=== PATIENT | male | born 1950 | race Caucasian/White ===

== ENCOUNTER → 2019-12-07 13:15 | Outpatient (BNVA) | payer OTHER, SELFPAY | PROVIDERS: PCP Internal Medicine; Referring Provider Internal Medicine; Visit Provider Internal Medicine | DX: Z76.89 Persons encountering health services in other specified circumstances (principal) ==

== ENCOUNTER 2019-12-09 09:07 | Outpatient (REF) | payer OTHER, SELFPAY ==
[2019-12-09 11:35] LABS: Estimated Average Glucose 157 mg/dL; Hemoglobin A1c % 7.1 %
[2019-12-09 11:58] LABS: Alanine Aminotransferase 38 U/L (0-40); Anion Gap 15 (12-20); Aspartate Amino Transferase 34 U/L (5-37); Blood Urea Nitrogen 20 mg/dL (9-16); Calcium 9.8 mg/dL (8.4-10.2); Carbon Dioxide 25 mmol/L (22-29); Chloride 108 mmol/L (96-108); Cholesterol 137 mg/dL; Estimated Glomerular Filt Rate > 60; Glucose Fasting 120 mg/dL (60-99); HDL Cholesterol 32 mg/dL; LDL Cholesterol Calculated 66 mg/dl; Potassium 4.5 mmol/l (3.3-5.1); Sodium 143 mmol/L (135-145); Triglycerides 195 mg/dL
[2019-12-10 12:17] LABS: Calcium, Ionized 5.2 mg/dL (4.8-5.6)
[2019-12-11 20:11] LABS: Calcium (PTHI) 9.9 mg/dL (8.6-10.3); PTHI 19 pg/mL (14-64)
== END 2019-12-09 09:08 | disposition home or self-care (01) ==
LOC: HO.HMGCLDS 09:07
PROVIDERS: PCP Internal Medicine; Visit Provider Internal Medicine
DX: E11.9 Type 2 diabetes mellitus without complications (principal); I10 Essential (primary) hypertension; E78.1 Pure hyperglyceridemia; E83.52 Hypercalcemia
CPT/HCPCS: 80048; 80061; 82330; 83036; 83970; 84450; 84460

== ENCOUNTER → 2020-01-04 14:09 | Outpatient (BNVA) | payer OTHER, SELFPAY | PROVIDERS: PCP Internal Medicine; Referring Provider Internal Medicine; Visit Provider Internal Medicine | DX: Z76.89 Persons encountering health services in other specified circumstances (principal) ==

== ENCOUNTER → 2020-02-05 14:21 | Outpatient (BNVA) | payer OTHER, SELFPAY | PROVIDERS: PCP Internal Medicine; Visit Provider Urology | DX: N40.1 Benign prostatic hyperplasia with lower urinary tract symptoms (principal); R39.15 Urgency of urination; R35.1 Nocturia; N13.8 Other obstructive and reflux uropathy | CPT/HCPCS: 51798 ==

== ENCOUNTER → 2020-03-14 08:18 | Outpatient (BNVA) | payer OTHER, SELFPAY | PROVIDERS: PCP Internal Medicine; Visit Provider Internal Medicine Endocrinology, Diabetes & Metabolism | DX: Z76.89 Persons encountering health services in other specified circumstances (principal) ==

== ENCOUNTER 2020-03-28 09:04 | Outpatient (REF) | payer MEDICARE, SELFPAY ==
--- NOTE | 2020-03-28 09:11 | US_ITS ---
EXAMINATION: US RETROPERITONEAL LIMITED (RENAL ONLY) CLINICAL INFORMATION: Calculus of kidney. COMPARISON: None TECHNIQUE: Routine grayscale imaging of both kidneys was performed FINDINGS: RIGHT KIDNEY: 13.5 x 6.7 x 5.8 cm (SAG x AP x TRV). The kidney is normal in size, contour, and echogenicity. Renal cortical thickness is normal. No calculi or focal parenchymal lesions. No hydronephrosis. LEFT KIDNEY: 14.4 x 7.1 x 5.5 cm (SAG x AP x TRV). The kidney is normal in size, contour, and echogenicity. Renal cortical thickness is normal. No renal calculi or hydronephrosis. There is anechoic cyst in the upper pole measuring 3.8 x 3.9 x 3.7 cm US/US renal BI IMPRESSION: Simple cyst upper pole left kidney. No echogenic stones or hydronephrosis seen.
== END 2020-03-28 09:05 | disposition home or self-care (01) ==
LOC: HO.HMGCX 09:04
PROVIDERS: Visit Provider Urology
DX: N20.0 Calculus of kidney (principal); R35.1 Nocturia
CPT/HCPCS: 76775

== ENCOUNTER 2020-03-31 09:25 | Outpatient (REF) | payer MEDICARE, SELFPAY ==
[2020-03-31 11:29] LABS: Estimated Average Glucose 157 mg/dL; Hemoglobin A1c % 7.1 %
[2020-03-31 11:57] LABS: Alanine Aminotransferase 26 U/L (0-40); Albumin Level 4.7 g/dL (3.5-5.0); Alkaline Phosphatase 43 U/L (39-117); Anion Gap 15 (12-20); Aspartate Amino Transferase 30 U/L (5-37); Bilirubin Total 0.8 mg/dL (0.0-1.0); Blood Urea Nitrogen 24 mg/dL (9-16); Calcium 9.4 mg/dL (8.4-10.2); Carbon Dioxide 24 mmol/L (22-29); Chloride 108 mmol/L (96-108); Estimated Glomerular Filt Rate 57; Glucose Fasting 114 mg/dL (60-99); Potassium 4.2 mmol/l (3.3-5.1); Sodium 143 mmol/L (135-145); Total Protein 7.3 g/dL (6.5-8.0)
== END 2020-03-31 09:26 | disposition home or self-care (01) ==
LOC: HO.HMGCLDS 09:25
PROVIDERS: PCP Internal Medicine; Visit Provider Internal Medicine Endocrinology, Diabetes & Metabolism
DX: E11.65 Type 2 diabetes mellitus with hyperglycemia (principal)
CPT/HCPCS: 36415; 80053; 83036

== ENCOUNTER → 2020-04-06 14:37 | Outpatient (BNVA) | payer MEDICARE, SELFPAY | PROVIDERS: PCP Internal Medicine; Visit Provider Urology | CPT/HCPCS: Q3014 ==

== ENCOUNTER 2020-04-08 10:03 | Outpatient (REF) | payer MEDICARE, SELFPAY ==
--- NOTE | 2020-04-08 13:40 | MHC.AU.P13 ---
Adult Audiological Evaluation Date of Visit: 04/08/20 Reason for Appointment: Audiological evaluation due to concern for change in hearing. Mr. Rivas has a known bilateral sensorineural hearing loss and feels that his left ear is getting worse. He notes that the left ear feels more blocked, both with and without the hearing aid. He denies any changes to his medical history since his last visit. Previous Hearing Test Results: [facility] [place], 01/12/2019- Normal low-frequency hearing sloping to a mild to severe/profound sensorineural hearing loss bilaterally. 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: [employer] Model: Platogo [id number]-M13 Serial Number: [id number] Battery Size: 13 Warranty: 05/08/2017 Loss and Damage Warranty: 05/13/2014 Dispensed By: [facility] Date of Fittin03/21/2012 Otoscopy: Right Ear: Unremarkable Left Ear: Unremarkable Tympanometry: Tympanometry performed due to: History of allergies/congestion Right Ear: Normal Middle Ear System (Type A) Left Ear: Normal Middle Ear System (Type A) Hearing Evaluation: Transducer(s) Used: Insert Earphones, Bone Conduction Method: Conventional Audiometry Stimuli Used: Pure Tones Right Ear: Description of Hearing: Normal hearing from 250-500 Hz, sloping to a mild to severe sensorineural hearing loss from 7244-6600 Hz. Left Ear: Description of Hearing: Normal hearing from 250-1000 Hz, sloping to a mild to profound sensorineural hearing loss from 1597-5738 Hz. Speech Recognition Threshold (SRT): Method Used: Monitored Live Voice Stimuli Used: Spondee Words Right Ear: 30 dBHL Left Ear: 30 dBHL Word Discrimination: Method: Recorded Lists Word Lists Used: NU-6 Right Ear: 100% at 70 dBHL Left Ear: 100% at 70 dBHL Comparison: Compared to the most recent evaluation: Hearing is stable. Recommendations: Audiological re-evaluation in one year. Hearing aid maintenance performed today. Recommend hearing aid maintenance in six months. Diagnosis: Primary Diagnosis: H90.3 Bilateral Sensorineural Hearing Loss Secondary Diagnosis: H93.13 Tinnitus, Bilateral Services Performed: Comprehensive Audiological Evaluation (CPT 77475) Tympanometry (CPT 22023) Signature: Provider: Bisi Mosqueda, CCC-A
== END 2020-04-08 10:04 | disposition home or self-care (01) ==
LOC: HO.SH 10:03
PROVIDERS: Visit Provider Internal Medicine
DX: H90.3 Sensorineural hearing loss, bilateral (principal); H93.13 Tinnitus, bilateral
CPT/HCPCS: 92557; 92567

== ENCOUNTER → 2020-05-03 14:53 | Outpatient (BNVA) | payer MEDICARE, SELFPAY | PROVIDERS: PCP Internal Medicine; Visit Provider Internal Medicine | DX: J30.9 Allergic rhinitis, unspecified (principal); E66.9 Obesity, unspecified; G47.33 Obstructive sleep apnea (adult) (pediatric); Z99.89 Dependence on other enabling machines and devices | CPT/HCPCS: 99212 ==

== ENCOUNTER 2020-07-15 10:53 | Outpatient (REF) | payer MEDICARE, SELFPAY ==
[2020-07-15 14:32] LABS: Alanine Aminotransferase 29 U/L (0-40); Albumin Level 4.8 g/dL (3.5-5.0); Alkaline Phosphatase 34 U/L (39-117); Anion Gap 15 (12-20); Aspartate Amino Transferase 29 U/L (5-37); Bilirubin Total 0.7 mg/dL (0.0-1.0); Blood Urea Nitrogen 25 mg/dL (9-16); Calcium 9.9 mg/dL (8.4-10.2); Carbon Dioxide 25 mmol/L (22-29); Chloride 105 mmol/L (96-108); Cholesterol 149 mg/dL; Estimated Glomerular Filt Rate 52; Glucose Fasting 117 mg/dL (60-99); HDL Cholesterol 30 mg/dL; LDL Cholesterol Calculated 77 mg/dl; Potassium 4.3 mmol/L (3.3-5.1); Sodium 141 mmol/L (135-145); Total Protein 7.4 g/dL (6.5-8.0); Triglycerides 213 mg/dL
[2020-07-15 15:35] LABS: PSA,Total (Free>4and<10) 4.25 ng/mL (0.00-4.00)
[2020-07-15 17:19] LABS: Microalbum/Creatinine Ratio Ur 9.3 ug/mg cr
[2020-07-16 12:57] LABS: LDL Cholesterol Direct 85 mg/dL (<100)
[2020-07-18 11:56] LABS: Free Prostate Spec Ag 1.3 ng/mL; Percent Free Prostate Spec Ag 35 % (calc) (>25); Prostate Specific Ag Total 3.7 ng/mL (< OR = 4.0)
== END 2020-07-15 10:54 | disposition home or self-care (01) ==
LOC: HO.HMGCLDS 10:53
PROVIDERS: Urology; PCP Internal Medicine; Visit Provider Internal Medicine Endocrinology, Diabetes & Metabolism
DX: E11.65 Type 2 diabetes mellitus with hyperglycemia (principal); N40.1 Benign prostatic hyperplasia with lower urinary tract symptoms; N13.8 Other obstructive and reflux uropathy; Z12.5 Encounter for screening for malignant neoplasm of prostate
CPT/HCPCS: 36415; 80053; 80061; 82043; 83721; 84153; 84154

== ENCOUNTER → 2020-07-18 07:57 | Outpatient (BNVA) | payer MEDICARE, SELFPAY | PROVIDERS: PCP Internal Medicine; Visit Provider Internal Medicine Endocrinology, Diabetes & Metabolism | DX: E11.65 Type 2 diabetes mellitus with hyperglycemia (principal); E11.40 Type 2 diabetes mellitus with diabetic neuropathy, unspecified; E04.2 Nontoxic multinodular goiter; E78.5 Hyperlipidemia, unspecified; E55.9 Vitamin D deficiency, unspecified; E66.9 Obesity, unspecified; I10 Essential (primary) hypertension | CPT/HCPCS: 82947; 99212 ==

== ENCOUNTER → 2020-08-23 08:53 | Outpatient (BNVA) | payer MEDICARE, SELFPAY | PROVIDERS: PCP Internal Medicine; Referring Provider Internal Medicine; Visit Provider Internal Medicine Cardiovascular Disease | DX: I25.10 Atherosclerotic heart disease of native coronary artery without angina pectoris (principal); I10 Essential (primary) hypertension; I49.1 Atrial premature depolarization | CPT/HCPCS: 93005; 99212 ==

== ENCOUNTER → 2020-08-29 11:02 | Outpatient (REF) | payer MEDICARE, SELFPAY ==
--- NOTE | 2020-08-29 11:04 | HM_ITS ---
TEST PERFORMED: Cardiac event monitoring. ENROLLMENT PERIOD: 08/29/2020-09/28/2020-30 days. REASON FOR TESTING: Atrial premature depolarization. FINDINGS: In the above monitoring period, the underlying rhythm was sinus. Average rate 86/min. There is nonspecific QRS widening noted in the strips. No symptoms noted during the monitoring period. No supraventricular ventricular arrhythmias noted. CONCLUSION: Study shows underlying sinus rhythm without any noted symptoms or arrhythmias. MD SUMMER Cameron/SOPHIA / [phone]
== END ==
LOC: HO.CARD 11:02
PROVIDERS: Visit Provider Internal Medicine Cardiovascular Disease
DX: I49.1 Atrial premature depolarization (principal)
CPT/HCPCS: 93270

== ENCOUNTER → 2020-09-26 09:28 | Outpatient (REF) | payer MEDICARE, SELFPAY ==
--- NOTE | 2020-09-26 09:31 | CA_ITS ---
Transthoracic Echocardiogram Patient (Last, First, Middle): Eldon Rivas G Gender: Male Date of : 1950 Age: 70 Procedure Date: 09/26/2020 Procedure Type: Transthoracic Echocardiogram Location: OP Height: 190.5 cm Weight: 124.74 kg BSA: 2.51 m2 Heart Rate: bpm BP: 120 / 70 mmHg Gerentological Physiotherapist: Referring MD: Davonte Rodríguez MD Symptoms: I49.1 - Atrial premature depolarization Study Quality: Fair ECG Rhythm: Sinus Conclusions: - The left ventricular systolic function is mildly decreased. The visually estimated ejection fraction is between 45-50%. - No obvious valvular pathology seen on this study. Findings Procedure Information Contrast agent, definity, is being given per protocol without apparent complications. Left Ventricle Normal left ventricular cavity size. There is mildly increased left ventricular wall thickness. The left ventricular systolic function is mildly decreased. The visually estimated ejection fraction is between 45-50%. There is mild global hypokinesis. Diastolic function is normal for age. Right Ventricle Normal right ventricular cavity size and systolic function. Atria Both atria are normal in size. Aortic Valve There is a normal trileaflet aortic valve. There is no aortic valve stenosis. There is no aortic valve regurgitation. Mitral Valve The mitral valve appears normal. There is trace mitral valve regurgitation. There is no mitral valve stenosis. Pulmonic Valve The pulmonic valve was not well visualized. Tricuspid Valve Normal tricuspid valve structure. There is trace tricuspid valve regurgitation. The pulmonary artery systolic pressure is normal. Great Vessels The aortic annulus, sinuses of valsalva, and asc aorta are normal in size. Venous The inferior vena cava is normal in size and collapses greater than 50% with inspiration. Pericardium/Pleural There is no evidence of pericardial effusion. Prior Study Comparison No significant change compared to prior study dated: 03/09/2014. Recommendations, Care & Conclusions No obvious valvular pathology seen on this study. Measurements 2D Linear Measurements RVIDd: 3.39 RVIDd Index: 1.35 IVSd: 1.02 0.6-0.9/0.6-1.0 cm LVIDd: 5.30 3.9-5.3/4.2-5.9 cm LVIDd Index: 2.11 2.4-3.2/2.2-3.1 cm/m2 LVIDs: 3.54 2.0-3.6 cm LVPWd: 1.15 0.7-1.1 cm Ao Root: 3.10 2.1-3.5 cm LA Diam: 4.50 2.7-3.8/3.0-4.0 cm LAIDs Index: 1.79 1.5-2.3 cm/m2 LV Mass: 278.67 67-162/88-224 g LV Mass Index: 111.03 43-95/49-115 g/m2 LVOT Diam: 2.40 3.0+(-)1.3 cm 2D Systolic Function EF 4C: 41.00 >55% EF 2C: 49.60 >55% EF BiP: 44.90 >55% Mitral Valve MV Pk E: 0.44 MV PK A: 0.57 MV Decel Time: 290.00 E/A: 0.80 E'Lateral: 6.74 E'Medial: 7.62 E/E' Med: 5.80 E/E' Lat: 6.50 Aortic Valve AoV Pk Ronan: 1.15 AoV Mn Ronan: 0.79 AoV VTI: 0.21 AoV Pk Grad: 5.00 Aov Mn Grad: 3.00 SHASTA Cont.VTI: 3.44 LVOT LVOT Pk Ronan: 0.88 LVOT Mn Ronan: 0.64 LVOT VTI: 0.16 LVOT Pk Grad: 3.00 LVOT Mn Grad: 2.00 LVOT Diam: 2.40 LVOT Area: 4.52 Diastolic Function MV Pk E: 0.44 MV Pk A: 0.57 E/A: 0.80 E'Medial: 7.62 E/E' Med: 5.80 E' Laterial: 6.74 E/E' Lat: 6.50 Right Ventricle TAPSE (mm): 2.99 Tricuspid Valve TR Pk Ronan: 1.63 TR Pk Grad: 11.00 RA Press: 3.00 RVSP: 14.00 Great Vessels Aorta Ao Root-2D: 3.10 2.0-3.7 cm Ao Asc: 3.20 2.1-3.4 cm Ao Arch: 3.00 Updated in Other Vendor System with Status of Final Finesse Ku MD electronically signed on 09/26/2020 12:12:45 PM with status of Final
== END ==
LOC: HO.CARD 09:28
PROVIDERS: Visit Provider Internal Medicine Cardiovascular Disease
DX: I49.1 Atrial premature depolarization (principal)
CPT/HCPCS: 93306; Q9957

== ENCOUNTER → 2020-09-28 08:56 | Outpatient (BNVA) | payer MEDICARE, SELFPAY | PROVIDERS: PCP Internal Medicine; Visit Provider Internal Medicine Cardiovascular Disease | DX: Z13.89 Encounter for screening for other disorder (principal) | CPT/HCPCS: Q3014 ==

== ENCOUNTER 2020-10-04 10:15 | Outpatient (REF) | payer MEDICARE, SELFPAY ==
[2020-10-04 12:10] LABS: Cholesterol 137 mg/dL; HDL Cholesterol 31 mg/dL; LDL Cholesterol Calculated 78 mg/dl; Triglycerides 144 mg/dL
== END 2020-10-04 10:16 | disposition home or self-care (01) ==
LOC: HO.HMGCLDS 10:15
PROVIDERS: PCP Internal Medicine; Visit Provider Internal Medicine Cardiovascular Disease
DX: I25.10 Atherosclerotic heart disease of native coronary artery without angina pectoris (principal)
CPT/HCPCS: 36415; 80061

== ENCOUNTER → 2020-10-05 13:43 | Outpatient (BNVA) | payer MEDICARE, SELFPAY | PROVIDERS: PCP Internal Medicine; Visit Provider Urology | DX: N40.1 Benign prostatic hyperplasia with lower urinary tract symptoms (principal); R35.1 Nocturia; N13.8 Other obstructive and reflux uropathy | CPT/HCPCS: 99212 ==

== ENCOUNTER 2020-10-28 16:16 | Outpatient (REF) | payer MEDICARE, SELFPAY | END 2020-10-28 16:17 | disposition home or self-care (01) | LOC: HO.LNP 16:16 | PROVIDERS: Visit Provider Hospitalist | DX: R30.0 Dysuria (principal); Z20.822 Contact with and (suspected) exposure to COVID-19 | CPT/HCPCS: 87086; U0003; U0005 ==

== ENCOUNTER → 2020-11-15 09:59 | Outpatient (BNVA) | payer MEDICARE, SELFPAY | PROVIDERS: PCP Internal Medicine; Visit Provider Internal Medicine | DX: J30.9 Allergic rhinitis, unspecified (principal); G47.33 Obstructive sleep apnea (adult) (pediatric); Z99.89 Dependence on other enabling machines and devices; E66.9 Obesity, unspecified | CPT/HCPCS: 99212 ==

== ENCOUNTER 2021-02-02 10:41 | Outpatient (REF) | payer MEDICARE, SELFPAY ==
[2021-02-02 14:14] LABS: Cholesterol 94 mg/dL; HDL Cholesterol 27 mg/dL; LDL Cholesterol Calculated 41 mg/dl; Triglycerides 133 mg/dL
== END 2021-02-02 10:42 | disposition home or self-care (01) ==
LOC: HO.HMGCLDS 10:41
PROVIDERS: Absent Provider Internal Medicine Cardiovascular Disease; Visit Provider Nurse Practitioner Family
DX: E11.65 Type 2 diabetes mellitus with hyperglycemia (principal); E78.5 Hyperlipidemia, unspecified; I25.10 Atherosclerotic heart disease of native coronary artery without angina pectoris
CPT/HCPCS: 36415; 80061

== ENCOUNTER 2021-03-13 11:10 | Outpatient (REF) | payer MEDICARE, SELFPAY ==
[2021-03-13 12:10] LABS: Estimated Average Glucose 128 mg/dL; Hemoglobin A1c % 6.1 %
[2021-03-13 12:15] LABS: Anion Gap 11 (12-20); Blood Urea Nitrogen 20 mg/dL (9-16); Calcium 9.9 mg/dL (8.4-10.2); Carbon Dioxide 26 mmol/L (22-29); Chloride 108 mmol/L (96-108); Estimated Glomerular Filt Rate 56; Glucose Fasting 115 mg/dL (60-99); Potassium 4.3 mmol/L (3.3-5.1); Sodium 141 mmol/L (135-145)
[2021-03-13 12:42] LABS: Free T4 (Free Thyroxine) 0.99 ng/dL (0.71-1.85); Thyroid Stimulating Hormone 1.11 uIU/mL (0.32-4.0)
== END 2021-03-13 11:11 | disposition home or self-care (01) ==
LOC: HO.HMGCLDS 11:10
PROVIDERS: PCP Internal Medicine; Visit Provider Internal Medicine
DX: E11.40 Type 2 diabetes mellitus with diabetic neuropathy, unspecified (principal); E55.9 Vitamin D deficiency, unspecified; I10 Essential (primary) hypertension; I25.10 Atherosclerotic heart disease of native coronary artery without angina pectoris; E03.9 Hypothyroidism, unspecified
CPT/HCPCS: 36415; 80048; 82306; 83036; 84439; 84443

== ENCOUNTER 2021-03-29 13:15 | Outpatient (REF) | payer MEDICARE, SELFPAY ==
[2021-03-29 17:17] LABS: PSA,Total (Free>4and<10) 1.29 ng/mL (0.00-4.00)
== END 2021-03-29 13:16 | disposition home or self-care (01) ==
LOC: HO.HMGCLDS 13:15
PROVIDERS: PCP Internal Medicine; Visit Provider Urology
DX: N40.1 Benign prostatic hyperplasia with lower urinary tract symptoms (principal); N13.8 Other obstructive and reflux uropathy; Z12.5 Encounter for screening for malignant neoplasm of prostate
CPT/HCPCS: 36415; 84153

== ENCOUNTER → 2021-04-07 11:28 | Outpatient (BNVA) | payer MEDICARE, SELFPAY | PROVIDERS: PCP Internal Medicine; Visit Provider Urology | DX: N40.1 Benign prostatic hyperplasia with lower urinary tract symptoms (principal); N13.8 Other obstructive and reflux uropathy | CPT/HCPCS: Q3014 ==

== ENCOUNTER → 2021-05-16 10:04 | Outpatient (BNVA) | payer MEDICARE, SELFPAY | PROVIDERS: PCP Internal Medicine; Visit Provider Internal Medicine | DX: J30.9 Allergic rhinitis, unspecified (principal); G47.33 Obstructive sleep apnea (adult) (pediatric); E66.9 Obesity, unspecified; Z68.34 Body mass index [BMI] 34.0-34.9, adult | CPT/HCPCS: 99212 ==

== ENCOUNTER 2021-07-03 10:02 | Outpatient (REF) | payer MEDICARE, SELFPAY ==
--- NOTE | ~2021-07-03 | XR_ITS ---
EXAMINATION: XR FOOT, RIGHT CLINICAL INFORMATION: Contusion of the foot. COMPARISON: None TECHNIQUE: AP, lateral, and oblique views of the right foot. FINDINGS: The bones and soft tissues are normal. No fracture. Alignment is anatomic. Joint spaces are maintained. XR/XR foot RT 2V IMPRESSION: Unremarkable right foot exam.
[2021-07-03 11:46] LABS: Alanine Aminotransferase 22 U/L (0-40); Anion Gap 14 (12-20); Aspartate Amino Transferase 28 U/L (5-37); Blood Urea Nitrogen 25 mg/dL (9-16); Calcium 10.2 mg/dL (8.4-10.2); Carbon Dioxide 24 mmol/L (22-29); Chloride 106 mmol/L (96-108); Cholesterol 112 mg/dL; Estimated Glomerular Filt Rate 51; Glucose Fasting 115 mg/dL (60-99); HDL Cholesterol 33 mg/dL; LDL Cholesterol Calculated 52 mg/dl; Potassium 4.8 mmol/L (3.3-5.1); Sodium 139 mmol/L (135-145); Triglycerides 138 mg/dL
[2021-07-03 12:04] LABS: Creatinine Urine 79.49 mg/dL; Microalbum/Creatinine Ratio Ur 6.2 ug/mg cr
[2021-07-03 12:07] LABS: TSH reflex Free T4 1.38 uIU/mL (0.32-4.0); Vitamin D 25-OH Total 30.3 ng/mL (>30)
[2021-07-03 12:09] LABS: Estimated Average Glucose 126 mg/dL
== END 2021-07-03 10:03 | disposition home or self-care (01) ==
LOC: HO.HMGCX 10:02
PROVIDERS: Absent Provider Internal Medicine; PCP Internal Medicine; Visit Provider Internal Medicine
DX: S90.31XD Contusion of right foot, subsequent encounter (principal); E04.2 Nontoxic multinodular goiter; E55.9 Vitamin D deficiency, unspecified; E78.5 Hyperlipidemia, unspecified; I10 Essential (primary) hypertension; I25.10 Atherosclerotic heart disease of native coronary artery without angina pectoris; E11.40 Type 2 diabetes mellitus with diabetic neuropathy, unspecified
CPT/HCPCS: 36415; 73620; 80048; 80061; 82043; 82306; 83036; 84443; 84450; 84460

== ENCOUNTER 2021-07-28 13:24 | Outpatient (REF) | payer MEDICARE, SELFPAY ==
[2021-07-28 16:29] LABS: Appearance Urine CLEAR; Color Urine YELLOW; Glucose Urine UA >=1000 MG/DL (NEG); Leukocyte Esterase Urine NEG (NEG); Nitrite Urine NEG (NEG); PH 5.5 (5.0-8.0); Urine Blood 1+ (NEG); Urine Ketones 5 MG/DL (NEG); Urine Protein TRACE MG/DL (NEG-TRACE)
[2021-07-28 16:37] LABS: Squamous Epithelial Cell Urine 1+ /LPF
== END 2021-07-28 13:25 | disposition home or self-care (01) ==
LOC: HO.HMGCLDS 13:24
PROVIDERS: Visit Provider Urology
DX: N13.8 Other obstructive and reflux uropathy (principal); N40.1 Benign prostatic hyperplasia with lower urinary tract symptoms
CPT/HCPCS: 81001; 87086; 87088; 87186

== ENCOUNTER 2021-08-09 09:49 | Emergency (ER) | payer MEDICARE, SELFPAY ==
--- NOTE | ~2021-08-09 | CT_ITS ---
EXAMINATION: CT ABDOMEN AND PELVIS WITHOUT CONTRAST CLINICAL INFORMATION: Right lower quadrant abdominal pain COMPARISON: Renal ultrasound 03/28/2020 TECHNIQUE: Multidetector volumetric imaging was performed from the superior aspect of the liver through the pubic symphysis. Sagittal and coronal reformatted images were obtained on the technologist's workstation. This CT examination was performed using dose optimization techniques as appropriate, variously including the following: *Automated exposure control *Adjustment of mA and/or kV according to patient size (this includes techniques or standardized protocols for targeted exams where dose is matched to indication/reason for exam; i.e. extremities or head) *Use of iterative reconstruction technique DLP: 1003 mGy-cm FINDINGS: Visualized lung bases demonstrate mild dependent atelectasis. The liver is normal in size but demonstrates diffusely decreased attenuation. The gallbladder is normal in appearance. The pancreas, spleen and adrenal glands are unremarkable. Small medial splenule noted. Symmetrically sized kidneys. There is mild right-sided hydronephrosis secondary to a 2 mm calculus within the distal right ureter. There are two 1 to 2 mm nonobstructing calculi the left kidney. No left-sided hydronephrosis. There is a partially exophytic approximately 4 cm cyst off the upper pole of the left kidney. Normal caliber loops of small and large bowel. Moderate colonic diverticulosis without CT evidence to suggest active diverticulitis. Normal appendix. Normal caliber abdominal aorta. Mild atherosclerotic disease of the abdominal aorta. No retroperitoneal lymphadenopathy. The bladder is normal in appearance. The prostate gland is mildly enlarged. No gross free pelvic fluid. No inguinal lymphadenopathy. Mild to moderate degenerative changes of the spine. CT/CT abdomen pelvis wo con IMPRESSION: -There is mild right-sided hydronephrosis secondary to a 2 mm calculus within the distal right ureter. -Colonic diverticulosis. -Diffusely decreased liver attenuation suggesting hepatic steatosis. Fleischner guidelines were followed.
[2021-08-09 10:04] VITALS: BP 140/83; PULSE 87; RESP 18; TEMP 36.9; O2SAT 98; BMI 33.3
--- NOTE | 2021-08-09 10:42 | ED_ITS ---
HPI - Abdominal Pain General Chief Complaint: Abdominal Pain Stated Complaint: Vomiting/Lower R Abd pain Time Seen by Provider: 08/09/21 10:33 Source: patient and family History of Present Illness HPI narrative: Patient with right lower quadrant abdominal pain that started fairly suddenly this morning. He states he had a couple of bowel movements and then nausea and vomiting and sudden-onset right lower quadrant abdominal pain. No radiation of flank. No fevers or chills. He had a recent urinary tract infection treated with Levaquin and finished that on Saturday, 4 days ago. He states the symptoms with UTI were urinary frequency and those symptoms have resolved. He denies hematuria His only other recent medical history is a cellulitis of his right foot also treated with antibiotics approximately 1 month ago. He is not currently on antibiotics however. No surgical history. His appendix is in. No history of pain like this. No recent diarrhea Related Data Home Medications Medication Instructions Recorded Confirmed aspirin 81 mg tablet,delayed 81 mg PO DAILY 11/28/19 07/13/21 release blood sugar diagnostic #10 ea 11/28/19 07/13/21 flu vacc (65yr ml IM 11/28/19 07/13/21 up)-MF59C(PF) 60 mcg(15 mcgx4)/0.5 mL IM syringe lancets 33 gauge #100 ea 11/28/19 07/13/21 alpha lipoic acid 600 mg capsule 600 mg PO BID 12/07/19 07/13/21 cinnamon bark 500 mg capsule 1,000 mg PO DAILY 12/07/19 07/13/21 (Cinnamon) coenzyme Q10 30 mg capsule (Co 30 mg PO DAILY 12/07/19 07/13/21 Q-10) multivitamin (Multiple Vitamins) 1 tab PO DAILY 12/07/19 07/13/21 metformin 500 mg tablet,extended 1,000 mg PO BID 10/05/20 07/13/21 release 24 hr fluticasone propionate 50 2 spray intranasal DAILY PRN 05/16/21 07/13/21 mcg/actuation nasal spray,suspension (Flonase Allergy Relief) cholecalciferol (vitamin D3) 50 50 mcg PO DAILY 07/13/21 07/13/21 mcg (2,000 unit) capsule Previous Rx's Medication Instructions Recorded rosuvastatin 40 mg tablet 40 mg PO DAILY 90 days #90 tabs 10/14/20 canagliflozin 300 mg tablet 300 mg PO DAILY #90 tabs 10/26/20 (Invokana) ezetimibe 10 mg tablet (Zetia) 10 mg PO DAILY #30 tabs 01/05/21 dulaglutide 1.5 mg/0.5 mL 1.5 mg (0.5 mL) subcut QWEEK 90 02/23/21 subcutaneous pen injector days #6.5 mL (Trulicity) fenofibrate nanocrystallized 145 145 mg PO DAILY 90 days #90 tabs 02/23/21 mg tablet finasteride 5 mg tablet 5 mg PO DAILY 90 days #90 tabs 03/15/21 metoprolol succinate 50 mg 50 mg PO DAILY 90 days #90 tabs 03/16/21 tablet,extended release 24 hr omega-3 acid ethyl esters 1 gram 2 cap PO BID #360 caps 03/16/21 capsule terazosin 10 mg capsule 10 mg PO BEDTIME 90 days #90 caps 04/07/21 lisinopril 40 mg tablet 40 mg PO DAILY #90 tabs 05/31/21 pioglitazone 30 mg tablet 30 mg PO DAILY #90 tabs 06/05/21 cephalexin 500 mg capsule 500 mg PO TID #30 caps 07/03/21 levofloxacin 500 mg tablet 500 mg PO DAILY 5 days #5 tabs 08/01/21 oxycodone-acetaminophen 5 mg-325 1 tab PO TID PRN pain #10 tabs 08/09/21 mg tablet (Percocet) Allergies Allergy/AdvReac Type Severity Reaction Status Date / Time bacitracin [BACITRACIN] Allergy Mild DERMATITIS, Verified 07/13/21 10:05 rash, rash Review of Systems Comments: no fevers or chills Comments: no chest pain Comments: no cough or dyspnea Gastrointestinal: Reports as per HPI Comments: no current symptoms Comments: no current musculoskeletal some Comments: no rash PMFSH Past Medical History Medical History (Updated 08/09/21 @ 14:05 by Renan Perez MD) Allergic rhinitis Allergic rhinitis CAD (coronary artery disease) Diabetes type 2, uncontrolled Diabetic neuropathy associated with type 2 diabetes mellitus Dyslipidemia Hearing loss Hypertension Non-toxic multinodular goiter Obesity Obstructive sleep apnea MICHAEL on CPAP Vitamin D deficiency Surgical History Stented coronary artery Family History Family History Father Diabetes Substance use disorder Mother Hypertension Mental health disorder Social History Social History Housing: House Alcohol intake: never Patient Tobacco Use Status: Former Tobacco user e-Cigarette/Vaping Use: Never Used Use of substances other than those prescribed or required for medical reasons: No Advance Directives: Yes Advance Directives Information Provided: No Advance Directives on File: No Current occupational status: retired Cognitive needs: No Hearing needs: Yes Vision needs: Yes Physical Exam ED Vital Signs: Vital Signs - 24 hr 08/09/21 10:04 08/09/21 12:00 Temperature 98.4 F Pulse Rate 87 81 Respiratory Rate 18 16 Blood Pressure 140/83 H 121/70 Pulse Oximetry 98 98 Oxygen Delivery Method Room Air Room Air BMI result Body Mass Index 33.3 Const Other: awake and alert no acute distress Resp Other: clear and equal bilaterally Cardio Other: regular rate and rhythm without murmurs rubs or gallops GI Other: soft. Mild tenderness right lower abdomen without guarding or rebound. No flank tenderness to percussion Skin Other: warm pink and dry without rash Course Course Course Narrative: sudden-onset right lower abdominal pain. Appendicitis is possible but this is not a typical presentation. Given recent symptoms with UTI and antibiotics, urinary tract infection or pyelonephritis or kidney stone are also possibilities. IV normal saline IV Toradol IV Zofran CT scan ordered Await labs 14:02. Patient is more comfortable after treatment. Lab work shows mildly elevated white count. Mildly elevated creatinine. Red cells in his urine without evidence of infection CT scan shows 2 mm kidney stone with [id number] hydronephrosis. Kidney stone is in the right distal ureter. Will discharge patient home to continue his current medications including terazosin. Follow-up with his urologist for which he already has an appointment for his prostate. MDM - Abdominal Pain Lab Data Result diagrams: 08/09/21 10:43 08/09/21 10:43 Labs: Lab Results 08/09/21 08/09/21 08/09/21 Range/Units 10:43 10:43 10:43 WBC 13.4 H (4.8-10.8) X10*3/uL RBC 4.62 (4.60-5.80) X10*6/uL Hgb 13.6 L (14.0-18.0) g/dl Hct 41.3 L (42.0-52.0) % MCV 89.4 (80.0-98.0) fL MCH 29.4 (27.0-33.0) pg MCHC 32.9 (31.0-36.0) g/dl RDW 13.9 (11.0-16.0) % Plt Count 251 (160-400) X10*3/uL MPV 10.2 (9.4-12.4) fL Immature Gran % (Auto) 0.6 H (0.0-0.4) % Neut % (Auto) 78.2 H (45-73) % Lymph % (Auto) 15.1 L (20-40) % [place] % (Auto) 4.6 (2-11) % Eos % (Auto) 1.0 (0-4) % Baso % (Auto) 0.5 (0-2) % Lymph # (Auto) 2.0 (1.2-4.9) X10*3/uL [place] # (Auto) 0.6 (0.1-1.2) X10*3/uL Eos # (Auto) 0.1 (0.0-0.4) X10*3/uL Baso # (Auto) 0.1 (0.0-0.2) X10*3/uL Abs Immat Gran (auto) 0.08 H (0.00-0.03) X10*3/uL Absolute Neuts (auto) 10.4 H (2.0-8.3) x10*3/uL Absolute Nucleated RBC 0.000 (0.0-0.012) X10*3/uL Nucleated RBC % (auto) 0.0 (0.0-0.2) /100WBC Sodium 139 (135-145) mmol/L Potassium 4.6 (3.3-5.1) mmol/L Chloride 106 (96-108) mmol/L Carbon Dioxide 22 (22-29) mmol/L Anion Gap 16 (12-20) BUN 23 H (9-16) mg/dL Creatinine 1.42 H (0.5-1.4) mg/dL Estim Creat Clear Calc 66.0 Estimated GFR 49 Random Glucose 154 H (60-115) mg/dL Calcium 10.2 (8.4-10.2) mg/dL Total Bilirubin 0.7 (0.0-1.0) mg/dL AST 26 (5-37) U/L ALT 22 (0-40) U/L Alkaline Phosphatase 36 L (39-117) U/L Total Protein 7.0 (6.5-8.0) g/dL Albumin 4.3 (3.5-5.0) g/dL Lipase 47 (8-78) U/L Urine Color Urine Appearance Urine pH (5.0-8.0) Ur Specific [place] (1.005-1.025) Urine Protein (NEG-TRACE) MG/DL Urine Glucose (UA) (NEG) MG/DL Urine Ketones (NEG) MG/DL Urine Blood (NEG) Urine Nitrite (NEG) Ur Leukocyte Esterase (NEG) Urine RBC (0) /HPF Urine WBC (0-4) /HPF Ur Squamous Epith Cells /LPF Urine Bacteria /LPF COVID-19 (SAMIA) Negative (Negative) COVID-19 Clin Com See Note 08/09/21 Range/Units 12:34 WBC (4.8-10.8) X10*3/uL RBC (4.60-5.80) X10*6/uL Hgb (14.0-18.0) g/dl Hct (42.0-52.0) % MCV (80.0-98.0) fL MCH (27.0-33.0) pg MCHC (31.0-36.0) g/dl RDW (11.0-16.0) % Plt Count (160-400) X10*3/uL MPV (9.4-12.4) fL Immature Gran % (Auto) (0.0-0.4) % Neut % (Auto) (45-73) % Lymph % (Auto) (20-40) % [place] % (Auto) (2-11) % Eos % (Auto) (0-4) % Baso % (Auto) (0-2) % Lymph # (Auto) (1.2-4.9) X10*3/uL [place] # (Auto) (0.1-1.2) X10*3/uL Eos # (Auto) (0.0-0.4) X10*3/uL Baso # (Auto) (0.0-0.2) X10*3/uL Abs Immat Gran (auto) (0.00-0.03) X10*3/uL Absolute Neuts (auto) (2.0-8.3) x10*3/uL Absolute Nucleated RBC (0.0-0.012) X10*3/uL Nucleated RBC % (auto) (0.0-0.2) /100WBC Sodium (135-145) mmol/L Potassium (3.3-5.1) mmol/L Chloride (96-108) mmol/L Carbon Dioxide (22-29) mmol/L Anion Gap (12-20) BUN (9-16) mg/dL Creatinine (0.5-1.4) mg/dL Estim Creat Clear Calc Estimated GFR Random Glucose (60-115) mg/dL Calcium (8.4-10.2) mg/dL Total Bilirubin (0.0-1.0) mg/dL AST (5-37) U/L ALT (0-40) U/L Alkaline Phosphatase (39-117) U/L Total Protein (6.5-8.0) g/dL Albumin (3.5-5.0) g/dL Lipase (8-78) U/L Urine Color YELLOW Urine Appearance CLEAR Urine pH 6.5 (5.0-8.0) Ur Specific [place] 1.015 (1.005-1.025) Urine Protein NEG (NEG-TRACE) MG/DL Urine Glucose (UA) >=1000 H (NEG) MG/DL Urine Ketones NEG (NEG) MG/DL Urine Blood 3+ H (NEG) Urine Nitrite NEG (NEG) Ur Leukocyte Esterase NEG (NEG) Urine RBC 50-75 H (0) /HPF Urine WBC 1-4 (0-4) /HPF Ur Squamous Epith Cells 1+ /LPF Urine Bacteria NONE /LPF COVID-19 ([facility]IA) (Negative) COVID-19 Clin Com Discharge Plan Discharge Clinical Impression: Calculus of kidney Patient Disposition: Home, Self-Care Instructions: Kidney Stones (ED) Prescriptions: New oxycodone-acetaminophen [Percocet] 5-325 mg tablet 1 tab PO TID PRN (Reason: pain) Qty: 10 0RF Rx Instructions: Partial Fill upon patient request. No Action rosuvastatin 40 mg tablet 40 mg PO DAILY 90 Days Qty: 90 2RF Invokana 300 mg tablet 300 mg PO DAILY Qty: 90 6RF ezetimibe [Zetia] 10 mg tablet 10 mg PO DAILY Qty: 30 5RF Trulicity 1.5 mg/0.5 mL pen injector 1.5 mg subcut QWEEK 90 Days Qty: 6.5 2RF fenofibrate nanocrystallized 145 mg tablet 145 mg PO DAILY 90 Days Qty: 90 2RF finasteride 5 mg tablet 5 mg PO DAILY 90 Days Qty: 90 3RF metoprolol succinate 50 mg tablet extended release 24 hr 50 mg PO DAILY 90 Days Qty: 90 3RF omega-3 acid ethyl esters 1 gram capsule 2 cap PO BID Qty: 360 1RF lisinopril 40 mg tablet 40 mg PO DAILY Qty: 90 1RF pioglitazone 30 mg tablet 30 mg PO DAILY Qty: 90 0RF levofloxacin 500 mg tablet 500 mg PO DAILY 5 Days Qty: 5 0RF cholecalciferol (vitamin D3) 50 mcg (2,000 unit) capsule 50 mcg PO DAILY cephalexin 500 mg capsule 500 mg PO TID Qty: 30 0RF terazosin 10 mg capsule 10 mg PO BEDTIME 90 Days Qty: 90 1RF alpha lipoic acid 600 mg capsule 600 mg PO BID multivitamin [Multiple Vitamins] Tablet 1 tab PO DAILY coenzyme Q10 [Co Q-10] 30 mg capsule 30 mg PO DAILY cinnamon bark [Cinnamon] 500 mg capsule 1,000 mg PO DAILY (DME) lancets 33 gauge misc See Rx Instructions .ROUTE .MEDSUPPLY Qty: 100 Rx Instructions: As directed Fluad Quad 2020-21(65y up)(PF) 60 mcg (15 mcg x 4)/0.5 mL syringe IM (DME) OneTouch Verio test strips Strip See Rx Instructions Not Applicable QID Qty: 10 Rx Instructions: As directed aspirin 81 mg tablet,delayed release (DR/EC) 81 mg PO DAILY metformin 500 mg tablet extended release 24 hr 1,000 mg PO BID fluticasone propionate [Flonase Allergy Relief] 50 mcg/actuation spray,suspen maria elena 2 spray intranasal DAILY PRN Rx Instructions: administer into each nostril
[2021-08-09] MEDS: 0.9 % Sodium Chloride 1,000 ML 999 ML IV (10:44)
[2021-08-09 10:48] LABS: MANUAL DIFF FLAG NO
[2021-08-09 10:51] LABS: Basophils Absolute Auto 0.1 X10*3/uL (0.0-0.2); Basophils Percent Auto 0.5 % (0-2); Eosinophils Absolute Auto 0.1 X10*3/uL (0.0-0.4); Hematocrit 41.3 % (42.0-52.0); Hemoglobin 13.6 g/dl (14.0-18.0); Imm Gran Abs Auto 0.08 X10*3/uL (0.00-0.03); Imm Gran Pct Auto 0.6 % (0.0-0.4); Lymphocytes Percent Auto 15.1 % (20-40); Mean Corpuscular HGB Conc 32.9 g/dl (31.0-36.0); Mean Corpuscular Hemoglobin 29.4 pg (27.0-33.0); Mean Corpuscular Volume 89.4 fL (80.0-98.0); Mean Platelet Volume 10.2 fL (9.4-12.4); Monocytes Absolute Auto 0.6 X10*3/uL (0.1-1.2); Monocytes Percent Auto 4.6 % (2-11); Neutrophils Absolute Auto 10.4 x10*3/uL (2.0-8.3); Neutrophils Percent Auto 78.2 % (45-73); Platelet Count 251 X10*3/uL (160-400); Red Blood Count 4.62 X10*6/uL (4.60-5.80); Red Cell Distribution Width 13.9 % (11.0-16.0); White Blood Count 13.4 X10*3/uL (4.8-10.8)
[2021-08-09] MEDS: Ketorolac Tromethamine 15 MG/ML VIAL 30 MG IVPUSH (11:02)
[2021-08-09 11:03] LABS: COVID-19 Test Negative (Negative); IDNOW Serial# 16C4AD1C
[2021-08-09] MEDS: ondansetron HCL 4 MG/2 ML VIAL IVPUSH (11:03)
[2021-08-09 11:18] LABS: Alanine Aminotransferase 22 U/L (0-40); Albumin Level 4.3 g/dL (3.5-5.0); Alkaline Phosphatase 36 U/L (39-117); Anion Gap 16 (12-20); Aspartate Amino Transferase 26 U/L (5-37); Bilirubin Total 0.7 mg/dL (0.0-1.0); Blood Urea Nitrogen 23 mg/dL (9-16); Calcium 10.2 mg/dL (8.4-10.2); Carbon Dioxide 22 mmol/L (22-29); Chloride 106 mmol/L (96-108); Estimated Glomerular Filt Rate 49; Glucose Random 154 mg/dL (60-115); Lipase 47 U/L (8-78); Potassium 4.6 mmol/L (3.3-5.1); Sodium 139 mmol/L (135-145)
[2021-08-09 12:00] VITALS: BP 121/70; PULSE 81; RESP 16; O2SAT 98
--- NOTE | 2021-08-09 12:21 | PC.NURSE ---
Patient reports Toradol relieved his pain completely. Appears more comfortable and fell asleep for some time. Remains A+O. Respirations regular and even. Skin pwd. Awaiting CT results.
[2021-08-09 12:44] LABS: Appearance Urine CLEAR; Color Urine YELLOW; Glucose Urine UA >=1000 MG/DL (NEG); Leukocyte Esterase Urine NEG (NEG); Nitrite Urine NEG (NEG); PH 6.5 (5.0-8.0); Specific Gravity - Urine 1.015 (1.005-1.025); UACC Culture Trigger NO; Urine Blood 3+ (NEG); Urine Ketones NEG (NEG); Urine Protein NEG (NEG-TRACE)
[2021-08-09 12:54] LABS: RBC Urine 50-75 /HPF (0); Squamous Epithelial Cell Urine 1+ /LPF
[2021-08-09 14:00] VITALS: BP 143/74; PULSE 77; RESP 16; O2SAT 97
== END 2021-08-09 14:12 | disposition home or self-care (01) ==
PROVIDERS: Emergency Provider Emergency Medicine; PCP Internal Medicine
DX: N13.2 Hydronephrosis with renal and ureteral calculous obstruction (principal); Z20.822 Contact with and (suspected) exposure to COVID-19; R10.31 Right lower quadrant pain; E11.9 Type 2 diabetes mellitus without complications; E78.5 Hyperlipidemia, unspecified; Z79.02 Long term (current) use of antithrombotics/antiplatelets; Z79.82 Long term (current) use of aspirin
CPT/HCPCS: 36415; 74176; 80053; 81001; 83690; 85025; 87635; 96361; 96374; 96375; 99284; J1885; J2405

== ENCOUNTER 2021-08-15 10:27 | Outpatient (REF) | payer MEDICARE, SELFPAY ==
--- NOTE | 2021-08-15 18:34 | MHC.AU.AHA ---
Adult Audiological Evaluation Date of Visit: 08/15/21 Reason for Appointment: Audiological re-evaluation due to concern for decreased hearing. Mr. Rivas has a known bilateral, sensorineural hearing loss and uses hearing aids binaurally. He feels that his hearing has been gradually decreased. He notes some health concerns over the past two months, with an infection on his foot treated with antibiotics, a UTI treated with antibiotics, and last week it was found that he has kidney stones. [place] [facility] [place] Mild to severe/profound high-frequency sensorineural hearing loss bilaterally. Ear History: Bothersome Tinnitus/Ringing/Noises in Ears: Both Ears Medical History: Medical History: Diabetes, Heart Problems, High Blood Pressure Medical History: Stented coronary artery, High cholesterol, allergies, over the past two months treated with antibiotics for a foot infection and a UTI, kidney stones found last week after complaints of right side pain Allergies: bacitracin Medication List: alpha lipoic acid, aspirin, canagliflozin (Invokana), cephalexin, cholecalciferol (vitamin D3), cinnamon bark (Cinnamon), coenzyme Q10 (Co Q-10), dulaglutide (Trulicity), ezetimibe (Zetia), fenofibrate nanocrystallized, finasteride, fluticasone propionate, lisinopril, metformin, metoprolol succinate, multivitamin, omega-3 acid ethyl esters, pioglitazone, rosuvastatin, terazosin Hearing Instrument History- Right Ear: Deck Specialist: [email or web address] Model: [employer]day.[employer] Q90-M13 Serial Number: [id number] Battery Size: 13 Repair Warranty: 05/08/2017 Loss and Damage Warranty: 05/13/2014 Dispensed By: [facility] Date of Fittin03/21/2012 Hearing Instrument History- Left Ear: Deck Specialist: [email or web address] Model: [employer] Q90-M13 Serial Number: [id number] Battery Size: 13 Warranty: 05/08/2017 Loss and Damage Warranty: 05/13/2014 Dispensed By: [facility] Date of Fittin03/21/2012 Otoscopy: Right Ear: Unremarkable Left Ear: Unremarkable Tympanometry: Tympanometry performed due to: To assess integrity of the middle ear system Right Ear: Normal Middle Ear System (Type A) Left Ear: Normal Middle Ear System (Type A) Hearing Evaluation: Transducer(s) Used: Insert Earphones, Bone Conduction Method: Conventional Audiometry Stimuli Used: Pure Tones Right Ear: Description of Hearing: Normal hearing from 250-1000 Hz, sloping to a mild to severe sensorineural hearing loss from 3657-1682 Hz. Left Ear: Description of Hearing: Normal hearing from 250-1000 Hz, sloping to a mild to profound sensorineural hearing loss from 0168-1830 Hz. Speech Recognition Threshold (SRT): Method Used: Monitored Live Voice Stimuli Used: Spondee Words Right Ear: 30 dBHL Left Ear: 30 dBHL Word Discrimination: Method: Recorded Lists Word Lists Used: NU-6 Right Ear: 96% at 70 dBHL Left Ear: 92% at 70 dBHL Comparison: Compared to the most recent evaluation: Hearing is stable. Recommendations: Audiological re-evaluation in one year. Hearing protection should be used when around loud noise. Hearing aid maintenance performed today. Continue consistent use of amplification. Diagnosis: Primary Diagnosis: H90.3 Bilateral Sensorineural Hearing Loss Secondary Diagnosis: H93.13 Tinnitus, Bilateral Services Performed: Comprehensive Audiological Evaluation (CPT 67417) Tympanometry (CPT 72835) Signature: Provider: Bisi Mosqueda, [facility]
--- NOTE | 2021-08-15 18:35 | MHC.AU.AHA ---
Adult Audiological Evaluation Date of Visit: 08/15/21 Reason for Appointment: Audiological re-evaluation due to concern for decreased hearing. Mr. Rivas has a known bilateral, sensorineural hearing loss and uses hearing aids binaurally. He feels that his hearing has been gradually decreased. He notes some health concerns over the past two months, with an infection on his foot treated with antibiotics, a UTI treated with antibiotics, and last week it was found that he has kidney stones. Previous Hearing Test Results: [facility] [place]- Mild to severe/profound high-frequency sensorineural hearing loss bilaterally. Ear History: Bothersome Tinnitus/Ringing/Noises in Ears: Both Ears Medical History: Medical History: Diabetes, Heart Problems, High Blood Pressure, Stented coronary artery, High cholesterol, allergies, over the past two months treated with antibiotics for a foot infection and a UTI, kidney stones found last week after complaints of right side pain Allergies: bacitracin Medication List: alpha lipoic acid, aspirin, canagliflozin (Invokana), cephalexin, cholecalciferol (vitamin D3), cinnamon bark (Cinnamon), coenzyme Q10 (Co Q-10), dulaglutide (Trulicity), ezetimibe (Zetia), fenofibrate nanocrystallized, finasteride, fluticasone propionate, lisinopril, metformin, metoprolol succinate, multivitamin, omega-3 acid ethyl esters, pioglitazone, rosuvastatin, terazosin Hearing Instrument History- Right Ear: Chief Mechanical Officer: Pound Rockout Workout Model: [employer] Q90-M13 Serial Number: [id number] Battery Size: 13 Repair Warranty: 05/08/2017 Loss and Damage Warranty: 05/13/2014 Dispensed By: [facility] Date of Fittin03/21/2012 Hearing Instrument History- Left Ear: Chief Mechanical Officer: [employer] Workout Model: [employer] Q90-M13 Serial Number: [id number] Battery Size: 13 Warranty: 05/08/2017 Loss and Damage Warranty: 05/13/2014 Dispensed By: [facility] Date of Fittin03/21/2012 Otoscopy: Right Ear: Unremarkable Left Ear: Unremarkable Tympanometry: Tympanometry performed due to: To assess integrity of the middle ear system Right Ear: Normal Middle Ear System (Type A) Left Ear: Normal Middle Ear System (Type A) Hearing Evaluation: Transducer(s) Used: Insert Earphones, Bone Conduction Method: Conventional Audiometry Stimuli Used: Pure Tones Right Ear: Description of Hearing: Normal hearing from 250-1000 Hz, sloping to a mild to severe sensorineural hearing loss from 2165-5481 Hz. Left Ear: Description of Hearing: Normal hearing from 250-1000 Hz, sloping to a mild to profound sensorineural hearing loss from 3560-2185 Hz. Speech Recognition Threshold (SRT): Method Used: Monitored Live Voice Stimuli Used: Spondee Words Right Ear: 30 dBHL Left Ear: 30 dBHL Word Discrimination: Method: Recorded Lists Word Lists Used: NU-6 Right Ear: 96% at 70 dBHL Left Ear: 92% at 70 dBHL Comparison: Compared to the most recent evaluation: Hearing is stable. Recommendations: Audiological re-evaluation in one year. Hearing protection should be used when around loud noise. Hearing aid maintenance performed today. Continue consistent use of amplification. Diagnosis: Primary Diagnosis: H90.3 Bilateral Sensorineural Hearing Loss, Secondary Diagnosis: H93.13 Tinnitus, Bilateral Services Performed: Comprehensive Audiological Evaluation (CPT 76396), Tympanometry (CPT 38992) Signature: Provider: Bisi Mosqueda, [facility]
== END 2021-08-15 10:28 | disposition home or self-care (01) ==
LOC: HO.SH 10:27
PROVIDERS: Visit Provider Internal Medicine
DX: Z01.118 Encounter for examination of ears and hearing with other abnormal findings (principal); H90.3 Sensorineural hearing loss, bilateral; H93.13 Tinnitus, bilateral
CPT/HCPCS: 92557; 92567

== ENCOUNTER → 2021-09-05 10:06 | Outpatient (BNVA) | payer MEDICARE, SELFPAY | PROVIDERS: PCP Internal Medicine; Referring Provider Internal Medicine; Visit Provider Internal Medicine Cardiovascular Disease | DX: I51.9 Heart disease, unspecified (principal); I25.10 Atherosclerotic heart disease of native coronary artery without angina pectoris; Z79.82 Long term (current) use of aspirin; Z79.899 Other long term (current) drug therapy | CPT/HCPCS: 93005; 99212 ==

== ENCOUNTER 2021-09-16 10:49 | Outpatient (REF) | payer MEDICARE, SELFPAY ==
[2021-09-16 11:48] LABS: Prostate Specific Antigen 1.86 ng/mL (<0.05-4.0)
== END 2021-09-16 10:50 | disposition home or self-care (01) ==
LOC: HO.LAB 10:49
PROVIDERS: PCP Internal Medicine; Visit Provider Urology
DX: Z12.5 Encounter for screening for malignant neoplasm of prostate (principal); N40.1 Benign prostatic hyperplasia with lower urinary tract symptoms; N13.8 Other obstructive and reflux uropathy
CPT/HCPCS: 36415; 84153

== ENCOUNTER → 2021-10-03 08:16 | Outpatient (BNVA) | payer MEDICARE, SELFPAY | PROVIDERS: PCP Internal Medicine; Visit Provider Urology | DX: N40.1 Benign prostatic hyperplasia with lower urinary tract symptoms (principal); N13.8 Other obstructive and reflux uropathy; N28.1 Cyst of kidney, acquired | CPT/HCPCS: Q3014 ==

== ENCOUNTER → 2022-01-05 10:46 | Outpatient (BNVA) | payer MEDICARE, SELFPAY | PROVIDERS: PCP Internal Medicine; Visit Provider Surgery | DX: L72.3 Sebaceous cyst (principal); E11.65 Type 2 diabetes mellitus with hyperglycemia; E11.40 Type 2 diabetes mellitus with diabetic neuropathy, unspecified; I10 Essential (primary) hypertension; E66.9 Obesity, unspecified; G47.33 Obstructive sleep apnea (adult) (pediatric); Z68.29 Body mass index [BMI] 29.0-29.9, adult; Z99.89 Dependence on other enabling machines and devices | CPT/HCPCS: 99202 ==

== ENCOUNTER → 2022-01-09 08:36 | Outpatient (BNVA) | payer MEDICARE, SELFPAY | PROVIDERS: PCP Internal Medicine; Visit Provider Surgery | DX: L72.3 Sebaceous cyst (principal); L30.9 Dermatitis, unspecified; E11.40 Type 2 diabetes mellitus with diabetic neuropathy, unspecified; E66.9 Obesity, unspecified; I25.10 Atherosclerotic heart disease of native coronary artery without angina pectoris; G47.33 Obstructive sleep apnea (adult) (pediatric); Z99.89 Dependence on other enabling machines and devices; Z68.35 Body mass index [BMI] 35.0-35.9, adult | CPT/HCPCS: 11402; 11403; 12031; 99212 ==

== ENCOUNTER 2022-03-09 09:27 | Outpatient (REF) | payer MEDICARE, SELFPAY ==
[2022-03-09 12:03] LABS: Estimated Average Glucose 123 mg/dL; Hemoglobin A1C 150.5753 umol/L; Hemoglobin A1c % 5.9 %
[2022-03-09 12:06] LABS: Alanine Aminotransferase 22 U/L (0-40); Anion Gap 13 (12-20); Aspartate Amino Transferase 29 U/L (5-37); Blood Urea Nitrogen 23 mg/dL (9-16); Calcium 9.8 mg/dL (8.4-10.2); Carbon Dioxide 26 mmol/L (22-29); Chloride 109 mmol/L (96-108); Cholesterol 94 mg/dL; Estimated Glomerular Filt Rate 59; Glucose Fasting 125 mg/dL (60-99); HDL Cholesterol 33 mg/dL; LDL Cholesterol Calculated 40 mg/dl; Potassium 4.4 mmol/L (3.3-5.1); Sodium 144 mmol/L (135-145); Triglycerides 106 mg/dL
[2022-03-09 12:12] LABS: Vitamin D 25-OH Total 19.9 ng/mL (>30)
[2022-03-09 12:17] LABS: Creatinine Urine 75.22 mg/dL; Microalbum/Creatinine Ratio Ur 11.9 ug/mg cr
== END 2022-03-09 09:28 | disposition home or self-care (01) ==
LOC: HO.HMGCLDS 09:27
PROVIDERS: PCP Internal Medicine; Visit Provider Internal Medicine
DX: E55.9 Vitamin D deficiency, unspecified (principal); E66.9 Obesity, unspecified; E78.5 Hyperlipidemia, unspecified; I10 Essential (primary) hypertension; I25.10 Atherosclerotic heart disease of native coronary artery without angina pectoris; E11.40 Type 2 diabetes mellitus with diabetic neuropathy, unspecified
CPT/HCPCS: 36415; 80048; 80061; 82043; 82306; 83036; 84450; 84460

== ENCOUNTER → 2022-05-02 08:56 | Outpatient (BNVA) | payer MEDICARE, SELFPAY | PROVIDERS: PCP Internal Medicine; Visit Provider Physician Assistant | DX: R19.5 Other fecal abnormalities (principal); I25.10 Atherosclerotic heart disease of native coronary artery without angina pectoris; G47.33 Obstructive sleep apnea (adult) (pediatric) | CPT/HCPCS: 99202 ==

== ENCOUNTER 2022-06-18 10:53 | Outpatient (REF) | payer MEDICARE, SELFPAY ==
[2022-06-18 14:36] LABS: Estimated Average Glucose 131 mg/dL; Hemoglobin A1c % 6.2 %
[2022-06-18 14:40] LABS: Alanine Aminotransferase 22 U/L (0-40); Anion Gap 12 (12-20); Aspartate Amino Transferase 27 U/L (5-37); Blood Urea Nitrogen 20 mg/dL (9-16); Calcium 9.5 mg/dL (8.4-10.2); Carbon Dioxide 26 mmol/L (22-29); Chloride 107 mmol/L (96-108); Cholesterol 102 mg/dL; Estimated Glomerular Filt Rate 52; Glucose Fasting 113 mg/dL (60-99); HDL Cholesterol 32 mg/dL; LDL Cholesterol Calculated 49 mg/dl; Potassium 4.4 mmol/L (3.3-5.1); Sodium 141 mmol/L (135-145); Triglycerides 109 mg/dL
[2022-06-18 15:00] LABS: Vitamin D 25-OH Total 34.2 ng/mL (>30)
== END 2022-06-18 10:54 | disposition home or self-care (01) ==
LOC: HO.HMGCLDS 10:53
PROVIDERS: PCP Internal Medicine; Visit Provider Internal Medicine
DX: E55.9 Vitamin D deficiency, unspecified (principal); E11.40 Type 2 diabetes mellitus with diabetic neuropathy, unspecified; E66.9 Obesity, unspecified; I10 Essential (primary) hypertension; E78.5 Hyperlipidemia, unspecified
CPT/HCPCS: 36415; 80048; 80061; 82306; 83036; 84450; 84460

== ENCOUNTER → 2022-07-16 09:54 | Outpatient (REF) | payer MEDICARE, SELFPAY ==
--- NOTE | 2022-07-16 09:57 | CA_ITS ---
Transthoracic Echocardiogram Patient (Last, First, Middle): Eldon Rivas G Gender: Male Date of : 1950 Age: 72 Procedure Date: 07/16/2022 Procedure Type: Transthoracic Echocardiogram Location: OP Height: 190.5 cm Weight: 124.74 kg BSA: 2.51 m2 Heart Rate: bpm BP: 118 / 65 mmHg Jacquard Twine Polisher Operator: TIKA Referring MD: Davonte Rodríguez MD Symptoms: I51.9 - Heart disease, unspecified Study Quality: Adequate with contrast Conclusions: - The left ventricular systolic function is mildly decreased. The calculated ejection fraction is 51% by biplane method. - No obvious valvular pathology seen on this study. Findings Procedure Information Contrast agent, definity, is being given per protocol without apparent complications. Left Ventricle Normal left ventricular cavity size. There is mildly increased left ventricular wall thickness. The left ventricular systolic function is mildly decreased. The calculated ejection fraction is 51% by biplane method. There is no evidence of regional wall motion abnormalities. Diastolic function is normal for age. Right Ventricle Normal right ventricular cavity size and systolic function. Atria Both atria are normal in size. Aortic Valve There is a normal trileaflet aortic valve. There is no aortic valve stenosis. There is no aortic valve regurgitation. Mitral Valve The mitral valve appears normal. There is trace mitral valve regurgitation. There is no mitral valve stenosis. Pulmonic Valve The pulmonic valve is likely normal. Tricuspid Valve There is trace tricuspid valve regurgitation. There is no evidence of pulmonary hypertension. Great Vessels The asc aorta is normal in size. Venous The inferior vena cava is mildly dilated and collapses greater than 50% with inspiration. Pericardium/Pleural There is no evidence of pericardial effusion. Prior Study Comparison No significant change compared to prior study dated: 09/26/2020. Recommendations, Care & Conclusions No obvious valvular pathology seen on this study. Measurements 2D Linear Measurements IVSd: 1.27 0.6-0.9/0.6-1.0 cm LVIDd: 5.00 3.9-5.3/4.2-5.9 cm LVIDd Index: 1.99 2.4-3.2/2.2-3.1 cm/m2 LVIDs: 3.50 2.0-3.6 cm LVPWd: 1.15 0.7-1.1 cm LA Diam: 4.20 2.7-3.8/3.0-4.0 cm LAIDs Index: 1.67 1.5-2.3 cm/m2 LV Mass: 294.86 67-162/88-224 g LV Mass Index: 117.47 43-95/49-115 g/m2 LVOT Diam: 2.40 3.0+(-)1.3 cm 2D Systolic Function EF 4C: 53.60 >55% EF 2C: 49.00 >55% EF BiP: 51.40 >55% Mitral Valve MV Pk E: 0.69 MV PK A: 0.75 MV Decel Time: 305.00 E/A: 0.90 E'Lateral: 7.72 E'Medial: 6.42 E/E' Med: 10.70 E/E' Lat: 8.90 PHT: 89.00 MVA PHT: 2.47 Decel Kimball: 2.26 Aortic Valve AoV Pk Ronan: 1.28 AoV Mn Ronan: 0.90 AoV VTI: 0.31 AoV Pk Grad: 7.00 Aov Mn Grad: 4.00 SHASTA Cont.VTI: 3.35 LVOT LVOT Pk Ronan: 0.97 LVOT Mn Ronan: 0.61 LVOT VTI: 0.23 LVOT Pk Grad: 4.00 LVOT Mn Grad: 2.00 LVOT Diam: 2.40 LVOT Area: 4.52 Diastolic Function MV Pk E: 0.69 MV Pk A: 0.75 E/A: 0.90 E'Medial: 6.42 E/E' Med: 10.70 E' Laterial: 7.72 E/E' Lat: 8.90 Right Ventricle TAPSE (mm): 27.70 TVS' Ronan: 12.50 Tricuspid Valve TR Pk Ronan: 2.09 TR Pk Grad: 17.00 RA Press: 8.00 RVSP: 25.00 Great Vessels Aorta Sinus of Valsalva: 3.70 2.0-3.[address] Ridge: 2.75 1.7-3.4 cm Ao Asc: 3.30 2.1-3.4 cm Updated in Other Vendor System with Status of Final Finesse Ku MD electronically signed on 07/17/2022 2:29:41 PM with status of Final
== END ==
LOC: HO.CARD 09:54
PROVIDERS: PCP Internal Medicine; Visit Provider Internal Medicine Cardiovascular Disease
DX: I51.9 Heart disease, unspecified (principal)
CPT/HCPCS: 93306; Q9957

== ENCOUNTER 2022-09-13 10:21 | Outpatient (REF) | payer MEDICARE, SELFPAY ==
[2022-09-13 14:08] LABS: Prostate Specific Antigen 0.95 ng/mL (<0.05-4.0)
== END 2022-09-13 10:22 | disposition home or self-care (01) ==
LOC: HO.HMGCLDS 10:21
PROVIDERS: PCP Internal Medicine; Visit Provider Urology
DX: N40.1 Benign prostatic hyperplasia with lower urinary tract symptoms (principal); N13.8 Other obstructive and reflux uropathy; Z12.5 Encounter for screening for malignant neoplasm of prostate
CPT/HCPCS: 36415; 84153

== ENCOUNTER 2022-09-20 14:41 | Outpatient (AMB) | payer OTHER, SELFPAY ==
[2022-09-20 14:52] VITALS: BP 110/70; PULSE 92; BMI 35.5
--- NOTE | 2022-09-20 14:52 | A.OFFVIS_ITS ---
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 Required: No Allergies bacitracin [BACITRACIN] Allergy (Mild, Verified 09/20/22 15:02) DERMATITIS, rash, rash Medication List - Last Reconciled 09/20/22 by Davonte Rodríguez MD alpha lipoic acid 600 mg PO BID aspirin 81 mg PO DAILY blood sugar diagnostic (FreeStyle Lite Strips) Check Fasting blood sugar once a day as directed blood sugar diagnostic As directed blood-glucose meter (FreeStyle Lite Meter kit) check fasting glucoe once a day As directed cinnamon bark (Cinnamon) 1,000 mg PO DAILY coenzyme Q10 (Co Q-10) 200 mg PO DAILY ezetimibe (Zetia) 10 mg PO DAILY fenofibrate nanocrystallized 145 mg PO DAILY 90 days finasteride 5 mg PO DAILY 90 days fluticasone propionate 50 mcg/actuation (Flonase Allergy Relief) 2 sprays intranasal DAILY PRN lancets As directed lisinopril 40 mg PO DAILY metformin 1,000 mg PO BID 90 days metoprolol succinate ER 50 mg PO DAILY 90 days multivitamin (Multiple Vitamins tablet) 1 tab PO DAILY omega-3 acid ethyl esters 2 caps PO BID pioglitazone 30 mg PO DAILY rosuvastatin 40 mg PO DAILY 90 days terazosin 10 mg PO BEDTIME 90 days HPI HPI Comments History of Present Illness Details Eldon comes for follow-up. He complains of increasing fatigue and shortness of breath. One day he had significant leg swelling although leg swelling is not been persistent. Denies any clear orthopnea PND. Uses a CPAP regularly. He has not noticed any chest discomfort. He had a recent echocardiogram shows LVEF of 51% with no major valvular abnormality and no significant pulmonary hypertension. He said his Trulicity was stopped because of insurance issues. Since then he has gained 15 lb and feels worse for it. He said he is trying to abide by dietary restriction but has not been successful in losing weight. [facility] Medical History Allergic rhinitis CAD (coronary artery disease) Diabetic neuropathy associated with type 2 diabetes mellitus Dyslipidemia Hearing loss Hypertension Non-toxic multinodular goiter Obesity Obstructive sleep apnea MICHAEL on CPAP Positive colorectal cancer screening using Cologuard test Vitamin D deficiency Surgical History Stented coronary artery Family History Father Diabetes Substance use disorder Mother Hypertension Mental health disorder Social History Housing: House Alcohol intake: never Patient Tobacco Use Status: Former Tobacco user e-Cigarette/Vaping Use: Never Used Current occupational status: retired Cognitive needs: No Hearing needs: Yes Vision needs: Yes Review of Systems Const Denies weakness ENT Denies dizziness Card Denies chest pain, Denies chest pain with activity, Denies syncope, Denies rapid heart rate, Denies pedal edema, Denies edema, Denies leg edema, Denies lightheadedness, Denies palpitations, Denies dyspnea, Denies dyspnea on exertion and Denies orthopnea Resp Denies cough, Denies dyspnea and Denies dyspnea on exertion GI Denies hematochezia and Denies change in stool character Musc Denies abnormal gait, Denies muscle weakness, Denies numbness, Denies radiating pain into limb and Denies tingling Neuro Denies abnormal gait, Denies dizziness, Denies syncope, Denies numbness, Denies tingling and Denies weakness Endo Denies palpitations Physical Exam Vital Signs: Last Vital Signs Pulse 92 09/20/22 14:52 BP 110/70 09/20/22 14:52 BMI result Body Mass Index 35.5 Const Other: This is a telephone visit General: cooperative, comfortable, no acute distress, alert and awake Nutritional Appearance: obese Orientation/consciousness: patient oriented x3 Limitations: no limitations Neck Neck: Yes trachea midline, Yes supple and Yes no JVD Resp Effort & Inspection: normal respiratory effort Auscultation: clear to auscultation bilaterally Cardio Jugular venous distension: no JVD Palpation: normal PMI Rate: regular rate Rhythm: abnormal rhythm with ectopic beats Heart sounds: S1 normal heart sound present and S2 normal heart sound present GI Inspection: Yes obesity Auscultation: normal bowel sounds Skin General skin exam: no rashes or lesions noted Neuro General: patient oriented x3 and no focal motor deficits Extrem General: Yes no clubbing, cyanosis or edema Psych Appearance: grossly normal Office Procedures EKG Details: EKG shows normal sinus rhythm with right bundle-branch block with left axis deviation with PACs, unchanged from before [id number], Complete Assessment & Plan Assessment & Plan (1) CAD (coronary artery disease): Code(s): I25.10 - Atherosclerotic heart disease of [place] coronary artery without angina pectoris Plan: Patient prior CAD with prior stenting with no recurrent symptoms suggestive angina. Continue aggressive risk factor modification. He says hemoglobin A1c is well control at 5.9%. Continue the aggressive management of diabetes. Blood pressure is currently well optimized. Continue high-intensity statin therapy. Target goal LDL closer to 60 mg/dL. Advised to participate in regular physical activity and weight loss program. (2) Asymptomatic LV dysfunction: Code(s): I51.9 - Heart disease, unspecified Plan: Prior history of asymptomatic LV systolic dysfunction with last echocardiogram showing LVEF in the range of 51% which is low normal. Continue neurohormonal modulation with metoprolol and lisinopril. He is currently having increasing symptoms of fatigue and shortness of breath and had leg edema. Clinically today does not have any signs of heart failure. Question in 3. Heart failure. Will check BNP. Currently no indication for diuretic therapy unless he has significant elevated BNP. Continue to use CPAP therapy. Most likely shortness of breath fatigue related to weight gain. Have taken the liberty to represcribed Trulicity for him for a month and he will pursue further prescr iption through your office. Will follow up in the clinic in 1 year's time, sooner p.r.n.. Thank you for allowing me to partake in his care Orders: Orders B Type Natriuretic Peptide Today R06.02 - Shortness of breath Medications: New dulaglutide (Trulicity) 1.5 mg (0.5 mL) subcut QWEEK 2 mL 0RF Coding Level of Care Code Est Pt Level 4 (94247) Diagnoses CAD (coronary artery disease) I25.10 Asymptomatic LV dysfunction I51.9 CPT Codes EKG - CPT: 94305-[id number], Complete ([id number])
== END 2022-09-20 15:19 | disposition home or self-care (01) ==
PROVIDERS: PCP Internal Medicine; Visit Provider Internal Medicine Cardiovascular Disease
DX: I25.10 Atherosclerotic heart disease of native coronary artery without angina pectoris (principal); I51.9 Heart disease, unspecified
CPT/HCPCS: 93010; 99214

== ENCOUNTER 2022-09-20 14:41 | Outpatient (REF) | payer MEDICARE, SELFPAY ==
[2022-09-20 16:42] LABS: B Type Natriuretic Peptide 78 pg/mL (<100)
== END 2022-09-20 14:42 | disposition home or self-care (01) ==
LOC: HO.LAB 14:41
PROVIDERS: PCP Internal Medicine; Visit Provider Internal Medicine Cardiovascular Disease
DX: R06.02 Shortness of breath (principal); R53.83 Other fatigue; I25.10 Atherosclerotic heart disease of native coronary artery without angina pectoris; I51.9 Heart disease, unspecified; Z79.899 Other long term (current) drug therapy
CPT/HCPCS: 36415; 83880; 93005

== ENCOUNTER 2022-10-04 08:36 | Outpatient (AMB) | payer MEDICARE, SELFPAY ==
--- NOTE | 2022-10-04 08:39 | A.OFFVIS_ITS ---
Intake Intake Visit Reasons: 1Y PSA/PVR(set) Intake Note: Patient is present for Follow Up PSA/PVR Urology Med: Terazosin, Finasteride Antibiotic Allergy: Bacitracin Blood Thinner: Aspirin Pharmacy: [facility] Patient states that he has 2 days worth of Finasteride left. States that his prescription was cancelled and will like to discuss so he can remain on Finasteride. PVR: 30ML Allergies bacitracin [BACITRACIN] Allergy (Mild, Verified 10/04/22 08:40) DERMATITIS, rash, rash HPI HPI Comments History of Present Illness Details Eldon is a pleasant male. He is a patient of Dr. Ramirez. He is seen for the following urologic conditions - lower urinary tract symptoms On combination terazosin and finasteride PSA continues to fall Improved symptoms with decreased nocturia and mild bother Switch to finasteride every other day 12 month follow-up Lower urinary tract symptoms PSA 07/22 4.25, 03/25 1.3, 09/22 1.8, 09/23 1.0 Current visit is for - further symptom evaluation of obstructive symptoms Current treatment includes - finasteride with 10 mg terazosin Prior treatments include -tamsulosin 0.4 mg not sufficient Prostate Symptom Score - 02/20 moderate,Bother 4 - 04/24 mild, bother 2, nocturia x1 and improving Symptoms include - initial - weak stream, incomplete emptying, nocturia Results from testing include - ultrasound pending Prior Prostate Score unknown Prostate volume 50 g Associated conditions CAD No CVA No Diabetes yes - with urgency Elevated PSA No Erectile Dysfunction yes Testing at next visit will include - pvr, with psa Renal cyst - 03/24 Renal US 4 cm left upper pole renal cyst - 08/23 Ct with stable cyst - small kidney stones [facility] Medical History Allergic rhinitis CAD (coronary artery disease) Diabetic neuropathy associated with type 2 diabetes mellitus Dyslipidemia Hearing loss Hypertension Non-toxic multinodular goiter Obesity Obstructive sleep apnea MICHAEL on CPAP Positive colorectal cancer screening using Cologuard test Vitamin D deficiency Surgical History Stented coronary artery Family History Father Diabetes Substance use disorder Mother Hypertension Mental health disorder Social History Housing: House Alcohol intake: never Patient Tobacco Use Status: Former Tobacco user e-Cigarette/Vaping Use: Never Used Current occupational status: retired Cognitive needs: No Hearing needs: Yes Vision needs: Yes Review of Systems Const Denies chills and Denies fever(s) Card Reports no additional complaints and Denies syncope Resp Denies cough GI Denies abdominal pain and Denies heartburn Reports as per HPI and Denies change in libido Neuro Denies syncope Psych Denies change in libido Endo Denies change in libido Physical Exam Const General: cooperative, healthy appearing, comfortable and no acute distress Orientation/consciousness: patient oriented x3 HEENT Face and sinus: Yes normal facial exam Mouth: moist mucous membranes Neck Neck: Yes normal visual inspection, Yes full ROM and Yes trachea midline Chest Chest palpation & inspection: normal inspection of the chest Resp Effort & Inspection: normal respiratory effort, able to speak in complete sentences and no respiratory distress GI Inspection: Yes normal to inspection Back/Spine/Pelvis Cervical Spine: normal cervical lordosis Thoracic/Lumbar Spine: thoracic and lumbar spine normal to inspection Skin General skin exam: no rashes or lesions noted Neuro General: patient oriented x3, gait normal, tone normal and moves all extremities Extrem General: Yes normal to inspection and Yes capillary refill normal Office Procedures Post Void Residual Post Residual Void Post Void Residual (PVR): 30 [id number] Void Residual by ultrasound Assessment & Plan Assessment & Plan (1) Diabetic neuropathy associated with type 2 diabetes mellitus: Code(s): E11.40 - Type 2 diabetes mellitus with diabetic neuropathy, unspecified (2) BPH w urinary obs/LUTS: Code(s): N40.1 - Benign prostatic hyperplasia with lower urinary tract symptoms; N13.8 - Other obstructive and reflux uropathy Plan Twelve month follow-up Orders: Orders AMB Urinalysis Automated Today Z13.9 - Encounter for screening, unspecified AMB Post Void Residual by ultrasound Today N13.8 - Other obstructive and reflux uropathy, N40.1 - Benign prostatic hyperplasia with lower urinary tract symptoms Patient Instructions: Imaging studies, laboratory and physical exam results were discussed and reviewed in detail. No major barriers to patient understanding were identified. An opportunity to ask questions regarding the treatment plan was provided. All questions were answered. The patient expressed understanding and agreement with the above treatment plan. The patient is aware they should contact our office by phone for worsening of their current condition or the appearance of new urologic symptoms. Compliance is encouraged with any medications and followup testing that is ordered. It is a privilege to participate in the urologic care of your patient. If you have any questions or concerns regarding treatment for the above conditions, or other urologic issues, please do not hesitate to contact me. The office telephone contact is [phone]. This note is constructed using voice recognition software. While every effort has been made to ensure accuracy powerhouse mechanic supervisor errors may have been included. Yours sincerely, Dr Wes Stephens MD, [facility] - Urology Providers of Expert, Compassionate Care for the Genitourinary System Coding Level of Care Code Est Pt Level 4 (79996) Diagnoses Diabetic neuropathy associated with type 2 diabetes mellitus E11.40 BPH w urinary obs/LUTS N40.1; N13.8 CPT Codes Post Residual Void - PVR CPT Code: 01880-Anus Void Residual by ultrasound ([id number])
== END 2022-10-04 09:40 | disposition home or self-care (01) ==
PROVIDERS: Visit Provider Urology
DX: E11.40 Type 2 diabetes mellitus with diabetic neuropathy, unspecified (principal); N40.1 Benign prostatic hyperplasia with lower urinary tract symptoms; N13.8 Other obstructive and reflux uropathy
CPT/HCPCS: 99213

== ENCOUNTER → 2022-10-04 08:36 | Outpatient (BNVA) | payer MEDICARE, SELFPAY | PROVIDERS: Visit Provider Urology | DX: N40.1 Benign prostatic hyperplasia with lower urinary tract symptoms (principal); N13.8 Other obstructive and reflux uropathy; E11.40 Type 2 diabetes mellitus with diabetic neuropathy, unspecified | CPT/HCPCS: 51798; 99212 ==

== ENCOUNTER 2022-10-22 09:45 | Outpatient (REF) | payer MEDICARE, SELFPAY ==
[2022-10-22 12:10] LABS: Alanine Aminotransferase 23 U/L (0-40); Anion Gap 13 (12-20); Aspartate Amino Transferase 27 U/L (5-37); Blood Urea Nitrogen 34 mg/dL (9-16); Calcium 9.8 mg/dL (8.4-10.2); Carbon Dioxide 23 mmol/L (22-29); Chloride 108 mmol/L (96-108); Cholesterol 99 mg/dL (<200); Estimated Glomerular Filt Rate 54; Glucose Fasting 151 mg/dL (60-99); HDL Cholesterol 33 mg/dL (>40); LDL Cholesterol Calculated 47 mg/dL (<100); Potassium 4.5 mmol/L (3.3-5.1); Sodium 139 mmol/L (135-145); Triglycerides 97 mg/dL (<150)
[2022-10-22 12:11] LABS: Estimated Average Glucose 146 mg/dL; Hemoglobin A1c % 6.7 % (<6.0)
[2022-10-22 14:45] LABS: Creatinine Urine 122.48 mg/dL; Microalbum/Creatinine Ratio Ur 8.1 ug/mg cr (<30)
== END 2022-10-22 09:46 | disposition home or self-care (01) ==
LOC: HO.HMGCLDS 09:45
PROVIDERS: PCP Internal Medicine; Visit Provider Internal Medicine
DX: E11.40 Type 2 diabetes mellitus with diabetic neuropathy, unspecified (principal); E66.9 Obesity, unspecified; I10 Essential (primary) hypertension; I25.10 Atherosclerotic heart disease of native coronary artery without angina pectoris; E78.5 Hyperlipidemia, unspecified
CPT/HCPCS: 36415; 80048; 80061; 82043; 83036; 84450; 84460

== ENCOUNTER 2022-10-26 12:16 | Outpatient (AMB) | payer MEDICARE, SELFPAY ==
[2022-10-26 12:28] VITALS: BP 120/60; PULSE 80; O2SAT 95; BMI 35.0
--- NOTE | 2022-10-26 12:28 | MHC.PC.OV ---
Vital Signs 10/26/22 12:28 Height 6 ft 3 in Weight 280 lb BMI 35.0 BP 120/60 Blood Pressure Location Rt brachial Position Sitting Pulse 80 Pulse Source Pulse Oximeter Pulse Oximetry (%) 95 Intake Visit Reasons: Followup meds, labs Intake Note: pt is here for f/u on labs Allergies bacitracin [BACITRACIN] Allergy (Mild, Verified 10/27/22 02:45) DERMATITIS, rash, rash Medication List - Last Reconciled 10/26/22 by Anne Ramirez MD alpha lipoic acid 600 mg PO BID aspirin 81 mg PO DAILY blood sugar diagnostic (FreeStyle Lite Strips) Check Fasting blood sugar once a day as directed blood sugar diagnostic As directed blood-glucose meter (FreeStyle Lite Meter kit) check fasting glucoe once a day As directed cinnamon bark (Cinnamon) 1,000 mg PO DAILY coenzyme Q10 (Co Q-10) 200 mg PO DAILY ezetimibe (Zetia) 10 mg PO DAILY fenofibrate nanocrystallized 145 mg PO DAILY 90 days finasteride 5 mg PO DAILY 90 days fluticasone propionate 50 mcg/actuation (Flonase Allergy Relief) 2 sprays intranasal DAILY PRN lancets As directed lisinopril 40 mg PO DAILY metformin 1,000 mg PO BID 90 days metoprolol succinate ER 50 mg PO DAILY 90 days multivitamin (Multiple Vitamins tablet) 1 tab PO DAILY omega-3 acid ethyl esters 2 caps PO BID pioglitazone 30 mg PO DAILY rosuvastatin 40 mg PO DAILY 90 days terazosin 10 mg PO BEDTIME 90 days Tobacco use date assessed: 03/19/22 Fall risk assessment: No Falls in past year Last assessed Fall Risk: 10/26/22 Dental Screening Dental Screen Date: 10/26/22 Did you have a dental visit in the last 12 months?: Yes Did you have a dental problem in the last 6 months where you did not have access to dental care?: No Was dental information given to patient?: Patient has dentist HPI Followup meds, labs HPI Details 72-year-old male here today for follow-up on his diabetes mellitus, cholesterol and hypertension. Has been compliant with taking his medications and following his diet, admits to not getting much regular exercise. Recent fasting labs showed hemoglobin A1c at 6.7%, but is starting to creep up as compared to last check. Fasting lipids are within normal limits. Blood pressure remains stable and controlled on present treatment. He has been feeling well with no complaints at present time, except for the high cost of his medication, been out of his Trulicity and Jardiance for almost 2 months now, unable to afford he however is trying to see if he can get Ozempic through the patient's distance program. [facility] Medical History Allergic rhinitis CAD (coronary artery disease) Diabetic neuropathy associated with type 2 diabetes mellitus Dyslipidemia Hearing loss Hypertension Non-toxic multinodular goiter Obesity Obstructive sleep apnea MICHAEL on CPAP Positive colorectal cancer screening using Cologuard test Vitamin D deficiency Surgical History Stented coronary artery Family History Father Diabetes Substance use disorder Mother Hypertension Mental health disorder Social History Housing: House Alcohol intake: never Patient Tobacco Use Status: Former Tobacco user e-Cigarette/Vaping Use: Never Used Current occupational status: retired Cognitive needs: No Hearing needs: Yes Vision needs: Yes Questionnaire PHQ-9 Over the last 2 weeks, how often have you been bothered by any of the following problems? Depression Screening Interpretation: Negative Source: Developed by Drs. Kem Archer, Petra Breaux, Jaxon Burroughs and colleagues, with an educational alecia from [employer]. Thrive Questionnaire Date Thrive assessed: 10/26/22 I am a: Patient What is your living situation today?: I have a steady place to live Within the past 12 months, did the food you bought not last and you didn't have the money to get more?: Never true Within the past 12 months, did you worry whether your food would run out before you got money to buy more?: Never true Do you have trouble paying for medicines?: No Do you have trouble getting transportation to medical appointments?: No Do you have trouble paying your heating and electricity bill?: No Do you have trouble taking care of your child, family member or friend?: No Do you have trouble with day-to-day activities such as bathing, preparing meals, shopping, managing finances, etc.?: No Are you currently unemployed and looking for a job?: No Are you interested in more education?: No Please select the resources that you would like help with: None Currently or been in a relationship where the following occur: no concerns reported SIMON-7 AMB Questionnaire SIMON-7 Date SIMON - 7 assessed: 03/19/22 Source: Developed by Drs. Kem Archer, Petra Breaux, Jaxon Burroughs and colleagues, with an educational alecia from [employer]. Review of Systems Const Denies body aches, Denies chills, Denies fatigue, Denies fever(s) and Reports weight loss Eyes Reports no additional complaints ENT Reports Normal hearing present Card Reports no additional complaints and Denies syncope Resp Denies cough GI Denies abdominal pain and Denies heartburn Reports as per HPI and Denies change in libido Musc Reports no additional complaints Neuro Reports Normal hearing present, Denies syncope and Denies Sensory deficit (Neuro) Psych Denies change in libido Endo Denies change in libido, Denies fatigue, Denies polyphagia, Denies polydipsia and Denies polyuria Mark/Lymph Denies easy bleeding and Denies easy bruising Physical exam (Primary Care) Vital Signs: Last Vital Signs Pulse 80 10/26/22 12:28 BP 120/60 10/26/22 12:28 Pulse Ox 95 10/26/22 12:28 BMI result Body Mass Index 35.0 BMI Assessment/Plan discussion: High BMI High, discussed plan: lifestyle, weight reduction, dietary and physical activity Tobacco/Smoking Status: Tobacco use Status Tobacco use date assessed 03/19/22 10/26/22 12:29 Patient Tobacco Use Status Former Tobacco user 10/26/22 12:29 e-Cigarette/Vaping Use Never Used 10/26/22 12:29 Depression Screening Interpretation: Negative Thrive Assessment: Date of Thrive Assessment Date Thrive assessed 10/26/22 10/26/22 12:30 Currently or been in a relationship where the following occur: no concerns reported Const General: no acute distress and alert Orientation/consciousness: patient oriented x3 HENMT Head: Yes normocephalic Ears: external ears normal General nose exam: Normal external nose present and No nasal discharge present Face and sinus: Yes face symmetric Mouth: Normal oral and palatal mucosa present, oropharynx normal and moist mucous membranes Eyes Conjunctivae: conjunctivae normal Sclerae: sclerae normal Pupils: Equal, round and reactive pupils present EOM: EOMs intact bilaterally Neck Neck: Yes full ROM and Yes no lymphadenopathy Thyroid: Thyroid normal Resp Effort & Inspection: normal respiratory effort and able to speak in complete sentences Auscultation: clear to auscultation bilaterally Cardio Jugular venous distension: no JVD Rate: regular rate Rhythm: regular rhythm Heart sounds: S1 normal heart sound present and S2 normal heart sound present GI Inspection: Yes normal to inspection Palpation (GI): Soft to palpation Auscultation: normal bowel sounds Skin General skin exam: no rashes or lesions noted Nails: yellow and thickened (toenails bilateral) Neuro General: patient oriented x3, gait normal, moves all extremities, Normal light touch and pain sensation, no focal motor deficits, CN's II-XI intact bilaterally and normal sensation to monofilament Cranial nerves: Yes Equal, round and reactive pupils present and Yes Normal hearing present Cognition (Neuro): normal cognition Gait exam (Neuro): Normal gait present Motor exam (neuro): 5/5 motor strength present throughout Sensory Exam: No Sensory deficit (Neuro) Extrem Other: + hammertoes on 2nd and 3rd toes bilateral, dry skin , plantar callus present bilaterally General: Yes full ROM, Yes no joint enlargement, Yes no clubbing, cyanosis or edema, Yes no pedal edema, Yes no calf tenderness and Yes normal gait Results Reviewed Results Reviewed: ENTERED: 10/22/22-[address]: ORDERED: Met Prof Fast, AST, ALT, Lipid Panel Test Result Flag Reference Site Sodium 139 135-145 mmol/L Potassium 4.5 3.3-5.1 mmol/L CL 108 96-108 mmol/L CO2 23 22-29 mmol/L Gap 13 12-20 BUN 34 H 9-16 mg/dL Creat 1.30 0.5-1.4 mg/dL EGFR 54 NOTE: For -[place] individuals, multiply the result by 1.210. Chronic Kidney Disease: Estimated GFR < 60 mL/min/1.73m2 Severe Kidney Disease: Estimated GFR < 15 mL/min/1.73m2 FBS 151 H 60-99 mg/dL A fasting glucose of 126 mg/dl or greater on more than one occasion is considered diagnostic of diabetes. CA 9.8 8.4-10.2 mg/dL AST (GOT) 27 5-37 U/L ALT (GPT) 23 0-40 U/L Triglyceride 97 <150 mg/dL Desirable Triglyceride: less than 150 mg/dL Borderline High Triglyceride 150-199 mg/dL High Triglyceride: 200-499 mg/dL Very High Triglyceride: greater than or equal to 5OO mg/dL Cholesterol 99 <200 mg/dL Desirable Cholesterol: less than 200 mg/dL Borderline High Cholesterol: 200-239 mg/dL High Cholesterol: greater than 239 mg/dL LDL Calculated 47 <100 mg/dL Desirable LDL: less than 100 mg/dL Near Optimal/Above Optimal LDL: 110-129 mg/dL Borderline High LDL: 130-159 mg/dL High LDL: 160-189 mg/dL Very High LDL: greater than or equal to 190 mg/dL HDL 33 L >40 mg/dL Desirable HDL: greater than 40 mg/dL Note: This HDL assay may give artificially low results in patients with liver disease. Laboratory Tests 10/22/22 09:54 Estimat Average Glucose 146 Hemoglobin A1c % 6.7 H Assessment and Plan Assessment & Plan (1) Diabetic neuropathy associated with type 2 diabetes mellitus: Code(s): E11.40 - Type 2 diabetes mellitus with diabetic neuropathy, unspecified Plan: Hemoglobin A1c within normal limits, but higher than last check. Continue on metformin and pioglitazone , and completed patient's assistance form for him to be able to get Ozempic , will start at 0.25 mg injected subcutaneously once a week as directed, continue with adherence to healthy diet and getting regular exercise. Counseled regarding importance of yearly diabetes retinopathy screening. Patient advised to inspect feet daily, for any signs of injury, callus or infection. Compliance with diet and regular exercise again stressed. Blood pressure goal is less than 130/80, goal LDL is less than 100 and goal hemoglobin A1c is less than 7% follow-up appointment made in--3-months, after fasting labs done. (2) Hypertension: Code(s): I10 - Essential (primary) hypertension Plan: Blood pressure at goal of less than 130/80. Continue with metoprolol succinate 50 mg daily. Reinforced importance of following a low sodium diet, getting regular exercise, and lowering stress levels. (3) Dyslipidemia: Code(s): E78.5 - Hyperlipidemia, unspecified Plan: Reviewed recent fasting lipid profile with patient with levels within normal limits . Continue with rosuvastatin 40 mg daily , in addition to adherence to low-cholesterol diet and regular exercise, at least 30 minutes 3 to 4 times a week. Advised patient to make healthy food choices, eat more fruits, vegetables, whole grains, wild caught fish and low-fat dairy. Limit amount of meat and fried or fatty food products, as well as processed foods and fast foods. Follow-up scheduled with repeat fasting lipid panel in 3 months. Orders: Orders Alanine Aminotransferase 02/01/23 E11.40 - Type 2 diabetes mellitus with diabetic neuropathy, unspecified, E78.5 - Hyperlipidemia, unspecified, I10 - Essential (primary) hypertension Aspartate Amino Transferase 02/01/23 E11.40 - Type 2 diabetes mellitus with diabetic neuropathy, unspecified, E78.5 - Hyperlipidemia, unspecified, I10 - Essential (primary) hypertension Basic Metabolic Panel Fasting 02/01/23 E11.40 - Type 2 diabetes mellitus with diabetic neuropathy, unspecified, E78.5 - Hyperlipidemia, unspecified, I10 - Essential (primary) hypertension Hemoglobin A1c 02/01/23 E11.40 - Type 2 diabetes mellitus with diabetic neuropathy, unspecified, E78.5 - Hyperlipidemia, unspecified, I10 - Essential (primary) hypertension Lipid Panel 02/01/23 E11.40 - Type 2 diabetes mellitus with diabetic neuropathy, unspecified, E78.5 - Hyperlipidemia, unspecified, I10 - Essential (primary) hypertension Microalbumin, Random (w Creat) 02/01/23 E11.40 - Type 2 diabetes mellitus with diabetic neuropathy, unspecified, E78.5 - Hyperlipidemia, unspecified, I10 - Essential (primary) hypertension Coding Level of Care Code Est Pt Level 4 (69526) Diagnoses Diabetic neuropathy associated with type 2 diabetes mellitus E11.40 Hypertension I10 Dyslipidemia E78.5
== END 2022-10-26 13:58 | disposition home or self-care (01) ==
PROVIDERS: PCP Internal Medicine; Visit Provider Internal Medicine
DX: E11.40 Type 2 diabetes mellitus with diabetic neuropathy, unspecified (principal); I10 Essential (primary) hypertension; E78.5 Hyperlipidemia, unspecified
CPT/HCPCS: 99214

== ENCOUNTER 2023-02-11 12:22 | Outpatient (REF) | payer MEDICARE, SELFPAY ==
[2023-02-11 13:57] LABS: Estimated Average Glucose 143 mg/dL; Hemoglobin A1c % 6.6 % (<6.0)
[2023-02-11 14:19] LABS: Alanine Aminotransferase 24 U/L (0-40); Anion Gap 14 (12-20); Aspartate Amino Transferase 28 U/L (5-37); Blood Urea Nitrogen 24 mg/dL (9-16); Calcium 10.1 mg/dL (8.4-10.2); Carbon Dioxide 25 mmol/L (22-29); Chloride 105 mmol/L (96-108); Cholesterol 100 mg/dL (<200); Estimated Glomerular Filt Rate 49; Glucose Fasting 139 mg/dL (60-99); HDL Cholesterol 30 mg/dL (>40); LDL Cholesterol Calculated 42 mg/dL (<100); Potassium 4.4 mmol/L (3.3-5.1); Sodium 140 mmol/L (135-145); Triglycerides 144 mg/dL (<150)
== END 2023-02-11 12:23 | disposition home or self-care (01) ==
LOC: HO.HMGCLDS 12:22
PROVIDERS: PCP Internal Medicine; Visit Provider Internal Medicine
DX: I10 Essential (primary) hypertension (principal); E78.5 Hyperlipidemia, unspecified; E11.40 Type 2 diabetes mellitus with diabetic neuropathy, unspecified
CPT/HCPCS: 36415; 80048; 80061; 83036; 84450; 84460

== ENCOUNTER 2023-02-15 09:46 | Outpatient (AMB) | payer MEDICARE, SELFPAY ==
--- NOTE | 2023-02-15 10:12 | MHC.PC.OV ---
Vital Signs 02/15/23 10:13 Height 6 ft 3 in Weight 287 lb 2 oz BMI 35.9 BP 110/68 Blood Pressure Location Lt brachial Position Sitting Pulse 78 Pulse Source Pulse Oximeter Pulse Oximetry (%) 96 Oxygen Delivery Method Room Air Intake Visit Reasons: 3 month f/u Intake Note: Pt is here to follow up for his lab results Allergies bacitracin [BACITRACIN] Allergy (Mild, Verified 02/15/23 10:48) DERMATITIS, rash, rash Medication List - Last Reconciled 02/15/23 by Anne Ramirez MD alpha lipoic acid 600 mg PO BID aspirin 81 mg PO DAILY blood sugar diagnostic (FreeStyle Lite Strips) Check Fasting blood sugar once a day as directed blood sugar diagnostic As directed blood-glucose meter (FreeStyle Lite Meter kit) check fasting glucoe once a day As directed cinnamon bark (Cinnamon) 1,000 mg PO DAILY coenzyme Q10 (Co Q-10) 200 mg PO DAILY ezetimibe (Zetia) 10 mg PO DAILY fenofibrate nanocrystallized 145 mg PO DAILY 90 days finasteride 5 mg PO DAILY 90 days fluticasone propionate 50 mcg/actuation (Flonase Allergy Relief) 2 sprays intranasal DAILY PRN lancets As directed lisinopril 40 mg PO DAILY metformin 1,000 mg PO BID 90 days metoprolol succinate ER 50 mg PO DAILY 90 days multivitamin (Multiple Vitamins tablet) 1 tab PO DAILY omega-3 acid ethyl esters 2 caps PO BID 90 days pioglitazone 30 mg PO DAILY rosuvastatin 40 mg PO DAILY 90 days terazosin 10 mg PO BEDTIME 90 days Trulicity (dulaglutide) 1.5 mg (0.5 mL) subcut QWEEK 90 days NS Tobacco use date assessed: 02/15/23 Fall risk assessment: No Falls in past year Last assessed Fall Risk: 02/15/23 Dental Screening Dental Screen Date: 02/15/23 Did you have a dental visit in the last 12 months?: Yes Did you have a dental problem in the last 6 months where you did not have access to dental care?: No Was dental information given to patient?: Patient has dentist HPI 3 month f/u HPI Details 73-year-old male with diabetes mellitus, hyperlipidemia, and hypertension, here today for follow-up. He is only taking pioglitazone and metformin for his diabetes mellitus, no longer taking Ozempic as he developed a rash in his groin after taking. He previously was on Trulicity, which was helping control his blood sugar, but was discontinued due to insurance not covering it, would like to try going back on it. His current A1c is at 6.6%. He has been feeling well however, compliant with his diet and tries to walk for exercise regularly. Up-to-date with all his vaccinations but does not want to get a COVID booster [facility] Medical History Positive colorectal cancer screening using Cologuard test Vitamin D deficiency Hearing loss Hypertension Dyslipidemia Non-toxic multinodular goiter Diabetic neuropathy associated with type 2 diabetes mellitus Allergic rhinitis MICHAEL on CPAP Obesity CAD (coronary artery disease) Obstructive sleep apnea Surgical History Stented coronary artery Family History Father Diabetes Substance use disorder Mother Hypertension Mental health disorder Social History Housing: House Alcohol intake: never Patient Tobacco Use Status: Former Tobacco user e-Cigarette/Vaping Use: Never Used Current occupational status: retired Cognitive needs: No Hearing needs: Yes Vision needs: Yes Questionnaire PHQ-9 Over the last 2 weeks, how often have you been bothered by any of the following problems? Depression Screening Interpretation: Negative Depression Screening Done: Yes Source: Developed by Drs. Kem Archer, Jaxon Sánchez and colleagues, with an educational alecia from [employer]. Thrive Questionnaire Date Thrive assessed: 10/26/22 Currently or been in a relationship where the following occur: no concerns reported SIMON-7 AMB Questionnaire SIMON-7 Date SIMON - 7 assessed: 03/19/22 Source: Developed by Drs. Kem Archer, Jaxon Sánchez and colleagues, with an educational alecia from [employer]. Review of Systems Const Denies body aches, Denies chills, Denies fatigue, Denies fever(s) and Reports weight loss Eyes Reports no additional complaints ENT Reports Normal hearing present Card Reports no additional complaints and Denies syncope Resp Denies cough GI Denies abdominal pain and Denies heartburn Reports as per HPI and Denies change in libido Musc Reports no additional complaints Neuro Reports Normal hearing present, Denies syncope and Denies Sensory deficit (Neuro) Psych Denies change in libido Endo Denies change in libido, Denies fatigue, Denies polyphagia, Denies polydipsia and Denies polyuria Mark/Lymph Denies easy bleeding and Denies easy bruising Physical exam (Primary Care) Vital Signs: Last Vital Signs Pulse 78 02/15/23 10:13 BP 110/68 02/15/23 10:13 Pulse Ox 96 02/15/23 10:13 Oxygen Delivery Method Room Air 02/15/23 10:13 BMI result Body Mass Index 35.9 BMI Assessment/Plan discussion: High BMI High, discussed plan: lifestyle, weight reduction, dietary and physical activity Tobacco/Smoking Status: Tobacco use Status Tobacco use date assessed 02/15/23 02/15/23 10:19 Patient Tobacco Use Status Former Tobacco user 02/15/23 10:12 e-Cigarette/Vaping Use Never Used 02/15/23 10:12 Depression Screening Interpretation: Negative Thrive Assessment: Date of Thrive Assessment Date Thrive assessed 10/26/22 02/15/23 10:12 Currently or been in a relationship where the following occur: no concerns reported Const General: no acute distress and alert Orientation/consciousness: patient oriented x3 HENMT Head: Yes normocephalic Ears: external ears normal General nose exam: Normal external nose present and No nasal discharge present Face and sinus: Yes face symmetric Mouth: Normal oral and palatal mucosa present, oropharynx normal and moist mucous membranes Eyes Conjunctivae: conjunctivae normal Sclerae: sclerae normal Pupils: Equal, round and reactive pupils present EOM: EOMs intact bilaterally Neck Neck: Yes full ROM and Yes no lymphadenopathy Thyroid: Thyroid normal Resp Effort & Inspection: normal respiratory effort and able to speak in complete sentences Auscultation: clear to auscultation bilaterally Cardio Jugular venous distension: no JVD Rate: regular rate Rhythm: regular rhythm Heart sounds: S1 normal heart sound present and S2 normal heart sound present GI Inspection: Yes normal to inspection Palpation (GI): Soft to palpation Auscultation: normal bowel sounds Skin General skin exam: no rashes or lesions noted Nails: yellow and thickened (toenails bilateral) Neuro General: patient oriented x3, gait normal, moves all extremities, Normal light touch and pain sensation, no focal motor deficits, CN's II-XI intact bilaterally and normal sensation to monofilament Cranial nerves: Yes Equal, round and reactive pupils present and Yes Normal hearing present Cognition (Neuro): normal cognition Gait exam (Neuro): Normal gait present Motor exam (neuro): 5/5 motor strength present throughout Sensory Exam: No Sensory deficit (Neuro) Extrem Other: + hammertoes on 2nd and 3rd toes bilateral, dry skin , plantar callus present bilaterally General: Yes full ROM, Yes no joint enlargement, Yes no clubbing, cyanosis or edema, Yes no pedal edema, Yes no calf tenderness and Yes normal gait Results Reviewed Results Reviewed: Name: Eldon Rivas Age/Sex: 73/M : 1950 Unit#: [id number] Attend Dr: Anne Ramirez MD Re02/11/23 Status: DEP REF Location: [facility] Disch: SPEC : [id number] LANA: 02/11/23 STATUS: COMP REQ : [id number] RECD: 02/11/[address]: Anne Ramirez MD COMP: 02/11/23 ENTERED: 02/11/23-1224 [facility] DR: ORDERED: Met Prof Fast, AST, ALT, Lipid Panel Test Result Flag Reference Site Sodium 140 135-145 mmol/L Potassium 4.4 3.3-5.1 mmol/L CL 105 96-108 mmol/L CO2 25 22-29 mmol/L Gap 14 12-20 BUN 24 H 9-16 mg/dL Creat 1.43 H 0.5-1.4 mg/dL EGFR 49 NOTE: For -[place] individuals, multiply the result by 1.210. Chronic Kidney Disease: Estimated GFR < 60 mL/min/1.73m2 Severe Kidney Disease: Estimated GFR < 15 mL/min/1.73m2 FBS 139 H 60-99 mg/dL A fasting glucose of 126 mg/dl or greater on more than one occasion is considered diagnostic of diabetes. CA 10.1 8.4-10.2 mg/dL AST (GOT) 28 5-37 U/L ALT (GPT) 24 0-40 U/L Triglyceride 144 <150 mg/dL Desirable Triglyceride: less than 150 mg/dL Borderline High Triglyceride 150-199 mg/dL High Triglyceride: 200-499 mg/dL Very High Triglyceride: greater than or equal to 5OO mg/dL Cholesterol 100 <200 mg/dL Desirable Cholesterol: less than 200 mg/dL Borderline High Cholesterol: 200-239 mg/dL High Cholesterol: greater than 239 mg/dL LDL Calculated 42 <100 mg/dL Desirable LDL: less than 100 mg/dL Near Optimal/Above Optimal LDL: 110-129 mg/dL Borderline High LDL: 130-159 mg/dL High LDL: 160-189 mg/dL Very High LDL: greater than or equal to 190 mg/dL HDL 30 L >40 mg/dL Desirable HDL: greater than 40 mg/dL Note: This HDL assay may give artificially low results in patients with liver disease. Laboratory Tests 02/11/23 12:25 Estimat Average Glucose 143 Hemoglobin A1c % 6.6 H Assessment and Plan Assessment & Plan (1) Hypertension: Code(s): I10 - Essential (primary) hypertension Qualifiers: Hypertension type: primary hypertension Qualified Code(s): I10 - Essential (primary) hypertension Plan: Blood pressure at goal of less than 130/80. Continue with current medication. Reinforced importance of following a low sodium diet, getting regular exercise, and lowering stress levels. (2) Dyslipidemia: Code(s): E78.5 - Hyperlipidemia, unspecified Plan: Reviewed recent fasting lipid profile with patient with levels at goal . Continue with fenofibrate, [place] 3 fatty acid supplements, rosuvastatin , in addition to adherence to low-cholesterol diet and regular exercise, at least 30 minutes 3 to 4 times a week. Advised patient to make healthy food choices, eat more fruits, vegetables, whole grains, wild caught fish and low-fat dairy. Limit amount of meat and fried or fatty food products, as well as processed foods and fast foods. Follow-up scheduled with repeat fasting lipid panel in 3 months. (3) Diabetic neuropathy associated with type 2 diabetes mellitus: Code(s): E11.40 - Type 2 diabetes mellitus with diabetic neuropathy, unspecified Plan: Continue with metformin and pioglitazone, whilst try putting back on Trulicity 1.5 mg to be injected once a week. Will recheck another hemoglobin A1c, urine for microalbumin screening in 3 months. Continue with recommended diet and getting regular exercise. Orders: Orders Lipid Panel 05/03/23 E11.40 - Type 2 diabetes mellitus with diabetic neuropathy, unspecified, E78.5 - Hyperlipidemia, unspecified, I10 - Essential (primary) hypertension Alanine Aminotransferase 05/03/23 E11.40 - Type 2 diabetes mellitus with diabetic neuropathy, unspecified, E78.5 - Hyperlipidemia, unspecified, I10 - Essential (primary) hypertension Aspartate Amino Transferase 05/03/23 E11.40 - Type 2 diabetes mellitus with diabetic neuropathy, unspecified, E78.5 - Hyperlipidemia, unspecified, I10 - Essential (primary) hypertension Basic Metabolic Panel Fasting 05/03/23 E11.40 - Type 2 diabetes mellitus with diabetic neuropathy, unspecified, E78.5 - Hyperlipidemia, unspecified, I10 - Essential (primary) hypertension Hemoglobin A1c 05/03/23 E11.40 - Type 2 diabetes mellitus with diabetic neuropathy, unspecified, E78.5 - Hyperlipidemia, unspecified, I10 - Essential (primary) hypertension Microalbumin, Random (w Creat) 05/03/23 E11.40 - Type 2 diabetes mellitus with diabetic neuropathy, unspecified, E78.5 - Hyperlipidemia, unspecified, I10 - Essential (primary) hypertension Medications: Changed From dulaglutide (Trulicity) 1.5 mg (0.5 mL) subcut QWEEK 6.5 mL 2RF 90 days E11.65 - Type 2 diabetes mellitus with hyperglycemia To Trulicity (dulaglutide) 1.5 mg (0.5 mL) subcut QWEEK 90 days 6 mL 3RF NS E11.65 - Type 2 diabetes mellitus with hyperglycemia Coding Level of Care Code Est Pt Level 4 (43902) Diagnoses Primary hypertension I10 Hypertension type: primary hypertension Dyslipidemia E78.5 Diabetic neuropathy associated with type 2 diabetes mellitus E11.40
[2023-02-15 10:13] VITALS: BP 110/68; PULSE 78; O2SAT 96; BMI 35.9
== END 2023-02-15 10:50 | disposition home or self-care (01) ==
PROVIDERS: PCP Internal Medicine; Visit Provider Internal Medicine
DX: I10 Essential (primary) hypertension (principal); E78.5 Hyperlipidemia, unspecified; E11.40 Type 2 diabetes mellitus with diabetic neuropathy, unspecified
CPT/HCPCS: 99214

== ENCOUNTER 2023-04-08 08:55 | Day surgery (SDC) | payer MEDICARE, SELFPAY ==
[2023-04-04 14:12] VITALS: BMI 35.9
--- NOTE | 2023-04-05 10:31 | HO.ANESPROP2 ---
HPI - Anesthesia Eval Consult details Narrative: 73yo M for Colonoscopy CAD with stent 2017. Follows [facility] cardiology yearly. Last office visit 09/2022 Anesthesia Pre-Procedure Meds Is the patient on any of the following meds?: Dulaglutide (Trulicity) If Yes to any meds - educate patient: Pt education - increased risk of aspiration and Pt education - possibility of cancelled proc at provider's discretion PMFSH Active Problems Active Problems: All Active Problems (Updated 04/04/23 @ 13:44 by Danni Little RN) Hearing loss (Acute) Asymptomatic LV dysfunction (Acute) Premature atrial complexes (Acute) Tinea capitis (Acute) BPH w urinary obs/LUTS (Acute) Allergic rhinitis (Acute) Obstructive sleep apnea (Acute) Positive colorectal cancer screening using Cologuard test (Acute) Vitamin D deficiency (Acute) Hearing loss (Acute) Hypertension (Acute) Dyslipidemia (Acute) Non-toxic multinodular goiter (Acute) Diabetic neuropathy associated with type 2 diabetes mellitus (Acute) Allergic rhinitis (Acute) Obesity (Acute) CAD (coronary artery disease) (Acute) Past Medical History Medical History (Updated 04/23/23 @ 10:45 by Azul Carrizales PA-C) Positive colorectal cancer screening using Cologuard test Vitamin D deficiency Hearing loss Hypertension Dyslipidemia Non-toxic multinodular goiter Diabetic neuropathy associated with type 2 diabetes mellitus Allergic rhinitis MICHAEL on CPAP Obesity CAD (coronary artery disease) Family History Family History Father Diabetes Substance use disorder Mother Hypertension Mental health disorder Surgical History Surgical History H/O colonoscopy Stented coronary artery Social History Social History Housing: House Alcohol intake: never Patient Tobacco Use Status: Former Tobacco user e-Cigarette/Vaping Use: Never Used Current occupational status: retired Cognitive needs: No Hearing needs: Yes Vision needs: Yes Meds Allergies Allergy/AdvReac Type Severity Reaction Status Date / Time bacitracin [BACITRACIN] Allergy Mild DERMATITIS, Verified 04/23/23 10:04 rash, rash Home Medications Medication Instructions Recorded Confirmed Last Taken Type aspirin 81 mg tablet,delayed 81 mg PO DAILY 11/28/19 04/23/23 04/06/23 History release blood sugar diagnostic #10 ea 11/28/19 04/23/23 Unknown History lancets 33 gauge #100 ea 11/28/19 04/23/23 Unknown History alpha lipoic acid 600 mg capsule 600 mg PO BID 12/07/19 04/23/23 Unknown History cinnamon bark 500 mg capsule 1,000 mg PO DAILY 12/07/19 04/23/23 Unknown History (Cinnamon) multivitamin (Multiple Vitamins 1 tab PO DAILY 12/07/19 04/23/23 Unknown History tablet) fluticasone propionate 50 2 spray intranasal DAILY PRN Nasal 05/16/21 04/23/23 Unknown History mcg/actuation nasal Congestion spray,suspension (Flonase Allergy Relief) coenzyme Q10 30 mg capsule (Co 200 mg PO DAILY 09/05/21 04/23/23 Unknown History Q-10) Exam Height,Weight and Vital Signs: Height 6 ft 3 in Weight 130.181 kg Pertinent Lab Results Pertinent Lab Results: Laboratory Tests 08/09/21 02/11/23 10:43 12:25 Sodium 140 Potassium 4.4 Chloride 105 Carbon Dioxide 25 BUN 24 H Creatinine 1.43 H Narrative Narrative: EKG 09/2022 normal sinus rhythm with right bundle-branch block with left axis deviation with PACs, unchanged from before ECHO 2022 Conclusions: - The left ventricular systolic function is mildly decreased. The calculated ejection fraction is 51% by biplane method. - No obvious valvular pathology seen on this study. Assessment and Plan Assessment Anesthesia Assessment: Chart Reviewed
[2023-04-08 09:07] VITALS: BMI 35.5
--- NOTE | 2023-04-08 09:09 | MHC.SHP ---
Pre-Procedural Eval Section A - 24 Hr Update-Section A only Date of Service: 04/08/23 The patient is an INPATIENT: No The patient has been examined within 24 hours of the surgical procedure. The History & Physical has been completed within 30 days and I have reviewed it.: No Section B - Complete if H&P > 30 days Chief Complaint: Surveillance of colon polyps, positive Cologuard Relevant Family History (Specify if Yes): No Relevant Social History: Tobacco Use (Former smoker) Present Medications: see Short Stay Collaborative assessment Medical History: Significant History (Allergic rhinitis CAD (coronary artery disease) Diabetic neuropathy associated with type 2 diabetes mellitus Dyslipidemia Hearing loss Hypertension Non-toxic multinodular goiter Obesity Obstructive sleep apnea MICHAEL on CPAP Positive colorectal cancer screening using Cologuard test Vitamin D deficiency) History of Previous Operations: Relevant previous surgery/procedure and date(s) (Stented coronary artery) Allergies: Allergies Allergy/AdvReac Type Severity Reaction Status Date / Time bacitracin [BACITRACIN] Allergy Mild DERMATITIS, Verified 02/15/23 10:48 rash, rash Review of Systems Sugical H&P ROS: Negative: Constitution, Cardiovascular, Respiratory and Gastrointestinal Exam Surgical H&P Exam: Normal: Heart, Normal: Lungs, Normal: Extremities and Normal: Abdomen Plan Diagnosis/Plan: Unchanged I have reviewed the history and physical and performed a pertinent physical examination on my patient. No changes have occurred unless specified. Time Spent With Patient Time: Total time managing care of this patient today ____ minutes.
[2023-04-08 09:32] VITALS: BP 149/88; PULSE 80; RESP 16; TEMP 36.1; O2SAT 97
[2023-04-08] MEDS: Lactated Ringers 1,000 ML 100 ML IVCONT (09:33)
[2023-04-08 09:39] LABS: Glucose, Whole Blood 99 mg/dL (60-115)
--- NOTE | 2023-04-08 09:53 | P.OP_ITS ---
Operative Note Operative Note Date of Service: 04/08/23 Narrative: COLONOSCOPY TILL CECUM WITH BIOPSIES, SNARE POLYPECTOMY SUBMUCOSAL INJECTION AND HEMOCLIP PLACEMENT Pre-op diagnosis: Surveillance for colon polyps, positive Cologuard test Post-op diagnosis:? Colon polyps, diverticulosis, hemorrhoids Endoscopist:? Geno Davila MD Anesthesia:?MAC Consent: Indications for the procedure and potential complications of bleeding, perforation, reaction to medications and missed diagnosis were discussed with the patient and informed consent was obtained. Instrument: Olympus CF H 190 L variable stiffness adult colonoscope Monitoring: Vital signs and clinical assessment, intermittent blood pressure monitoring, continuous EKG monitoring, Pulse oximetry and Carbon Dioxide monitoring were done throughout the procedure. Please see anesthesia flowsheet. Colon withdrawl time was 29 minutes. Procedure: The patient was placed in the left lateral decubitis position and pre-procedure medications were administered. After a digital rectal examination of the ano-rectum, the video colonoscope was inserted into the rectum and advanced through the colon to the cecum. The colonoscope was slowly withdrawn in a retrograde panoramic fashion and the colon mucosa was carefully examined including a retroflexed view of the rectum. Findings and interventions are described below. Procedure Difficulty: Without difficulty Findings: Terminal Ileum: Not evaluated Cecum: Normal Ascending Colon: A 12 - 15 mm flat polyp in the distal AC - raised with 5 cc of [place] and removed with a hot snare. Polypectomy site was closed with 1 hemoclip. A 4-5 mm sessile polyp - removed with a cold snare. Transverse Colon: Two 8-9 mm sessile polyps - removed with a cold snare. A 4-5 mm sessile polyp - be removed with a cold biopsy. A 10 mm diminutive appearing polyp in the distal TC at 100 cms - removed with a hot snare. Polypectomy site was closed with 1 hemoclip Descending Colon: Moderate diverticulosis Sigmoid Colon: Two 10 - 15 mm sessile polyps - removed with a hot snare. Severe diverticulosis Rectum: Normal Ano-rectum: Moderate internal hemorrhoids Colon preparation: Good after copious irrigation and Fair in the cecum and rectum [place] Bowel Preparation Scale Right colon; 2 Transverse colon: 2 Left colon; 2 (0 = Unprepared colon segment with mucosa not seen due to solid stool that cannot be cleared. 1 = Portion of mucosa of the colon segment seen, but other areas of the colon segment not well seen due to staining, residual stool and/or opaque liquid. 2 = Minor amount of residual staining, small fragments of stool and/or opaque liquid, but mucosa of colon segment seen well. 3 = Entire mucosa of colon segment seen well with no residual staining, small fragments of stool or opaque liquid) Impression and Post Procedure Diagnosis: Colonoscopy Findings: Eight small to medium sized polyps removed Moderate to severe diverticulosis seen in the entire colon Moderate hemorrhoids on retroflexed exam. Plan: Await pathology results Patient has an appointment on 04/23/23 in the GI Clinic with SONY Chen . Repeat Colonoscopy interval based on path results - in 2 years if polyps are adenomatous and due to fair prep in some areas of the colon. Above findings were reviewed with the patient and colon polyps and diverticulosis handouts were given in the discharge area
[2023-04-08 10:43] VITALS: BP 124/76; PULSE 81; RESP 16; TEMP 36.6; O2SAT 95
[2023-04-08 10:58] VITALS: BP 145/86; PULSE 73; RESP 16; TEMP 36.6; O2SAT 97
== END 2023-04-08 11:24 | disposition home or self-care (01) ==
PROVIDERS: PCP Internal Medicine; Visit Provider Internal Medicine Gastroenterology
PROC: 0DJD8ZZ Inspection of Lower Intestinal Tract, Via Natural or Artificial Opening Endoscopic (ICD-10-PCS; CPT 45378; principal; 2023-04-08 10:10)
DX: R19.5 Other fecal abnormalities (principal); Z86.010 Personal history of colon polyps; D12.2 Benign neoplasm of ascending colon; D12.5 Benign neoplasm of sigmoid colon; K63.5 Polyp of colon; K57.30 Diverticulosis of large intestine without perforation or abscess without bleeding; K64.8 Other hemorrhoids; E11.40 Type 2 diabetes mellitus with diabetic neuropathy, unspecified; I25.10 Atherosclerotic heart disease of native coronary artery without angina pectoris; Z95.5 Presence of coronary angioplasty implant and graft; G47.33 Obstructive sleep apnea (adult) (pediatric); E78.5 Hyperlipidemia, unspecified; E55.9 Vitamin D deficiency, unspecified; I10 Essential (primary) hypertension; J30.9 Allergic rhinitis, unspecified; Z79.51 Long term (current) use of inhaled steroids; Z79.82 Long term (current) use of aspirin; Z79.84 Long term (current) use of oral hypoglycemic drugs; Z79.85 Long-term (current) use of injectable non-insulin antidiabetic drugs; Z88.1 Allergy status to other antibiotic agents; Z87.891 Personal history of nicotine dependence
CPT/HCPCS: 45385; 45380; 45381; 82947; 88305; J2704

== ENCOUNTER → 2023-04-08 08:55 | Outpatient (BNV) | payer MEDICARE, SELFPAY | PROVIDERS: PCP Internal Medicine; Visit Provider Internal Medicine Gastroenterology | DX: Z12.11 Encounter for screening for malignant neoplasm of colon (principal); Z86.010 Personal history of colon polyps; D12.5 Benign neoplasm of sigmoid colon; D12.2 Benign neoplasm of ascending colon; K57.90 Diverticulosis of intestine, part unspecified, without perforation or abscess without bleeding; K64.8 Other hemorrhoids | CPT/HCPCS: 45380; 45381; 45385 ==

== ENCOUNTER 2023-04-23 09:57 | Outpatient (AMB) | payer MEDICARE, SELFPAY ==
--- NOTE | 2023-04-23 10:05 | MHC.OFFVIS ---
Intake Vital Signs 04/23/23 10:06 Height 6 ft 3 in Weight 280 lb BMI 35.0 BP 112/56 L Blood Pressure Location Lt brachial Position Sitting Pulse 84 Intake Visit Reasons: s/p colon Intake Note: Patient follow Colonoscopy results. Patient cc: between diarrhea and constipation and acid reflex. Rn Chemical Dependency Required: No Accompanied by: Self / Same As Patient Allergies bacitracin [BACITRACIN] Allergy (Mild, Verified 04/23/23 10:04) DERMATITIS, rash, rash Medication List - Last Reconciled 04/23/23 by Azul Carrizales PA-C alpha lipoic acid 600 mg PO BID aspirin 81 mg PO DAILY blood sugar diagnostic (FreeStyle Lite Strips) Check Fasting blood sugar once a day as directed blood sugar diagnostic As directed blood-glucose meter (FreeStyle Lite Meter kit) check fasting glucoe once a day As directed cinnamon bark (Cinnamon) 1,000 mg PO DAILY coenzyme Q10 (Co Q-10) 200 mg PO DAILY ezetimibe 10 mg PO DAILY fenofibrate nanocrystallized 145 mg PO DAILY 90 days finasteride 5 mg PO DAILY 90 days fluticasone propionate 50 mcg/actuation (Flonase Allergy Relief) 2 sprays intranasal DAILY PRN lancets As directed lisinopril 40 mg PO DAILY metformin 1,000 mg PO BID 90 days metoprolol succinate ER 50 mg PO DAILY multivitamin (Multiple Vitamins tablet) 1 tab PO DAILY omega-3 acid ethyl esters 2 caps PO BID 90 days pioglitazone 30 mg PO DAILY rosuvastatin 40 mg PO DAILY terazosin 10 mg PO BEDTIME 90 days Trulicity (dulaglutide) 1.5 mg (0.5 mL) subcut QWEEK 90 days NS HPI HPI Comments History of Present Illness Details A 73 y/o male personal history colon polyps f/u after colonoscopy polyectomy-he tolerated procedure well. Reviewed report, path, recommendations- Complains of acid reflux, however admits that he eats dinner at 19:00 or 22:00- He does drink alcohol infrequently he does not Bowels alternate, no abdominal pain rectal bleeding fever or chills PFSH Medical History (Updated 04/23/23 @ 10:45 by Azul Carrizales PA-C) Positive colorectal cancer screening using Cologuard test Vitamin D deficiency Hearing loss Hypertension Dyslipidemia Non-toxic multinodular goiter Diabetic neuropathy associated with type 2 diabetes mellitus Allergic rhinitis MICHAEL on CPAP Obesity CAD (coronary artery disease) Surgical History H/O colonoscopy Stented coronary artery Family History Father Diabetes Substance use disorder Mother Hypertension Mental health disorder Social History Housing: House Alcohol intake: never Patient Tobacco Use Status: Former Tobacco user e-Cigarette/Vaping Use: Never Used Current occupational status: retired Cognitive needs: No Hearing needs: Yes Vision needs: Yes Review of Systems Const All systems reviewed & are unremarkable except as noted in HPI and below Card Denies chest pain and Denies dyspnea Resp Denies dyspnea GI Denies abdominal pain, Denies hematochezia, Reports heartburn, Denies nausea and Denies vomiting Physical Exam Vital Signs: Last Vital Signs Pulse 84 04/23/23 10:06 BP 112/56 L 04/23/23 10:06 BMI result Body Mass Index 35.0 Const General: cooperative, healthy appearing, comfortable and no acute distress Orientation/consciousness: patient oriented x3 Limitations: no limitations Resp Effort & Inspection: normal respiratory effort and able to speak in complete sentences Neuro General: patient oriented x3 Extrem General: Yes full ROM Psych Appearance: grossly normal and well kempt Mental Status: mental status grossly normal Speech and movement: Normal speech and movement present Affect: normal affect Attitude: cooperative Thought process: Normal thought process present Thought content: Normal thought content present Insight: Good insight present (Psych) Results Reviewed Results Reviewed: pression and Post Procedure Diagnosis: Colonoscopy Findings: Eight small to medium sized polyps removed Moderate to severe diverticulosis seen in the entire colon Moderate hemorrhoids on retroflexed exam. Plan: Await pathology results Patient has an appointment on 04/23/23 in the [facility] with SONY Chen . Repeat Colonoscopy interval based on path results - in 2 years if polyps are adenomatous and due to fair prep in some areas of the colon. Above findings were reviewed with the patient and colon polyps and diverticulosis handouts were given in the discharge area Name: RobEldon Lizzeth Age/Sex: 73/M Attending: Geno Davila MD : 1950 Submitted by: Geno Davila MD Copies to: Anne Ramirez MD MR #: [id number] Status: [facility] Collected: 04/08/23 Location: [facility] Received: 04/08/23 Diagnosis A. Colon, ascending, 2 polyps: Tubular adenomas, two; negative for high-grade dysplasia and carcinoma. B. Colon, transverse, 3 polyps: Polypoid colonic mucosa with mild hyperplastic changes; no adenomatous dysplasia seen. C. Colon, distal transverse, polyp: Colonic mucosa with thermal artifact; no adenomatous dysplasia seen. D. Colon, sigmoid, 2 polyps: Tubular adenomas, two; negative for high-grade dysplasia and carcinoma. Clinical Histo Assessment & Plan Assessment & Plan (1) Colon adenomas: Comment: 8-polyps, of which 4 were adenomas Code(s): D12.6 - Benign neoplasm of colon, unspecified Plan: Repeat asymptomatic colonoscopy 2 years will see back in 18 months for appropriate scheduled (2) Diverticulosis of colon: Code(s): K57.30 - Diverticulosis of large intestine without perforation or abscess without bleeding Plan: Maintain high-fiber diet ER protocol (3) Internal hemorrhoids: Code(s): K64.8 - Other hemorrhoids Plan: High-fiber diet avoid straining Plan Asymptomatic colonoscopy 2 years Medications: New omeprazole 20 mg PO DAILY 30 caps 5RF calcium polycarbophil (FiberCon) 1,250 mg (2 x 625 mg) PO DAILY 30 days 60 tabs 3RF Patient Instructions: Asymptomatic colonoscopy 2 years, will schedule 18 months for appropriate time Maintain high-fiber diet, fiber supple Avoid straining with hemorrhoids Diverticulosis/diverticulitis ER protocol-foods to avoid Reflux precautions reviewed Omeprazole 20 mg Coding Level of Care Code Est Pt Level 3 (82611) Diagnoses Colon adenomas D12.6 Diverticulosis of colon K57.30 Internal hemorrhoids K64.8 Time Spent (min) 25
[2023-04-23 10:06] VITALS: BP 112/56; PULSE 84; BMI 35.0
== END 2023-04-23 10:52 | disposition home or self-care (01) ==
PROVIDERS: PCP Internal Medicine; Visit Provider Physician Assistant
DX: D12.6 Benign neoplasm of colon, unspecified (principal); K57.30 Diverticulosis of large intestine without perforation or abscess without bleeding; K64.8 Other hemorrhoids
CPT/HCPCS: 99213

== ENCOUNTER → 2023-04-23 09:57 | Outpatient (BNVA) | payer MEDICARE, SELFPAY | PROVIDERS: PCP Internal Medicine; Visit Provider Physician Assistant | DX: D12.6 Benign neoplasm of colon, unspecified (principal); K57.30 Diverticulosis of large intestine without perforation or abscess without bleeding; K64.8 Other hemorrhoids | CPT/HCPCS: 99212 ==

== ENCOUNTER 2023-05-14 11:39 | Outpatient (REF) | payer MEDICARE, SELFPAY ==
[2023-05-14 13:54] LABS: Alanine Aminotransferase 22 U/L (0-40); Anion Gap 10 (12-20); Aspartate Amino Transferase 28 U/L (5-37); Blood Urea Nitrogen 17 mg/dL (9-16); Calcium 9.6 mg/dL (8.4-10.2); Carbon Dioxide 27 mmol/L (22-29); Chloride 109 mmol/L (96-108); Cholesterol 96 mg/dL (<200); Estimated Glomerular Filt Rate > 60; Glucose Fasting 119 mg/dL (60-99); HDL Cholesterol 30 mg/dL (>40); LDL Cholesterol Calculated 43 mg/dL (<100); Potassium 4.1 mmol/L (3.3-5.1); Sodium 142 mmol/L (135-145); Triglycerides 115 mg/dL (<150)
[2023-05-14 14:02] LABS: Estimated Average Glucose 114 mg/dL; Hemoglobin A1c % 5.6 % (<6.0)
== END 2023-05-14 11:40 | disposition home or self-care (01) ==
LOC: HO.HMGCLDS 11:39
PROVIDERS: PCP Internal Medicine; Visit Provider Internal Medicine
DX: I10 Essential (primary) hypertension (principal); E78.5 Hyperlipidemia, unspecified; E11.40 Type 2 diabetes mellitus with diabetic neuropathy, unspecified
CPT/HCPCS: 36415; 80048; 80061; 83036; 84450; 84460

== ENCOUNTER 2023-05-15 09:30 | Outpatient (REF) | payer MEDICARE, SELFPAY ==
[2023-05-15 14:03] LABS: Creatinine Urine 114.03 mg/dL; Microalbum/Creatinine Ratio Ur 11.4 ug/mg cr (<30)
== END 2023-05-15 09:31 | disposition home or self-care (01) ==
LOC: HO.HMGCLNP 09:30
PROVIDERS: PCP Internal Medicine; Visit Provider Internal Medicine
DX: I10 Essential (primary) hypertension (principal); E78.5 Hyperlipidemia, unspecified; E11.40 Type 2 diabetes mellitus with diabetic neuropathy, unspecified
CPT/HCPCS: 82043; 82570

== ENCOUNTER 2023-05-17 11:30 | Outpatient (AMB) | payer MEDICARE, SELFPAY ==
[2023-05-17 12:11] VITALS: BP 110/60; PULSE 84; O2SAT 96; BMI 36.0
--- NOTE | 2023-05-17 12:11 | A.OFFPC_ITS ---
Vital Signs 05/17/23 12:11 Height 6 ft 3 in Weight 288 lb BMI 36.0 BP 110/60 Blood Pressure Location Lt brachial Position Sitting Pulse 84 Pulse Source Pulse Oximeter Pulse Oximetry (%) 96 Oxygen Delivery Method Room Air Intake Visit Reasons: 3 month f/u Intake Note: Pt is here today for hi 3 mo. f/u DM Allergies bacitracin [BACITRACIN] Allergy (Mild, Verified 08/20/23 12:14) DERMATITIS, rash, rash Medication List - Last Reconciled 05/17/23 by Anne Ramirez MD alpha lipoic acid 600 mg PO BID aspirin 81 mg PO DAILY blood sugar diagnostic (FreeStyle Lite Strips) Check Fasting blood sugar once a day as directed blood sugar diagnostic As directed blood-glucose meter (FreeStyle Lite Meter kit) check fasting glucoe once a day As directed calcium polycarbophil (FiberCon) 1,250 mg (2 x 625 mg) PO DAILY 30 days cinnamon bark (Cinnamon) 1,000 mg PO DAILY coenzyme Q10 (Co Q-10) 200 mg PO DAILY ezetimibe 10 mg PO DAILY fenofibrate nanocrystallized 145 mg PO DAILY 90 days finasteride 5 mg PO DAILY 90 days fluticasone propionate 50 mcg/actuation (Flonase Allergy Relief) 2 sprays intranasal DAILY PRN lancets As directed lisinopril 40 mg PO DAILY metformin 1,000 mg PO BID 90 days metoprolol succinate ER 50 mg PO DAILY multivitamin (Multiple Vitamins tablet) 1 tab PO DAILY omega-3 acid ethyl esters 2 caps PO BID 90 days omeprazole 20 mg PO DAILY pioglitazone 30 mg PO DAILY rosuvastatin 40 mg PO DAILY terazosin 10 mg PO BEDTIME 90 days Trulicity (dulaglutide) 1.5 mg (0.5 mL) subcut QWEEK 90 days NS Tobacco use date assessed: 05/17/23 Last assessed Fall Risk: 05/17/23 Dental Screening Dental Screen Date: 05/17/23 Did you have a dental visit in the last 12 months?: Yes Did you have a dental problem in the last 6 months where you did not have access to dental care?: No Was dental information given to patient?: Patient has dentist HPI 3 month f/u HPI Details 73-year-old male with diabetes mellitus, hyperlipidemia and hypertension, here today for follow-up. He has been compliant with taking his medications, currently on metformin 1000 mg 1 tablet taken twice a day and Trulicity 1.5 mg taken once a week as well as pioglitazone 30 mg daily for control of his diabetes. Patient however states that his Trulicity dose is out of stock in all pharmacies He takes rosuvastatin, fenofibrate, ezetimibe and [place] 3 fatty acid supplements for control of his lipids. Blood pressure controlled on lisinopril 40 mg daily and metoprolol succinate ER 50 mg once a day He is up-to-date with his diabetes retinopathy screening, sees Dr. Dominguez yearly He goes to [facility] and sees Dr. Garcia for his diabetes foot exam, has bilateral hammertoe deformity, and plantar callus. Takes an occasional furosemide as needed for occasion swelling in both lower extremities. [facility] Medical History (Updated 08/20/23 @ 15:19 by Anne Ramirez MD) Hammertoes of both feet Positive colorectal cancer screening using Cologuard test Vitamin D deficiency Hearing loss Hypertension Dyslipidemia Non-toxic multinodular goiter Diabetic neuropathy associated with type 2 diabetes mellitus Allergic rhinitis MICHAEL on CPAP Obesity CAD (coronary artery disease) Surgical History H/O colonoscopy Stented coronary artery Family History Father Diabetes Substance use disorder Mother Hypertension Mental health disorder Social History Housing: House Alcohol intake: never Patient Tobacco Use Status: Former Tobacco user e-Cigarette/Vaping Use: Never Used Current occupational status: retired Cognitive needs: No Hearing needs: Yes Vision needs: Yes Questionnaire PHQ-9 Over the last 2 weeks, how often have you been bothered by any of the following problems? 1. Little interest or pleasure in doing things: not at all 2. Feeling down, depressed, or hopeless: not at all 3. Trouble falling or staying asleep, or sleeping too much: not at all 4. Feeling tired or having little energy: several days 5. Poor appetite or overeating: not at all 6. Feeling bad about yourself - or that you are a failure or have let yourself or your family down: not at all 7. Trouble concentrating on things, such as reading the newspaper or watching television: not at all 8. Moving or speaking so slowly that other people could have noticed. Or the opp osite - being so fidgety or restless that you have been moving around a lot more than usual: not at all 9. Thoughts that you would be better off or of hurting yourself in some way: not at all Total score: 1 Depression Screening Interpretation: Negative Depression Screening Done: Yes 12266 - PHQ-9 Billing: Yes Source: Developed by Drs. Kem Archer, Petra Breaux, Jaxon Burroughs and colleagues, with an educational alecia from [employer]. Thrive Questionnaire Date Thrive assessed: 05/17/23 I am a: Patient What is your living situation today?: I have a steady place to live Within the past 12 months, did the food you bought not last and you didn't have the money to get more?: Never true Within the past 12 months, did you worry whether your food would run out before you got money to buy more?: Never true Do you have trouble paying for medicines?: No Do you have trouble getting transportation to medical appointments?: No Do you have trouble paying your heating and electricity bill?: No Do you have trouble taking care of your child, family member or friend?: No Do you have trouble with day-to-day activities such as bathing, preparing meals, shopping, managing finances, etc.?: No Are you currently unemployed and looking for a job?: No Are you interested in more education?: No Currently or been in a relationship where the following occur: no concerns reported THRIVE Score: 0 AUDIT C Alcohol Use Questionnaire (AUDIT-C) 1. How often do you have a drink containing alcohol?: Monthly or less 2. How many drinks containing alcohol do you have on a typical day when you are drinking?: 1 or 2 Total Score: 1 SIMON-7 AMB Questionnaire SIMON-7 Date SIMON - 7 assessed: 05/17/23 Feeling nervous, anxious, or on edge: 0 = Not at all Not being able to stop or control worryin = Not at all Worrying too much about different things: 0 = Not at all Trouble relaxin = Not at all Being so restless that it is hard to sit still: 0 = Not at all Becoming easily annoyed or irritable: 0 = Not at all Feeling afraid as if something awful might happen: 0 = Not at all Total SIMON-7 score (0-4 normal; 5-9 mild; 10-14 moderate; 15-21 severe): 0 Source: Developed by Drs. Kem Archer, Petra Breaux, Jaxon Burroughs and colleagues, with an educational alecia from [employer]. SIMON-7 Assessment Billing SIMON-7 Assessment Tool: SIMON-7 Assessment 18009 Review of Systems Const Denies body aches, Denies chills, Denies fatigue and Denies fever(s) Eyes Reports no additional complaints ENT Reports Normal hearing present Card Reports no additional complaints and Denies syncope Resp Denies cough GI Denies abdominal pain and Denies heartburn Reports no additional complaints Musc Reports no additional complaints Skin/Breast Reports as per HPI Neuro Reports Normal hearing present, Denies syncope and Denies Sensory deficit (Neuro) Psych Reports no additional complaints Endo Denies fatigue, Denies polyphagia, Denies polydipsia and Denies polyuria Mark/Lymph Denies easy bleeding and Denies easy bruising Aller/Immun Reports no additional complaints Physical exam (Primary Care) Vital Signs: Last Vital Signs Pulse 84 05/17/23 12:11 BP 110/60 05/17/23 12:11 Pulse Ox 96 05/17/23 12:11 Oxygen Delivery Method Room Air 05/17/23 12:11 BMI result Body Mass Index 36.0 BMI Assessment/Plan discussion: High BMI High, discussed plan: lifestyle, weight reduction, dietary and physical activity Tobacco/Smoking Status: Tobacco use Status Tobacco use date assessed 05/17/23 05/17/23 12:19 Patient Tobacco Use Status Former Tobacco user 05/17/23 12:12 e-Cigarette/Vaping Use Never Used 05/17/23 12:12 PHQ-9: PHQ-9 Score PHQ-9: Total score 1 05/17/23 12:35 Depression Screening Interpretation: Negative Thrive Assessment: Date of Thrive Assessment Date Thrive assessed 05/17/23 05/17/23 12:20 Currently or been in a relationship where the following occur: no concerns reported Const General: no acute distress and alert Orientation/consciousness: patient oriented x3 HENMT Head: Yes normocephalic Ears: external ears normal General nose exam: Normal external nose present Face and sinus: Yes face symmetric Mouth: Normal oral and palatal mucosa present and moist mucous membranes Eyes Conjunctivae: conjunctivae normal Sclerae: sclerae normal Pupils: Equal, round and reactive pupils present EOM: EOMs intact bilaterally Neck Neck: Yes full ROM and Yes no lymphadenopathy Thyroid: Thyroid normal Resp Effort & Inspection: normal respiratory effort and able to speak in complete sentences Auscultation: clear to auscultation bilaterally Cardio Jugular venous distension: no JVD Rate: regular rate Rhythm: regular rhythm Heart sounds: S1 normal heart sound present and S2 normal heart sound present GI Inspection: Yes normal to inspection Palpation (GI): Soft to palpation Auscultation: normal bowel sounds Skin General skin exam: no rashes or lesions noted Lesions: other (Plantar callus noted bilaterally) Nails: yellow and thickened (toenails bilateral) Neuro General: patient oriented x3, gait normal, moves all extremities, Normal light touch and pain sensation and no focal motor deficits Cranial nerves: Yes Equal, round and reactive pupils present and Yes Normal hearing present Gait exam (Neuro): Normal gait present Motor exam (neuro): 5/5 motor strength present throughout Sensory Exam: No Sensory deficit (Neuro) Extrem Other: Hammertoes on both feet General: Yes full ROM, Yes no joint enlargement, Yes no calf tenderness, Yes normal gait and Yes pedal edema Results Reviewed Results Reviewed: Name: Eldon Rivas Age/Sex: 73/M : 1950 Unit#: [id number] Attend Dr: Anne Ramirez MD Re05/14/23 Status: DEP REF Location: [facility] Disch: SPEC : [id number] LANA: 05/14/23 STATUS: COMP REQ : [id number] RECD: 05/14/23-[address]: Anne Ramirez MD COMP: 05/14/23 ENTERED: 05/14/23-[address]: ORDERED: Met Prof Fast, AST, ALT, Lipid Panel Test Result Flag Reference Sodium 142 135-145 mmol/L Potassium 4.1 3.3-5.1 mmol/L CL 109 H 96-108 mmol/L CO2 27 22-29 mmol/L Gap 10 L 12-20 BUN 17 H 9-16 mg/dL Creat 1.13 0.5-1.4 mg/dL EGFR > 60 NOTE: For -[place]aced[place] individuals, multiply the result by 1.210. Chronic Kidney Disease: Estimated GFR < 60 mL/min/1.73m2 Severe Kidney Disease: Estimated GFR < 15 mL/min/1.73m2 FBS 119 H 60-99 mg/dL A fasting glucose from 100-125 mg/dl is considered impaired (pre-diabetes). CA 9.6 8.4-10.2 mg/dL AST (GOT) 28 5-37 U/L ALT (GPT) 22 0-40 U/L Triglyceride 115 <150 mg/dL Desirable Triglyceride: less than 150 mg/dL Borderline High Triglyceride 150-199 mg/dL High Triglyceride: 200-499 mg/dL Very High Triglyceride: greater than or equal to 5OO mg/dL Cholesterol 96 <200 mg/dL Desirable Cholesterol: less than 200 mg/dL Borderline High Cholesterol: 200-239 mg/dL High Cholesterol: greater than 239 mg/dL LDL Calculated 43 <100 mg/dL Desirable LDL: less than 100 mg/dL Near Optimal/Above Optimal LDL: 110-129 mg/dL Borderline High LDL: 130-159 mg/dL High LDL: 160-189 mg/dL Very High LDL: greater than or equal to 190 mg/dL HDL 30 L >40 mg/dL Desirable HDL: greater than 40 mg/dL Note: This HDL assay may give artificially low results in patients with liver disease. Laboratory Tests 05/14/23 05/15/23 11:45 09:30 Estimat Average Glucose 114 Hemoglobin A1c % 5.6 Urine Creatinine 114.03 Urine Microalbumin 13.0 Microalb/Creat Ratio 11.4 Assessment and Plan Assessment & Plan (1) Dyslipidemia: Code(s): E78.5 - Hyperlipidemia, unspecified Plan: Reviewed recent fasting lipid profile with patient with levels within normal limits . Continue with rosuvastatin 40 mg daily, ezetimibe, [place] 3 fatty acid supplements and fenofibrate , in addition to adherence to low-cholesterol diet and regular exercise, at least 30 minutes 3 to 4 times a week. Advised patient to make healthy food choices, eat more fruits, vegetables, whole grains, wild caught fish and low-fat dairy. Limit amount of meat and fried or fatty food products, as well as processed foods and fast foods. Follow-up scheduled with repeat fasting lipid panel in 3 months. (2) Hypertension: Code(s): I10 - Essential (primary) hypertension Qualifiers: Hypertension type: primary hypertension Qualified Code(s): I10 - Essential (primary) hypertension Plan: Blood pressure at goal of less than 130/80. Continue with current medication. Reinforced importance of following a low sodium diet, getting regular exercise, and lowering stress levels. (3) Diabetic neuropathy associated with type 2 diabetes mellitus: Code(s): E11.40 - Type 2 diabetes mellitus with diabetic neuropathy, unspecified Plan: Continue with metformin, Trulicity discontinued as it is currently out of stock, prescription sent for Jardiance 10 mg per tablet to take once a day in a.m. an hour before breakfast only with glass of water. Continue with pioglitazone 30 mg daily . Date with his diabetes retinopathy screening and diabetes foot exam. Repeat another hemoglobin A1c in 3 months Medications: New Jardiance (empagliflozin) 10 mg PO QAM 90 tabs 1RF NS E11.40 - Type 2 diabetes mellitus with diabetic neuropathy, unspecified Discontinued Trulicity Discontinued Reason: Insurance Denied 1.5 mg (0.5 mL) subcut QWEEK 90 days 6 mL 3RF NS E11.65 - Type 2 diabetes mellitus with hyperglycemia Coding Level of Care Code Est Pt Level 4 (79250) Complex EM visit Add On G2211 Diagnoses Dyslipidemia E78.5 Primary hypertension I10 Hypertension type: primary hypertension Diabetic neuropathy associated with type 2 diabetes mellitus E11.40 Additional Codes SIMON-7 Assessment Billing - SIMON-7 Assessment Tool: SIMON-7 Assessment 97909 ([id number])
== END 2023-05-17 16:04 | disposition home or self-care (01) ==
PROVIDERS: PCP Internal Medicine; Visit Provider Internal Medicine
DX: E78.5 Hyperlipidemia, unspecified (principal); I10 Essential (primary) hypertension; E11.40 Type 2 diabetes mellitus with diabetic neuropathy, unspecified
CPT/HCPCS: 99214; G2211

== ENCOUNTER 2023-07-03 10:18 | Outpatient (REF) | payer MEDICARE, SELFPAY ==
[2023-07-03 13:20] LABS: Anion Gap 13 (12-20); Blood Urea Nitrogen 16 mg/dL (9-16); Calcium 9.7 mg/dL (8.4-10.2); Carbon Dioxide 25 mmol/L (22-29); Chloride 107 mmol/L (96-108); Estimated Glomerular Filt Rate > 60; Glucose Random 111 mg/dL (60-115); Potassium 4.1 mmol/L (3.3-5.1); Sodium 141 mmol/L (135-145)
[2023-07-03 13:53] LABS: B Type Natriuretic Peptide 93 pg/mL (<100)
== END 2023-07-03 10:19 | disposition home or self-care (01) ==
LOC: HO.HMGCLDS 10:18
PROVIDERS: PCP Internal Medicine; Visit Provider Internal Medicine Cardiovascular Disease
DX: M79.89 Other specified soft tissue disorders (principal); I25.10 Atherosclerotic heart disease of native coronary artery without angina pectoris
CPT/HCPCS: 36415; 80048; 83880

== ENCOUNTER 2023-07-06 13:19 | Outpatient (AMB) | payer MEDICARE, SELFPAY ==
--- NOTE | 2023-07-06 13:20 | MHC.OFFWIV ---
Intake Vital Signs 07/06/23 13:21 Height 6 ft 3 in BP 120/70 Blood Pressure Location Rt brachial Position Sitting Pulse 78 Pulse Source Pulse Oximeter Temp 97.9 F Temp Source Temporal Artery Scan Pulse Oximetry (%) 97 Intake Visit Reasons: EP ankles swollen Intake Note: pt is here for swollen ankles and also has left nipple concern Patient Tobacco Use Status: Former Tobacco user Allergies bacitracin [BACITRACIN] Allergy (Mild, Verified 07/06/23 13:24) DERMATITIS, rash, rash Do you need a note to return to daycare/school/sports/work: No HPI HPI Comments History of Present Illness Details This is a 73-year-old male with past medical history of coronary artery disease, [id number] diabetes, hypertension and obstructive sleep apnea presenting for evaluation of swollen ankles that he has had for the past 2 weeks. Patient has been wearing compression stockings which have improved the swelling and states that the swelling also improves after having his feet up at night. Patient saw his semiconductor development technician last week who had no additional concerns or recommendations. Patient denies having any recent change in medications, weight gain, shortness of breath, cough or chest pain. Additionally, the patient states 3 weeks ago he noted soreness surrounding his left nipple. Patient denies any injury or trauma to his anterior chest wall, bruising, nipple discharge or redness adjacent to his left nipple. Patient has used a pain relieving gel which he states was helpful. [facility] Medical History Hammertoes of both feet Positive colorectal cancer screening using Cologuard test Vitamin D deficiency Hearing loss Hypertension Dyslipidemia Non-toxic multinodular goiter Diabetic neuropathy associated with type 2 diabetes mellitus Allergic rhinitis MICHAEL on CPAP Obesity CAD (coronary artery disease) Surgical History H/O colonoscopy Stented coronary artery Family History Father Diabetes Substance use disorder Mother Hypertension Mental health disorder Social History Housing: House Alcohol intake: never Patient Tobacco Use Status: Former Tobacco user e-Cigarette/Vaping Use: Never Used Current occupational status: retired Cognitive needs: No Hearing needs: Yes Vision needs: Yes Review of Systems Const All systems reviewed & are unremarkable except as noted in HPI and below Denies chills, Denies fever(s), Denies increased appetite and Denies weight gain Card Denies chest pain, Denies rapid heart rate, Denies leg edema, Denies dyspnea, Denies dyspnea on exertion and Denies orthopnea Resp Reports no additional complaints, Denies dyspnea and Denies dyspnea on exertion Skin/Breast Denies lesions, Denies erythema and Denies wounds Mark/Lymph Reports no additional complaints Physical Exam Vital Signs: Last Vital Signs Temp 97.9 F 07/06/23 13:21 Pulse 78 07/06/23 13:21 BP 120/70 07/06/23 13:21 Pulse Ox 97 07/06/23 13:21 Const General: cooperative, healthy appearing, comfortable, no acute distress, alert and awake Nutritional Appearance: overweight Orientation/consciousness: patient oriented x3 Limitations: no limitations Chest Other: Left nipple tenderness, no erythema, induration, fluctuance or lesions noted on palpation. Chest palpation & inspection: normal inspection of the chest Breast/axilla inspection: normal inspection of the axillae and abnormal inspection of the breast (normal in appearance, tenderness L. nipple at 11o'clock) Resp Effort & Inspection: normal respiratory effort, able to speak in complete sentences, abnormal respiratory pattern, no audible wheezes and no respiratory distress Auscultation: clear to auscultation bilaterally Cardio Rate: regular rate Rhythm: regular rhythm Neuro General: patient oriented x3 Extrem Other: Trace pitting edema lateral ankles bilaterally, no calf tenderness, no erythema or other skin changes, no pedal edema. Psych Appearance: grossly normal Mental Status: mental status grossly normal Insight: Good insight present (Psych) Judgement: Good judgement present (Psych) Assessment & Plan Assessment & Plan (1) Nipple tenderness: Comment: There is no evidence of a cellulitis or abscess formation. Given this has been present for the past 3 weeks and there is mild tenderness, will defer to primary care physician to decide about further imaging. Patient has a follow up appointment with primary care in 3 weeks' time. Code(s): N64.4 - Mastodynia Plan: Follow up with primary care physician in 3 weeks for re-evaluation of left nipple tenderness. No antibiotic therapy is warranted at this time. (2) Edema of both ankles: Comment: Trace edema is present bilaterally, patient will be instructed to wear compression stockings that extend to his knees bilaterally every day and remove at night. Code(s): M25.471 - Effusion, right ankle; M25.472 - Effusion, left ankle Plan: Compression stockings bilaterally, follow up with primary care in 3 weeks' time. There is no evidence of CHF, cellulitis or worsening edema. Coding Level of Care Code Est Pt Level 4 (43116) Diagnoses Nipple tenderness N64.4 Edema of both ankles M25.471; M25.472 Time Spent (min) 25
[2023-07-06 13:21] VITALS: BP 120/70; PULSE 78; TEMP 36.6; O2SAT 97
== END 2023-07-06 13:55 | disposition home or self-care (01) ==
LOC: HO.HMGWI 13:19
PROVIDERS: PCP Internal Medicine
DX: N64.4 Mastodynia (principal); M25.471 Effusion, right ankle; M25.472 Effusion, left ankle
CPT/HCPCS: 99051; 99214

== ENCOUNTER 2023-08-20 11:40 | Outpatient (AMB) | payer MEDICARE, SELFPAY ==
[2023-08-20 11:46] VITALS: BP 96/60; PULSE 86; O2SAT 94; BMI 36.1
--- NOTE | 2023-08-20 11:46 | A.OFFPC_ITS ---
Vital Signs 08/20/23 11:46 Height 6 ft 3 in Weight 289 lb BMI 36.1 BP 96/60 Blood Pressure Location Lt brachial Position Sitting Pulse 86 Pulse Source Pulse Oximeter Pulse Oximetry (%) 94 Oxygen Delivery Method Room Air Intake Visit Reasons: 3 month f/u lipids Intake Note: Pt is here today for his 3 mo. f/u Allergies bacitracin [BACITRACIN] Allergy (Mild, Verified 08/20/23 12:14) DERMATITIS, rash, rash Medication List - Last Reconciled 08/20/23 by Anne Ramirez MD alpha lipoic acid 600 mg PO BID aspirin 81 mg PO DAILY blood sugar diagnostic (FreeStyle Lite Strips) Check Fasting blood sugar once a day as directed blood sugar diagnostic As directed blood-glucose meter (FreeStyle Lite Meter kit) check fasting glucoe once a day As directed cinnamon bark (Cinnamon) 1,000 mg PO DAILY coenzyme Q10 (Co Q-10) 200 mg PO DAILY ezetimibe 10 mg PO DAILY fenofibrate nanocrystallized 145 mg PO DAILY 90 days finasteride 5 mg PO DAILY 90 days fluticasone propionate 50 mcg/actuation (Flonase Allergy Relief) 2 sprays intranasal DAILY PRN furosemide (Lasix) 20 mg PO QAM lancets As directed lisinopril 40 mg PO DAILY metformin 1,000 mg PO BID 90 days metoprolol succinate ER 50 mg PO DAILY multivitamin (Multiple Vitamins tablet) 1 tab PO DAILY omega-3 acid ethyl esters 2 caps PO BID 90 days omeprazole 20 mg PO DAILY pioglitazone 30 mg PO DAILY rosuvastatin 40 mg PO DAILY terazosin 10 mg PO BEDTIME 90 days Trulicity (dulaglutide) 0.75 mg (0.5 mL) subcut QWEEK 3 months NS Tobacco use date assessed: 08/20/23 Fall risk assessment: No Falls in past year Last assessed Fall Risk: 08/20/23 Dental Screening Dental Screen Date: 05/17/23 Did you have a dental visit in the last 12 months?: Yes Did you have a dental problem in the last 6 months where you did not have access to dental care?: No Was dental information given to patient?: Patient has dentist HPI 3 month f/u lipids HPI Details 73-year-old male here today for follow-u p on his lipids and diabetes mellitus. He has been compliant with taking his medication but has only been able to go back to taking Trulicity at a lower dose of 7.5 mg once a week instead of the 1.5, as it is still out of stock. Unable to tolerate Jardiance. Latest fasting labs showed hemoglobin A1c up from 5.6% to 6.4%. Has an appointment to see Dr. Dominguez later this year for his diabetes retinopathy screening, and has already been seen for his diabetes foot exam by Dr. Garcia earlier this year,has hammertoes in both feet, plantar calluses and gets occasional swelling in ankles for which he takes furosemide as needed. He also has a recurrent sore on medial aspect of left lower extremity which comes and goes. Requests a referral to see Dr. Ortiz back again for for screening for skin cancer. Complains of pain over left nipple area present now for the last 6 weeks. No discharge or mass felt. [facility] Medical History (Updated 08/20/23 @ 15:19 by Anne Ramirez MD) Hammertoes of both feet Positive colorectal cancer screening using Cologuard test Vitamin D deficiency Hearing loss Hypertension Dyslipidemia Non-toxic multinodular goiter Diabetic neuropathy associated with type 2 diabetes mellitus Allergic rhinitis MICHAEL on CPAP Obesity CAD (coronary artery disease) Surgical History H/O colonoscopy Stented coronary artery Family History Father Diabetes Substance use disorder Mother Hypertension Mental health disorder Social History Housing: House Alcohol intake: never Patient Tobacco Use Status: Former Tobacco user e-Cigarette/Vaping Use: Never Used Current occupational status: retired Cognitive needs: No Hearing needs: Yes Vision needs: Yes Questionnaire PHQ-9 Over the last 2 weeks, how often have you been bothered by any of the following problems? Depression Screening Interpretation: Negative Depression Screening Done: Yes Source: Developed by Drs. Kem Archer, Petra Breaux, Jaxon Burroughs and colleagues, with an educational alecia from [employer]. Thrive Questionnaire Date Thrive assessed: 05/17/23 Currently or been in a relationship where the following occur: no concerns reported THRIVE Score: 0 SIMON-7 AMB Questionnaire SIMON-7 Date SIMON - 7 assessed: 05/17/23 Source: Developed by Drs. Kem Archer, Petra Breaux, Jaxon Burroughs and colleagues, with an educational alecia from [employer]. Review of Systems Const All systems reviewed & are unremarkable except as noted in HPI and below Denies chills, Denies fever(s), Denies increased appetite and Denies weight gain Eyes Details: Sees Dr. Dominguez yearly for his diabetes retinopathy screening and routine eye exam ENT Reports no additional complaints and Reports Normal hearing present Card Denies chest pain, Denies rapid heart rate, Denies leg edema, Denies dyspnea, Denies dyspnea on exertion and Denies orthopnea Resp Reports no additional complaints, Denies dyspnea and Denies dyspnea on exertion GI Reports no additional complaints Reports no additional complaints Musc Reports no additional complaints Skin/Breast Reports as per HPI, Denies breast swelling, Denies breast skin changes, Denies breast mass, Denies change in breast shape and Denies nipple discharge Neuro Reports no additional complaints, Reports Normal hearing present and Denies Sensory deficit (Neuro) Psych Reports no additional complaints Endo Reports no additional complaints Mark/Lymph Reports no additional complaints Aller/Immun Reports no additional complaints Physical exam (Primary Care) Vital Signs: Last Vital Signs Pulse 86 08/20/23 11:46 BP 96/60 08/20/23 11:46 Pulse Ox 94 08/20/23 11:46 Oxygen Delivery Method Room Air 08/20/23 11:46 BMI result Body Mass Index 36.1 BMI Assessment/Plan discussion: High BMI High, discussed plan: lifestyle, weight reduction, dietary and physical activity Tobacco/Smoking Status: Tobacco use Status Tobacco use date assessed 08/20/23 08/20/23 11:49 Patient Tobacco Use Status Former Tobacco user 08/20/23 11:46 e-Cigarette/Vaping Use Never Used 08/20/23 11:46 Depression Screening Interpretation: Negative Thrive Assessment: Date of Thrive Assessment Date Thrive assessed 05/17/23 08/20/23 11:46 Currently or been in a relationship where the following occur: no concerns reported Const General: no acute distress and alert Orientation/consciousness: patient oriented x3 HENMT Head: Yes normocephalic Ears: external ears normal General nose exam: Normal external nose present Face and sinus: Yes face symmetric Mouth: Normal oral and palatal mucosa present and moist mucous membranes Eyes Conjunctivae: conjunctivae normal Sclerae: sclerae normal Pupils: Equal, round and reactive pupils present EOM: EOMs intact bilaterally Neck Neck: Yes full ROM and Yes no lymphadenopathy Thyroid: Thyroid normal Chest Other: Tenderness on palpation over left areola, with no definite mass palpated, no nipple discharge Chest palpation & inspection: normal inspection of the chest Breast/axilla inspection: normal inspection of the breasts Breast/axilla palpation: normal palpation of the breasts Resp Effort & Inspection: normal respiratory effort and able to speak in complete sentences Auscultation: clear to auscultation bilaterally Cardio Jugular venous distension: no JVD Rate: regular rate Rhythm: regular rhythm Heart sounds: S1 normal heart sound present and S2 normal heart sound present GI Inspection: Yes normal to inspection Palpation (GI): Soft to palpation Auscultation: normal bowel sounds Skin Other: Dry crusted lesion with erythematous base on medial aspect of left lower extremity, nontender to palpation Lesions: other (Plantar callus noted bilaterally) Nails: yellow and thickened (toenails bilateral) Neuro General: patient oriented x3, gait normal, moves all extremities, Normal light touch and pain sensation and no focal motor deficits Cranial nerves: Yes Equal, round and reactive pupils present and Yes Normal hearing present Gait exam (Neuro): Normal gait present Motor exam (neuro): 5/5 motor strength present throughout Sensory Exam: No Sensory deficit (Neuro) Extrem Other: Hammertoes on both feet General: Yes full ROM, Yes no joint enlargement, Yes no calf tenderness, Yes normal gait and Yes pedal edema Results AMB Hemoglobin A1c AMB Hemoglobin A1c 6.4 % Last Edit by Dora Hannah CMA on 08/20/23 12:11 Results Reviewed Results Reviewed: Laboratory Last Values Hgb A1c (Clinic) 6.4 % (4.0-6.0) H 08/20/23 12:01 Assessment and Plan Assessment & Plan (1) Diabetic neuropathy associated with type 2 diabetes mellitus: Code(s): E11.40 - Type 2 diabetes mellitus with diabetic neuropathy, unspecified Plan: Hemoglobin A1c at 6.4%, higher than last check, continue with metformin, p ioglitazone, Trulicity 0.75 mg weekly. Up-to-date with his diabetes retinopathy screening and diabetes foot exam. Requesting prescription for diabetic shoes with inserts, as recommended by his inspector fabric he recently saw. (2) Skin lesion of left lower extremity: Code(s): L98.9 - Disorder of the skin and subcutaneous tissue, unspecified Plan: Ordered dermatology consult with Dr. Ortiz (3) Screening for Malignant Neoplasm of Skin: Code(s): Z12.83 - Encounter for screening for malignant neoplasm of skin Plan: Ordered dermatology consult with Dr. Ortiz (4) Nipple pain: Code(s): N64.4 - Mastodynia Plan: Ultrasound of left breast ordered (5) Dyslipidemia: Code(s): E78.5 - Hyperlipidemia, unspecified Plan: Fasting lipid panel ordered, continue on ezetimibe, fenofibrate and [place] 3 fatty acids as well as rosuvastatin 40 mg daily. (6) Hypertension: Code(s): I10 - Essential (primary) hypertension Qualifiers: Hypertension type: primary hypertension Qualified Code(s): I10 - Essential (primary) hypertension Plan: Hypertension stable controlled, continued on metoprolol succinate ER 50 mg daily and lisinopril 40 mg daily Orders: Orders US breast LT complete 08/20/23 N64.4 - Mastodynia Lipid Panel 11/03/23 E11.40 - Type 2 diabetes mellitus with diabetic neuropathy, unspecified, E78.5 - Hyperlipidemia, unspecified, I10 - Essential (primary) hypertension, I25.10 - Atherosclerotic heart disease of [place] coronary artery without angina pectoris Alanine Aminotransferase 11/03/23 E11.40 - Type 2 diabetes mellitus with diabetic neuropathy, unspecified, E78.5 - Hyperlipidemia, unspecified, I10 - Essential (primary) hypertension, I25.10 - Atherosclerotic heart disease of [place] coronary artery without angina pectoris Basic Metabolic Panel Fasting 11/03/23 E11.40 - Type 2 diabetes mellitus with diabetic neuropathy, unspecified, E78.5 - Hyperlipidemia, unspecified, I10 - Essential (primary) hypertension, I25.10 - Atherosclerotic heart disease of [place] coronary artery without angina pectoris AMB Hemoglobin A1c 08/20/23 E11.40 - Type 2 diabetes mellitus with diabetic neuropathy, unspecified Aspartate Amino Transferase 11/03/23 E11.40 - Type 2 diabetes mellitus with diabetic neuropathy, unspecified, E78.5 - Hyperlipidemia, unspecified, I10 - Essential (primary) hypertension, I25.10 - Atherosclerotic heart disease of [place] coronary artery without angina pectoris Hemoglobin A1c 11/03/23 E11.40 - Type 2 diabetes mellitus with diabetic neuropathy, unspecified, E78.5 - Hyperlipidemia, unspecified, I10 - Essential (primary) hypertension, I25.10 - Atherosclerotic heart disease of [place] coronary artery without angina pectoris Referrals Dermatology Referral E11.40 - Type 2 diabetes mellitus with diabetic neuropathy, unspecified, L98.9 - Disorder of the skin and subcutaneous tissue, unspecified, Z12.83 - Encounter for screening for malignant neoplasm of skin Coding Level of Care Code Est Pt Level 4 (18192) Complex EM visit Add On G2211 Diagnoses Diabetic neuropathy associated with type 2 diabetes mellitus E11.40 Skin lesion of left lower extremity L98.9 Screening for Malignant Neoplasm of Skin Z12.83 Nipple pain N64.4 Dyslipidemia E78.5 Primary hypertension I10 Hypertension type: primary hypertension
== END 2023-08-20 12:39 | disposition home or self-care (01) ==
PROVIDERS: PCP Internal Medicine; Visit Provider Internal Medicine
DX: E11.40 Type 2 diabetes mellitus with diabetic neuropathy, unspecified (principal)
CPT/HCPCS: 83036; 99214; G2211

== ENCOUNTER 2023-08-23 08:27 | Outpatient (REF) | payer MEDICARE, SELFPAY ==
--- NOTE | ~2023-08-23 | MM_ITS ---
EXAMINATION: MM DIAGNOSTIC DIGITAL BREAST TOMOSYNTHESIS, BILATERAL US BREAST LIMITED, LEFT MAMMOGRAPHY: CLINICAL INFORMATION: Left breast pain constantly x8 weeks, 73-year-old male. COMPARISON: Mammography: No prior. TECHNIQUE: Digital breast tomosynthesis is performed in both the craniocaudal and mediolateral oblique views along with computer-aided detection (CAD). Synthesized 2D images are generated from the tomosynthesis. In addition, a full-field 3-D left mediolateral view was obtained. FINDINGS: The breasts are almost entirely fatty (ACR BI-RADS breast composition Category a). There is mild to moderate left retroareolar breast tissue development consistent with gynecomastia. Otherwise, no masses, suspicious calcifications, or areas of architectural distortion are identified in either breast. No skin or axillary abnormalities. Results are provided to the patient at time of visit by the technologist. ULTRASOUND: CLINICAL INFORMATION: As above. COMPARISON: None TECHNIQUE: Targeted sonographic evaluation left breast was performed using a high frequency linear transducer. Attention was given to the painful focus in the retroareolar and periareolar lateral left breast. Selected archived documentation. FINDINGS: LEFT BREAST: There is predominantly fatty tissue present. There is retroareolar breast tissue development, consistent with benign male gynecomastia. There is mild to moderate in severity. Otherwise, no suspicious masses, areas of architectural distortion, cystic abnormalities, or abnormal shadowing in the left breast. MM/MM tomosynthesis diagnostic BI IMPRESSION: No evidence of malignancy in either breast. Benign left male gynecomastia, mild to moderate in severity. Recommend clinical management. OVERALL ASSESSMENT: Mammography: BI-RADS 2 - Benign Findings Ultrasound: BI-RADS 2 - Benign Findings RECOMMENDATION: 1. Patient should be managed based on the clinical impression.
== END 2023-08-23 08:28 | disposition home or self-care (01) ==
LOC: HO.MAMMO 08:27
PROVIDERS: PCP Internal Medicine; Visit Provider Internal Medicine
DX: N64.4 Mastodynia (principal)
CPT/HCPCS: 76642; 77062; 77066

== ENCOUNTER → 2023-08-23 08:30 | Outpatient (BNV) | payer MEDICARE, SELFPAY | PROVIDERS: PCP Internal Medicine; Visit Provider Radiology Diagnostic Radiology | DX: N62 Hypertrophy of breast (principal); R92.312 Mammographic fatty tissue density, left breast | CPT/HCPCS: 76642; 77066; G0279 ==

== ENCOUNTER 2023-09-24 14:31 | Outpatient (AMB) | payer OTHER, SELFPAY ==
--- NOTE | 2023-09-24 14:42 | A.OFFVIS_ITS ---
Vital Signs 09/24/23 14:43 Height 6 ft 3 in Weight 282 lb 3.067 oz BMI 35.3 BP 114/70 Blood Pressure Location Lt brachial Position Sitting Pulse 94 Intake Visit Reasons: 1 year follow up Intake Note: 1 year follow-up with ekg feeling good Allergies bacitracin [BACITRACIN] Allergy (Mild, Verified 08/20/23 12:14) DERMATITIS, rash, rash Medication List - Last Reconciled 09/24/23 by Davonte Rodríguez MD alpha lipoic acid 600 mg PO BID aspirin 81 mg PO DAILY blood sugar diagnostic (FreeStyle Lite Strips) Check Fasting blood sugar once a day as directed blood sugar diagnostic As directed blood-glucose meter (FreeStyle Lite Meter kit) check fasting glucoe once a day As directed cinnamon bark (Cinnamon) 1,000 mg PO DAILY coenzyme Q10 (Co Q-10) 200 mg PO DAILY [Customized heat molded multi- density inner soles( 3 pairs) As directed NS] [Extra depth diabetic orthopedic shoes Extra depth diabetic orthopedic shoes 1 pair NS] ezetimibe 10 mg PO DAILY fenofibrate nanocrystallized 145 mg PO DAILY 90 days finasteride 5 mg PO DAILY 90 days fluticasone propionate 50 mcg/actuation (Flonase Allergy Relief) 2 sprays intranasal DAILY PRN furosemide (Lasix) 20 mg PO QAM lancets As directed lisinopril 40 mg PO DAILY metformin 1,000 mg PO BID 90 days metoprolol succinate ER 50 mg PO DAILY multivitamin (Multiple Vitamins tablet) 1 tab PO DAILY omega-3 acid ethyl esters 2 caps PO BID 90 days omeprazole 20 mg PO DAILY pioglitazone 30 mg PO DAILY rosuvastatin 40 mg PO DAILY terazosin 10 mg PO BEDTIME 90 days HPI Comments Details: Eldon comes for follow-up. Complains of fatigue throughout the day and daytime somnolence. Has not been using his CPAP at nighttime for the last 2 months. Otherwise she has been doing well. He has not been going out for walks due to the weather and being to heart. Denies any exertional chest pain or shortness of breath. Denies any orthopnea, PND, leg edema. Takes all his medications. No significant heart failure symptoms. No prolonged palpitations irregular heartbeat [facility] Medical History (Updated 08/20/23 @ 15:19 by Anne Ramirez MD) Hammertoes of both feet Positive colorectal cancer screening using Cologuard test Vitamin D deficiency Hearing loss Hypertension Dyslipidemia Non-toxic multinodular goiter Diabetic neuropathy associated with type 2 diabetes mellitus Allergic rhinitis MICHAEL on CPAP Obesity CAD (coronary artery disease) Surgical History H/O colonoscopy Stented coronary artery Family History Father Diabetes Substance use disorder Mother Hypertension Mental health disorder Social History Housing: House Alcohol intake: never Patient Tobacco Use Status: Former Tobacco user e-Cigarette/Vaping Use: Never Used Current occupational status: retired Cognitive needs: No Hearing needs: Yes Vision needs: Yes Review of Systems Const Denies chills, Denies fatigue, Denies fever(s), Denies frequent falls, Denies weakness, Denies weight gain and Denies weight loss ENT Denies dizziness Card Denies chest pain, Denies leg edema, Denies lightheadedness, Denies palpitations, Denies dyspnea, Denies dyspnea on exertion, Denies orthopnea and Denies other (loss of consciousness) Resp Denies cough, Denies dyspnea and Denies dyspnea on exertion GI Denies hematochezia and Denies change in stool character Musc Denies abnormal gait, Denies muscle weakness, Denies numbness, Denies radiating pain into limb and Denies tingling Neuro Denies abnormal gait, Denies dizziness, Denies frequent falls, Denies numbness, Denies tingling and Denies weakness Endo Denies fatigue and Denies palpitations Physical Exam Vital Signs: Last Vital Signs Pulse 94 09/24/23 14:43 BP 114/70 09/24/23 14:43 BMI result Body Mass Index 35.3 Const Other: This is a telephone visit General: cooperative, comfortable, no acute distress, alert and awake Nutritional Appearance: obese Orientation/consciousness: patient oriented x3 Limitations: no limitations Neck Neck: Yes trachea midline, Yes supple and Yes no JVD Resp Effort & Inspection: normal respiratory effort Auscultation: clear to auscultation bilaterally Cardio Jugular venous distension: no JVD Palpation: normal PMI Rate: regular rate Rhythm: abnormal rhythm with ectopic beats Heart sounds: S1 normal heart sound present and S2 normal heart sound present GI Inspection: Yes obesity Auscultation: normal bowel sounds Skin General skin exam: no rashes or lesions noted Neuro General: patient oriented x3 and no focal motor deficits Extrem General: Yes no clubbing, cyanosis or edema Psych Appearance: grossly normal Office Procedures EKG Details: EKG shows normal sinus rhythm with right bundle-branch block with left axis deviation with inferior Q-waves [id number], Complete Assessment & Plan Assessment & Plan (1) Asymptomatic LV dysfunction: Code(s): I51.9 - Heart disease, unspecified Category: Medical Plan: Cardiomyopathy with asymptomatic LV systolic dysfunction with last echocardiogram showed LVEF of 51%. Follow-up echocardiogram in 1 year's time. No signs or symptoms of heart failure. They were discussed. Continue current neurohormonal modulation with lisinopril as well as metoprolol therapy. Advised to resume CPAP therapy. Should help with his symptoms. Continue participate in regular physical activity and weight loss program. (2) CAD (coronary artery disease): Code(s): I25.10 - Atherosclerotic heart disease of [place] coronary artery without angina pectoris Category: Medical Plan: CAD with stenting in 2018 to OM 1 branch without any clear symptoms at this point time. Continue current aggressive medical therapy. Continue low-dose aspirin therapy for life. Continue aggressive lipid modification, LDL well optimized on high-intensity statin therapy as well as ezetimibe therapy. Continue aggressive diabetes management goal hemoglobin A1c less than 7%. Continue aggressive blood pressure management. Follow up in the clinic in 1 year's time, sooner p.r.n.. Thank you for allowing me to partake in his care Orders: Orders CA echo transthoracic complete 1 Year I51.9 - Heart disease, unspecified Medications: Changed From Trulicity (dulaglutide) 0.75 mg (0.5 mL) subcut QWEEK 3 months 6 mL 3RF NS E11.40 - Type 2 diabetes mellitus with diabetic neuropathy, unspecified To Trulicity (dulaglutide) 1.5 mg subcut QWEEK 3 months 13 mL 3RF NS E11.40 - Type 2 diabetes mellitus with diabetic neuropathy, unspecified Coding Level of Care Code Est Pt Level 4 (58882) Diagnoses Asymptomatic LV dysfunction I51.9 CAD (coronary artery disease) I25.10 CPT Codes EKG - CPT: 41929-[id number], Complete ([id number])
[2023-09-24 14:43] VITALS: BP 114/70; PULSE 94; BMI 35.3
== END 2023-09-24 15:10 | disposition home or self-care (01) ==
PROVIDERS: PCP Internal Medicine; Visit Provider Internal Medicine Cardiovascular Disease
DX: I51.9 Heart disease, unspecified (principal); I25.10 Atherosclerotic heart disease of native coronary artery without angina pectoris
CPT/HCPCS: 93010; 99214

== ENCOUNTER → 2023-09-24 14:31 | Outpatient (BNVA) | payer OTHER, SELFPAY | PROVIDERS: PCP Internal Medicine; Visit Provider Internal Medicine Cardiovascular Disease | DX: I51.9 Heart disease, unspecified (principal); I25.10 Atherosclerotic heart disease of native coronary artery without angina pectoris; E11.40 Type 2 diabetes mellitus with diabetic neuropathy, unspecified; Z79.82 Long term (current) use of aspirin; Z79.899 Other long term (current) drug therapy | CPT/HCPCS: 93005 ==

== ENCOUNTER 2023-10-04 10:37 | Outpatient (AMB) | payer MEDICARE, SELFPAY ==
--- NOTE | 2023-10-04 10:38 | A.OFFVIS_ITS ---
Intake Visit Reasons: 1Y Follow Up-PVR Intake Note: Patient is Present for PVR/ Urology Med: Terazosin, Finasteride Antibiotic Allergy:Bacitracin Blood Thinner:Aspirin Patient is on Trulicty Last PVR: 30 Todays PVR: 26 Patient states that both medications are working well Patient wanted to report that he does take now Furesomide in the AM for swelling and he does take the Terazosin at Night would like to discuss any effects it can do Supervising Bailiff Required: No Accompanied by: Self / Same As Patient Allergies bacitracin [BACITRACIN] Allergy (Mild, Verified 10/04/23 10:43) DERMATITIS, rash, rash HPI Comments Details: Eldon is a pleasant male. He is a patient of Dr. Ramirez. He is seen for the following urologic conditions - lower urinary tract symptoms Yearly follow-up On combination terazosin and finasteride Urgency and frequency has changed after signing Lasix recently PVR low under 50 cc Twelve month follow-up Continue finasteride 3 times a week Lower urinary tract symptoms PSA 07/22 4.25, 03/25 1.3, 09/22 1.8, 09/23 1.0 Current visit is for - further symptom evaluation of obstructive symptoms Current treatment includes - finasteride with 10 mg terazosin Prior treatments include -tamsulosin 0.4 mg not sufficient Prostate Symptom Score - 02/20 moderate,Bother 4 - 04/24 mild, bother 2, nocturia x1 and improving Symptoms include - initial - weak stream, incomplete emptying, nocturia Results from testing include - ultrasound pending Prior Prostate Score unknown Prostate volume 50 g Associated conditions CAD No CVA No Diabetes yes - with urgency Elevated PSA No Erectile Dysfunction yes Testing at next visit will include - pvr, with psa Renal cyst - 03/24 Renal US 4 cm left upper pole renal cyst - 08/23 Ct with stable cyst - small kidney stones PFSH Medical History Diabetes mellitus, without long-term current use of insulin Hammertoes of both feet Positive colorectal cancer screening using Cologuard test Vitamin D deficiency Hearing loss Hypertension Dyslipidemia Non-toxic multinodular goiter Diabetic neuropathy associated with type 2 diabetes mellitus Allergic rhinitis MICHAEL on CPAP Obesity CAD (coronary artery disease) Surgical History H/O colonoscopy Stented coronary artery Family History Father Diabetes Substance use disorder Mother Hypertension Mental health disorder Social History Housing: House Alcohol intake: never Patient Tobacco Use Status: Former Tobacco user e-Cigarette/Vaping Use: Never Used Current occupational status: retired Cognitive needs: No Hearing needs: Yes Vision needs: Yes Review of Systems Const Denies chills and Denies fever(s) Card Reports no additional complaints and Denies syncope Resp Denies cough GI Denies abdominal pain and Denies heartburn Reports as per HPI and Denies change in libido Neuro Denies syncope Psych Denies change in libido Endo Denies change in libido Physical Exam Const General: cooperative, healthy appearing, comfortable and no acute distress Orientation/consciousness: patient oriented x3 HEENT Face and sinus: Yes normal facial exam Mouth: moist mucous membranes Neck Neck: Yes normal visual inspection, Yes full ROM and Yes trachea midline Chest Chest palpation & inspection: normal inspection of the chest Resp Effort & Inspection: normal respiratory effort, able to speak in complete sentences and no respiratory distress GI Inspection: Yes normal to inspection Back/Spine/Pelvis Cervical Spine: normal cervical lordosis Thoracic/Lumbar Spine: thoracic and lumbar spine normal to inspection Skin General skin exam: no rashes or lesions noted Neuro General: patient oriented x3, gait normal, tone normal and moves all extremities Extrem General: Yes normal to inspection and Yes capillary refill normal Office Procedures Post Void Residual Post Residual Void Post Void Residual (PVR): 26 [id number] Void Residual by ultrasound Assessment & Plan Assessment & Plan (1) BPH w urinary obs/LUTS: Code(s): N40.1 - Benign prostatic hyperplasia with lower urinary tract symptoms; N13.8 - Other obstructive and reflux uropathy Category: Medical Plan Twelve month follow-up PVR UA Orders: Orders AMB Post Void Residual by ultrasound Today N13.8 - Other obstructive and reflux uropathy, N40.1 - Benign prostatic hyperplasia with lower urinary tract symptom s Prostate Specific Antigen 364 Days N13.8 - Other obstructive and reflux uropathy, N40.1 - Benign prostatic hyperplasia with lower urinary tract symptoms Patient Instructions: Imaging studies, laboratory and physical exam results were discussed and reviewed in detail. No major barriers to patient understanding were identified. An opportunity to ask questions regarding the treatment plan was provided. All questions were answered. The patient expressed understanding and agreement with the above treatment plan. The patient is aware they should contact our office by phone for worsening of their current condition or the appearance of new urologic symptoms. Compliance is encouraged with any medications and followup testing that is ordered. It is a privilege to participate in the urologic care of your patient. If you have any questions or concerns regarding treatment for the above conditions, or other urologic issues, please do not hesitate to contact me. The office telephone contact is [phone]. This note is constructed using voice recognition software. While every effort has been made to ensure accuracy assembly leader errors may have been included. Yours sincerely, Dr Wes Stephens MD, [facility] - Urology Providers of Expert, Compassionate Care for the Genitourinary System Coding Level of Care Code Est Pt Level 4 (87235) Diagnoses BPH w urinary obs/LUTS N40.1; N13.8 CPT Codes Post Residual Void - PVR CPT Code: 34369-Tdst Void Residual by ultrasound ([id number])
== END 2023-10-04 11:04 | disposition home or self-care (01) ==
PROVIDERS: PCP Internal Medicine; Visit Provider Urology
DX: N40.1 Benign prostatic hyperplasia with lower urinary tract symptoms (principal); N13.8 Other obstructive and reflux uropathy
CPT/HCPCS: 99214

== ENCOUNTER → 2023-10-04 10:37 | Outpatient (BNVA) | payer MEDICARE, SELFPAY | PROVIDERS: PCP Internal Medicine; Visit Provider Urology | DX: N40.1 Benign prostatic hyperplasia with lower urinary tract symptoms (principal); N13.8 Other obstructive and reflux uropathy; N52.9 Male erectile dysfunction, unspecified; E11.9 Type 2 diabetes mellitus without complications; Z79.899 Other long term (current) drug therapy | CPT/HCPCS: 51798; 99212 ==

== ENCOUNTER 2023-10-10 08:52 | Outpatient (AMB) | payer OTHER, SELFPAY ==
--- NOTE | 2023-10-10 08:55 | A.OFFVIS_ITS ---
Vital Signs 10/10/23 09:00 Height 6 ft 3 in Weight 291 lb 0.163 oz BMI 36.4 BP 120/78 Blood Pressure Location Rt brachial Position Sitting Pulse 78 Pulse Source Pulse Oximeter Intake Visit Reasons: T2DM w/o complications/CONFIRMED Intake Note: Patient presents today to re-establish treatment for Type 2 Diabetes Mellitus: Last Diabetic eye exam was on: [facility], 11/01/2022 Last Podiatry exam was on: [facility], 08/21/2023 Most recent HbA1c: 6.4%, 08/20/2023 Random Glucose- 130mg/dL, Today Data Processing Equipment Repairer Required: No Accompanied by: Self / Same As Patient Allergies bacitracin [BACITRACIN] Allergy (Mild, Verified 10/10/23 08:57) DERMATITIS, rash, rash HPI Comments Details: This is a 73-year-old male with diabetes mellitus, thyroid nodules presenting for diabetic follow-up Medical history: CAD status post CT, CHF, peripheral vascular disease, hypertension, hyperlipidemia, BPH Last A1c 6.4% 08/2023. Checks with classic glucometer 1x/week. Current medications: Metformin 1 g b.i.d., Actos 30 mg daily and Trulicity 3 mg weekly. Previously intolerant to Ozempic. Previously on Invokana, never started Jardiance Microvascular/macrovascular: CAD, peripheral vascular disease, nonproliferative diabetic retinopathy. On statin & CARMEN-I Last ophthalmology evaluation: 10/2022 Sees Podiatry every 3 months-Dr Garcia: utd 10/14/2019 Right Thyroid Lobe: 3.9 x 1.6 x 1.8 cm, volume 5.9 mL. Previously 4.6 x 2.2 x 1.7 cm, volume 8.8 mL. Parenchyma: The gland echotexture is homogeneous. Thyroid vascularity is normal. Left Thyroid Lobe: 3.6 x 1.8 x 1.7 cm, volume 5.8 mL. Previously 4.2 x 2.1 x 2.0 cm, volume 9.1 mL. Parenchyma: The gland echotexture is homogeneous. Thyroid vascularity is normal. Isthmus: 0.5 cm in maximum AP dimension. Previously 0.4 cm. RIGHT THYROID LOBE: No nodules. ISTHMUS: No nodules. LEFT THYROID LOBE: There are 2 nodules seen. 1. Location: Lower. Size: 0.5 x 0.3 x 0.4 cm. Previous: 0.7 x 0.4 x 0.5 cm. Nodule characteristics: Hypoechoic and smooth without flow. 2. Location: Lower. Size: 0.7 x 0.6 x 0.6 cm. Previous: 0.8 x 0.6 x 0.6 cm. Nodule characteristics: Heterogeneous and smooth without flow. NODES: A 9 mm lymph node is noted in the right neck. ROS CONSTITUTIONAL: Denies weight loss, fever and chills. HEENT: Denies changes in vision and hearing. RESPIRATORY: Denies SOB and cough. CV: Denies palpitations and CP GI: Denies abdominal pain, nausea, vomiting and diarrhea. : Denies dysuria and urinary frequency. MSK: Denies new myalgia and joint pain. SKIN: Denies rash and pruritus. NEUROLOGICAL: Denies headache PSYCHIATRIC: Denies recent changes in mood. PHYSICAL EXAM: GENERAL: Alert and oriented x 3. NAD EYES: EOMI. Anicteric. HENT: Moist mucous membranes. No scleral icterus. No cervical lymphadenopathy. LUNGS: Clear to auscultation bilaterally. CARDIOVASCULAR: Regular rate and rhythm. No murmur. No JVD. ABDOMEN: Soft, non-tender +bs EXTREMITIES: No edema. Non-tender. SKIN: No rashes or lesions. Warm. NEUROLOGIC: No focal neurological deficits. CN II-XII grossly intact PSYCHIATRIC: Cooperative. Appropriate mood and affect [facility] Medical History Diabetes mellitus, without long-term current use of insulin Hammertoes of both feet Positive colorectal cancer screening using Cologuard test Vitamin D deficiency Hearing loss Hypertension Dyslipidemia Non-toxic multinodular goiter Diabetic neuropathy associated with type 2 diabetes mellitus Allergic rhinitis MICHAEL on CPAP Obesity CAD (coronary artery disease) Surgical History H/O colonoscopy Stented coronary artery Family History Father Diabetes Substance use disorder Mother Hypertension Mental health disorder Social History Housing: House Alcohol intake: never Patient Tobacco Use Status: Former Tobacco user e-Cigarette/Vaping Use: Never Used Current occupational status: retired Cognitive needs: No Hearing needs: Yes Vision needs: Yes Physical Exam Vital Signs: Last Vital Signs Pulse 78 10/10/23 09:00 BP 120/78 10/10/23 09:00 BMI result Body Mass Index 36.4 Results Reviewed Results Reviewed: Laboratory Last Values Glucose (Clinic) 130 mg/dL (60-115) H 10/10/23 09:06 Assessment & Plan Assessment & Plan (1) Diabetes mellitus, without long-term current use of insulin: Code(s): E11.9 - Type 2 diabetes mellitus without complications Category: Medical Qualifiers: Diabetes mellitus complication detail: with other circulatory complications Diabetes mellitus complication status: with circulatory complication Diabetes mellitus type: type 2 Qualified Code(s): E11.59 - Type 2 diabetes mellitus with other circulatory complications Plan: Well controlled type 2 diabetes. Continue current medications. If unable to obtain trulicity could add glipizide for short term Continue lipid, blood pressure management Continue close follow up with ophtho and podiatry Return in 3 months (2) CAD (coronary artery disease): Code(s): I25.10 - Atherosclerotic heart disease of [place] coronary artery without angina pectoris Category: Medical Plan: continue cardiology follow up (3) Peripheral vascular disease: Code(s): I73.9 - Peripheral vascular disease, unspecified Category: Medical Plan: strict glucose control Orders: Orders Complete Blood Count Auto Diff Today E11.9 - Type 2 diabetes mellitus without complications, Z13.0 - Encounter for screening for diseases of the blood and blood-forming organs and certain disorders involving the immune mechanism Coding Level of Care Code Est Pt Level 4 (91579) Diagnoses Type 2 diabetes mellitus with other circulatory complication, without long-term current use of insulin E11.59 Diabetes mellitus complication detail: with other circulatory complications Diabetes mellitus complication status: with circulatory complication Diabetes mellitus type: type 2 CAD (coronary artery disease) I25.10 Peripheral vascular disease I73.9
[2023-10-10 09:00] VITALS: BP 120/78; PULSE 78; BMI 36.4
[2023-10-10 09:10] LABS: Glucose, Whole Blood 130 mg/dL (60-115)
== END 2023-10-10 09:35 | disposition home or self-care (01) ==
PROVIDERS: PCP Internal Medicine; Visit Provider Internal Medicine
DX: E11.59 Type 2 diabetes mellitus with other circulatory complications (principal); I25.10 Atherosclerotic heart disease of native coronary artery without angina pectoris; I73.9 Peripheral vascular disease, unspecified
CPT/HCPCS: 99214

== ENCOUNTER → 2023-10-10 08:52 | Outpatient (BNVA) | payer OTHER, SELFPAY | PROVIDERS: PCP Internal Medicine; Visit Provider Internal Medicine | DX: E11.59 Type 2 diabetes mellitus with other circulatory complications (principal); I25.10 Atherosclerotic heart disease of native coronary artery without angina pectoris; I73.9 Peripheral vascular disease, unspecified | CPT/HCPCS: 82947 ==

== ENCOUNTER 2023-11-12 09:32 | Outpatient (REF) | payer OTHER, SELFPAY ==
[2023-11-12 13:11] LABS: MANUAL DIFF FLAG NO
[2023-11-12 13:21] LABS: Basophils Absolute Auto 0.1 X10*3/uL (0.0-0.2); Basophils Percent Auto 0.8 % (0-2); Eosinophils Absolute Auto 0.2 X10*3/uL (0.0-0.4); Eosinophils Percent Auto 2.1 % (0-4); Estimated Average Glucose 131 mg/dL; Hematocrit 37.6 % (42.0-52.0); Hemoglobin 12.4 g/dl (14.0-18.0); Hemoglobin A1c % 6.2 % (<6.0); Imm Gran Abs Auto 0.02 X10*3/uL (0.00-0.03); Imm Gran Pct Auto 0.3 % (0.0-0.4); Lymphocytes Absolute Auto 2.8 X10*3/uL (1.2-4.9); Lymphocytes Percent Auto 39.2 % (20-40); Mean Corpuscular Hemoglobin 30.7 pg (27.0-33.0); Mean Corpuscular Volume 93.1 fL (80.0-98.0); Mean Platelet Volume 11.7 fL (9.4-12.4); Monocytes Absolute Auto 0.7 X10*3/uL (0.1-1.2); Neutrophils Absolute Auto 3.5 x10*3/uL (2.0-8.3); Neutrophils Percent Auto 48.6 % (45-73); Platelet Count 174 X10*3/uL (160-400); Red Blood Count 4.04 X10*6/uL (4.60-5.80); Red Cell Distribution Width 13.6 % (11.0-16.0); White Blood Count 7.2 X10*3/uL (4.8-10.8)
[2023-11-12 13:32] LABS: Alanine Aminotransferase 23 U/L (0-40); Anion Gap 12 (12-20); Aspartate Amino Transferase 33 U/L (5-37); Blood Urea Nitrogen 33 mg/dL (9-16); Carbon Dioxide 27 mmol/L (22-29); Chloride 104 mmol/L (96-108); Cholesterol 93 mg/dL (<200); Estimated Glomerular Filt Rate 41; Glucose Fasting 114 mg/dL (60-99); HDL Cholesterol 30 mg/dL (>40); LDL Cholesterol Calculated 42 mg/dL (<100); Potassium 4.4 mmol/L (3.3-5.1); Sodium 139 mmol/L (135-145); Triglycerides 109 mg/dL (<150)
== END 2023-11-12 09:33 | disposition home or self-care (01) ==
LOC: HO.HMGCLDS 09:32
PROVIDERS: Internal Medicine; PCP Internal Medicine; Visit Provider Internal Medicine
DX: I10 Essential (primary) hypertension (principal); E78.5 Hyperlipidemia, unspecified; E11.40 Type 2 diabetes mellitus with diabetic neuropathy, unspecified; I25.10 Atherosclerotic heart disease of native coronary artery without angina pectoris; E11.9 Type 2 diabetes mellitus without complications; Z13.0 Encounter for screening for diseases of the blood and blood-forming organs and certain disorders involving the immune mechanism
CPT/HCPCS: 36415; 80048; 80061; 83036; 84450; 84460; 85025

== ENCOUNTER 2023-11-19 13:14 | Outpatient (AMB) | payer OTHER, SELFPAY ==
--- NOTE | 2023-11-19 13:21 | A.OFFPC_ITS ---
Vital Signs 11/19/23 13:30 Height 6 ft 3 in Weight 285 lb BMI 35.6 BP 118/70 Blood Pressure Location Rt brachial Position Sitting Pulse 85 Pulse Source Pulse Oximeter Pulse Oximetry (%) 98 Oxygen Delivery Method Room Air Intake Visit Reasons: 3 month f/u lipids Intake Note: Pt is here today for his 3mo. f/u lipids Allergies bacitracin [BACITRACIN] Allergy (Mild, Verified 11/24/23 23:40) DERMATITIS, rash, rash Medication List - Last Reconciled 11/19/23 by Anne Ramirez MD alpha lipoic acid 600 mg PO BID aspirin 81 mg PO DAILY blood sugar diagnostic (FreeStyle Lite Strips) Check Fasting blood sugar once a day as directed blood sugar diagnostic As directed blood-glucose meter (FreeStyle Lite Meter kit) check fasting glucoe once a day As directed cinnamon bark (Cinnamon) 1,000 mg PO DAILY coenzyme Q10 (Co Q-10) 200 mg PO DAILY [Customized heat molded multi- density inner soles( 3 pairs) As directed NS] [Extra depth diabetic orthopedic shoes Extra depth diabetic orthopedic shoes 1 pair NS] ezetimibe 10 mg PO DAILY fenofibrate nanocrystallized 145 mg PO DAILY 90 days finasteride 5 mg PO DAILY 90 days fluticasone propionate 50 mcg/actuation (Flonase Allergy Relief) 2 sprays intranasal DAILY PRN furosemide (Lasix) 20 mg PO QAM lancets As directed lisinopril 40 mg PO DAILY metformin 1,000 mg PO BID 90 days metoprolol succinate ER 50 mg PO DAILY multivitamin (Multiple Vitamins tablet) 1 tab PO DAILY omega-3 acid ethyl esters 2 caps PO BID 90 days omeprazole 20 mg PO DAILY pioglitazone 30 mg PO DAILY rosuvastatin 40 mg PO DAILY terazosin 10 mg PO BEDTIME 90 days Trulicity (dulaglutide) 1.5 mg subcut QWEEK 3 months NS Tobacco use date assessed: 11/19/23 Fall risk assessment: No Falls in past year Last assessed Fall Risk: 11/19/23 Dental Screening Dental Screen Date: 11/19/23 Did you have a dental visit in the last 12 months?: Yes Did you have a dental problem in the last 6 months where you did not have access to dental care?: No Was dental information given to patient?: Patient has dentist HPI 3 month f/u lipids HPI Details 73-year-old male here today for follow-u p on his lipids. Currently taking ezetimibe 10 mg daily, fenofibrate 145 mg daily and rosuvastatin 40 mg once a day.. He was noted to have anemia on last lab done as well as decreased renal function. Patient however denies any unusual bleeding, no blood in stool or urine. Has been feeling well. Fasting labs showed fasting lipids are within normal limits and hemoglobin A1c was 6.2% [facility] Medical History Diabetes mellitus, without long-term current use of insulin Hammertoes of both feet Positive colorectal cancer screening using Cologuard test Vitamin D deficiency Hearing loss Hypertension Dyslipidemia Non-toxic multinodular goiter Diabetic neuropathy associated with type 2 diabetes mellitus Allergic rhinitis MICHAEL on CPAP Obesity CAD (coronary artery disease) Surgical History H/O colonoscopy Stented coronary artery Family History Father Diabetes Substance use disorder Mother Hypertension Mental health disorder Social History Housing: House Alcohol intake: never Patient Tobacco Use Status: Former Tobacco user e-Cigarette/Vaping Use: Never Used Current occupational status: retired Cognitive needs: No Hearing needs: Yes Vision needs: Yes Questionnaire Thrive Questionnaire Date Thrive assessed: 11/17/23 I am a: Patient What is your living situation today?: I have a steady place to live Within the past 12 months, did the food you bought not last and you didn't have the money to get more?: Never true Within the past 12 months, did you worry whether your food would run out before you got money to buy more?: Never true Do you have trouble paying for medicines?: I choose not to answer this question Do you have trouble getting transportation to medical appointments?: No Do you have trouble paying your heating and electricity bill?: No Do you have trouble taking care of your child, family member or friend?: No Do you have trouble with day-to-day activities such as bathing, preparing meals, shopping, managing finances, etc.?: No Are you interested in more education?: No Please select the resources that you would like help with: None Currently or been in a relationship where the following occur: I choose not to answer THRIVE Score: 0 AUDIT C Alcohol Use Questionnaire (AUDIT-C) 1. How often do you have a drink containing alcohol?: Monthly or less 2. How many drinks containing alcohol do you have on a typical day when you are drinking?: 1 or 2 3. How often do you have six or more drinks on one occasion?: Never Total Score: 1 SIMON-7 AMB Questionnaire SIMON-7 Date SIMON - 7 assessed: 05/17/23 Feeling nervous, anxious, or on edge: 0 = Not at all Not being able to stop or control worryin = Not at all Worrying too much about different things: 0 = Not at all Being so restless that it is hard to sit still: 0 = Not at all Becoming easily annoyed or irritable: 0 = Not at all Feeling afraid as if something awful might happen: 0 = Not at all Source: Developed by Drs. Kem Archer, Petra Breaux, Jaxon Burroughs and colleagues, with an educational alecia from [employer]. Review of Systems Const Denies chills and Denies fever(s) Eyes Denies change in vision ENT Reports Normal hearing present and Denies dizziness Card Reports no additional complaints and Denies syncope Resp Denies cough GI Denies abdominal pain and Denies heartburn Reports as per HPI and Denies change in libido Musc Denies abnormal gait, Denies muscle weakness, Denies numbness, Denies radiating pain into limb and Denies tingling Neuro Reports Normal hearing present, Denies abnormal gait, Denies dizziness, Denies syncope, Denies numbness, Denies Sensory deficit (Neuro) and Denies tingling Psych Denies change in libido Endo Denies change in libido Mark/Lymph Reports no additional complaints Physical exam (Primary Care) Vital Signs: Last Vital Signs Pulse 85 11/19/23 13:30 BP 118/70 11/19/23 13:30 Pulse Ox 98 11/19/23 13:30 Oxygen Delivery Method Room Air 11/19/23 13:30 BMI result Body Mass Index 35.6 BMI Assessment/Plan discussion: High BMI High, discussed plan: lifestyle, weight reduction, dietary and physical activity Tobacco/Smoking Status: Tobacco use Status Tobacco use date assessed 11/19/23 11/19/23 13:23 Patient Tobacco Use Status Former Tobacco user 11/19/23 13:23 e-Cigarette/Vaping Use Never Used 11/19/23 13:23 Thrive Assessment: Date of Thrive Assessment Date Thrive assessed 11/17/23 11/19/23 13:23 Currently or been in a relationship where the following occur: I choose not to answer Const General: no acute distress and alert Orientation/consciousness: patient oriented x3 HENMT Head: Yes normocephalic Ears: external ears normal General nose exam: Normal external nose present Face and sinus: Yes face symmetric Mouth: Normal oral and palatal mucosa present and moist mucous membranes Eyes Conjunctivae: conjunctivae normal Sclerae: sclerae normal Pupils: Equal, round and reactive pupils present EOM: EOMs intact bilaterally Neck Neck: Yes full ROM and Yes no lymphadenopathy Thyroid: Thyroid normal Chest Chest palpation & inspection: normal inspection of the chest Breast/axilla inspection: normal inspection of the breasts Breast/axilla palpation: normal palpation of the breasts Resp Effort & Inspection: normal respiratory effort and able to speak in complete sentences Auscultation: clear to auscultation bilaterally Cardio Jugular venous distension: no JVD Rate: regular rate Rhythm: regular rhythm Heart sounds: S1 normal heart sound present and S2 normal heart sound present GI Inspection: Yes normal to inspection Palpation (GI): Soft to palpation Auscultation: normal bowel sounds Skin Lesions: other (Plantar callus noted bilaterally) Nails: yellow and thickened (toenails bilateral) Neuro General: patient oriented x3, gait normal, moves all extremities, Normal light touch and pain sensation and no focal motor deficits Cranial nerves: Yes Equal, round and reactive pupils present and Yes Normal hearing present Gait exam (Neuro): Normal gait present Motor exam (neuro): 5/5 motor strength present throughout Sensory Exam: No Sensory deficit (Neuro) Extrem Other: Hammertoes on both feet General: Yes full ROM, Yes no joint enlargement, Yes no calf tenderness, Yes normal gait and Yes pedal edema Results Reviewed Results Reviewed: Laboratory Tests 05/14/23 05/15/23 08/20/23 11:45 09:30 12:01 Estimat Average Glucose 114 Hgb A1c (Clinic) 6.4 H Hemoglobin A1c % 5.6 Urine Creatinine 114.03 Urine Microalbumin 13.0 Microalb/Creat Ratio 11.4 11/12/23 09:36 Estimat Average Glucose 131 Hgb A1c (Clinic) Hemoglobin A1c % 6.2 H Urine Creatinine Urine Microalbumin Microalb/Creat Ratio Laboratory Tests 11/12/23 09:36 AST 33 ALT 23 Triglycerides 109 Cholesterol 93 LDL Cholesterol, Calc 42 HDL Cholesterol 30 L Assessment and Plan Assessment & Plan (1) Anemia: Code(s): D64.9 - Anemia, unspecified Plan: Has normocytic normochromic anemia, ordered repeat CBC and iron panel (2) Abnormal kidney function: Code(s): N28.9 - Disorder of kidney and ureter, unspecified Plan: Repeat basic metabolic panel, avoidance of NSAIDs, emphasize importance of controlling blood pressure and diabetes mellitus well (3) Dyslipidemia: Code(s): E78.5 - Hyperlipidemia, unspecified Plan: Latest fasting labs showed lipids within normal limits, continue with present treatment Orders: Orders Basic Metabolic Panel Fasting 11/21/23 D64.9 - Anemia, unspecified, N28.9 - Disorder of kidney and ureter, unspecified Complete Blood Count Auto Diff 11/21/23 D64.9 - Anemia, unspecified IRON PROFILE 11/21/23 D64.9 - Anemia, unspecified, N28.9 - Disorder of kidney and ureter, unspecified Coding Level of Care Code Est Pt Level 4 (50861) Complex EM visit Add On G2211 Diagnoses Anemia D64.9 Abnormal kidney function N28.9 Dyslipidemia E78.5
[2023-11-19 13:30] VITALS: BP 118/70; PULSE 85; O2SAT 98; BMI 35.6
== END 2023-11-19 13:52 | disposition home or self-care (01) ==
PROVIDERS: PCP Internal Medicine; Visit Provider Internal Medicine
DX: D64.9 Anemia, unspecified (principal); N28.9 Disorder of kidney and ureter, unspecified; E78.5 Hyperlipidemia, unspecified

== ENCOUNTER → 2023-11-19 13:14 | Outpatient (BNVA) | payer OTHER, SELFPAY | PROVIDERS: PCP Internal Medicine; Visit Provider Internal Medicine | DX: D64.9 Anemia, unspecified (principal); N28.9 Disorder of kidney and ureter, unspecified; E78.5 Hyperlipidemia, unspecified ==

== ENCOUNTER 2023-11-21 09:48 | Outpatient (REF) | payer OTHER, SELFPAY ==
[2023-11-21 13:31] LABS: MANUAL DIFF FLAG NO
[2023-11-21 13:43] LABS: Basophils Absolute Auto 0.1 X10*3/uL (0.0-0.2); Basophils Percent Auto 0.9 % (0-2); Eosinophils Absolute Auto 0.2 X10*3/uL (0.0-0.4); Eosinophils Percent Auto 2.9 % (0-4); Hematocrit 38.3 % (42.0-52.0); Hemoglobin 12.8 g/dl (14.0-18.0); Imm Gran Abs Auto 0.03 X10*3/uL (0.00-0.03); Imm Gran Pct Auto 0.4 % (0.0-0.4); Lymphocytes Absolute Auto 2.3 X10*3/uL (1.2-4.9); Lymphocytes Percent Auto 30.1 % (20-40); Mean Corpuscular HGB Conc 33.4 g/dl (31.0-36.0); Mean Corpuscular Hemoglobin 30.5 pg (27.0-33.0); Mean Corpuscular Volume 91.4 fL (80.0-98.0); Mean Platelet Volume 11.8 fL (9.4-12.4); Monocytes Absolute Auto 0.7 X10*3/uL (0.1-1.2); Monocytes Percent Auto 9.6 % (2-11); Neutrophils Absolute Auto 4.3 x10*3/uL (2.0-8.3); Neutrophils Percent Auto 56.1 % (45-73); Platelet Count 185 X10*3/uL (160-400); Red Blood Count 4.19 X10*6/uL (4.60-5.80); Red Cell Distribution Width 13.7 % (11.0-16.0); White Blood Count 7.7 X10*3/uL (4.8-10.8)
[2023-11-21 14:07] LABS: Anion Gap 13 (12-20); Blood Urea Nitrogen 22 mg/dL (9-16); Calcium 9.7 mg/dL (8.4-10.2); Carbon Dioxide 25 mmol/L (22-29); Chloride 107 mmol/L (96-108); Estimated Glomerular Filt Rate 50; Glucose Fasting 113 mg/dL (60-99); Iron 97 mcg/dL (45-160); Percent Iron Saturation 28 % (15-50); Potassium 4.2 mmol/L (3.3-5.1); Sodium 141 mmol/L (135-145); Total Iron Binding Capacity 350 mcg/dL (228-428); Unsaturated Iron Binding 253 ug/dL
== END 2023-11-21 09:49 | disposition home or self-care (01) ==
LOC: HO.HMGCLDS 09:48
PROVIDERS: PCP Internal Medicine; Visit Provider Internal Medicine
DX: D64.9 Anemia, unspecified (principal); N28.9 Disorder of kidney and ureter, unspecified
CPT/HCPCS: 36415; 80048; 83540; 85025

== ENCOUNTER 2024-01-09 09:00 | Outpatient (AMB) | payer OTHER, SELFPAY ==
--- NOTE | 2024-01-09 08:59 | A.OFFVIS_ITS ---
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 Checks with classic glucometer 1x/week. Current medications: Metformin 1 g b.i.d., Actos 30 mg daily and Trulicity 3 mg weekly. Previously intolerant to Ozempic. Previously on Invokana, never started Jardiance. The trulicity is costing him $600 -4 times a year. He would like to consider changing this medication Microvascular/macrovascular: CAD, peripheral vascular disease, nonproliferative diabetic retinopathy. On statin & CARMEN-I Last ophthalmology evaluation: 10/2022, scheduled in February Sees Podiatry every 3 months-Dr Garcia: [facility] Sees dermatology next week 10/14/2019 Right Thyroid Lobe: 3.9 x 1.6 x 1.8 cm, volume 5.9 mL. Previously 4.6 x 2.2 x 1.7 cm, volume 8.8 mL. Parenchyma: The gland echotexture is homogeneous. Thyroid vascularity is normal. Left Thyroid Lobe: 3.6 x 1.8 x 1.7 cm, volume 5.8 mL. Previously 4.2 x 2.1 x 2.0 cm, volume 9.1 mL. Parenchyma: The gland echotexture is homogeneous. Thyroid vascularity is normal. Isthmus: 0.5 cm in maximum AP dimension. Previously 0.4 cm. RIGHT THYROID LOBE: No nodules. ISTHMUS: No nodules. LEFT THYROID LOBE: There are 2 nodules seen. 1. Location: Lower. Size: 0.5 x 0.3 x 0.4 cm. Previous: 0.7 x 0.4 x 0.5 cm. Nodule characteristics: Hypoechoic and smooth without flow. 2. Location: Lower. Size: 0.7 x 0.6 x 0.6 cm. Previous: 0.8 x 0.6 x 0.6 cm. Nodule characteristics: Heterogeneous and smooth without flow. NODES: A 9 mm lymph node is noted in the right neck. ROS CONSTITUTIONAL: Denies weight loss, fever and chills. HEENT: Denies changes in vision and hearing. RESPIRATORY: Denies SOB and cough. CV: Denies palpitations and CP GI: Denies abdominal pain, nausea, vomiting and diarrhea. : Denies dysuria and urinary frequency. MSK: Denies new myalgia and joint pain. SKIN: Denies rash and pruritus. NEUROLOGICAL: Denies headache PSYCHIATRIC: Denies recent changes in mood. PHYSICAL EXAM: GENERAL: Alert and oriented x 3. NAD EYES: EOMI. Anicteric. HENT: Moist mucous membranes. No scleral icterus. No cervical lymphadenopathy. LUNGS: Clear to auscultation bilaterally. CARDIOVASCULAR: Regular rate and rhythm. No murmur. No JVD. ABDOMEN: Soft, non-tender +bs EXTREMITIES: No edema. Non-tender. SKIN: No rashes or lesions. Warm. NEUROLOGIC: No focal neurological deficits. CN II-XII grossly intact PSYCHIATRIC: Cooperative. Appropriate mood and affect [facility] Medical History Diabetes mellitus, without long-term current use of insulin Hammertoes of both feet Positive colorectal cancer screening using Cologuard test Vitamin D deficiency Hearing loss Hypertension Dyslipidemia Non-toxic multinodular goiter Diabetic neuropathy associated with type 2 diabetes mellitus Allergic rhinitis MICHAEL on CPAP Obesity CAD (coronary artery disease) Surgical History H/O colonoscopy Stented coronary artery Family History Father Diabetes Substance use disorder Mother Hypertension Mental health disorder Social History Housing: House Alcohol intake: never Patient Tobacco Use Status: Former Tobacco user e-Cigarette/Vaping Use: Never Used Current occupational status: retired Cognitive needs: No Hearing needs: Yes Vision needs: Yes Physical Exam Vital Signs: Last Vital Signs Pulse 95 01/09/24 09:03 BP 120/74 01/09/24 09:03 BMI result Body Mass Index 35.5 Results AMB Hemoglobin A1c AMB Hemoglobin A1c 6.5 % Last Edit by JYOTI Robles on 01/09/24 09:19 Assessment & Plan Assessment & Plan (1) Diabetic neuropathy associated with type 2 diabetes mellitus: Code(s): E11.40 - Type 2 diabetes mellitus with diabetic neuropathy, unspecified Category: Medical Qualifiers: Diabetes mellitus complication detail: diabetic polyneuropathy Qualified Code(s): E11.42 - Type 2 diabetes mellitus with diabetic polyneuropathy Plan: Controlled on current medications Stop trulicity due to cost. Will do a low dose of glipizide 5mg daily Orders: Orders Hemoglobin A1c 3 Months E11.59 - Type 2 diabetes mellitus with other circulatory complications Lipid Panel 3 Months E11.59 - Type 2 diabetes mellitus with other circulatory complications Comprehensive Met. Panel 3 Months E11.59 - Type 2 diabetes mellitus with other circulatory complications TSH reflex Free T4 Today E04.2 - Nontoxic multinodular goiter AMB Hemoglobin A1c Today E11.40 - Type 2 diabetes mellitus with diabetic neuropathy, unspecified Microalbumin, Random (w Creat) 3 Months E11.59 - Type 2 diabetes mellitus with other circulatory complications Medications: New glipizide ER 5 mg PO DAILY 90 tabs 3RF Coding Level of Care Code Est Pt Level 4 (17386) Diagnoses Diabetic polyneuropathy associated with type 2 diabetes mellitus E11.42 Diabetes mellitus complication detail: diabetic polyneuropathy
[2024-01-09 09:03] VITALS: BP 120/74; PULSE 95; BMI 35.5
[2024-01-09 09:13] LABS: Glucose, Whole Blood 124 mg/dL (60-115)
== END 2024-01-09 09:36 | disposition home or self-care (01) ==
LOC: HO.ENCR 09:01
PROVIDERS: PCP Internal Medicine; Visit Provider Internal Medicine
DX: E11.40 Type 2 diabetes mellitus with diabetic neuropathy, unspecified (principal); E11.42 Type 2 diabetes mellitus with diabetic polyneuropathy

== ENCOUNTER → 2024-01-09 09:00 | Outpatient (BNVA) | payer OTHER, SELFPAY | PROVIDERS: PCP Internal Medicine; Visit Provider Internal Medicine | DX: E11.42 Type 2 diabetes mellitus with diabetic polyneuropathy (principal); E11.59 Type 2 diabetes mellitus with other circulatory complications; I25.10 Atherosclerotic heart disease of native coronary artery without angina pectoris; I10 Essential (primary) hypertension; I25.2 Old myocardial infarction | CPT/HCPCS: 82947; 83036 ==

== ENCOUNTER 2024-02-28 10:23 | Outpatient (AMB) | payer OTHER, SELFPAY ==
--- OUTSIDE RECORDS SUMMARY | 2024-02-28 10:25 | XMS_ITS ---
Author Organization [facility] Address [address] [place] [address] Care Team Providers Care Winter Sports Manager Name Role Phone Ashley PULLIAM, Anne Llamas Primary Care Provider Un available Kahlil Smith Unavailable [phone] REASON FOR VISIT same day 02/17/24 Encounters Encounter Location Date Provider Diagnosis [address] [address] 02/17/2024 Kahlil Smith Plan Of Treatment Next Appt Details Provider Name:Kahlil Smith , 05/25/2024 01:30:00 PM, [address] [facility], [place] [address], [place], [phone], Progress Notes * Eldon RYAN GDOB:[birth year] (74 yo M)Acc No.[id number]:02/17/2024 Patient:?Eldon RYAN :1950???Age:74 Y???Sex:Male Address:[address] [place] [address], [phone] * true * Date:? Generated for Printi ng/Fajolantag/eTransmitting on:?02/28/2024 10:25 AM EST
--- OUTSIDE RECORDS SUMMARY | 2024-02-28 10:25 | XMS_ITS ---
Author Organization [facility] Address [address] [place] [address] Care Team Providers Care Green Building Architect Name Role Phone Ashley PULLIAM, Anne Llamas Primary Care Provider Un available Kahlil Smith Unavailable [phone] Encounters Encounter Location Date [facility] [address] 02/17/2024 Kahlil Smith Plan Of Treatment Next Appt Details Provider Name:Kahlil Smith , 05/25/2024 01:30:00 PM, [address] [place] [address], [phone], Progress Notes * Eldon RYAN GDOB:[birth year] (74 yo M)Acc No.[id number]:02/17/2024 Progress Note Patient:?Eldon RYAN Provider:?Kahlil mSith DPM :1950???Age:74 Y???Sex:Male Tristan e:02/17/2024 Address:[address] [place] [address] [place], [id number] Pcp:Colin Borrego Subjective: * Chief Complaints: * ??? * Medical History:? Objective: * Vitals:? Assessment: Plan: * Treatment: * Images: * The named appointment provid er may or may not be the originator of this progress note, and it is not deemed complete until electronically signed by the appointment provider. Sign off status: Pending * Provider:Shun Smith DPM Date:?2023 Generated for Ashley monteiro/Maura/Adrian on:?02/28/2024 10:25 AM EST
--- OUTSIDE RECORDS SUMMARY | 2024-02-28 10:26 | XMS_ITS ---
Author Organization [facility] Address [address] [place] [address] Care Team Providers Care Tile Setter Supervisor Name Role Phone Ashley PULLIAM, Anne Llamas Primary Care Provider Un available Kahlil Smith Unavailable [phone] Allergies Allergen (clinical drug ingredient) Drug/Non Drug Allergy documented on EMR Reaction Allergy Type Onset Date Status bacitracin Bacitracin rash Drug Allergy Activ e REASON FOR VISIT At Risk Footcare, Ingrown nail(s), Heel pain Medications Medication SIG (Take, Route, Frequency, Duration) Notes Start Date End Date Status Chromium Picolate No t-Taking DHEA Not-Taking Tamsulosin HCl 0.4 MG 1 capsule 30 minut es after the same meal each day Orally Once a day Not-Taking Cephalexin 500 MG 1 capsule Orally Fou r times a day for 5 day(s) Not-Sukhjinder ing Saw [place] Not-Sukhjinder ing Brilinta 60 MG Orally Not-T aking Crestor 40 MG Orally Not-Ta damaris Invokana 300 MG 1 tablet Orally Once a day Not-Taking Isosorbide Mononitrate Not-Taking Soolantra Not-Taking Trulicity Active Vitamin D3 Active Ciclopirox Olamine 0.77 % 1 application Externally Twice a day for 30 days Active Extra Depth Orthopedic Shoes (1 Pair) with Customized Heat Molded Multidensity Innersoles (3 Pair) as directed Dx: NIDDM/Polyneuropathy (E11.42), Hammertoe Foot Deformity (M20.41,M20.42), Preulcerative Skin Lesion(s) (L85.1 05/20/2023 Active Terazosin HCl 10mg Active Metformin & Diet Manage Prod Active Lisinopril Active Metoprolol Succinate Active Evergreen-3 1000 MG 2 capsule Orally Twi ce a day Active Pumpkin Seed Oil Act maximilian Furosemide Active Finasteride 5 MG 1 tablet Orally Once a day for 30 day(s) Active Finacea Active Fenofibrate 145 MG 1 tablet Orally Once a day Active Daily Vitamin Active Alpha Lipoic Acid 600 mg Orally Active Actos 30 MG 1 tablet Orally Once a day Active CoQ10 Active Cinnamon Active Aspirin 81 MG 1 tablet Orally Once a day Active Night Splint AFO - L1930 1 wear at rest for 30 days Active Social History Tobacco Use: Social History Observation Description Date Details (start date - stop date) Never Smoker NA - NA Tobacco Use/Smoking Question Answer Notes Are you a: nonsmoker Additional Findings: Tobacco Non-User Current no n-smoker Alcohol Screen Question Answer Notes Did you have a drink containing alcohol in the p ast year? No Points 0 Interpretation Negative Tobacco use other than smoking: Question Answer Notes Are you an other tobacco user? No Vital Signs Height 5ft 2in in 11/18/2023 Weight 280 lbs 11/18/2023 BMI 51.21 kg/m2 11/18/2023 Procedures Procedure Date Ordered Date Performed Result Body Sit e 02571-GYZRYDH NAIL, 6 OR MORE 11/18/2023 N/A 46547-Ftmvqvsa Plate 11/18/2023 N/A 73590-Hqtgtbdu Plate Each Additional 11/18/2023 N/A 14152-GRZK SKIN LESIONS, OVER 4 11/18/2023 N/A Encounters Encounter Location Date Provider Diagnosis [facility] [place] [address] [place] [id number] 11/18/2023 Kahlil Smith Type 2 diabetes mellitus with diabetic polyneuropathy E11.42 ; Tinea unguium B35.1 ; Ingrown nail L60.0 and Plantar fasciitis of right foot M72.2 Assessments Encounter Date Diagnosis (ICD Code) Assessment Notes Treatment Notes Treatment Clinical Notes Section Notes 11/18/2023 Type 2 diabetes mellitus with diabetic polyneuropathy (ICD-10 - E11.42) 11/18/2023 Tinea unguium (ICD-10 - B35.1) 11/18/2023 Ingrown nail (ICD-10 - L60.0) 11/18/2023 Plantar fasciitis of right foot (ICD-10 - M72.2) Patient Educated with: HEEL CORD STRETCHES.pdf (HEEL CORD STRETCHES.pdf ) Patient Educated with: RICE THERAPY.pdf (RICE THERAPY.pdf) Plan Of Treatment Medication Medication Name Sig Start Date Stop Date Notes Night Splint AFO - L1930 1 wear at rest for 30 days Treatment Notes Assessment Notes Plantar fasciitis of right foot Patient Educated with: HEEL CORD STRETCHES.pdf (HEEL CORD STRETCHES.pdf) Patient Educated with: RICE THERAPY.pdf (RICE THERAPY.pdf) Pending Test Test Name Order Date 33821-KKCAOXS NAIL, 6 OR MORE 11/18/2023 98792-Wkppfkuz Plate 11/18/2023 30804-Sgezbmzj Plate Each Additional 82236-PMTQ SKIN LESIONS, OVER 4 11/18/19 Next Appt Details Follow Up: prn, Reason: Provider Name:Kahlil Smith , 05/25/2024 01:30:00 PM, [address], [address], [place], [phone], Procedure Notes * Category Sub-Category Detail Notes Nail Avulsion Procedure A fine sterile e levator was placed between the eponychium, nail fold, and nail plate to separate the the structures. A sterile nail splitter, and/or sterile 316 blade, was then used to longitudinally section the nail along its entire length through the eponychium to the area under the nail fold. The offending portion of nail was from the nail bed with a rolling action and then removed with a hemostat. No underlying bone was identified. There was minimal bleeding as hemostasis was achieved through the temporary use of either a digital tournaquet or the aforementioned local with epinephrine. A bacitracin sterile dressing was applied. Local wound aftercare instructions were discussed and dispensed. The patient was informed of both conservative and future surgical procedures to prevent recurrence. Tylenol or Motrin was recommended for pain or discomfort (55147/32) , DIABETES: Pt was advised as to the risk of delayed or nonhealing due to diabetes. Pt is to call the office with any questions, concerns, or complications , DIABETES: Matricectomy deferred at this time due to diabetes risk Anesthesia was deferred - NEURO JOVITA: patient has medically documented neuropathic condition affecting sensation Location Lateral nail border, TA, T5 Debride Nail 6-10 Nail debridement Performance o f this nail treatment by a nonprofessional would put this patients foot and overall health at risk. Therefore, nail debridement was performed extensively to reduce/remove overall nail length, girth, thickness, subungual debris, and necrotic tissue, by manual and/or electrical means through the use of a nail nipper and/or dremel-type grinder operator tool, to a more viable healthy nail plate or bed tissue 6-10. Silver nitrate used for any petechial bleeding as necessary. Definitive antifungal treatment options have been reviewed and discussed with the patient. The patient chooses, no pharmaceutical tx - 22325 Keratoma Treatment Parring or Cutting o f Benign Hyperkeratotic Lesion(s) (-57) More than 4 Lesions - The Benign hyperkeratotic lesions, as described above were pared, and/or cut utilizing a sterile 15 blade, tissue nippers, and/or dremel - 00274 Progress Notes * Eldon RYAN GDOB:[birth year] (73 yo M)Acc No.[id number]:11/18/2023 Progress Note Patient:?Eldon Ryan Lizzeth Provider:?Kahlil Smith DPM :1950???Age:73 Y???Sex:Male Tristan e:11/18/2023 Address:[address] [place], [place] [id number] Pcp:Colin Borrego Subjective: * Chief Complaints: * ???At Risk FootcareIngrown n ail(s)Heel pain * HPI: ???At Risk footcare:?Pt States Last PCP Visit:?Date?08/20/2023 ???Heel pain:?Location:?Proximal plantar aspect of Heel, RIGHT.?Treatments:?rest/alter normal daily activity , medication ( oral anti-inflammatories ), compression socks , stretching , massage.?Toe pain:?Treatments:?Rx shoes , states still needs.? * ROS:?General/Constitutional:?Nausea?denies.?Vomiting?denies.?Hunger Thirst?denies.?Loss appetite?denies.?Chills?denies.?Fatigue?denies.?Fever?denies.?Night Sweats?denies.?Unexplained weight loss?denies.?Ophthalmologic:?Blurred vision?denies.?Red eye?denies.?HEENTM:?Dentures?denies.?Dizziness?denies.?Glasses/contacts?admits.?Retinopathy?de nies.?Blurred/double vision?denies.?TMJ?denies.?Discharge/drainage?denies.?Implants?denies.?Hard of hearing ?admits.?Difficulty chewing/swallowing/speaking?denies.?Nose bleeds?denies.?Sore mouth?denies.?Swollen glands?denies.?Respiratory:?On Oxygen?denies.?Pneumonia/pleurisy?denies.?Bronchitis?denies.?Emphysema?denies.?C oughing?denies.?Cough blood?denies.?Shortness of breath?denies.?Wheezing?denies.?Cardiovascular:?Pacemaker?denies.?MVP?denies.?WPW?denies.?CHF?denies.?Heart attack?denies.?Septal defect?denies.?Rapid beat?denies.?Chest pain ?denies.?Atrial Fib.?denies.?Murmur/Palpitations?denies.?Gastrointestinal:?Hemorrhoids?admits.?Stomach/Abdominal pain?denies.?Dark blood stool?denies.?Irritable bowel ?denies.?Constipation?denies.?Diarrhea?denies.?Vomiting?denies.?Hematology:?Swelling?denies.?Bruising?admits, on aspirin.?Bleeding problem?admits, on anticoagulants.?Genitourinary:?Blood urine?denies.?Frequent/Painfu/urination/bladder control?denies.?Kidney stones?denies.?Infection (UTI)?denies.?Nephropathy??admits.?Musculoskeletal:?Hammertoes?admits.?Bunions?denies.?Scoliosis/kyphosis?denies.?Muscle cramps / walking??admits.?Generalized aches and pains?denies.?Weakness?denies.?Integ.:?[place]ling??admits.?Scars?denies.?Corns/calluses?admits.?Ingrown nails?admits.?Painful nails?denies.?Rashes?denies.?Neurologic:?Difficulty sleeping?denies.?Bipolar?denies.?Brain disorder?denies.?Balance trouble?denies.?Confusion?denies.?Fainting/blackouts?denies.?Headache?denies.?Tr emors?denies.? * Medical History:? * Surgical History:?skin graft 2009umbilical hernia repair 01/2004cardiac catheterization Boil removed from arm 02/2019kidney stones yst removal, back 01/05/22colonoscopy * Hospitalization/Major Diagno stic Procedure:?[facility]-Heart Attack 07/26/2017PT For left shoulder 03/2018Walk in- foot injury [facility] UTI-given Antibiotics 2021 * Family History:?Mother: dece ased, diagnosed with Unspecified essential hypertension, Unspecified cerebral artery occlusion with cerebral infarction.?Father: , diagnosed with Diabetic - NIDDM, Unspecified heart disease.?Spouse: alive.? * Social History:?Tobacco Use:?Tobacco Use/Smoking?Are you a:?nonsmoker ?Additional Findings: Tobacco Non-User?Current non-smoker ?Tobacco use other than smoking?Are you an other tobacco user??No ???Drugs/Alcohol:?Drugs?Have you used drugs other than those for medical reasons in the past 12 months??No ?Alcohol Screen?Did you have a drink containing alcohol in the past year??No ?Points?0 ?Interpretation?Negative ???Miscellaneous:?Caffeine: yes, 2-3 cups per day. ?Children: yes, 2. ?Exercise: yes, work ,. ?Marital status: . 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 * Medications:?TakingActos 30 MG 1 tablet Orally Once a dayAlpha Lipoic Acid 600 mg Capsule Orally Aspirin 81 MG Tablet Chewable 1 tablet Orally Once a dayCinnamon CoQ10 Daily Vitamin Fenofibrate 145 MG Tablet 1 tablet Orally Once a dayFinacea Finasteride 5 MG Tablet 1 tablet Orally Once a dayFurosemide Lisinopril Metformin & Diet Manage Prod Metoprolol Succinate Evergreen-3 1000 MG Capsule 2 capsule Orally Twice a dayPumpkin Seed Oil Terazosin HCl , Notes: 10mgTrulicity Vitamin D3 Ciclopirox Olamine 0.77 % Cream 1 application Externally Twice a dayExtra Depth Orthopedic Shoes (1 Pair) with Customized Heat Molded Multidensity Innersoles (3 Pair) as directed Dx: NIDDM/Polyneuropathy (E11.42), Hammertoe Foot Deformity (M20.41,M20.42), Preulcerative Skin Lesion(s) (L85.1Taking Actos 30 MG 1 tablet Orally Once a dayTaking Alpha Lipoic Acid 600 mg Capsule Orally Taking Aspirin 81 MG Tablet Chewable 1 tablet Orally Once a dayTaking Cinnamon Taking CoQ10 Taking Daily Vitamin Taking Fenofibrate 145 MG Tablet 1 tablet Orally Once a dayTaking Finacea Taking Finasteride 5 MG Tablet 1 tablet Orally Once a dayTaking Furosemide Taking Lisinopril Taking Metformin & Diet Manage Prod Taking Metoprolol Succinate Taking Evergreen-3 1000 MG Capsule 2 capsule Orally Twice a dayTaking Pumpkin Seed Oil Taking Terazosin HCl , Notes: 10mgTaking Trulicity Taking Vitamin D3 Taking Ciclopirox Olamine 0.77 % Cream 1 application Externally Twice a dayTaking Extra Depth Orthopedic Shoes (1 Pair) with Customized Heat Molded Multidensity Innersoles (3 Pair) as directed Dx: NIDDM/Polyneuropathy (E11.42), Hammertoe Foot Deformity (M20.41,M20.42), Preulcerative Skin Lesion(s) (L85.1Not-Taking/PRNBrilinta 60 MG Tablet Orally Crestor 40 MG Tablet Orally Invokana 300 MG Tablet 1 tablet Orally Once a dayIsosorbide Mononitrate Soolantra Cephalexin 500 MG Capsule 1 capsule Orally Four times a daySaw [place] Chromium Picolate DHEA Tamsulosin HCl 0.4 MG Capsule 1 capsule 30 minutes after the same meal each day Orally Once a dayMedication List reviewed and reconciled with the patientNot-Taking/PRN Brilinta 60 MG Tablet Orally Not-Taking/PRN Crestor 40 MG Tablet Orally Not-Taking/PRN Invokana 300 MG Tablet 1 tablet Orally Once a dayNot-Taking/PRN Isosorbide Mononitrate Not-Taking/PRN Soolantra Not-Taking/PRN Cephalexin 500 MG Capsule 1 capsule Orally Four times a dayNot-Taking/PRN Saw [place] Not-Taking/PRN Chromium Picolate Not-Taking/PRN DHEA Not-Taking/PRN Tamsulosin HCl 0.4 MG Capsule 1 capsule 30 minutes after the same meal each day Orally Once a dayMedication List reviewed and reconciled with the patient * Allergies:?Bacitracin: tasneemy es[Allergies Verified] Objective: * Vitals:?Ht:5ft 2in, Wt:280, BMI:51.21, Shoe size:12, BS:110, Ht-cm: 157.48 cm, Wt-k.01 kg. * ???Past Orders: ???Lab:HEMOGLOBIN A1C (GLYCO HEMOGLOBIN) (Order Date - 11/12/2023) (Collection Date - 11/12/2023) ? Value Reference Range ?HEMOGLOBIN A1C % (HH) 6.1 * Examination: ???Neurological: ?SENSORY:?Neurological exam demonstrates, reduced light touch sensation, reduced sharp/dull discrimination , reduced vibration sensation, in a stocking fashion, B/L, 5.07 monofilament test performed at plantar aspects of 5 varied sites per foot shows sensation, reduced, B/L.?TINEL'S COMPRESSION:?Negative tarsal tunnel, luis pedis, and medial calcaneal nerves.?Nails: ?NAILS are:?Elongated, overgrown, dystrophic, lytic, greater than 3mm thick, discolored and friable with crumbly malodorous subungual debris, 1-5 B/L.?Ingrown Nail: ?INSPECTION:?Reveals nail incurvation, dull pain on palpation due to neuropathy, groove hypertrophy,?Lateral nail border,TA,T5.?Dermatologic: ?SKIN FINDINGS:?Skin exam reveals Keratotic lesion(s) located at,?SUB MTH (s),1,B/L,SUB MTH (s),5 B/L,?Heel(s),B/L.?Heel Pain: ?INSPECTION:? Pain on Palpation to Plantar Fascia med. and central bands, intrinsic musc., infra-calcaneal bursa, and med calc tubercle , RIGHT foot, No pain: posterior/superior heel, achilles bursa/tendon, sinus tarsi, peroneals, or with lateral heel compression; no limited STJ ROM, calor, or ecchymosis.? * Physical Examination:?L1930 Nightsplint AFO:?Application of static AFO, including soft interface material, adjustable for fit/ positioning/ pressure reduction, may be used for minimal ambulation, prefabricated, including fitting and adjustment:?XL , Right.? Assessment: * Assessment: 1.?Type 2 diabetes mellitus with diabetic polyneuropathy - E11.42 (Primary)?2.?Tinea unguium - B35.1?3.?Ingrown nail - L60.0, Lateral nail border,TA,T5?4.?Plantar fasciitis of right foot - M72.2, Acute problem, Uncomplicated (3),Response to treatment - Unresolved? Plan: * Treatment: 2.?Ingrown nail?Procedure: 40336-Odelzexf Plate ?Procedure: 85213-Odvfuhov Plate Each Additional 3.?Plantar fasciitis of righ t foot? Start Night Splint AFO - L1930, 1, wear, at rest, 30 days, 1, Refills 0.?? Notes: Patient Educated with: HEEL CORD STRETCHES.pdf (HEEL CORD STRETCHES.pdf) Patient Educated with: RICE THERAPY.pdf (RICE THERAPY.pdf)?? * Procedures:?Debride Nail 6-10:?Nail debridement?Performance of this nail treatment by a nonprofessional would put this patients foot and overall health at risk. Therefore, nail debridement was performed extensively to reduce/remove overall nail length, girth, thickness, subungual debris, and necrotic tissue, by manual and/or electrical means through the use of a nail nipper and/or dremel-type grinder operator tool, to a more viable healthy nail plate or bed tissue 6-10. Silver nitrate used for any petechial bleeding as necessary. Definitive antifungal treatment options have been reviewed and discussed with the patient. The patient chooses, no pharmaceutical tx - 96427.?Keratoma Treatment:?Parring or Cutting of Benign Hyperkeratotic Lesion(s)?(-57) More than 4 Lesions - The Benign hyperkeratotic lesions, as described above were pared, and/or cut utilizing a sterile 15 blade, tissue nippers, and/or dremel - 19519.?Nail Avulsion:?Location?Lateral nail border, TA, T5 .?Anesthesia?was deferred - NEUROPATHY: patient has medically documented neuropathic condition affecting sensation.?Procedure?A fine sterile elevator was placed between the eponychium, nail fold, and nail plate to separate the the structures. A sterile nail splitter, and/or sterile 316 blade, was then used to longitudinally section the nail along its entire length through the eponychium to the area under the nail fold. The offending portion of nail was from the nail bed with a rolling action and then removed with a hemostat. No underlying bone was identified. There was minimal bleeding as hemostasis was achieved through the temporary use of either a digital tournaquet or the aforementioned local with epinephrine. A bacitracin sterile dressing was applied. Local wound aftercare instructions were discussed and dispensed. The patient was informed of both conservative and future surgical procedures to prevent recurrence. Tylenol or Motrin was recommended for pain or discomfort (97743/32) , DIABETES: Pt was advised as to the risk of delayed or nonhealing due to diabetes. Pt is to call the office with any questions, concerns, or complications , DIABETES: Matricectomy deferred at this time due to diabetes risk.? * Procedure Codes:?87040 DEBRI DE NAIL, 6 OR MORE, Modifiers: XS 08486 Avulsion Plate, Modifiers: XS , [id number] Avulsion Plate Each Additional, Modifiers: XS , [id number] TRIM SKIN LESIONS, OVER 4, Modifiers: XS L1930 AFO PLASTIC/OTH MATERIAL PREFAB, Modifiers: RT * Preventive Medicine:? ??Counseling:?Discussion:?-13: Office or other outpatient visit for the evaluation and management of an established patient, which required a medically appropriate history and/or examination and LOW level of DECISION MAKING for: 1 STABLE ACUTE UNCOMPLICATED PROBLEM, 2 OR MORE MINOR PROBLEMS, OR 1 STABLE CHRONIC PROBLEM, THAT POSE(S) A LOW RISK FOR MORBIDITY/MORTALITY. The visit on the day of the encounter encompassed interpreting the data and educating the patient as to the nature of their condition, treatment options available according to their individual PMH, meds, allergies, and overall health/living conditions, as well as any potential risks or complications that may occur from a failure to adhere to, and participate in, the recommended course of therapy. The discussion included a complete verbal, and/or written explanation of the examination results, any x-rays taken, the proposed diagnosis, and outline of the treatment plan. A schedule for future care needs was also explained. The patient verbalized an understanding of the instructions at this time and agreed to be an active participant in their treatment. If the patient should think of any questions or concerns after the visit, I have encouraged the patient to call the office.?Heel pain:?Discussed other tx options for the patients condition, the patient wishes to continue with the present plan for their condition.?Orthotics:?I explained to the patient the benefits of OT use. I explained that orthoses are medically necessary to decrease the foot pain through proper mechanical control, support of their foot, AFO - I explained to the patient the benefits of AFO use. Recommend AFO Lower Extremity Bracing to accomodate the patients deformity and result in pain relief without surgery, Patient signed confirmation form indicating receipt of DME device.?Shoe Gear Counseling:?Patient to obtain shoes hopefully soon.? * Follow Up:?prn * Images: * Sign off status: Completed true * Provider:?Kahlil Smith DPM Date:?2023 Generated for Ashley monteiro/Maura/Figueroaitting on:?02/28/2024 10:25 AM EST History and Physical Notes * HPI (History of Present Illness) Category Sub-Category Detail Notes Category Not es Heel pain Location: Proximal plantar aspect of H eel, RIGHT Treatments: rest/alter normal da gogo activity , medication ( oral anti- inflammatories ), compression socks , stretching , massage Toe pain Treatments: Rx shoes , states still need s At Risk footcare Pt States Last PCP Visit: Date: 4 Physical Examination Category Sub-Category Detail Notes Section Note s L1930 Nightsplint AFO Application of sta tic AFO, including soft interface material, adjustable for fit/ positioning/ pressure reduction, may be used for minimal ambulation, prefabricated, including fitting and adjustment: XL , Right Examination Category Sub-Category Detail Notes Category Not es Ingrown Nail INSPECTION: Reveals nail inc urvation, dull pain on palpation due to neuropathy, groove hypertrophy, Lateral nail border,TA,T5 Neurological SENSORY: Neurological exa m demonstrates, reduced light touch sensation, reduced sharp/dull discrimination , reduced vibration sensation, in a stocking fashion, B/L, 5.07 monofilament test performed at plantar aspects of 5 varied sites per foot shows sensation, reduced, B/L TINEL'S COMPRESSION: Negative tarsal leticia kati, luis pedis, and medial calcaneal nerves Dermatologic SKIN FINDINGS: Skin exam reveal s Keratotic lesion(s) located at, SUB MTH (s),1,B/L,SUB MTH (s),5 B/L, Heel(s),B/L Nails NAILS are: Elongated, overg rown, dystrophic, lytic, greater than 3mm thick, discolored and friable with crumbly malodorous subungual debris, 1-5 B/L Heel Pain INSPECTION: Pain on Palpatio n to Plantar Fascia med. and central bands, intrinsic musc., infra-calcaneal bursa, and med calc tubercle , RIGHT foot, No pain: posterior/superior heel, achilles bursa/tendon, sinus tarsi, peroneals, or with lateral heel compression; no limited STJ ROM, calor, or ecchymosis
--- OUTSIDE RECORDS SUMMARY | 2024-02-28 10:26 | XMS_ITS | Patient Health Record ---
Author Organization [facility] Griselda Jiley Address [address] [facility] [place] [address] Care Team Providers Care Sales And Business Development Manager Name Role Phone Ashley PULLIAM, Anne Llamas Primary Care Provider Un available Kahlil Smith Unavailable [phone] Allergies Allergen (clinical drug ingredient) Drug/Non Drug Allergy documented on EMR Reaction Allergy Type Onset Date Status bacitracin Bacitracin rash Drug Allergy Activ e Results Component Value Reference Range Notes HEMOGLOBIN A1C (GLYCOHEMOGLO BIN) Reviewed date:05/20/2023 09:15:53 AM Interpretation: Performing Lab: Notes/Report: HEMOGLOBIN A1C % (HH) 5.6 HEMOGLOBIN A1C (GLYCOHEMOGLO BIN) Reviewed date:11/06/2023 03:25:55 PM Interpretation: Performing Lab: Notes/Report: HEMOGLOBIN A1C % (HH) 6.1 HEMOGLOBIN A1C (GLYCOHEMOGLO BIN) Reviewed date:11/18/2023 08:58:23 AM Interpretation: Performing Lab: Notes/Report: HEMOGLOBIN A1C % (HH) 6.1 Reason For Referral No Information Medications Medication SIG (Take, Route, Frequency, Duration) Notes Start Date End Date Status Invokana 300 MG 1 tablet Orally Once a day Not-Taking Isosorbide Mononitrate Not-Taking Soolantra Not-Taking Cephalexin 500 MG 1 capsule Orally Fou r times a day for 5 day(s) Not-Sukhjinder ing Saw [place] Not-Sukhjinder ing Trulicity Active Vitamin D3 Active Ciclopirox Olamine 0.77 % 1 application Externally Twice a day for 30 days Active Extra Depth Orthopedic Shoes (1 Pair) with Customized Heat Molded Multidensity Innersoles (3 Pair) as directed Dx: NIDDM/Polyneuropathy (E11.42), Hammertoe Foot Deformity (M20.41,M20.42), Preulcerative Skin Lesion(s) (L85.1 05/20/2023 Active Metformin & Diet Manage Prod Active Brilinta 60 MG Orally Not-T aking Lisinopril Active Crestor 40 MG Orally Not-Ta damaris Furosemide Active Finasteride 5 MG 1 tablet Orally Once a day for 30 day(s) Active Finacea Active Fenofibrate 145 MG 1 tablet Orally Once a day Active Daily Vitamin Active CoQ10 Active Cinnamon Active Aspirin 81 MG 1 tablet Orally Once a day Active Night Splint AFO - L1930 1 wear at rest for 30 days Active Metoprolol Succinate Active Mccarley-3 1000 MG 2 capsule Orally Twi ce a day Active Pumpkin Seed Oil Act maximilian Terazosin HCl 10mg Active Chromium Picolate No t-Taking DHEA Not-Taking Tamsulosin HCl 0.4 MG 1 capsule 30 minut es after the same meal each day Orally Once a day Not-Taking Alpha Lipoic Acid 600 mg Orally Active Actos 30 MG 1 tablet Orally Once a day Active Immunizations Vaccine Route Administration Date Status Comme nts Influenza Unknown 12/16/2014 Administered Influenza Unknown 01/10/2016 Administered Influenza Unknown 12/24/2016 Administered Influenza Unknown 12/16/2017 Administered Influenza Unknown 12/04/2018 Administered Pneumococcal Unknown 01/25/2010 Administered Social History Tobacco Use: Social History Observation [...] Are you an other tobacco user? 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 confirmed Vital Signs Height 5ft 2in in 11/18/2023 Weight 280 lbs 11/18/2023 BMI 51.21 kg/m2 11/18/2023 Procedures Procedure Date Ordered Date Performed Result Body Sit e 66636-JNVETRP NAIL, 6 OR MORE 05/20/2023 N/A 59520-Jmddmzxu Plate 05/20/2023 N/A 95568-Zdutcxgo Plate Each Additional 05/20/2023 N/A 67613-RMSW SKIN LESIONS, OVER 4 05/20/2023 N/A 42609-NQQKPAL NAIL, 6 OR MORE 08/19/2023 N/A 09312-Gjtnbxqq Plate 08/19/2023 N/A 83388-Pcbxtqab Plate Each Additional 08/19/2023 N/A 16117-HBMC SKIN LESIONS, OVER 4 08/19/2023 N/A 12140-CJUGPBH NAIL, 6 OR MORE 11/18/2023 N/A 19263-Lqwuvnps Plate 11/18/2023 N/A 81029-Hoodepjf Plate Each Additional 11/18/2023 N/A 48683-ZYDQ SKIN LESIONS, OVER 4 11/18/2023 N/A Encounters Encounter Location Date Provider Diagnosis [address] [address] 05/20/2023 Kahlil Smith Type 2 diabetes mellitus with diabetic polyneuropathy E11.42 ; Tinea unguium B35.1 ; Ingrown nail L60.0 ; Other hammer toe(s) (acquired), right foot M20.41 and Other hammer toe(s) (acquired), left foot M20.[address] [address] 08/19/2023 Kahlil Smith Type 2 diabetes mellitus with diabetic polyneuropathy E11.42 ; Tinea unguium B35.1 and Ingrown nail L60.[address] [address] 11/06/2023 Kahlil Smith Pain in right foot M79.671 ; Plantar fasciitis of right foot M72.2 ; Calcaneal spur, right foot M77.31 ; Interstitial myositis of right foot M60.171 and Bursitis of right foot M77.51 [facility] [address] [address] 11/18/2023 Kahlil Smith Type 2 diabetes mellitus with diabetic polyneuropathy E11.42 ; Tinea unguium B35.1 ; Ingrown nail L60.0 and Plantar fasciitis of right foot M72.2 [facility] [address] [facility]/20[facility] [address] 02/17/2024 Kahlil Smith Assessments Encounter Date Diagnosis (ICD Code) Assessment Notes Treatment Notes Treatment Clinical Notes Section Notes 05/20/2023 Type 2 diabetes mellitus with diabetic polyneuropathy (ICD-10 - E11.42) 05/20/2023 Tinea unguium (ICD-10 - B35.1) 08/19/2023 Type 2 diabetes mellitus with diabetic polyneuropathy (ICD-10 - E11.42) 08/19/2023 Tinea unguium (ICD-10 - B35.1) 11/06/2023 Pain in right foot (ICD-10 - M79.671) 11/06/2023 Plantar fasciitis of right foot (ICD-10 - M72.2) Patient Educated with: HEEL CORD STRETCHES.pdf (HEEL CORD STRETCHES.pdf ) Patient Educated with: RICE THERAPY.pdf (RICE THERAPY.pdf) 11/18/2023 Type 2 diabetes mellitus with diabetic polyneuropathy (ICD-10 - E11.42) 11/18/2023 Tinea unguium (ICD-10 - B35.1) 11/18/2023 Ingrown nail (ICD-10 - L60.0) 11/06/2023 Calcaneal spur, right foot (ICD-10 - M77.31) 08/19/2023 Ingrown nail (ICD-10 - L60.0) 05/20/2023 Ingrown nail (ICD-10 - L60.0) 05/20/2023 Other hammer toe(s) (acquired), right foot (ICD-10 - M20.41) Patient Educated with: DIABETIC FOOT CARE INSTRUCTIONS. pdf (DIABETIC FOOT CARE INSTRUCTIONS. pdf) 11/18/2023 Plantar fasciitis of right foot (ICD-10 - M72.2) Patient Educated with: HEEL CORD STRETCHES.pdf (HEEL CORD STRETCHES.pdf ) Patient Educated with: RICE THERAPY.pdf (RICE THERAPY.pdf) 11/06/2023 Interstitial myositis of right foot (ICD-10 - M60.171) 11/06/2023 Bursitis of right foot (ICD-10 - M77.51) 05/20/2023 Other hammer toe(s) (acquired), left foot (ICD-10 - M20.42) Plan Of Treatment Pending Test Test Name Order Date X ray : Foot, right 3V 11/06/2023 59779-CUUOHTU NAIL, 6 OR MORE 11/18/2023 92433-YJIHOKQ NAIL, 6 OR MORE 05/20/2023 11829-OVXHQPU NAIL, 6 OR MORE 08/19/2023 01617-RQZQHHF NAIL, 6 OR MORE 04/13/2021 19374-ZBRTQUU NAIL, 6 OR MORE 07/12/2021 46484-XZVDOFM NAIL, 6 OR MORE 10/11/2021 90598-BTUNIQP NAIL, 6 OR MORE 01/29/2022 03516-PFFDJNY NAIL, 6 OR MORE 04/30/2022 23041-KYCMWMO NAIL, 6 OR MORE 08/06/2022 53366-NUSULOA NAIL, 6 OR MORE 11/12/2022 40160-PYWCLUZ NAIL, 6 OR MORE 02/18/2023 17594-NDBXWUP NAIL, 6 OR MORE 07/22/2015 45462-ZLRVEZG NAIL, 6 OR MORE 10/14/2015 54192-HXVZCJW NAIL, 6 OR MORE 01/13/2016 68722-ZUAYRTA NAIL, 6 OR MORE 04/27/2016 39150-AFSAMNI NAIL, 6 OR MORE 07/27/2016 38227-EUQGWLQ NAIL, 6 OR MORE 11/02/2016 97203-XRHUJDK NAIL, 6 OR MORE 02/01/2017 50278-ANWSBCP NAIL, 6 OR MORE 05/03/2017 93538-OMCFNWV NAIL, 6 OR MORE 09/05/2017 77580-ZMZTJCF NAIL, 6 OR MORE 12/05/2017 34498-BIKTFBF NAIL, 6 OR MORE 03/19/2018 25526-XDVTHAJ NAIL, 6 OR MORE 06/18/2018 20796-TLEQFEQ NAIL, 6 OR MORE 09/17/2018 98216-ZSDLEOL NAIL, 6 OR MORE 12/17/2018 81426-NZWXBPI NAIL, 6 OR MORE 03/18/2019 30292-UQPUMNR NAIL, 6 OR MORE 07/15/2019 88489-IOBKIOJ NAIL, 6 OR MORE 10/14/2019 29126-TUOAUOB NAIL, 6 OR MORE 01/13/2020 66299-ZSKSVGR NAIL, 6 OR MORE 04/13/2020 73778-RZTKDWD NAIL, 6 OR MORE 07/13/2020 76264-SGDFKFD NAIL, 6 OR MORE 10/12/2020 51754-SWSRYMY NAIL, 6 OR MORE 01/12/2021 47157-Eqxuuafx Plate 01/12/2021 60719-Ypeuaksa Plate 10/12/2020 58529-Ukrvdshx Plate 07/13/2020 93187-Csqcjcbu Plate 04/13/2020 36360-Wkgaetty Plate 01/13/2020 46787-Zacktjaq Plate 10/14/2019 86834-Bxeljdsi Plate 07/15/2019 63135-Stbeutzj Plate 03/18/2019 91345-Wpnwjolx Plate 12/17/2018 79728-Yikarars Plate 09/17/2018 61292-Qrovofbj Plate 03/19/2018 08763-Iifjkxbo Plate 12/05/2017 06973-Ikfqgewj Plate 09/05/2017 95560-Plgfxzam Plate 02/18/2023 58812-Qmlifgjk Plate 11/12/2022 04876-Fsgvcjqx Plate 08/06/2022 31782-Jobhxeji Plate 04/30/2022 65547-Oehpwjlc Plate 01/29/2022 25438-Zomicdrh Plate 10/11/2021 24170-Vxuiyyjs Plate 07/12/2021 37771-Umhcxfvq Plate 04/13/2021 64338-Wmpsszph Plate 08/19/2023 18250-Oqsseqzy Plate 05/20/2023 98489-Wtqgbvtb Plate 11/18/2023 81038-Mvwoqhpj Plate 06/18/2018 23487-Urijxnds Plate 07/27/2016 04507-Pehrmcpb Plate Each Additional 39786-Fknuwfpk Plate Each Additional 38597-Dfcinnsx Plate Each Additional 92092-Szbakvlu Plate Each Additional 12/2021 66307-Kfgbjfyl Plate Each Additional 01/2022 52742-Wzftgnqj Plate Each Additional 12/2021 84168-Xxfrjips Plate Each Additional 35628-Kmqvdatp Plate Each Additional 78934-Jpbfdctb Plate Each Additional 07/2022 21293-Svikufxg Plate Each Additional 01/2023 42750-Wcnvszbw Plate Each Additional 46494-Hfntvilt Plate Each Additional 46059-Zzfgwbsc Plate Each Additional 16471-Envawwrx Plate Each Additional 42461-Dbhobydf Plate Each Additional 00724-Xpdnoual Plate Each Additional 63177-Xlucwidp Plate Each Additional 74809-Nrdfozuo Plate Each Additional 02/2020 65549-Jkmtxrus Plate Each Additional 01/2020 29606-Owtxqrqb Plate Each Additional 12/2020 61352-Ifufqpcx Plate Each Additional 02/2021 13968-Vdzjxrjw Plate Each Additional 01/2021 11965-Nsdoqofg Plate Each Additional 01/2021 03897-AGBJ SKIN LESIONS, OVER 4 01/13/20 21 50392-TWRR SKIN LESIONS, OVER 4 10/13/19 21 86528-CSBF SKIN LESIONS, OVER 4 07/14/19 21 86094-MMGD SKIN LESIONS, OVER 4 04/13/19 21 05295-UVJU SKIN LESIONS, OVER 4 01/13/20 20 54877-TQFB SKIN LESIONS, OVER 4 10/14/19 20 45699-ATFS SKIN LESIONS, OVER 4 07/15/19 20 33595-SFRN SKIN LESIONS, OVER 4 03/18/19 20 92198-OILN SKIN LESIONS, OVER 4 12/18/19 19 83274-MPID SKIN LESIONS, OVER 4 09/18/19 19 07577-EMCT SKIN LESIONS, OVER 4 03/19/19 19 32267-EVMS SKIN LESIONS, OVER 4 12/06/19 18 11640-QLQW SKIN LESIONS, OVER 4 09/06/19 18 68610-XFZY SKIN LESIONS, OVER 4 05/04/19 18 65336-KAWO SKIN LESIONS, OVER 4 02/19/20 23 19347-YTSQ SKIN LESIONS, OVER 4 11/13/19 23 91317-MMKH SKIN LESIONS, OVER 4 08/07/19 89326-ZHPP SKIN LESIONS, OVER 4 04/30/19 39387-WMWC SKIN LESIONS, OVER 4 01/30/20 38152-NSKW SKIN LESIONS, OVER 4 10/12/19 15842-TCOE SKIN LESIONS, OVER 4 07/13/19 99470-GPWK SKIN LESIONS, OVER 4 04/13/19 78171-YOGA SKIN LESIONS, OVER 4 08/19/19 28665-CZLF SKIN LESIONS, OVER 4 05/20/19 24 47247-IESK SKIN LESIONS, OVER 4 11/18/19 31940-FSBS SKIN LESIONS, OVER 4 06/19/19 19 63878-FDWI SKIN LESIONS, 2 TO 4 02/02/20 17 62341-CGNZ SKIN LESIONS, 2 TO 4 11/03/19 17 73363-TSUG SKIN LESIONS, 2 TO 4 04/27/19 17 67049-RHXM SKIN LESIONS, 2 TO 4 07/28/19 17 17237-AVML SKIN LESIONS, 2 TO 4 01/13/20 16 79646-JQNI SKIN LESIONS, 2 TO 4 10/14/19 16 81760-GXST SKIN LESIONS, 2 TO 4 07/22/19 16 Next Appt Details Provider Name:Kahlil Sp Smith , 05/25/2024 01:30:00 PM, [address] [facility] [address], [place], [address], Insurance Providers Payer Name Payer Address Payer Phone Subscriber Number Group Number Insured Name Patient Relationship to Insured Coverage Start Date Coverage End Date [employer] [address] [place] [address] [phone] [id number] Eldon Ryan Self - patient is the insured Medical (General) History Medical History History ICD Code mumps measles chicken pox high blood pressure diabetic type ll Arthritis Diverticulosis High blood pressure Measles Mumps Chicken pox Cholesterol NE - 5'18 Surgical History Surgery Date(Month/Year) skin graft 2009 umbilical hernia repair 01/2004 cardiac catheterization Boil removed from arm 02/2019 kidney stones 2021 cyst removal, back 01/05/22 colonoscopy Hospitalization History Reason Date(Month/Year) Dr. De La Torre [facility] [place]-given Antibiotics Walk in- foot injury 06/2021 PT For left shoulder 03/2018 [facility]-Heart Attack 07/26/2017
[2024-02-28 10:34] VITALS: BP 138/72; PULSE 79; O2SAT 96; BMI 36.6
--- NOTE | 2024-02-28 10:34 | A.OFFPC_ITS ---
Vital Signs 02/28/24 10:34 Height 6 ft 3 in Weight 293 lb BMI 36.6 BP 138/72 Blood Pressure Location Rt brachial Position Sitting Pulse 79 Pulse Source Pulse Oximeter Pulse Oximetry (%) 96 Oxygen Delivery Method Room Air Intake Visit Reasons: PE Intake Note: Pt is here today for his PE: Last colonoscopy 04/08/23 Allergies bacitracin [BACITRACIN] Allergy (Mild, Verified 02/28/24 10:43) DERMATITIS, rash, rash Medication List - Last Reconciled 03/01/24 by Anne Ramirez MD alpha lipoic acid 600 mg PO BID aspirin 81 mg PO DAILY blood sugar diagnostic (FreeStyle Lite Strips) Check Fasting blood sugar once a day as directed blood sugar diagnostic As directed blood-glucose meter (FreeStyle Lite Meter kit) check fasting glucoe once a day As directed cinnamon bark (Cinnamon) 1,000 mg PO DAILY coenzyme Q10 (Co Q-10) 200 mg PO DAILY [Customized heat molded multi- density inner soles( 3 pairs) As directed NS] [Extra depth diabetic orthopedic shoes Extra depth diabetic orthopedic shoes 1 pair NS] ezetimibe 10 mg PO DAILY fenofibrate nanocrystallized 145 mg PO DAILY 90 days finasteride 5 mg PO DAILY 90 days fluticasone propionate 50 mcg/actuation (Flonase Allergy Relief) 2 sprays intranasal DAILY PRN furosemide (Lasix) 20 mg PO QAM glipizide ER 5 mg PO DAILY lancets As directed lisinopril 40 mg PO DAILY metformin 1,000 mg PO BID 90 days metoprolol succinate ER 50 mg PO DAILY multivitamin (Multiple Vitamins tablet) 1 tab PO DAILY omega-3 acid ethyl esters 2 caps PO BID 90 days omeprazole 20 mg PO DAILY pioglitazone 30 mg PO DAILY rosuvastatin 40 mg PO DAILY terazosin 10 mg PO BEDTIME 90 days Tobacco use date assessed: 02/28/24 Fall risk assessment: No Falls in past year Last assessed Fall Risk: 02/28/24 Dental Screening Dental Screen Date: 11/19/23 Did you have a dental visit in the last 12 months?: Yes Did you have a dental problem in the last 6 months where you did not have access to dental care?: No Was dental information given to patient?: Patient has dentist HPI PE HPI Details - The patient is a 74-year-old male pres enting for a physical examination and follow-up of his Type 2 Diabetes Mellitus. His HBA1c increased from 6.2% in November to 6.5 %in January, after stopping Trulicity due to cost. Transitioned to glipizide by his center medical and lab director. Had screening colonoscopy done 04/08/24 with removal of several polyps , 4 of which were Tubular adrnomas. Since the procedure, he has neen having irregular bowel movements; alternating loose stools and constipation. Regular use of Metamucil which has helped. - Hypertension: Blood pressure controll ed on present medications. - Osteoarthritis: Noted in ankles causin g difficulty ambulating. New onset of excruciating pain in hip joint subsequent to carrying heavy bags . has an appointment already scheduled for orthopedic consultation. - Anemia: Mild concerns raised potential ly linked to microbleeding from polyp sites, although patient denies visible blood in stool. - Dietary intake includes a focus on veg etables. Limitations in sugar intake discussed. - Occasional engagement with weight gaby gement strategies; previously attempted Wegovy for weight loss unsuccessfully due to cost and inefficacy. [facility] Medical History (Updated 03/01/24 @ 15:19 by Anne Ramirez MD) Hx of adenomatous colonic polyps Anemia Diabetes mellitus, without long-term current use of insulin Hammertoes of both feet Positive colorectal cancer screening using Cologuard test Vitamin D deficiency Hearing loss Hypertension Dyslipidemia Non-toxic multinodular goiter Diabetic neuropathy associated with type 2 diabetes mellitus Allergic rhinitis MICHAEL on CPAP Obesity CAD (coronary artery disease) Surgical History (Updated 03/01/24 @ 15:15 by Anne Ramirez MD) H/O colonoscopy Stented coronary artery Family History Father Diabetes Substance use disorder Mother Hypertension Mental health disorder Social History Housing: House Alcohol intake: never Patient Tobacco Use Status: Former Tobacco user e-Cigarette/Vaping Use: Never Used Current occupational status: retired Cognitive needs: No Hearing needs: Yes Vision needs: Yes Questionnaire PHQ-9 Over the last 2 weeks, how often have you been bothered by any of the following problems? 1. Little interest or pleasure in doing things: not at all 2. Feeling down, depressed, or hopeless: not at all 3. Trouble falling or staying asleep, or sleeping too much: not at all 4. Feeling tired or having little energy: several days 5. Poor appetite or overeating: not at all 6. Feeling bad about yourself - or that you are a failure or have let yourself or your family down: not at all 7. Trouble concentrating on things, such as reading the newspaper or watching television: not at all 8. Moving or speaking so slowly that other people could have noticed. Or the opposite - being so fidgety or restless that you have been moving around a lot more than usual: not at all 9. Thoughts that you would be better off or of hurting yourself in some way: not at all Total score: 1 Depression Screening Interpretation: Negative Depression Screening Done: Yes 38492 - PHQ-9 Billing: Yes Source: Developed by Drs. Kem Archer, Petra Breaux, Jaxon Burroughs and colleagues, with an educational alecia from [email or web address]. Thrive Questionnaire Date Thrive assessed: 11/17/23 I am a: Patient What is your living situation today?: I have a steady place to live Within the past 12 months, did the food you bought not last and you didn't have the money to get more?: Never true Within the past 12 months, did you worry whether your food would run out before you got money to buy more?: Never true Do you have trouble paying for medicines?: I choose not to answer this question Do you have trouble getting transportation to medical appointments?: No Do you have trouble paying your heating and electricity bill?: No Do you have trouble taking care of your child, family member or friend?: No Do you have trouble with day-to-day activities such as bathing, preparing meals, shopping, managing finances, etc.?: No Are you interested in more education?: No Please select the resources that you would like help with: None Currently or been in a relationship where the following occur: I choose not to answer THRIVE Score: 0 AUDIT C Alcohol Use Questionnaire (AUDIT-C) 1. How often do you have a drink containing alcohol?: Monthly or less 2. How many drinks containing alcohol do you have on a typical day when you are drinking?: 1 or 2 3. How often do you have six or more drinks on one occasion?: Never Total Score: 1 SIMON-7 AMB Questionnaire SIMON-7 Date SIMON - 7 assessed: 05/17/23 Source: Developed by Drs. Kem Archer, Petra Breaux, Jaxon Burroughs and colleagues, with an educational alecia from [email or web address]. Review of Systems Const Denies chills and Denies fever(s) Eyes Denies change in vision ENT Reports Normal hearing present and Denies dizziness Card Reports no additional complaints and Denies syncope Resp Denies cough GI Denies abdominal pain and Denies heartburn Reports as per HPI and Denies change in libido Musc Reports as per HPI, Denies abnormal gait, Denies muscle weakness, Denies numbness, Denies radiating pain into limb, Reports stiffness and Denies tingling Skin/Breast Denies lesions and Denies rash Neuro Reports Normal hearing present, Denies abnormal gait, Denies dizziness, Denies syncope, Denies numbness, Denies Sensory deficit (Neuro) and Denies tingling Psych Denies change in libido Endo Denies change in libido Mark/Lymph Reports no additional complaints Aller/Immun Reports no additional complaints Physical exam (Primary Care) Vital Signs: Last Vital Signs Pulse 79 02/28/24 10:34 BP 138/72 02/28/24 10:34 Pulse Ox 96 02/28/24 10:34 Oxygen Delivery Method Room Air 02/28/24 10:34 BMI result Body Mass Index 36.6 BMI Assessment/Plan discussion: High BMI High, discussed plan: lifestyle, weight reduction, dietary and physical activity Tobacco/Smoking Status: Tobacco use Status Tobacco use date assessed 02/28/24 02/28/24 10:42 Patient Tobacco Use Status Former Tobacco user 02/28/24 10:35 e-Cigarette/Vaping Use Never Used 02/28/24 10:35 Depression Screening Interpretation: Negative Thrive Assessment: Date of Thrive Assessment Date Thrive assessed 11/17/23 02/28/24 10:35 Currently or been in a relationship where the following occur: I choose not to answer Const General: no acute distress and alert Orientation/consciousness: patient oriented x3 HENMT Head: Yes normocephalic Ears: external ears normal General nose exam: Normal external nose present Face and sinus: Yes face symmetric Mouth: Normal oral and palatal mucosa present and moist mucous membranes Eyes Conjunctivae: conjunctivae normal Sclerae: sclerae normal Pupils: Equal, round and reactive pupils present EOM: EOMs intact bilaterally Neck Neck: Yes full ROM and Yes no lymphadenopathy Thyroid: Thyroid normal Chest Chest palpation & inspection: normal inspection of the chest Resp Effort & Inspection: normal respiratory effort and able to speak in complete sentences Auscultation: clear to auscultation bilaterally Cardio Jugular venous distension: no JVD Rate: regular rate Rhythm: regular rhythm Heart sounds: S1 normal heart sound present and S2 normal heart sound present GI Inspection: Yes normal to inspection Palpation (GI): Soft to palpation Auscultation: normal bowel sounds General: Yes no CVA tenderness Back/Spine/Pelvis Back: no CVA tenderness and No back tenderness Skin Lesions: other (Plantar callus noted bilaterally) Nails: yellow and thickened (toenails bilateral) Neuro General: patient oriented x3, gait normal, moves all extremities, Normal light touch and pain sensation and no focal motor deficits Cranial nerves: Yes Equal, round and reactive pupils present and Yes Normal hearing present Gait exam (Neuro): Normal gait present Motor exam (neuro): 5/5 motor strength present throughout Sensory Exam: No Sensory deficit (Neuro) Extrem Other: Hammertoes on both feet General: Yes full ROM, Yes no joint enlargement, Yes no calf tenderness, Yes normal gait and Yes pedal edema Psych Appearance: grossly normal and well kempt Mental Status: mental status grossly normal Speech and movement: Normal speech and movement present Affect: normal affect Results Reviewed Results Reviewed: guillermina: Eldon Rivas Age/Sex: 73/M : 1950 Unit#: [id number] Attend Dr: Anne Ramirez MD Re11/21/23 Status: DEP REF Location: [facility] Disch: SPEC : [id number] LANA: 11/21/23 STATUS: COMP REQ : [id number] RECD: 11/21/[address]: Anne Ramirez MD COMP: 11/21/23 ENTERED: 11/21/[address]: ORDERED: CBC Auto Diff Test Result Flag Reference WBC 7.7 4.8-10.8 X10*3/uL RBC 4.19 L 4.60-5.80 X10*6/uL HGB 12.8 L 14.0-18.0 g/dl HCT 38.3 L 42.0-52.0 % MCV 91.4 80.0-98.0 fL MCH 30.5 27.0-33.0 pg MCHC 33.4 31.0-36.0 g/dl RDW 13.7 11.0-16.0 % PLT 185 160-400 X10*3/uL MPV 11.8 9.4-12.4 fL Neut Pct Auto 56.1 45-73 % ImGran Pct Auto 0.4 0.0-0.4 % Lymp Pct Auto 30.1 20-40 % [place] Pct Auto 9.6 2-11 % Eos Pct Auto 2.9 0-4 % Baso Pct Auto 0.9 0-2 % NRBC Pct Auto 0.0 0.0-0.2 /100WBC ANC Neut Abs # 4.3 2.0-8.3 x10*3/uL ImGran Abs Auto 0.03 0.00-0.03 X10*3/uL Lymph Abs Auto 2.3 1.2-4.9 X10*3/uL [place] Abs Auto 0.7 0.1-1.2 X10*3/uL Eos Abs Auto 0.2 0.0-0.4 X10*3/uL Baso Abs Auto 0.1 0.0-0.2 X10*3/uL NRBC Abs Auto 0.000 0.0-0.012 X10*3/uL Name: Eldon Rivas Age/Sex: 73/M : 1950 Unit#: [id number] Attend Dr: Anne Ramirez MD Re11/21/23 Status: DEP REF Location: [facility] Disch: SPEC : [id number] LANA: 11/21/23 STATUS: COMP REQ : [id number] RECD: 11/21/23-[address]: Anne Ramirez MD COMP: 11/21/237 ENTERED: 11/21/[address] [facility] [address]: ORDERED: Met Prof Fast, IRON PROF Test Result Flag Reference Sodium 141 135-145 mmol/L Potassium 4.2 3.3-5.1 mmol/L CL 107 96-108 mmol/L CO2 25 22-29 mmol/L Gap 13 12-20 BUN 22 H 9-16 mg/dL Creat 1.40 0.5-1.4 mg/dL EGFR 50 NOTE: For -[place] individuals, multiply the result by 1.210. Chronic Kidney Disease: Estimated GFR < 60 mL/min/1.73m2 Severe Kidney Disease: Estimated GFR < 15 mL/min/1.73m2 FBS 113 H 60-99 mg/dL A fasting glucose from 100-125 mg/dl is considered impaired (pre-diabetes). CA 9.7 8.4-10.2 mg/dL Iron 97 45-160 mcg/dL TIBC 350 228-428 mcg/dL Saturation 28 15-50 % UIBC 253 ug/dL Name: Eldon Rivas Age/Sex: 73/M : 1950 Unit#: [id number] Attend Dr: Anne Ramirez MD Re11/12/23 Status: DEP REF Location: [facility] Disch: SPEC : [id number] LANA: 11/12/23 STATUS: COMP REQ : [id number] RECD: 11/12/23-[address]: Anne Ramirez MD COMP: 11/12/23 ENTERED: 11/12/[address] [facility] [address]: ORDERED: Met Prof Fast, AST, ALT, Lipid Panel Test Result Flag Reference Sodium 139 135-145 mmol/L Potassium 4.4 3.3-5.1 mmol/L CL 104 96-108 mmol/L CO2 27 22-29 mmol/L Gap 12 12-20 BUN 33 H 9-16 mg/dL Creat 1.65 H 0.5-1.4 mg/dL EGFR 41 NOTE: For -[place] individuals, multiply the result by 1.210. Chronic Kidney Disease: Estimated GFR < 60 mL/min/1.73m2 Severe Kidney Disease: Estimated GFR < 15 mL/min/1.73m2 FBS 114 H 60-99 mg/dL A fasting glucose from 100-125 mg/dl is considered impaired (pre-diabetes). CA 10.0 8.4-10.2 mg/dL AST (GOT) 33 5-37 U/L ALT (GPT) 23 0-40 U/L Triglyceride 109 <150 mg/dL Desirable Triglyceride: less than 150 mg/dL Borderline High Triglyceride 150-199 mg/dL High Triglyceride: 200-499 mg/dL Very High Triglyceride: greater than or equal to 5OO mg/dL Cholesterol 93 <200 mg/dL Desirable Cholesterol: less than 200 mg/dL Borderline High Cholesterol: 200-239 mg/dL High Cholesterol: greater than 239 mg/dL LDL Calculated 42 <100 mg/dL Desirable LDL: less than 100 mg/dL Near Optimal/Above Optimal LDL: 110-129 mg/dL Borderline High LDL: 130-159 mg/dL High LDL: 160-189 mg/dL Very High LDL: greater than or equal to 190 mg/dL HDL 30 L >40 mg/dL Desirable HDL: greater than 40 mg/dL Note: This HDL assay may give artificially low results in patients with liver disease. Coding Level of Care Code Est Pt Prev Care >65y(13579) Diagnoses Anemia, unspecified type D64.9 Anemia type: unspecified type Type 2 diabetes mellitus with other circulatory complication, without long-term current use of insulin E11.59 Diabetes mellitus type: type 2 Diabetes mellitus complication status: with circulatory complication Diabetes mellitus complication detail: with other circulatory complications Obesity E66.9 CAD (coronary artery disease) I25.10 Allergic rhinitis J30.9 Dyslipidemia E78.5 Primary hypertension I10 Hypertension type: primary hypertension Hearing loss H91.90 Obstructive sleep apnea G47.33 Hx of adenomatous colonic polyps Z86.0101 Additional Codes PHQ-9 - 52950 - PHQ-9 Billing: Yes ([id number]) Assessment & Plan Assessment & Plan (1) Anemia: Code(s): D64.9 - Anemia, unspecified Category: Medical Qualifiers: Anemia type: unspecified type Qualified Code(s): D64.9 - Anemia, unspecified (2) Diabetes mellitus, without long-term current use of insulin: Code(s): E11.9 - Type 2 diabetes mellitus without complications Category: Medical Qualifiers: Diabetes mellitus type: type 2 Diabetes mellitus complication status: with circulatory complication Diabetes mellitus complication detail: with other circulatory complications Qualified Code(s): E11.59 - Type 2 diabetes mellitus with other circulatory complications (3) Obesity: Comment: REMAINS MODERATELY OBESE AND HAS NOT BEEN ABLE TO LOSE MUCH WEIGHT. HE IS TRYING TO WATCH HIS DIET, AND ENCOURAGED TO START WALKING EVERY DAY. Code(s): E66.9 - Obesity, unspecified Category: Medical (4) CAD (coronary artery disease): Code(s): I25.10 - Atherosclerotic heart disease of [place] coronary artery without angina pectoris Category: Medical (5) Allergic rhinitis: Comment: MILD,, BETTER WITH THE USE OF WARM HUMIDITY ,, AND ALSO USE OF FLONASE NASAL SPRAY PRN . AND OKAY TO USE ZYRTEC 10 MG AT HS P.R.N.. Code(s): J30.9 - Allergic rhinitis, unspecified Category: Medical (6) Dyslipidemia: Code(s): E78.5 - Hyperlipidemia, unspecified Category: Medical (7) Hypertension: Code(s): I10 - Essential (primary) hypertension Category: Medical Qualifiers: Hypertension type: primary hypertension Qualified Code(s): I10 - Essential (primary) hypertension (8) Hearing loss: Code(s): H91.90 - Unspecified hearing loss, unspecified ear Category: Medical (9) Obstructive sleep apnea: Comment: MICHAEL, WELL TREATED WITH USE OF CPAP. HE IS VERY COMPLIANT, AND BENEFITING. Code(s): G47.33 - Obstructive sleep apnea (adult) (pediatric) Category: Medical (10) Hx of adenomatous colonic polyps: Code(s): Z86.0101 - Personal history of adenomatous and serrated colon polyps Category: Medical Plan Current management of Type 2 Diabetes Mellitus includes glipizide, pioglitazone , and Metformin, followed at Endocrine clinic. Continuous monitoring of glucose levels and possible use of Freestyle Althea discussed for ease in monitoring glucose levels . Sees SR Smith for his diabetes foot exam and UTD with Retinopathy screening .Gastrointestinal symptoms following colonoscopy are being managed; focus on ensuring adequate fiber intake and future reevaluation of polyps. Follow-up colonoscopy recommended in two years due to Adenomatous polyps reed nd removed . Range of motion and burden from arthritis being addressed with upcoming orthopedic evaluation. Ensured vaccinations are current. Blood work ordered to reassess hematologic parameters and manage mild anemia. He is followed by Urology for BPH . Compliant with use of CPAP for his MICHAEL. Followed yearly by Cardiology for his CAD s/p stent placement in the past. Patient was informed and verbally consented to the use of an ambient scribe for clinic note documentation during this visit. Orders: Orders IRON PROFILE 02/28/24 D64.9 - Anemia, unspecified Vitamin D 25-OH Total 02/28/24 D64.9 - Anemia, unspecified Complete Blood Count Auto Diff 02/28/24 D64.9 - Anemia, unspecified
== END 2024-02-28 11:18 | disposition home or self-care (01) ==
PROVIDERS: PCP Internal Medicine; Visit Provider Internal Medicine
DX: Z00.00 Encounter for general adult medical examination without abnormal findings (principal); E11.59 Type 2 diabetes mellitus with other circulatory complications; E66.9 Obesity, unspecified; Z68.36 Body mass index [BMI] 36.0-36.9, adult; D64.9 Anemia, unspecified; I25.10 Atherosclerotic heart disease of native coronary artery without angina pectoris; J30.9 Allergic rhinitis, unspecified; E78.5 Hyperlipidemia, unspecified; I10 Essential (primary) hypertension; H91.90 Unspecified hearing loss, unspecified ear; G47.33 Obstructive sleep apnea (adult) (pediatric); Z86.0101 Personal history of adenomatous and serrated colon polyps

== ENCOUNTER → 2024-02-28 10:23 | Outpatient (BNVA) | payer OTHER, SELFPAY | PROVIDERS: PCP Internal Medicine; Visit Provider Internal Medicine | DX: Z00.00 Encounter for general adult medical examination without abnormal findings (principal); E11.59 Type 2 diabetes mellitus with other circulatory complications; D64.9 Anemia, unspecified; E66.9 Obesity, unspecified; I25.10 Atherosclerotic heart disease of native coronary artery without angina pectoris; J30.9 Allergic rhinitis, unspecified; E78.5 Hyperlipidemia, unspecified; I10 Essential (primary) hypertension; H91.90 Unspecified hearing loss, unspecified ear; G47.33 Obstructive sleep apnea (adult) (pediatric); Z86.0101 Personal history of adenomatous and serrated colon polyps; Z79.84 Long term (current) use of oral hypoglycemic drugs | CPT/HCPCS: 96127 ==

== ENCOUNTER 2024-03-13 08:33 | Outpatient (REF) | payer MEDICARE, SELFPAY ==
--- NOTE | ~2024-03-13 | XR_ITS ---
CLINICAL HISTORY: M25.559 - Pain in unspecified hip 3 view, pelvis and left hip Comparison: None Findings: The bones are intact. Mild degenerative change at both hips. No suspicious bone lesion. Diffuse vascular calcification. The soft tissues are unremarkable. IMPRESSION: No acute findings. Mild degenerative change at both hips. Diffuse vascular calcification noted. This document has been electronically signed by: Pipe Rajput MD on 03/16/2024 10:42:52
--- OUTSIDE RECORDS SUMMARY | 2024-03-16 08:46 | XMS_ITS ---
[facility] Address [address] [place] [address] Care Team Providers Care Social Insurance Specialist Name Role Phone Ashley PULLIAM, Anne Llamas Primary Care Provider Un available Kahlil Smith Unavailable [phone] Encounters Encounter Location Date [facility] [address] 02/17/2024 Kahlil Smith Plan Of Treatment Next Appt Details Provider Name:Kahlil Smith , 05/25/2024 01:30:00 PM, [address] [place] [address], [phone], Progress Notes * Eldon RYAN GDOB:[birth year] (74 yo M)Acc No.[id number]:02/17/2024 Progress Note Patient:?Eldon RYAN Provider:?Kahlil Smith DPM :1950???Age:74 Y???Sex:Male Tristan e:02/17/2024 Address:[address] [place], [place] [address], [id number] Pcp:Colin Borrego Subjective: * Chief Complaints: * ??? * Medical History:? Objective: * Vitals:? Assessment: Plan: * Treatment: * Images: * The named appointment provid er may or may not be the originator of this progress note, and it is not deemed complete until electronically signed by the appointment provider. Sign off status: Pending * Provider:Shun Smith DPM Date:?2023 Generated for Ashley monteiro/Maura/Adrian on:?03/16/2024 08:46 AM EST
--- OUTSIDE RECORDS SUMMARY | 2024-03-16 08:46 | XMS_ITS ---
Author Organization [facility] Address [address] [place] [address] Care Team Providers Care [employer] Police Sergeant Name Role Phone Ashley PULLIAM, Anne Llamas Primary Care Provider Un available Kahlil Smith Unavailable [phone] REASON FOR VISIT same day rs 02/17/24 Encounters Encounter Location Date Provider Diagnosis [address] [address] 02/17/2024 Kahlil Smith Plan Of Treatment Next Appt Details Provider Name:Kahlil Smith , 05/25/2024 01:30:00 PM, [address] [facility], [place] [address], [place], [address], Progress Notes * Eldon RYAN GDOB:[birth year] (74 yo M)Acc No.[id number]:02/17/2024 Patient:?Eldon RYAN :1950???Age:74 Y???Sex:Male Address:[address] [place] [address], [phone] * true * Date:? Generated for Printi thania/Maura/eTransmitting on:?03/16/2024 08:46 AM EST
--- OUTSIDE RECORDS SUMMARY | 2024-03-16 08:46 | XMS_ITS ---
Author Organization [facility] Address [address] [place] [address] Care Team Providers Care Certified Novell Engineer Name Role Phone Ashley PULLIAM, Anne Llamas Primary Care Provider Un available Kahlil Smith Unavailable [phone] Allergies Allergen (clinical drug ingredient) Drug/Non Drug [...] day for 5 day(s) Not-Sukhjinder ing Saw [place] Not-Sukhjinder ing Brilinta 60 MG Orally Not-T [...] Prod Active Lisinopril Active Metoprolol Succinate Active [place]-3 1000 MG 2 capsule Orally Twi ce [...] Ordered Date Performed Result Body Sit e 52782-SIGPGKZ NAIL, 6 OR MORE 11/18/2023 N/A 70316-Rjxihvox Plate 11/18/2023 N/A 39509-Ybbgmwvz Plate Each Additional 11/18/2023 N/A 85718-SARH SKIN LESIONS, OVER 4 11/18/2023 N/A Encounters Encounter Location Date Provider Diagnosis [facility] [place] [address] [place] [address] 11/18/2023 Kahlil Smith Type 2 diabetes mellitus [...] THERAPY.pdf) Pending Test Test Name Order Date 25010-EYEVOUD NAIL, 6 OR MORE 11/18/2023 04391-Ckasznad Plate 11/18/2023 04577-Xucgeenx Plate Each Additional 72931-SRHT SKIN LESIONS, OVER 4 11/18/19 Next Appt Details Follow Up: prn, Reason: Provider Name:Kahlil Smith , 05/25/2024 01:30:00 PM, [address] [facility], [address], [place], [address], Procedure Notes * Category Sub-Category Detail Notes [...] Motrin was recommended for pain or discomfort (67969/32) , DIABETES: Pt was advised as to [...] use of a nail nipper and/or dremel-type tool grinder, to a more viable healthy nail plate or bed tissue 6-10. Silver nitrate used for any petechial bleeding as necessary. Definitive antifungal treatment options have been reviewed and discussed with the patient. The patient chooses, no pharmaceutical tx - 39784 Keratoma Treatment Parring or Cutting o f Benign Hyperkeratotic Lesion(s) (-57) More than 4 Lesions - The Benign hyperkeratotic lesions, as described above were pared, and/or cut utilizing a sterile 15 blade, tissue nippers, and/or dremel - 29862 Progress Notes * Eldon RYAN GDOB:[birth year] (73 yo M)Acc No.[id number]:11/18/2023 Progress Note Patient:?Eldon Ryan Lizzeth Provider:?Kahlil Smith DPM :1950???Age:73 Y???Sex:Male Tristan e:11/18/2023 Address:[address] [place], [place] [phone] Pcp:Colin Borrego Subjective: * Chief Complaints: * [...] shoulder 03/2018Walk in- foot injury 2[facility]. Bear[facility] UTI-given Antibiotics 2021 * Family History:?Mother: dece [...] yes, work ,. ?Marital status: . 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 * Medications:?TakingActos 30 MG 1 tablet Orally Once a dayAlpha Lipoic Acid 600 mg Capsule Orally Aspirin 81 MG Tablet Chewable 1 tablet Orally Once a dayCinnamon CoQ10 Daily Vitamin Fenofibrate 145 MG Tablet 1 tablet Orally Once a dayFinacea Finasteride 5 MG Tablet 1 tablet Orally Once a dayFurosemide Lisinopril Metformin & Diet Manage Prod Metoprolol Succinate [place]-3 1000 MG Capsule 2 capsule Orally Twice [...] Diet Manage Prod Taking Metoprolol Succinate Taking [place]-3 1000 MG Capsule 2 capsule Orally Twice [...] 1 capsule Orally Four times a daySaw [place] Chromium Picolate DHEA Tamsulosin HCl 0.4 MG [...] capsule Orally Four times a dayNot-Taking/PRN Saw [place] Not-Taking/PRN Chromium Picolate Not-Taking/PRN DHEA Not-Taking/PRN Tamsulosin [...] - Unresolved? Plan: * Treatment: 2.?Ingrown nail?Procedure: 05198-Epzhdvxo Plate ?Procedure: 65388-Gvzacctj Plate Each Additional 3.?Plantar fasciitis of righ [...] use of a nail nipper and/or dremel-type tool grinder, to a more viable healthy nail plate or bed tissue 6-10. Silver nitrate used for any petechial bleeding as necessary. Definitive antifungal treatment options have been reviewed and discussed with the patient. The patient chooses, no pharmaceutical tx - 33539.?Keratoma Treatment:?Parring or Cutting of Benign Hyperkeratotic Lesion(s)?(-57) More than 4 Lesions - The Benign hyperkeratotic lesions, as described above were pared, and/or cut utilizing a sterile 15 blade, tissue nippers, and/or dremel - 03067.?Nail Avulsion:?Location?Lateral nail border, TA, T5 .?Anesthesia?was deferred [...] Motrin was recommended for pain or discomfort (15847/32) , DIABETES: Pt was advised as to the risk of delayed or nonhealing due to diabetes. Pt is to call the office with any questions, concerns, or complications , DIABETES: Matricectomy deferred at this time due to diabetes risk.? * Procedure Codes:?20601 DEBRI DE NAIL, 6 OR MORE, Modifiers: XS 44841 Avulsion Plate, Modifiers: XS , MP86618 Avulsion Plate Each Additional, Modifiers: XS , [id number] TRIM SKIN LESIONS, OVER 4, Modifiers: XS [...] for Ashley monteiro/Maura/Adrian on:?03/16/2024 08:46 AM EST History and Physical Notes * [...]
--- OUTSIDE RECORDS SUMMARY | 2024-03-16 08:47 | XMS_ITS | Patient Health Record ---
Author Organization [facility] Address [address] [facility] [place] [address] Care Team Providers Care Seed Cutter Name Role Phone Ashley PULLIAM, Anne Llamas Primary Care Provider Un available Kahlil Smith Unavailable [phone] Allergies Allergen (clinical drug ingredient) Drug/Non Drug [...] day for 5 day(s) Not-Sukhjinder ing Saw [place] Not-Sukhjinder ing Trulicity Active Vitamin D3 Active [...] for 30 days Active Metoprolol Succinate Active [place]-3 1000 MG 2 capsule Orally Twi ce [...] Problem Acquired hammer toe of right foot (9087890486362468 ) Other hammer toe(s) (acquired), right foot (M20.41) Active confirmed Problem Acquired hammer toe of left foot (3932029943667721 ) Other hammer toe(s) (acquired), left foot (M20.42) Active confirmed Problem Polyneuropathy due to type 2 diabetes mellitus (755628014) Type 2 diabetes mellitus with diabetic polyneuropathy (E11.42) Active confirmed Problem Interstitial myositis (17893601) 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 confirmed Vital Signs Height 5ft 2in in 11/18/2023 Weight 280 lbs 11/18/2023 BMI 51.21 kg/m2 11/18/2023 Procedures Procedure Date Ordered Date Performed Result Body Sit e 63423-VZSUFTQ NAIL, 6 OR MORE 05/20/2023 N/A 46642-Vhznzxlo Plate 05/20/2023 N/A 19477-Abxjrwww Plate Each Additional 05/20/2023 N/A 21908-VACO SKIN LESIONS, OVER 4 05/20/2023 N/A 68069-LFFXATI NAIL, 6 OR MORE 08/19/2023 N/A 77126-Rsdeqjnl Plate 08/19/2023 N/A 15808-Vyqjrkml Plate Each Additional 08/19/2023 N/A 88028-ZFIR SKIN LESIONS, OVER 4 08/19/2023 N/A 46468-QVZJBCO NAIL, 6 OR MORE 11/18/2023 N/A 94299-Iyelqeya Plate 11/18/2023 N/A 40855-Bucywbvv Plate Each Additional 11/18/2023 N/A 19536-TKHK SKIN LESIONS, OVER 4 11/18/2023 N/A Encounters Encounter Location Date Provider Diagnosis [address] [address] 05/20/2023 Kahlil Smith Type 2 diabetes mellitus with diabetic polyneuropathy E11.42 ; Tinea unguium B35.1 ; Ingrown nail L60.0 ; Other hammer toe(s) (acquired), right foot M20.41 and Other hammer toe(s) (acquired), left foot M20.[address] [address] 08/19/2023 Kahlil Smith Type 2 diabetes mellitus with diabetic polyneuropathy E11.42 ; Tinea unguium B35.1 and Ingrown nail L60.[address] [address] 11/06/2023 Kahlil Smith Pain in right foot M79.671 ; Plantar fasciitis of right foot M72.2 ; Calcaneal spur, right foot M77.31 ; Interstitial myositis of right foot M60.171 and Bursitis of right foot M77.51 [facility] [address] [address] 11/18/2023 Kahlil Smith Type 2 diabetes mellitus with diabetic polyneuropathy E11.42 ; Tinea unguium B35.1 ; Ingrown nail L60.0 and Plantar fasciitis of right foot M72.2 [facility] [address] 09/20/2023 [facility] [address] 02/17/2024 Kahlil Smith Assessments Encounter Date Diagnosis [...] X ray : Foot, right 3V 11/06/2023 75551-ZMSIVGA NAIL, 6 OR MORE 11/18/2023 44983-IBLXZUI NAIL, 6 OR MORE 05/20/2023 59150-HPHLMPH NAIL, 6 OR MORE 08/19/2023 58200-GZBGOHK NAIL, 6 OR MORE 04/13/2021 32393-BDLMGJA NAIL, 6 OR MORE 07/12/2021 58812-NNGIVIV NAIL, 6 OR MORE 10/11/2021 73463-HSSTGUW NAIL, 6 OR MORE 01/29/2022 12949-SSPUUKF NAIL, 6 OR MORE 04/30/2022 01054-KUQMZDW NAIL, 6 OR MORE 08/06/2022 50833-ITZNRJT NAIL, 6 OR MORE 11/12/2022 51824-CTIBZGF NAIL, 6 OR MORE 02/18/2023 42850-YOOSFAH NAIL, 6 OR MORE 07/22/2015 42901-GQWNAIH NAIL, 6 OR MORE 10/14/2015 94976-TCXGSMH NAIL, 6 OR MORE 01/13/2016 80851-YXGRHNK NAIL, 6 OR MORE 04/27/2016 23073-YGXPMSX NAIL, 6 OR MORE 07/27/2016 18994-ELIIHLX NAIL, 6 OR MORE 11/02/2016 09775-SEIGGCR NAIL, 6 OR MORE 02/01/2017 13965-BLGVIFG NAIL, 6 OR MORE 05/03/2017 62240-PMGXCJP NAIL, 6 OR MORE 09/05/2017 17246-WARQRGL NAIL, 6 OR MORE 12/05/2017 39259-EPYPSLZ NAIL, 6 OR MORE 03/19/2018 32521-IJSMNPV NAIL, 6 OR MORE 06/18/2018 10551-CKZRBMR NAIL, 6 OR MORE 09/17/2018 59992-YIOLIAN NAIL, 6 OR MORE 12/17/2018 19907-EHHNNNR NAIL, 6 OR MORE 03/18/2019 32162-XQLTHLG NAIL, 6 OR MORE 07/15/2019 03549-EUTCNTG NAIL, 6 OR MORE 10/14/2019 23688-GIERAWG NAIL, 6 OR MORE 01/13/2020 92109-ATVZWCZ NAIL, 6 OR MORE 04/13/2020 42327-BSQNUXQ NAIL, 6 OR MORE 07/13/2020 29901-NYLZKIF NAIL, 6 OR MORE 10/12/2020 41627-KXHDEZT NAIL, 6 OR MORE 01/12/2021 17642-Hvkzulsg Plate 01/12/2021 54164-Hgcnnykt Plate 10/12/2020 29411-Thbgkvpx Plate 07/13/2020 17782-Beldxtkr Plate 04/13/2020 27213-Nsoluzld Plate 01/13/2020 42374-Ptufpalz Plate 10/14/2019 78785-Mndygvzp Plate 07/15/2019 58826-Jngeuufp Plate 03/18/2019 84333-Tyfibcsr Plate 12/17/2018 25426-Jotatuap Plate 09/17/2018 46577-Vaqnbdtw Plate 03/19/2018 94846-Lmelztho Plate 12/05/2017 11399-Acekofan Plate 09/05/2017 90977-Bmhczhnk Plate 02/18/2023 27572-Qqcyjerj Plate 11/12/2022 86004-Ymqkeqga Plate 08/06/2022 09823-Nsrxtbkq Plate 04/30/2022 80427-Bgpiefyd Plate 01/29/2022 94196-Xvvkqrji Plate 10/11/2021 85791-Mpfolahm Plate 07/12/2021 48237-Zmwrrmqd Plate 04/13/2021 15367-Zzjmcxem Plate 08/19/2023 62181-Vukaejxc Plate 05/20/2023 19048-Msfquebx Plate 11/18/2023 00323-Pftvojkz Plate 06/18/2018 26990-Cbdpbeta Plate 07/27/2016 26992-Zsbggtor Plate Each Additional 74495-Etxyvyaq Plate Each Additional 27339-Shpwplvr Plate Each Additional 96974-Akxynvoi Plate Each Additional 12/2021 92631-Ecxywyvi Plate Each Additional 01/2022 37045-Yzsgxoab Plate Each Additional 12/2021 17351-Lbtzwmvn Plate Each Additional 44998-Happjzpr Plate Each Additional 55909-Gbyjdnsp Plate Each Additional 07/2022 57701-Daydxeca Plate Each Additional 01/2023 67673-Mkifbpjh Plate Each Additional 65380-Znjqlspd Plate Each Additional 97558-Ykpbedxa Plate Each Additional 00375-Upuvbxeb Plate Each Additional 76730-Ygzprllg Plate Each Additional 17432-Bdpqtmtq Plate Each Additional 96048-Kgxxitxj Plate Each Additional 06750-Hcdlshvv Plate Each Additional 02/2020 62368-Nvlqzwiv Plate Each Additional 01/2020 91693-Jtzriyif Plate Each Additional 12/2020 23612-Nrqozxuk Plate Each Additional 02/2021 16271-Fxusxemj Plate Each Additional 01/2021 73670-Quttpzeb Plate Each Additional 01/2021 08921-BPNQ SKIN LESIONS, OVER 4 01/13/20 21 46423-BHGL SKIN LESIONS, OVER 4 10/13/19 21 43386-ABOG SKIN LESIONS, OVER 4 07/14/19 21 80482-TARI SKIN LESIONS, OVER 4 04/13/19 21 98486-FQUH SKIN LESIONS, OVER 4 01/13/20 20 91828-VZJK SKIN LESIONS, OVER 4 10/14/19 20 06379-VELC SKIN LESIONS, OVER 4 07/15/19 20 03364-NFND SKIN LESIONS, OVER 4 03/18/19 20 32274-NLQY SKIN LESIONS, OVER 4 12/18/19 19 80107-TMLG SKIN LESIONS, OVER 4 09/18/19 19 28334-XLSZ SKIN LESIONS, OVER 4 03/19/19 19 12032-HXHP SKIN LESIONS, OVER 4 12/06/19 18 15871-AJAL SKIN LESIONS, OVER 4 09/06/19 18 51625-NXST SKIN LESIONS, OVER 4 05/04/19 18 38179-RXCZ SKIN LESIONS, OVER 4 02/19/20 23 42840-EIFQ SKIN LESIONS, OVER 4 11/13/19 23 10191-APCB SKIN LESIONS, OVER 4 08/07/19 59146-DLCK SKIN LESIONS, OVER 4 04/30/19 35515-DLOV SKIN LESIONS, OVER 4 01/30/20 90859-KBBR SKIN LESIONS, OVER 4 10/12/19 28099-PUKW SKIN LESIONS, OVER 4 07/13/19 40972-VGRK SKIN LESIONS, OVER 4 04/13/19 44173-RPOP SKIN LESIONS, OVER 4 08/19/19 53053-JBUU SKIN LESIONS, OVER 4 05/20/19 24 74559-IQKR SKIN LESIONS, OVER 4 11/18/19 08107-LRNA SKIN LESIONS, OVER 4 06/19/19 19 25693-XVZW SKIN LESIONS, 2 TO 4 02/02/20 17 30038-EDTJ SKIN LESIONS, 2 TO 4 11/03/19 17 53612-IPRL SKIN LESIONS, 2 TO 4 04/27/19 17 07183-AZEF SKIN LESIONS, 2 TO 4 07/28/19 17 33995-DBQI SKIN LESIONS, 2 TO 4 01/13/20 16 17207-XKOM SKIN LESIONS, 2 TO 4 10/14/19 16 83236-HDGF SKIN LESIONS, 2 TO 4 07/22/19 16 Next Appt Details Provider Name:Kahlil Sp Smith , 05/25/2024 01:30:00 PM, [address] [facility] [address], [place], [address], Insurance Providers Payer Name Payer Address Payer Phone Subscriber Number Group Number Insured Name Patient Relationship to Insured Coverage Start Date Coverage End Date [employer] [place] [employer] [address] [place] [address] [phone] [id number] Eldon Ryan Self - patient is the insured Medical (General) History Medical History History ICD Code mumps measles chicken pox high blood pressure diabetic type ll Arthritis Diverticulosis High blood pressure Measles Mumps Chicken pox Cholesterol [place] - 5'18 Surgical History Surgery Date(Month/Year) skin graft 2009 umbilical hernia repair 01/2004 cardiac catheterization Boil removed from arm 02/2019 kidney stones 2021 cyst removal, back 01/05/22 colonoscopy Hospitalization History Reason Date(Month/Year) Dr. De La Torre [facility] UTI-given Antibiotics Walk in- foot injury 06/2021 PT For left shoulder 03/2018 [facility]-Heart Attack 07/26/2017
--- OUTSIDE RECORDS SUMMARY | 2024-03-16 08:47 | XMS_ITS | Continuity of Care Document ---
Author Organization [facility] Address [address] [place] [address] Phone Care Team Providers Care Weatherization Director Name Role Phone Abhishek PULLIAM, RVT, RPVI, [...] Mins- [place] & [place] Dank For Vein Gnosticist [facility], [address] [place] [address] Dr Raman 1000SuBobo paulino MD, [id number], [place] tel:[phone] [facility] Hereditary lymphedemaVeno us insufficiency (chronic) (peripheral)Ly mphedema, not elsewhere classifiedType 2 diabetes mellitus without complicationsE ssential (primary) hypertensionDi sorder of pigmentation, unspecified 4 Abhishek PULLIAM RVT, MARCO [place]. [address] [place] [address], [place], [place], [id number] , [place]. tel:[phone] Referring Provider: Anne Ramirez MD [place], [address] [place] [address], [address]. tel:[phone] Dank For Vein Gnosticist MD LIRA, [address] [place] [address] Dr Raman 1000SuBobo paulino [place], [id number], [place] tel:[phone] [facility] Chronic venous hypertension (idiopathic) with other complications of bilateral lower extremity 4 Abhishek PULLIAM RVT, RPVI Robert. [address] [place] [address], [place], [place], [id number] , [place]. tel:[phone] Referring Provider: Anne Llamas, [address] [place] [address], [address]. tel:[phone] Dank Echeverria Vein Gnosticist MD LIRA, [address] [place] [address] Dr Danisha BravoSuBobo paulino MD, [id number], [place] tel:[phone] CV - [facility] Encounter for follow-up examination after completed treatment for conditions other than malignant neoplasmChroni c venous hypertension (idiopathic) with other complications of right lower extremity Oct-2 4 Abhishek PULLIAM RVT, MARCO [place]. [address] [facility], [place] [address], [place], [place], [id number] , [place]. [phone] Referring Provider: Anne Ramirez MD [place], [address], [place], [address]. tel:[phone] Dank Echeverria Vein Gnosticist MD LIRA, [address] [place] [address] Dr Raman 1000SuBobo paulino [place], [id number], [place] tel:[phone] [facility] Varicose veins of right lower extremity with other complications Oct-2 4 Abhishek PULLIAM RVT, RPVI Robert. [address] [place] [address], [place], [place], [id number] , [place]. [phone] Referring Provider: Anne Ramirez MD [place], [address] [facility] [address] [facility], [place], [address]. tel:[phone] Dank Echeverria Vein [facility], [address] [place] [address] Dr Raman 1000SuBobo paulino MD, [id number], [place] tel:[phone] [facility] Chronic venous hypertension (idiopathic) with inflammation of right lower extremity Oct-2 4 Abhishek PULLIAM RVT, RPVI Robert. [address] [facility] [address], [place], [place], [id number] , [place]. [phone] Dank Echeverria Vein Gnosticist MD LIRA, [address] [place] [address] Dr Raman 1000SuBobo paulino MD, [id number], [place] tel:[phone] CVR [facility] Encounter for follow-up examination after completed treatment for conditions other than malignant neoplasmChroni c venous hypertension (idiopathic) with other complications of left lower extremity Oct-2 4 Abhishek MEGHANN PULLIAM RPVI Robert. [address] [place] [address], [address], [place], [id number] , [place]. [phone] Referring Provider: Kem Weiss MD, RVT, RPVI, [address] [place] [address] Suite [facility], [place], [address] . tel:[phone] [facility], [address] [place] [address] [address], [place], [id number], [place] tel:[phone] CVR - [place] - [place] No Information Dec- 4 Abhishek PULLIAM RVT, RPVI Robert. [address] [place] [address], Suite [facility], [place], [id number] , [place]. [phone] [facility], [address] [place] [address] [address]Bobo [place], [id number], [place] tel:[phone] CVR - [place] - [place] Varicose veins of left lower extremity with other complications Oct- 4 Abhishek PULLIAM RVT, RPVI Robert. [address] [place] [address], [place], [id number] , [place]. [phone] Referring Provider: Anne Ramirez MD [place], [address] [place] [address], [address]. tel:[phone] Dank For Vein [facility]osticist [facility], [address] [place] [address] [facility] [place], [id number], [place] tel:[phone] CVR - [place] Varicose veins of left lower extremity with other complications Oct- 4 Abhishek PULLIAM RVT, RPVI Robert. [address] [place] [address], [place] [address], [place], [id number] , [place]. tel:[phone] Referring Provider: Anne Ramirez MD [place], [address] [place] [address], [address]. tel:[phone] Offic/outpt E&m Estab 5 Min Trial- Telemedicine CT & [place] [facility], [address] [place] [address] Dr Raman 1000Suite 1000Bobo [place], [id number], [place] tel:[phone] CVR - [place] - [place] Non-pressure chronic ulcer of left ankle with unspecified severityChroni c venous hypertension (idiopathic) with other complications of bilateral lower extremityLymph edema, not elsewhere classifiedType 2 diabetes mellitus without complicationsE ssential (primary) hypertensionDi sorder of pigmentation, unspecifiedHer editary lymphedema 4 Abhishek PULLIAM RVT, MARCO [place]. [address] [place] [address], [facility] [place], [id number] , [place]. tel:[phone] Referring Provider: Anne Ramirez MD [place], [address] [place] [address], [place], [address]. tel:[phone] Offic Cons New/estab Mod-hi 60- CT & [place] For Vein Gnosticist [facility], [address] [place] [address] Dr Raman 1000Suite 1000Bobo [place], [id number], [place] tel:[phone] [facility] Essential (primary) hypertensionLy mphedema, not elsewhere classifiedNon- pressure chronic ulcer of left ankle with unspecified severityVenous insufficiency (chronic) (peripheral)Lo calized edemaType 2 diabetes mellitus without complicationsD isorder of pigmentation, unspecifiedHer editary lymphedema 4 Abhishek PULLIAM RVT, MARCO [place]. [address] [place] [address], [facility] [place], [id number] , [place]. tel:[phone] [place] For [facility], [address] [place] [address] Dr Raman 1000Suite 1000Bobo [place], [id number], [place] tel:[phone] [facility] Chronic venous hypertension (idiopathic) with ulcer of bilateral lower extremity 4 Abhishek PULLIAM RVT, RPVI Robert. [address] [place] [address], [address], [facility] [place], [id number] , [place]. [phone] Referring Provider: Kem Weiss MD, RVT, MARCO, [address] [place] [address] [address], [place], [address] . tel:[phone] Family History Family Member Type Diagnosis Age At Onset No Information Payers Payer name Insurance type Covered constitution party ID Con wallace(philip[employer] [place] [employer] [place] [id number] Social History Type Description Quantity Date Captured [...]
== END 2024-03-13 08:34 | disposition home or self-care (01) ==
LOC: HO.HOSX 08:33
PROVIDERS: Visit Provider Physician Assistant
DX: M25.552 Pain in left hip (principal)
CPT/HCPCS: 73502

== ENCOUNTER 2024-03-13 09:05 | Outpatient (AMB) | payer OTHER, SELFPAY ==
--- OUTSIDE RECORDS SUMMARY | 2024-03-13 09:12 | XMS_ITS ---
Author Organization [facility] Address [address] [place] [address] Care Team Providers Care Director Radio Name Role Phone Ashley PULLIAM, Anne Llamas Primary Care Provider Un available Kahlil Smith Unavailable [phone] REASON FOR VISIT same day rs 02/17/24 Encounters Encounter Location Date Provider Diagnosis [address] [address] 02/17/2024 Kahlil Smith Plan Of Treatment Next Appt Details Provider Name:Kahlil Smith , 05/25/2024 01:30:00 PM, [address] [facility], [place] [address], [place], [address], Progress Notes * Eldon RYAN GDOB:[birth year] (74 yo M)Acc No.[id number]:02/17/2024 Patient:?Eldon RYAN :1950???Age:74 Y???Sex:Male Address:[address] [place] [address], [phone] * true * Date:? Generated for Printi thania/Maura/eTransmitting on:?03/13/2024 09:12 AM EST
--- OUTSIDE RECORDS SUMMARY | 2024-03-13 09:12 | XMS_ITS | Continuity of Care Document ---
Author Organization [facility] Address [address] [place] [address] Phone Care Team Providers Care Distributing Clerk Name Role Phone Abhishek PULLIAM, RVT, RPVI, [...] Mins- [place] & [place] [facility], [address] [place] [address] Dr Raman 1000SuBobo paulino [place], [id number], [place] tel:[phone] [facility] Hereditary lymphedemaVeno us insufficiency (chronic) (peripheral)Ly mphedema, not elsewhere classifiedType 2 diabetes mellitus without complicationsE ssential (primary) hypertensionDi sorder of pigmentation, unspecified 4 Abhishek PULLIAM RVT, MARCO Brownlee. [address] [place] [address], [place], [place], [id number] , [place]. tel:[phone] Referring Provider: Anne Ramirez MD Farhad, [address] [place] [address], [address]. tel:[phone] [facility], [address] [place] [address] Dr Raman 1000SuBobo paulino [place], [id number], [place] tel:[phone] [facility] Chronic venous hypertension (idiopathic) with other complications of bilateral lower extremity 4 Abhishek PULLIAM RVT, RPVI Robert. [address] [place] [address], [place], [place], [id number] , [place]. tel:[phone] Referring Provider: Anne Llamas, [address] [place] [address], [address]. tel:[phone] Dank E[facility] MD [facility], [address] [place] [address] Dr Danisha BravoSuBobo paulino [place], [id number], [place] tel:[phone] [facility] Encounter for follow-up examination after completed treatment for conditions other than malignant neoplasmChroni c venous hypertension (idiopathic) with other complications of right lower extremity Oct-2 4 Abhishek PULLIAM RVT, MARCO Brownlee. [address] [facility], [place] [address], [place], [place], [id number] , [place]. [phone] Referring Provider: Anne Ramirez MD Farhad, [address], [place], [address]. tel:[phone] Dank E[facility]ria [facility] MD [facility], [address] [place] [address] Dr Raman 1000SuBobo paulino [place], [id number], [place] tel:[phone] [facility] Varicose veins of right lower extremity with other complications Oct-2 4 Abhishek PULLIAM RVT, RPVI Robert. [address] [place] [address], [place], [place], [id number] , [place]. [phone] Referring Provider: Anne Ramirez MD [place], [address] [facility] [address] [facility], [place], [address]. tel:[phone] Dank [facility]ria [facility], [address] [place] [address] Dr Raman 1000SuBobo paulino MD, [id number], [place] tel:[phone] [facility] Chronic venous hypertension (idiopathic) with inflammation of right lower extremity Oct-2 4 Abhishek PULLIAM RVT, RPVI Robert. [address] [facility] [address], [place], [place], [id number] , [place]. [phone] Dank Echeverria Vein [facility] MD [facility], [address] [place] [address] Dr Raman 1000SuBobo paulino [place], [id number], [place] tel:[phone] [facility] Encounter for follow-up examination after completed treatment for conditions other than malignant neoplasmChroni c venous hypertension (idiopathic) with other complications of left lower extremity Oct-2 4 Abhishek MEGHANN PULLIAM RPVI Robert. [address] [place] [address], [address], [place], [id number] , [place]. [phone] Referring Provider: Kem Weiss MD, RVT, RPVI, [address] [place] [address] Suite [facility], [place], [address] . tel:[phone] [facility], [address] [place] [address] [address], [place], [id number], [place] tel:[phone] [facility] - [place] - [facility] No Information Dec- 4 Abhishek PULLIAM RVT, RPVI Robert. [address] [place] [address], Suite [facility], [place], [id number] , [place]. [phone] [facility], [address] [place] [address] [address]Bobo [place], [id number], [place] tel:[phone] [facility] - [place] - [facility] Varicose veins of left lower extremity with other complications Oct- 4 Abhishek PULLIAM RVT, RPVI Robert. [address] [place] [address], [place], [id number] , [place]. [phone] Referring Provider: Anne Ramirez MD Farhad, [address] [place] [address], [address]. tel:[phone] [facility], [address] [place] [address] [address]Suite [facility] [place], [id number], [place] tel:[phone] [facility] [place] [facility] [place] Varicose veins of left lower extremity with other complications Oct- 4 Abhishek PULLIAM RVT, RPVI Robert. [address] [place] [address], [place] [address], [place], [id number] , [place]. tel:[phone] Referring Provider: Anne Ramirez MD Farhad, [address] [place] [address], [address]. tel:[phone] Offic/outpt E&m Estab 5 Min Trial- Telemedicine CT & [place] [facility], [address] [place] [address] Dr Raman 1000Suite 1000Bobo [place], [id number], [place] tel:[phone] [facility] [place] [facility] [place] Non-pressure chronic ulcer of left ankle with unspecified severityChroni c venous hypertension (idiopathic) with other complications of bilateral lower extremityLymph edema, not elsewhere classifiedType 2 diabetes mellitus without complicationsE ssential (primary) hypertensionDi sorder of pigmentation, unspecifiedHer editary lymphedema 4 Abhishek PULLIAM RVT, MARCO Brownlee. [address] [place] [address], [facility] [place], [id number] , [place]. tel:[phone] Referring Provider: Anne Ramirez MD [place], [address] [place] [address], [place], [address]. tel:[phone] Offic Cons New/estab Mod-hi 60- CT & [place] [facility], [address] [place] [address] Dr Raman 1000Suite 1000Bobo [place], [id number], [place] tel:[phone] [facility] Essential (primary) hypertensionLy mphedema, not elsewhere classifiedNon- pressure chronic ulcer of left ankle with unspecified severityVenous insufficiency (chronic) (peripheral)Lo calized edemaType 2 diabetes mellitus without complicationsD isorder of pigmentation, unspecifiedHer editary lymphedema 4 Abhishek PULLIAM RVT, MARCO Brownlee. [address] [place] [address], [facility] [place] [id number] , [place]. tel:[phone] [place] [facility], [address] [place] [address] Dr Raman 1000[address] 1000Bobo [place], [id number], [place] tel:[phone] [facility] Chronic venous hypertension (idiopathic) with ulcer of bilateral lower extremity 4 Abhishek PULLIAM RVT, RPVI Robert. [address] [place] [address], [address], [facility] [place] [id number] , [place]. [phone] Referring Provider: Kem Weiss MD, RVT, MARCO, [address] [place] [address] [address], [place], [address] . tel:[phone] Family History Family Member Type Diagnosis Age At Onset No Information Payers Payer name Insurance type Covered republican ID Con gutierres) [employer] [place] [id number] Social History Type Description Quantity Date Captured [...] Information Instructions Date Instruction Additional Infor mation Patient education booklet given Related to Venous insufficiency (chronic) (peripheral) Giving Encouragement to exercise Related to Body mass index (BMI) 35.0-35.9, adult Diet education Related to Body mass index (BMI) 35.0-35.9, adult Compression stocking usage as conservative measure Related to Venous insufficiency (chronic) (peripheral) Lifestyle education Related to B kristie mass index (BMI) 35.0-35.9, adult Pre and [...]
--- OUTSIDE RECORDS SUMMARY | 2024-03-13 09:12 | XMS_ITS ---
Author Organization [facility] Address [address] [place] [address] Care Team Providers Care Air Pollution Inspector Name Role Phone Ashley PULLIAM, Anne Llamas Primary Care Provider Un available Kahlil Smith Unavailable [phone] Encounters Encounter Location Date Provider [facility] [address] 02/17/2024 Kahlil Smith Plan Of Treatment Next Appt Details Provider Name:Kahlil Smith , 05/25/2024 01:30:00 PM, [address] [place] [address], [address], Progress Notes * Eldon RYAN GDOB:[birth year] (74 yo M)Acc No.[id number]:02/17/2024 Progress Note Patient:?Eldon RYAN Provider:?Kahlil Smith DPM :1950???Age:74 Y???Sex:Male Tristan e:02/17/2024 Address:[address] [place], [place] [address], [id number] Pcp:Colin Borrego Subjective: * Chief Complaints: * ??? * Medical History:? Objective: * Vitals:? Assessment: Plan: * Treatment: * Images: * The named appointment provid er may or may not be the originator of this progress note, and it is not deemed complete until electronically signed by the appointment provider. Sign off status: Pending * Provider:?Kahlil Smith DPM Date:?2023 Generated for Ashley monteiro/Maura/Adrian on:?03/13/2024 09:12 AM EST
--- OUTSIDE RECORDS SUMMARY | 2024-03-13 09:12 | XMS_ITS ---
Author Organization [facility] Address [address] [facility] [place] [address] Care Team Providers Care Certified Nurse Name Role Phone Ashley PULLIAM, Anne Llamas Primary Care Provider Un available Kahlil Smith Unavailable [phone] Allergies Allergen (clinical drug ingredient) Drug/Non Drug [...] day for 5 day(s) Not-Sukhjinder ing [place] Not-Sukhjinder ing Brilinta 60 MG Orally Not-T [...] Prod Active Lisinopril Active Metoprolol Succinate Active [place]-3 1000 MG 2 capsule Orally Twi ce [...] Ordered Date Performed Result Body Sit e 89007-PPSUDPQ NAIL, 6 OR MORE 11/18/2023 N/A 61456-Cwsefwur Plate 11/18/2023 N/A 64481-Hfuyujku Plate Each Additional 11/18/2023 N/A 22052-FBNT SKIN LESIONS, OVER 4 11/18/2023 N/A Encounters Encounter Location Date Provider Diagnosis [facility] [place] [address] [place] [address] 11/18/2023 Kahlil Smith Type 2 diabetes mellitus [...] THERAPY.pdf) Pending Test Test Name Order Date 03296-ORNCLRQ NAIL, 6 OR MORE 11/18/2023 36066-Ndojdlxx Plate 11/18/2023 21467-Kappuvwq Plate Each Additional 34163-OZAO SKIN LESIONS, OVER 4 11/18/19 Next Appt Details Follow Up: prn, Reason: Provider Name:Kahlil Smith , 05/25/2024 01:30:00 PM, [address] [facility], [address], [place], [address], Procedure Notes * Category Sub-Category Detail Notes [...] Motrin was recommended for pain or discomfort (44523/32) , DIABETES: Pt was advised as to [...] use of a nail nipper and/or dremel-type pocket grinder operator, to a more viable healthy nail plate or bed tissue 6-10. Silver nitrate used for any petechial bleeding as necessary. Definitive antifungal treatment options have been reviewed and discussed with the patient. The patient chooses, no pharmaceutical tx - 11388 Keratoma Treatment Parring or Cutting o f Benign Hyperkeratotic Lesion(s) (-57) More than 4 Lesions - The Benign hyperkeratotic lesions, as described above were pared, and/or cut utilizing a sterile 15 blade, tissue nippers, and/or dremel - 86569 Progress Notes * Eldon RYAN GDOB:[birth year] (73 yo M)Acc No.[id number]:11/18/2023 Progress Note Patient:?Eldon Ryan Lizzeth Provider:?Kahlil Smith DPM :1950???Age:73 Y???Sex:Male Tristan e:11/18/2023 Address:[address] [place], [place] [phone] Pcp:Colin Borrego Subjective: * Chief Complaints: * [...] shoulder 03/2018Walk in- foot injury 2[facility]. Bearry [facility] UTI-given Antibiotics 2021 * Family History:?Mother: dece [...] yes, work ,. ?Marital status: . 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 * Medications:?TakingActos 30 MG 1 tablet Orally Once a dayAlpha Lipoic Acid 600 mg Capsule Orally Aspirin 81 MG Tablet Chewable 1 tablet Orally Once a dayCinnamon CoQ10 Daily Vitamin Fenofibrate 145 MG Tablet 1 tablet Orally Once a dayFinacea Finasteride 5 MG Tablet 1 tablet Orally Once a dayFurosemide Lisinopril Metformin & Diet Manage Prod Metoprolol Succinate [place]-3 1000 MG Capsule 2 capsule Orally Twice [...] Diet Manage Prod Taking Metoprolol Succinate Taking [place]-3 1000 MG Capsule 2 capsule Orally Twice [...] 1 capsule Orally Four times a daySaw [place] Chromium Picolate DHEA Tamsulosin HCl 0.4 MG [...] capsule Orally Four times a dayNot-Taking/PRN [place] Not-Taking/PRN Chromium Picolate Not-Taking/PRN DHEA Not-Taking/PRN Tamsulosin [...] - Unresolved? Plan: * Treatment: 2.?Ingrown nail?Procedure: 13777-Lvruksxr Plate ?Procedure: 52666-Uliriyzr Plate Each Additional 3.?Plantar fasciitis of righ [...] use of a nail nipper and/or dremel-type pocket grinder operator, to a more viable healthy nail plate or bed tissue 6-10. Silver nitrate used for any petechial bleeding as necessary. Definitive antifungal treatment options have been reviewed and discussed with the patient. The patient chooses, no pharmaceutical tx - 69034.?Keratoma Treatment:?Parring or Cutting of Benign Hyperkeratotic Lesion(s)?(-57) More than 4 Lesions - The Benign hyperkeratotic lesions, as described above were pared, and/or cut utilizing a sterile 15 blade, tissue nippers, and/or dremel - 82993.?Nail Avulsion:?Location?Lateral nail border, TA, T5 .?Anesthesia?was deferred [...] Motrin was recommended for pain or discomfort (05142/32) , DIABETES: Pt was advised as to the risk of delayed or nonhealing due to diabetes. Pt is to call the office with any questions, concerns, or complications , DIABETES: Matricectomy deferred at this time due to diabetes risk.? * Procedure Codes:?68154 DEBRI DE NAIL, 6 OR MORE, Modifiers: XS 16100 Avulsion Plate, Modifiers: XS , [id number] Avulsion Plate Each Additional, Modifiers: XS , [id number] TRIM SKIN LESIONS, OVER 4, Modifiers: XS [...] for Ashley monteiro/Maura/Adrian on:?03/13/2024 09:12 AM EST History and Physical Notes * [...]
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
--- NOTE | 2024-03-13 09:19 | A.OFFVIS_ITS ---
Vital Signs 03/13/24 09:24 Height 6 ft 3 in Weight 293 lb BMI 36.6 Intake Visit Reasons: New Pt - left hip pain Intake Note: Eldon is a 74 year old male who presents today as a new patient for a evaluation of his left knee pain. Patient reports ongoing pain for about a couple of weeks. He states that his pain is more focused near lateral aspect of the hip. Patient mentions that his pain is worse when he is standing for more than 30min and using the stairs. He has tried Ibuprofen and pain medication which gave him relief. Allergies bacitracin [BACITRACIN] Allergy (Mild, Verified 03/13/24 09:23) DERMATITIS, rash, rash HPI HPI New Pt - left hip pain: Details: Patient presents to the office today for evaluation of left lateral hip pain. He points to this area when explaining where his pain is located. The patient reports that a couple of weeks ago he was carrying a 40lb bag of pellets up the stairs and felt a pulling sensation on the lateral aspect of his left hip. He has been taking NSAIDs and found that the pain is slowly resolving. Last A1c was 6.5 on 01/09/2024 [facility] Medical History (Updated 03/13/24 @ 09:46 by Chelsey Lemon PA-C) Hx of adenomatous colonic polyps Anemia Diabetes mellitus, without long-term current use of insulin Hammertoes of both feet Positive colorectal cancer screening using Cologuard test Vitamin D deficiency Hearing loss Hypertension Dyslipidemia Non-toxic multinodular goiter Diabetic neuropathy associated with type 2 diabetes mellitus Allergic rhinitis MICHAEL on CPAP Obesity CAD (coronary artery disease) Surgical History (Updated 03/01/24 @ 15:15 by Anne Ramirez MD) H/O colonoscopy Stented coronary artery Family History Father Diabetes Substance use disorder Mother Hypertension Mental health disorder Social History Housing: House Alcohol intake: never Patient Tobacco Use Status: Former Tobacco user e-Cigarette/Vaping Use: Never Used Current occupational status: retired Cognitive needs: No Hearing needs: Yes Vision needs: Yes Review of Systems Const All systems reviewed & are unremarkable except as noted in HPI and below Physical Exam Vital Signs: BMI result Body Mass Index 36.6 Const General: cooperative, healthy appearing and no acute distress Resp Effort & Inspection: normal respiratory effort and able to speak in complete sentences Cardio Rate: regular rate Peripheral pulses: Peripheral pulses 2+ throughout Skin Lesions: no lesions Rashes: no rashes Extrem Other: Left hip: Normal to inspection. No ecchymosis, erythema, or edema. Full hip ROM in all planes. No tenderness to palpation over the greater trochanteric bursa. 4/5 strength with resisted knee extension, abduction, and abduction. 3/5 strength with resisted hip flexion. Able to perform straight leg raise with reproduction of pain on the lateral aspect of the hip. NVI. Assessment & Plan Assessment & Plan (1) Osteoarthritis of left hip: Code(s): M16.12 - Unilateral primary osteoarthritis, left hip Category: Medical Plan Patient presents to the office today for evaluation of left lateral hip pain. He points to this area when explaining where his pain is located. The patient reports that a couple of weeks ago he was carrying a 40lb bag of pellets up the stairs and felt a pulling sensation on the lateral aspect of his left hip. He has been taking NSAIDs and found that the pain is slowly resolving. Last A1c was 6.5 on 01/09/2024 I discussed the role of physical therapy and cortisone injection with the patient. However, the patient reports that his symptoms are slowly resolving. I recommend continuing NSAID use as needed. Activity modification. And should his pain persist we could move forward with imaging guarded cortisone injection to the left hip. I provided the patient with my business card and he will contact me if his pain persists and like to move forward with cortisone injection. X-rays obtained in the office today of the left hip and pelvis were reviewed by me and reveal osteoarthritis of the left hip. No acute fracture or dislocation. Orders: Orders XR hip LT min 2V w/wo pel Today M25.559 - Pain in unspecified hip Coding Level of Care Code New Pt Level 3 (66351) Diagnoses Osteoarthritis of left hip M16.12
[2024-03-13 09:24] VITALS: BMI 36.6
== END 2024-03-13 09:38 | disposition home or self-care (01) ==
PROVIDERS: PCP Internal Medicine; Visit Provider Physician Assistant
DX: M16.12 Unilateral primary osteoarthritis, left hip (principal)
CPT/HCPCS: 99203

== ENCOUNTER 2024-04-15 09:46 | Outpatient (AMB) | payer OTHER, SELFPAY ==
[2024-04-15 09:51] VITALS: BP 128/72; PULSE 95; BMI 37.7
--- NOTE | 2024-04-15 09:51 | A.OFFVIS_ITS ---
Vital Signs 04/15/24 09:51 Height 6 ft 3 in Weight 302 lb 0.533 oz BMI 37.7 BP 128/72 Blood Pressure Location Rt brachial Position Sitting Pulse 95 Pulse Source Pulse Oximeter Intake Visit Reasons: DM Intake Note: Patient presents today for a follow-up on Type 2 Diabetes Mellitus: Last Diabetic eye exam was on: 11/01/2022, [facility], next appt in February Last Podiatry exam was on: 08/21/2023, [facility] Most recent HbA1c: 6.6%, 04/15/2024 Random Glucose- 252 mg/dL, Today Rn Psychiatric Required: No Accompanied by: Self / Same As Patient Allergies bacitracin [BACITRACIN] Allergy (Mild, Verified 04/15/24 09:52) DERMATITIS, rash, rash Medication List - Last Reconciled 04/15/24 by Olivia Cook MD alpha lipoic acid 600 mg PO BID aspirin 81 mg PO DAILY blood sugar diagnostic (FreeStyle Lite Strips) Check Fasting blood sugar once a day as directed blood sugar diagnostic As directed blood-glucose meter (FreeStyle Lite Meter kit) check fasting glucoe once a day As directed cinnamon bark (Cinnamon) 1,000 mg PO DAILY coenzyme Q10 (Co Q-10) 200 mg PO DAILY [Customized heat molded multi- density inner soles( 3 pairs) As directed NS] [Extra depth diabetic orthopedic shoes Extra depth diabetic orthopedic shoes 1 pair NS] ezetimibe 10 mg PO DAILY fenofibrate nanocrystallized 145 mg PO DAILY 90 days finasteride 5 mg PO DAILY 90 days fluticasone propionate 50 mcg/actuation (Flonase Allergy Relief) 2 sprays intranasal DAILY PRN furosemide (Lasix) 20 mg PO QAM glipizide ER 5 mg PO DAILY lancets As directed lisinopril 40 mg PO DAILY metformin 1,000 mg PO BID 90 days metoprolol succinate ER 50 mg PO DAILY multivitamin (Multiple Vitamins tablet) 1 tab PO DAILY omega-3 acid ethyl esters 2 caps PO BID 90 days omeprazole 20 mg PO DAILY pioglitazone 30 mg PO DAILY rosuvastatin 40 mg PO DAILY terazosin 10 mg PO BEDTIME 90 days HPI Comments Details: This is a 74-year-old male with diabetes mellitus, thyroid nodules presenting for diabetic follow-up Medical history: CAD status post AR, CHF, peripheral vascular disease, hypertension, hyperlipidemia, BPH Current medications: Metformin 1 g b.i.d., Actos 30 mg daily, glipizide 5 ER daily (started when trulicity stopped). Stopped Trulicity 3 mg weekly 3 months ago due to cost. Previously intolerant to Ozempic. Previously on Invokana, never started Jardiance. The trulicity was costing him $600 -4 times a year. Bought Stelo-this was downloaded today. Insurance will cover Dexcom. Average glucose 132. 86% target, 12 high, 2% low and <1% very low. Lows have increased since last visit. We will DC Microvascular/macrovascular: CAD, peripheral vascular disease, nonproliferative diabetic retinopathy. On statin & CARMEN-I Last ophthalmology evaluation: 10/2022, scheduled in February Sees Podiatry every 3 months-Dr Garcia: ksd Sees dermatology next week 10/14/2019 Right Thyroid Lobe: 3.9 x 1.6 x 1.8 cm, volume 5.9 mL. Previously 4.6 x 2.2 x 1.7 cm, volume 8.8 mL. Parenchyma: The gland echotexture is homogeneous. Thyroid vascularity is normal. Left Thyroid Lobe: 3.6 x 1.8 x 1.7 cm, volume 5.8 mL. Previously 4.2 x 2.1 x 2.0 cm, volume 9.1 mL. Parenchyma: The gland echotexture is homogeneous. Thyroid vascularity is normal. Isthmus: 0.5 cm in maximum AP dimension. Previously 0.4 cm. RIGHT THYROID LOBE: No nodules. ISTHMUS: No nodules. LEFT THYROID LOBE: There are 2 nodules seen. 1. Location: Lower. Size: 0.5 x 0.3 x 0.4 cm. Previous: 0.7 x 0.4 x 0.5 cm. Nodule characteristics: Hypoechoic and smooth without flow. 2. Location: Lower. Size: 0.7 x 0.6 x 0.6 cm. Previous: 0.8 x 0.6 x 0.6 cm. Nodule characteristics: Heterogeneous and smooth without flow. NODES: A 9 mm lymph node is noted in the right neck. ROS CONSTITUTIONAL: Denies weight loss, fever and chills. HEENT: Denies changes in vision and hearing. RESPIRATORY: Denies SOB and cough. CV: Denies palpitations and CP. Reports increase in LE edema/fluid retention GI: Denies abdominal pain, nausea, vomiting and diarrhea. : Denies dysuria and urinary frequency. MSK: Denies new myalgia and joint pain. SKIN: Denies rash and pruritus. NEUROLOGICAL: Denies headache PSYCHIATRIC: Denies recent changes in mood. PHYSICAL EXAM: GENERAL: Alert and oriented x 3. NAD EYES: EOMI. Anicteric. HENT: Moist mucous membranes. No scleral icterus. No cervical lymphadenopathy. LUNGS: Clear to auscultation bilaterally. CARDIOVASCULAR: Regular rate and rhythm. No murmur. No JVD. ABDOMEN: Soft, non-tender +bs EXTREMITIES: Trace to 1+ b/l edema SKIN: No rashes or lesions. Warm. NEUROLOGIC: No focal neurological deficits. CN II-XII grossly intact PSYCHIATRIC: Cooperative. Appropriate mood and affect [facility] Medical History Hx of adenomatous colonic polyps Anemia Diabetes mellitus, without long-term current use of insulin Hammertoes of both feet Positive colorectal cancer screening using Cologuard test Vitamin D deficiency Hearing loss Hypertension Dyslipidemia Non-toxic multinodular goiter Diabetic neuropathy associated with type 2 diabetes mellitus Allergic rhinitis MICHAEL on CPAP Obesity CAD (coronary artery disease) Surgical History H/O colonoscopy Stented coronary artery Family History Father Diabetes Substance use disorder Mother Hypertension Mental health disorder Social History Housing: House Alcohol intake: never Patient Tobacco Use Status: Former Tobacco user e-Cigarette/Vaping Use: Never Used Current occupational status: retired Cognitive needs: No Hearing needs: Yes Vision needs: Yes Physical Exam Vital Signs: Last Vital Signs Pulse 95 04/15/24 09:51 BP 128/72 04/15/24 09:51 BMI result Body Mass Index 37.7 Results AMB Hemoglobin A1c AMB Hemoglobin A1c 6.6 % Last Edit by JYOTI Robles on 04/15/24 10:18 Results Reviewed Results Reviewed: Laboratory Last Values Glucose (Clinic) 252 mg/dL (60-115) H 04/15/24 10:05 Assessment & Plan Assessment & Plan (1) Diabetes mellitus, without long-term current use of insulin: Code(s): E11.9 - Type 2 diabetes mellitus without complications Category: Medical Qualifiers: Diabetes mellitus type: type 2 Diabetes mellitus complication status: with circulatory complication Diabetes mellitus complication detail: with other circulatory complications Qualified Code(s): E11.59 - Type 2 diabetes mellitus with other circulatory complications Plan: Controlled but unfortunately having lows Will stop glipizide continue metformin, actos Advised patient to double lasix for 3 days. If no successful diuresis then call toll lineman for further instructions (2) Hypoglycemia: Code(s): E16.2 - Hypoglycemia, unspecified Category: Medical Plan: Dexcom ordered Glipizide discontinue Orders: Orders AMB Hemoglobin A1c Today E11.42 - Type 2 diabetes mellitus with diabetic polyneuropathy Referrals Medical Nutrition Therapy Referral E11.59 - Type 2 diabetes mellitus with other circulatory complications Medications: New Dexcom G7 Sensor (blood-glucose sensor) every 10 days 9 ea 3RF NS E11.59 - Type 2 diabetes mellitus with other circulatory complications, E16.2 - Hypoglycemia, unspecified Dexcom G7 Cross Tie Turner (blood-glucose meter,continuous) As directed 1 ea 0RF NS E11.59 - Type 2 diabetes mellitus with other circulatory complications, E16.2 - Hypoglycemia, unspecified Discontinued glipizide ER Discontinued Reason: Doctor's Order 5 mg PO DAILY 90 tabs 3RF Coding Level of Care Code Est Pt Level 4 (49292) Diagnoses Type 2 diabetes mellitus with other circulatory complication, without long-term current use of insulin E11.59 Diabetes mellitus type: type 2 Diabetes mellitus complication status: with circulatory complication Diabetes mellitus complication detail: with other circulatory complications Hypoglycemia E16.2
[2024-04-15 10:09] LABS: Glucose, Whole Blood 252 mg/dL (60-115)
--- OUTSIDE RECORDS SUMMARY | 2024-04-15 11:16 | XMS_ITS ---
Author Organization [facility] Address [address] [facility] [place] [address] Care Team Providers Care Senior Information Security Consultant Name Role Phone Ashley PULLIAM, Anne Llamas Primary Care Provider Un available Kahlil Smith Unavailable [phone] Allergies Allergen (clinical drug ingredient) Drug/Non Drug [...] day for 5 day(s) Not-Sukhjinder ing Saw Warren Not-Sukhjinder ing Brilinta 60 MG Orally Not-T [...] Prod Active Lisinopril Active Metoprolol Succinate Active Mentone-3 1000 MG 2 capsule Orally Twi ce [...] Ordered Date Performed Result Body Sit e 19266-OCFYVRO NAIL, 6 OR MORE 11/18/2023 N/A 26250-Nhrqkvpr Plate 11/18/2023 N/A 58098-Vccpezqs Plate Each Additional 11/18/2023 N/A 67751-VQSW SKIN LESIONS, OVER 4 11/18/2023 N/A Encounters Encounter Location Date Provider Diagnosis [facility] [place] [address] [place] [id number] 11/18/2023 Kahlil Smith Type 2 diabetes mellitus [...] THERAPY.pdf) Pending Test Test Name Order Date 33471-LSAVWFV NAIL, 6 OR MORE 11/18/2023 91383-Oejjhobn Plate 11/18/2023 65301-Mmybngtv Plate Each Additional 98701-ZCIL SKIN LESIONS, OVER 4 11/18/19 Next Appt Details Follow Up: prn, Reason: Provider Name:Kahlil Smith , 05/25/2024 01:30:00 PM, [address] [facility], [address], [place], [address], Procedure Notes * Category Sub-Category Detail Notes [...] Motrin was recommended for pain or discomfort (32963/32) , DIABETES: Pt was advised as to [...] of a nail nipper and/or dremel-type grinder set up operator thread tool, to a more viable healthy nail plate or bed tissue 6-10. Silver nitrate used for any petechial bleeding as necessary. Definitive antifungal treatment options have been reviewed and discussed with the patient. The patient chooses, no pharmaceutical tx - 56759 Keratoma Treatment Parring or Cutting o f Benign Hyperkeratotic Lesion(s) (-57) More than 4 Lesions - The Benign hyperkeratotic lesions, as described above were pared, and/or cut utilizing a sterile 15 blade, tissue nippers, and/or dremel - 20540 Progress Notes * Eldon RYAN GDOB:[birth year] (73 yo M)Acc No.[id number]:11/18/2023 Progress Note Patient:?Eldon Ryan Lizzeth Provider:?Kahlil Smith DPM :1950???Age:73 Y???Sex:Male Tristan e:11/18/2023 Address:[address] [place], [place] [id number] Pcp:Colin Borrego Subjective: * Chief Complaints: * [...] shoulder 03/2018Walk in- foot injury 2Dr. Bearry [facility] UTI-given Antibiotics 2021 * Family History:?Mother: dece [...] yes, work ,. ?Marital status: . 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 * Medications:?TakingActos 30 MG 1 tablet Orally Once a dayAlpha Lipoic Acid 600 mg Capsule Orally Aspirin 81 MG Tablet Chewable 1 tablet Orally Once a dayCinnamon CoQ10 Daily Vitamin Fenofibrate 145 MG Tablet 1 tablet Orally Once a dayFinacea Finasteride 5 MG Tablet 1 tablet Orally Once a dayFurosemide Lisinopril Metformin & Diet Manage Prod Metoprolol Succinate Mentone-3 1000 MG Capsule 2 capsule Orally Twice [...] Diet Manage Prod Taking Metoprolol Succinate Taking Mentone-3 1000 MG Capsule 2 capsule Orally Twice [...] 1 capsule Orally Four times a daySaw Warren Chromium Picolate DHEA Tamsulosin HCl 0.4 MG [...] capsule Orally Four times a dayNot-Taking/PRN Saw Warren Not-Taking/PRN Chromium Picolate Not-Taking/PRN DHEA Not-Taking/PRN Tamsulosin [...] - Unresolved? Plan: * Treatment: 2.?Ingrown nail?Procedure: 98651-Nafapcto Plate ?Procedure: 08917-Xqoslizk Plate Each Additional 3.?Plantar fasciitis of righ [...] of a nail nipper and/or dremel-type grinder set up operator thread tool, to a more viable healthy nail plate or bed tissue 6-10. Silver nitrate used for any petechial bleeding as necessary. Definitive antifungal treatment options have been reviewed and discussed with the patient. The patient chooses, no pharmaceutical tx - 80263.?Keratoma Treatment:?Parring or Cutting of Benign Hyperkeratotic Lesion(s)?(-57) More than 4 Lesions - The Benign hyperkeratotic lesions, as described above were pared, and/or cut utilizing a sterile 15 blade, tissue nippers, and/or dremel - 79138.?Nail Avulsion:?Location?Lateral nail border, TA, T5 .?Anesthesia?was deferred [...] Motrin was recommended for pain or discomfort (04933/32) , DIABETES: Pt was advised as to the risk of delayed or nonhealing due to diabetes. Pt is to call the office with any questions, concerns, or complications , DIABETES: Matricectomy deferred at this time due to diabetes risk.? * Procedure Codes:?40235 DEBRI DE NAIL, 6 OR MORE, Modifiers: XS 78982 Avulsion Plate, Modifiers: XS , [id number] Avulsion Plate Each Additional, Modifiers: XS , [id number] TRIM SKIN LESIONS, OVER 4, Modifiers: XS [...] Smith DPM Date:?2023 Generated for Ashley monteiro/Maura/Adrian on:?04/15/2024 11:16 AM EST History and Physical Notes * [...]
--- OUTSIDE RECORDS SUMMARY | 2024-04-15 11:17 | XMS_ITS ---
Author Organization [facility] Address [address] [place] [address] Care Team Providers Care Web Press Operator Assistant Name Role Phone Ashley PULLIAM, Anne Llamas Primary Care Provider Un available Kahlil Smith Unavailable [phone] REASON FOR VISIT same day rs 02/17/24 Encounters Encounter Location Date Provider Diagnosis [address] [address] 02/17/2024 Kahlil Smith Plan Of Treatment Next Appt Details Provider Name:Kahlil Smith , 05/25/2024 01:30:00 PM, [address] [facility], [place] [address], [place], [address], Progress Notes * Eldon RYAN GDOB:[birth year] (74 yo M)Acc No.[id number]:02/17/2024 Patient:?Eldon RYAN :1950???Age:74 Y???Sex:Male Address:[address] [place] [address], [address] * true * Date:? Generated for Printi thania/Maura/eTransmitting on:?04/15/2024 11:16 AM EST
--- OUTSIDE RECORDS SUMMARY | 2024-04-15 11:17 | XMS_ITS | Continuity of Care Document ---
Author Organization [facility] Address [address] [place] [address] Phone Care Team Providers Care Account Engineer Name Role Phone Abhishek PULLIAM, RVT, RPVI, [...] Mins- [place] & [place] Dank For Vein Shinto [facility], [address] [place] [address] Dr Raman 1000SuBobo paulino [place], [id number], [place] tel:[phone] [facility] Hereditary lymphedemaVeno us insufficiency (chronic) (peripheral)Ly mphedema, not elsewhere classifiedType 2 diabetes mellitus without complicationsE ssential (primary) hypertensionDi sorder of pigmentation, unspecified 4 Abhishek PULLIAM RVT, MARCO Brownlee. [address] [place] [address], [place], [place], [id number] , [place]. tel:[phone] Referring Provider: Anne Ramirez MD Farhad, [address] [place] [address], [address]. tel:[phone] Dank For Vein Shinto MD [facility], [address] [place] [address] Dr Raman 1000SuBobo paulino [place], [id number], [place] tel:[phone] [facility] Chronic venous hypertension (idiopathic) with other complications of bilateral lower extremity 4 Abhishek PULLIAM RVT, RPVI Robert. [address] [place] [address], [place], [place], [id number] , [place]. tel:[phone] Referring Provider: Anne Llamas, [address] [place] [address], [address]. tel:[phone] Dank Echeverria Vein Shinto MD [facility], [address] [place] [address] Dr Danisha BravoSuBobo paulino [place], [id number], [place] tel:[phone] CV - [facility] Encounter for follow-up examination after completed treatment for conditions other than malignant neoplasmChroni c venous hypertension (idiopathic) with other complications of right lower extremity Oct-2 4 Abhishek PULLIAM RVT, MARCO Brownlee. [address] [facility], [place] [address], [place], [place], [id number] , [place]. [phone] Referring Provider: Anne Ramirez MD Farhad, [address], [place], [address]. tel:[phone] Dank Echeverria Vein Shinto MD [facility], [address] [place] [address] Dr Raman 1000SuBobo paulino [place], [id number], [place] tel:[phone] [facility] Varicose veins of right lower extremity with other complications Oct-2 4 Abhishek PULLIAM RVT, RPVI Robert. [address] [place] [address], [place], [place], [id number] , [place]. [phone] Referring Provider: Anne Ramirez MD Wilber, [address] [facility] [address] [facility], [place], [address]. tel:[phone] Dank Echeverria Vein Shinto [facility], [address] [place] [address] Dr Raman 1000SuBobo paulino [place], [id number], [place] tel:[phone] [facility] Chronic venous hypertension (idiopathic) with inflammation of right lower extremity Oct-2 4 Abhishek PULLIAM RVT, RPVI Robert. [address] [facility] [address], [place], [place], [id number] , [place]. [phone] Dank Echeverria Vein Shinto MD [facility], [address] [place] [address] Dr Raman 1000SuBobo paulino [place], [id number], [place] tel:[phone] [facility] Encounter for follow-up examination after completed treatment for conditions other than malignant neoplasmChroni c venous hypertension (idiopathic) with other complications of left lower extremity Oct-2 4 Abhishek MEGHANN PULLIAM RPVI Robert. [address] [place] [address], [address], [place], [id number] , [place]. [phone] Referring Provider: Kem Weiss MD, RVT, RPVI, [address] [place] [address] [address], [place], [address] . tel:[phone] [facility], [address] [place] [address] [address], [place], [id number], [place] tel:[phone] CV[facility] [place] No Information Dec- 4 Abhishek PULLIAM RVT, RPVI Robert. [address] [place] [address], [address], [place], [id number] , [place]. [phone] [facility], [address] [place] [address] 1000[address] 1000Bobo [place], [id number], [place] tel:[phone] CVR - [place] Varicose veins of left lower extremity with other complications Oct- 4 Abhishek PULLIAM RVT, RPVI Robert. [address] [place] [address], [place], [id number] , [place]. [phone] Referring Provider: Anne Ramirez MD Farhad, [address] [place] [address], [address]. tel:[phone] Dank For Vein Shinto [facility], [address] [place] [address] [address] [facility] [place], [id number], [place] tel:[phone] [facility] [place] Varicose veins of left lower extremity with other complications Oct- 4 Abhishek PULLIAM RVT, RPVI Robert. [address] [place] [address], [place] [address], [place], [id number] , [place]. tel:[phone] Referring Provider: Anne Ramirez MD Farhad, [address] [place] [address], [address]. tel:[phone] Offic/outpt E&m Estab 5 Min Trial- Telemedicine CT & [place] Tarpley For Vein Shinto [facility], [address] [place] [address] Dr Raman 1000Suite 1000Bobo [place], [id number], [place] tel:[phone] [facility] [place] Non-pressure chronic ulcer of left ankle with unspecified severityChroni c venous hypertension (idiopathic) with other complications of bilateral lower extremityLymph edema, not elsewhere classifiedType 2 diabetes mellitus without complicationsE ssential (primary) hypertensionDi sorder of pigmentation, unspecifiedHer editary lymphedema 4 Abhishek PULLIAM RVT, MARCO rBownlee. [address] [place] [address], [facility] [place], [id number] , [place]. tel:[phone] Referring Provider: Anne Ramirez MD Wilber, [address] [place] [address], [place], [address]. tel:[phone] Offic Cons New/estab Mod-hi 60- [place] & [place] [facility], [address] [place] [address] Dr Raman 1000Suite 1000Bobo [place], [id number], [place] tel:[phone] [facility] [place] Disorder of pigmentation, unspecifiedHer editary lymphedemaEsse ntial (primary) hypertensionLy mphedema, not elsewhere classifiedNon- pressure chronic ulcer of left ankle with unspecified severityVenous insufficiency (chronic) (peripheral)Lo calized edemaType 2 diabetes mellitus without complications 4 Abhishek PULLIAM RVT, MARCO Brownlee. [address] [place] [address], [facility] [place], [id number] , [place]. tel:[phone] Tarpley For Vein Shinto [facility], [address] [place] [address] Dr Raman 1000Suite 1000Bobo [place], [id number], [place] tel:[phone] [facility] Chronic venous hypertension (idiopathic) with ulcer of bilateral lower extremity 4 Abhishek PULLIAM RVT, RPVI Robert. [address] [place] [address], [address], [facility] [place], [id number] , [place]. [phone] Referring Provider: Kem Weiss MD, RVT, MARCO, [address] [place] [address] [address], [place], [address] . tel:[phone] Family History Family Member Type Diagnosis Age At Onset No Information Payers Payer name Insurance type Covered alliance party ID Con wallace(philip) [employer] [place] [employer] [place] [id number] Social History Type Description Quantity Date Captured [...]
--- OUTSIDE RECORDS SUMMARY | 2024-04-15 11:17 | XMS_ITS ---
Author Organization [facility] Address [address] [place] [address] Care Team Providers Care Refinery Operator Alkylation Name Role Phone Ashley PULLIAM, Anne Llamas Primary Care Provider Un available Kahlil Smith Unavailable [phone] Encounters Encounter Location Date Provider [facility] [address] 02/17/2024 Kahlil Smith Plan Of Treatment Next Appt Details Provider Name:Kahlil Smith , 05/25/2024 01:30:00 PM, [address] [place] [address], [address], Progress Notes * Eldon RYAN GDOB:[birth year] (74 yo M)Acc No.[id number]:02/17/2024 Progress Note Patient:?Eldon RYAN Provider:?Kahlil Smith DPM :1950???Age:74 Y???Sex:Male Tristan e:02/17/2024 Address:[address] [place] [address] [place], [id number] Pcp:Colin Borrego Subjective: * Chief Complaints: * [...]
--- OUTSIDE RECORDS SUMMARY | 2024-04-15 11:17 | XMS_ITS | Patient Health Record ---
Author Organization [facility] Address [address] [facility] [place] [address] Care Team Providers Care Hand Coper Name Role Phone Ashley PULLIAM, Anne Llamas Primary Care Provider Un available Kahlil Smith Unavailable [phone] Allergies Allergen (clinical drug ingredient) Drug/Non Drug Allergy documented on EMR Reaction Allergy Type Onset Date Status bacitracin Bacitracin rash Drug Allergy Activ e Results Component Value Reference Range Notes HEMOGLOBIN A1C (GLYCOHEMOGLO BIN) Reviewed date:11/18/2023 08:58:23 AM Interpretation: Performing Lab: Notes/Report: HEMOGLOBIN A1C % (HH) 6.1 HEMOGLOBIN A1C (GLYCOHEMOGLO BIN) Reviewed date:11/06/2023 03:25:55 PM Interpretation: Performing Lab: Notes/Report: HEMOGLOBIN A1C % (HH) 6.1 HEMOGLOBIN A1C (GLYCOHEMOGLO BIN) Reviewed date:05/20/2023 09:15:53 AM Interpretation: Performing Lab: Notes/Report: HEMOGLOBIN A1C % (HH) 5.6 Reason For Referral No Information Medications Medication SIG (Take, Route, Frequency, Duration) Notes Start Date End Date Status Invokana 300 MG 1 tablet Orally Once a day Not-Taking Isosorbide Mononitrate Not-Taking Soolantra Not-Taking Cephalexin 500 MG 1 capsule Orally Fou r times a day for 5 day(s) Not-Sukhjinder ing Saw [place] Not-Sukhjidner ing Trulicity Active Vitamin D3 Active Ciclopirox [...] for 30 days Active Metoprolol Succinate Active [place]-3 1000 MG 2 capsule Orally Twi ce [...] Problem Acquired hammer toe of right foot (9855045924588413 ) Other hammer toe(s) (acquired), right foot (M20.41) Active confirmed Problem Acquired hammer toe of left foot (3452926019758510 ) Other hammer toe(s) (acquired), left foot (M20.42) Active confirmed Problem Polyneuropathy due to type 2 diabetes mellitus (025950461) Type 2 diabetes mellitus with diabetic polyneuropathy (E11.42) Active confirmed Problem Interstitial myositis (23935387) 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 confirmed Vital Signs Height 5ft 2in in 11/18/2023 Weight 280 lbs 11/18/2023 BMI 51.21 kg/m2 11/18/2023 Procedures Procedure Date Ordered Date Performed Result Body Sit e 10473-BXIFKWZ NAIL, 6 OR MORE 05/20/2023 N/A 72407-Vegxkdow Plate 05/20/2023 N/A 71040-Vhbzxxby Plate Each Additional 05/20/2023 N/A 86285-ZAEP SKIN LESIONS, OVER 4 05/20/2023 N/A 36884-VZVEPII NAIL, 6 OR MORE 08/19/2023 N/A 95164-Hgriqlly Plate 08/19/2023 N/A 48907-Uczjddoj Plate Each Additional 08/19/2023 N/A 25522-KKWQ SKIN LESIONS, OVER 4 08/19/2023 N/A 55397-UYGEZLJ NAIL, 6 OR MORE 11/18/2023 N/A 97304-Yirithbf Plate 11/18/2023 N/A 51459-Vibpwhrr Plate Each Additional 11/18/2023 N/A 26175-AQDJ SKIN LESIONS, OVER 4 11/18/2023 N/A Encounters Encounter Location Date Provider Diagnosis [address] [address] 05/20/2023 Kahlil Smith Type 2 diabetes mellitus with diabetic polyneuropathy E11.42 ; Tinea unguium B35.1 ; Ingrown nail L60.0 ; Other hammer toe(s) (acquired), right foot M20.41 and Other hammer toe(s) (acquired), left foot M20.[address] [address] 08/19/2023 Kahlil Smith Type 2 diabetes mellitus with diabetic polyneuropathy E11.42 ; Tinea unguium B35.1 and Ingrown nail L60.[address] [address] 11/06/2023 Kahlil Smith Pain in right foot M79.671 ; Plantar fasciitis of right foot M72.2 ; Calcaneal spur, right foot M77.31 ; Interstitial myositis of right foot M60.171 and Bursitis of right foot M77.51 [facility] [address] [address] 11/18/2023 Kahlil Smith Type 2 diabetes mellitus with diabetic polyneuropathy E11.42 ; Tinea unguium B35.1 ; Ingrown nail L60.0 and Plantar fasciitis of right foot M72.[address] [facility] [address] 09/20/2023 [facility] [address] 02/17/2024 Kahlil Smith Assessments Encounter Date Diagnosis [...] X ray : Foot, right 3V 11/06/2023 69894-YIPQBSO NAIL, 6 OR MORE 11/18/2023 78766-PJNRVST NAIL, 6 OR MORE 08/19/2023 21840-WSBXNTD NAIL, 6 OR MORE 02/18/2023 62239-QXLZQLK NAIL, 6 OR MORE 07/15/2019 20207-GPXXFCX NAIL, 6 OR MORE 01/29/2022 71050-JFKGZBM NAIL, 6 OR MORE 04/30/2022 53166-GUCMICH NAIL, 6 OR MORE 08/06/2022 27160-ZUHTDXY NAIL, 6 OR MORE 11/12/2022 55559-LOUZRDK NAIL, 6 OR MORE 03/18/2019 86384-HCXMMZK NAIL, 6 OR MORE 09/17/2018 52696-XBIHTBC NAIL, 6 OR MORE 05/20/2023 46111-BUPOJRZ NAIL, 6 OR MORE 07/22/2015 58810-ENXSHNU NAIL, 6 OR MORE 10/14/2015 57038-ZDWNGDB NAIL, 6 OR MORE 01/13/2016 88592-JBLMLPD NAIL, 6 OR MORE 04/27/2016 66882-UQOTOMA NAIL, 6 OR MORE 07/27/2016 09924-OVKMXBE NAIL, 6 OR MORE 11/02/2016 49745-UYGTRUR NAIL, 6 OR MORE 02/01/2017 05363-CVOMMUX NAIL, 6 OR MORE 05/03/2017 45030-GPLSQFH NAIL, 6 OR MORE 09/05/2017 20418-IPTIJAQ NAIL, 6 OR MORE 12/05/2017 65597-GBWATZO NAIL, 6 OR MORE 03/19/2018 68906-LMHUTOA NAIL, 6 OR MORE 06/18/2018 54043-CVDHIVN NAIL, 6 OR MORE 12/17/2018 69874-HHIYTZD NAIL, 6 OR MORE 10/14/2019 36087-ADSRVSI NAIL, 6 OR MORE 01/13/2020 61266-FLPXXWW NAIL, 6 OR MORE 04/13/2020 76699-TYYENLR NAIL, 6 OR MORE 07/13/2020 73717-LFVJLCZ NAIL, 6 OR MORE 10/12/2020 35025-UKTONVB NAIL, 6 OR MORE 01/12/2021 48032-CTJVXZN NAIL, 6 OR MORE 04/13/2021 01262-VXVGEVK NAIL, 6 OR MORE 07/12/2021 40202-QOPOACC NAIL, 6 OR MORE 10/11/2021 16373-Qhytsbei Plate 10/11/2021 83227-Qhwmbuug Plate 07/12/2021 62375-Ohclteqr Plate 04/13/2021 30410-Vyztohmq Plate 01/12/2021 17548-Evzpijcd Plate 10/12/2020 26871-Qvtoiwon Plate 07/13/2020 38068-Vpfeywfd Plate 04/13/2020 70265-Ryvdrmjo Plate 01/13/2020 31766-Xgihidgv Plate 10/14/2019 98975-Aaphzmju Plate 12/17/2018 34161-Ocltmvot Plate 06/18/2018 61424-Ruplcnun Plate 03/19/2018 42340-Hixsfkot Plate 12/05/2017 78518-Zhkswhdi Plate 09/05/2017 48554-Hwdcstjd Plate 07/27/2016 56863-Aippiisr Plate 05/20/2023 96281-Izqsarbi Plate 09/17/2018 56853-Hdlbuiuf Plate 03/18/2019 45963-Excxcmkn Plate 11/12/2022 12765-Wtuuvpgk Plate 08/06/2022 25759-Arlpnesg Plate 04/30/2022 33136-Tvgawczx Plate 01/29/2022 01206-Dffkkkrl Plate 07/15/2019 79204-Pxdqdvox Plate 02/18/2023 08208-Pfgrudcu Plate 08/19/2023 42337-Svvtvewh Plate 11/18/2023 54521-Pwxsvhxy Plate Each Additional 95299-Lcgmbnzd Plate Each Additional 60460-Daimyhaa Plate Each Additional 99009-Qjukhcbv Plate Each Additional 72981-Owskbjqc Plate Each Additional 59326-Dqfmlcok Plate Each Additional 62461-Exlwhocr Plate Each Additional 07/2022 37715-Tmhfeqjo Plate Each Additional 01/2023 52996-Vvmwceml Plate Each Additional 53457-Lyvzhdmn Plate Each Additional 89720-Skurbkms Plate Each Additional 76803-Vwyzanko Plate Each Additional 31603-Fezbtlll Plate Each Additional 75491-Rqfhszwe Plate Each Additional 90254-Sutfpnof Plate Each Additional 02/2020 98254-Umvevjtg Plate Each Additional 01/2020 86097-Vjecbeha Plate Each Additional 12/2020 78324-Jidppmze Plate Each Additional 02/2021 54721-Whlzmdpc Plate Each Additional 01/2021 31792-Rhiuwyai Plate Each Additional 01/2021 43384-Qpzciuwn Plate Each Additional 12/2021 71302-Krenacop Plate Each Additional 01/2022 89045-Jgioeeqa Plate Each Additional 12/2021 94201-FJYD SKIN LESIONS, OVER 4 10/12/19 22 44135-GNBL SKIN LESIONS, OVER 4 07/13/19 22 09058-LBXT SKIN LESIONS, OVER 4 04/13/19 22 55345-GXDK SKIN LESIONS, OVER 4 01/13/20 21 19678-MDHL SKIN LESIONS, OVER 4 10/13/19 88946-UIGE SKIN LESIONS, OVER 4 07/14/19 21 42989-NGWK SKIN LESIONS, OVER 4 04/13/19 21 55696-EEBW SKIN LESIONS, OVER 4 01/13/20 20 23414-RUZN SKIN LESIONS, OVER 4 10/14/19 20 75490-HUKV SKIN LESIONS, OVER 4 12/18/19 19 31917-DDNV SKIN LESIONS, OVER 4 06/19/19 19 23536-NXSS SKIN LESIONS, OVER 4 03/19/19 19 45047-NMST SKIN LESIONS, OVER 4 09/06/19 18 81300-GKOD SKIN LESIONS, OVER 4 12/06/19 23382-MLQV SKIN LESIONS, OVER 4 05/04/19 18 37955-YAGW SKIN LESIONS, OVER 4 05/20/19 55821-XJVN SKIN LESIONS, OVER 4 09/18/19 19 50130-QCFC SKIN LESIONS, OVER 4 03/18/19 81720-RYDS SKIN LESIONS, OVER 4 11/13/19 23 35799-DEUM SKIN LESIONS, OVER 4 08/07/19 88772-CIAQ SKIN LESIONS, OVER 4 04/30/19 96885-GTWE SKIN LESIONS, OVER 4 01/30/20 26761-TMHD SKIN LESIONS, OVER 4 07/15/19 08524-AECE SKIN LESIONS, OVER 4 02/19/20 09759-BWZK SKIN LESIONS, OVER 4 08/19/19 44589-MWIL SKIN LESIONS, OVER 4 11/18/19 76469-VQLP SKIN LESIONS, 2 TO 4 07/22/19 16 61684-CUON SKIN LESIONS, 2 TO 4 02/02/20 17 25133-KWZZ SKIN LESIONS, 2 TO 4 11/03/19 17 48837-LUMD SKIN LESIONS, 2 TO 4 04/27/19 17 70048-UQGD SKIN LESIONS, 2 TO 4 07/28/19 17 93160-DNEV SKIN LESIONS, 2 TO 4 01/13/20 16 72382-VQLZ SKIN LESIONS, 2 TO 4 10/14/19 16 Next Appt Details Provider Name:Kahlil Sp Smith , 05/25/2024 01:30:00 PM, [address] [facility] [address], [place], [address], Insurance Providers Payer Name Payer Address Payer Phone Subscriber Number Group Number Insured Name Patient Relationship to Insured Coverage Start Date Coverage End Date [employer] [place] [employer]vantage [address] [place] [address] [id number] Eldon Ryan Self - patient is the insured Medical (General) History Medical History History ICD Code mumps measles chicken pox high blood pressure diabetic type ll Arthritis Diverticulosis High blood pressure Measles Mumps Chicken pox Cholesterol AR - 5'18 Surgical History Surgery Date(Month/Year) skin graft 2009 umbilical hernia repair 01/2004 cardiac catheterization Boil removed from arm 02/2019 kidney stones 2021 cyst removal, back 01/05/22 colonoscopy Hospitalization History Reason Date(Month/Year) Dr. De La Torre [facility] UTI-given Antibiotics Walk in- foot injury 06/2021 PT For left shoulder 03/2018 [facility]-Heart Attack 07/26/2017
== END 2024-04-15 10:41 | disposition home or self-care (01) ==
PROVIDERS: PCP Internal Medicine; Visit Provider Internal Medicine
DX: E11.59 Type 2 diabetes mellitus with other circulatory complications (principal); E16.2 Hypoglycemia, unspecified; E11.42 Type 2 diabetes mellitus with diabetic polyneuropathy

== ENCOUNTER → 2024-04-15 09:46 | Outpatient (BNVA) | payer OTHER, SELFPAY | PROVIDERS: PCP Internal Medicine; Visit Provider Internal Medicine | DX: E11.59 Type 2 diabetes mellitus with other circulatory complications (principal); E11.649 Type 2 diabetes mellitus with hypoglycemia without coma; E11.42 Type 2 diabetes mellitus with diabetic polyneuropathy; Z79.84 Long term (current) use of oral hypoglycemic drugs | CPT/HCPCS: 82947; 83036 ==

== ENCOUNTER → 2024-05-04 09:55 | Outpatient (BNVA) | payer OTHER, SELFPAY | PROVIDERS: PCP Internal Medicine; Visit Provider Dietitian, Registered | DX: E11.59 Type 2 diabetes mellitus with other circulatory complications (principal); Z71.3 Dietary counseling and surveillance | CPT/HCPCS: 97802 ==

== ENCOUNTER 2024-07-15 09:03 | Outpatient (AMB) | payer OTHER, SELFPAY ==
[2024-07-15 09:04] VITALS: BP 132/82; PULSE 96; O2SAT 97; BMI 37.5
--- NOTE | 2024-07-15 09:04 | A.OFFVIS_ITS ---
Vital Signs 07/15/24 09:04 Height 6 ft 3 in Weight 299 lb 13.259 oz BMI 37.5 BP 132/82 Blood Pressure Location Rt brachial Position Sitting Pulse 96 Pulse Source Pulse Oximeter Pulse Oximetry (%) 97 Oxygen Delivery Method Room Air Intake Visit Reasons: DM Intake Note: Patient presents today for a follow-up on Type 2 Diabetes Mellitus: Last Diabetic eye exam was on: 11/01/2022, [facility], next appt in February Last Podiatry exam was on: 08/21/2023, [facility] Most recent HbA1c: 7.7%, 07/15/2024 Random Glucose- 165 mg/dL, Today Critical Care Educator Required: No Accompanied by: Self / Same As Patient Allergies bacitracin [BACITRACIN] Allergy (Mild, Verified 04/15/24 09:52) DERMATITIS, rash, rash HPI Comments Details: This is a 74-year-old male with diabetes mellitus, thyroid nodules presenting for diabetic follow-up Medical history: CAD status post SD, CHF, peripheral vascular disease, hypertension, hyperlipidemia, BPH Current medications: Metformin 1 g b.i.d., Actos 30 mg daily, stopped glipizide 5 ER daily (started when trulicity stopped) due to frequent hypoglycemia. Stopped Trulicity 3 mg weekly 3 months ago due to cost. Previously intolerant to Ozempic. Previously on Invokana, never started Jardiance. The trulicity was costing him $600 -4 times a year. Dexcom downloaded: 54% target, 46% high, GMI 7.8%. POC A1C 7.7% Microvascular/macrovascular: CAD, peripheral vascular disease, nonproliferative diabetic retinopathy. On statin & CARMEN-I Last ophthalmology evaluation: [facility] Sees Podiatry every 3 months-Dr Garcia: [facility] Sees dermatology next week 10/14/2019 Right Thyroid Lobe: 3.9 x 1.6 x 1.8 cm, volume 5.9 mL. Previously 4.6 x 2.2 x 1.7 cm, volume 8.8 mL. Parenchyma: The gland echotexture is homogeneous. Thyroid vascularity is normal. Left Thyroid Lobe: 3.6 x 1.8 x 1.7 cm, volume 5.8 mL. Previously 4.2 x 2.1 x 2.0 cm, volume 9.1 mL. Parenchyma: The gland echotexture is homogeneous. Thyroid vascularity is normal. Isthmus: 0.5 cm in maximum AP dimension. Previously 0.4 cm. RIGHT THYROID LOBE: No nodules. ISTHMUS: No nodules. LEFT THYROID LOBE: There are 2 nodules seen. 1. Location: Lower. Size: 0.5 x 0.3 x 0.4 cm. Previous: 0.7 x 0.4 x 0.5 cm. Nodule characteristics: Hypoechoic and smooth without flow. 2. Location: Lower. Size: 0.7 x 0.6 x 0.6 cm. Previous: 0.8 x 0.6 x 0.6 cm. Nodule characteristics: Heterogeneous and smooth without flow. NODES: A 9 mm lymph node is noted in the right neck. ROS CONSTITUTIONAL: Denies weight loss, fever and chills. HEENT: Denies changes in vision and hearing. RESPIRATORY: Denies SOB and cough. CV: Denies palpitations and CP. Reports increase in LE edema/fluid retention GI: Denies abdominal pain, nausea, vomiting and diarrhea. : Denies dysuria and urinary frequency. MSK: Denies new myalgia and joint pain. SKIN: Denies rash and pruritus. NEUROLOGICAL: Denies headache PSYCHIATRIC: Denies recent changes in mood. PHYSICAL EXAM: GENERAL: Alert and oriented x 3. NAD EYES: EOMI. Anicteric. HENT: Moist mucous membranes. No scleral icterus. No cervical lymphadenopathy. LUNGS: Clear to auscultation bilaterally. CARDIOVASCULAR: Regular rate and rhythm. No murmur. No JVD. ABDOMEN: Soft, non-tender +bs EXTREMITIES: Trace to 1+ b/l edema SKIN: No rashes or lesions. Warm. NEUROLOGIC: No focal neurological deficits. CN II-XII grossly intact PSYCHIATRIC: Cooperative. Appropriate mood and affect COUNTS INCLUDE 234 BEDS AT THE [facility] Medical History Hx of adenomatous colonic polyps Anemia Diabetes mellitus, without long-term current use of insulin Hammertoes of both feet Positive colorectal cancer screening using Cologuard test Vitamin D deficiency Hearing loss Hypertension Dyslipidemia Non-toxic multinodular goiter Diabetic neuropathy associated with type 2 diabetes mellitus Allergic rhinitis MICHAEL on CPAP Obesity CAD (coronary artery disease) Surgical History H/O colonoscopy Stented coronary artery Family History Father Diabetes Substance use disorder Mother Hypertension Mental health disorder Social History Housing: House Alcohol intake: never Patient Tobacco Use Status: Former Tobacco user e-Cigarette/Vaping Use: Never Used Current occupational status: retired Cognitive needs: No Hearing needs: Yes Vision needs: Yes Physical Exam Vital Signs: Last Vital Signs Pulse 96 07/15/24 09:04 BP 132/82 07/15/24 09:04 Pulse Ox 97 07/15/24 09:04 Oxygen Delivery Method Room Air 07/15/24 09:04 BMI result Body Mass Index 37.5 Results AMB Hemoglobin A1c AMB Hemoglobin A1c 7.7 % Last Edit by JYOTI Robles on 07/15/24 09:23 Assessment & Plan Assessment & Plan (1) Diabetes mellitus, without long-term current use of insulin: Code(s): E11.9 - Type 2 diabetes mellitus without complications Category: Medical Qualifiers: Diabetes mellitus complication detail: with other circulatory complications Diabetes mellitus complication status: with circulatory complication Diabetes mellitus type: type 2 Qualified Code(s): E11.59 - Type 2 diabetes mellitus with other circulatory complications Plan Supoptimal control LFTs, kidney function has been good-will increase actos to 45mg continue metformin. He will check with insurance regarding trulicity copays He will follow up in 3 months or sooner as needed Orders: Orders AMB Hemoglobin A1c Today E11.59 - Type 2 diabetes mellitus with other circulatory complications Complete Blood Count Auto Diff Today E11.42 - Type 2 diabetes mellitus with diabetic polyneuropathy Comprehensive Met. Panel Today E11.42 - Type 2 diabetes mellitus with diabetic polyneuropathy Hemoglobin A1c Today E11.42 - Type 2 diabetes mellitus with diabetic polyneuropathy Lipid Panel Today E11.42 - Type 2 diabetes mellitus with diabetic polyneuropathy Microalbumin, Random (w Creat) Today E11.42 - Type 2 diabetes mellitus with diabetic polyneuropathy Medications: New pioglitazone 45 mg PO DAILY 90 tabs 3RF Refilled Dexcom G7 Sensor (blood-glucose sensor) every 10 days 9 ea 3RF NS E11.59 - Type 2 diabetes mellitus with other circulatory complications, E16.2 - Hypoglycemia, unspecified Discontinued pioglitazone Discontinued Reason: Doctor's Order 30 mg PO DAILY 90 tabs 1RF E11.65 - Type 2 diabetes mellitus with hyperglycemia Coding Level of Care Code Est Pt Level 4 (85076) Diagnoses Type 2 diabetes mellitus with other circulatory complication, without long-term current use of insulin E11.59 Diabetes mellitus complication detail: with other circulatory complications Diabetes mellitus complication status: with circulatory complication Diabetes mellitus type: type 2
[2024-07-15 09:14] LABS: Glucose, Whole Blood 165 mg/dL (60-115)
--- OUTSIDE RECORDS SUMMARY | 2024-07-15 09:29 | XMS_ITS | Patient Health Record ---
Author Organization [facility] Address [address] [place] [address] Care Team Providers Care Program/Music Director Name Role Phone Kali Wynn MD Primary Care Provider Nicola Galindo Jr, Chago Unavailable Allergies Allergen (clinical drug ingredient) Drug/Non Drug Allergy documented on EMR Reaction Allergy Type Onset Date Status bacitracin Bacitracin Unknown Drug Allergy Activ e Reason For Referral No Information Medications Medication SIG (Take, Route, Fr equency, Duration) Notes Start Date End Date Status MoviPrep 100 GM as directed before c olonoscopy Orally for 1 dose 06/05/2013 03/04/2024 Active Pravastatin Sodium A ctive metFORMIN HCl Active Lisinopril Active Lovaza Active Cinnamon Active Multi Vit/Fl Active Aspir-81 Active Problems Problem Type SNOMED Code ICD Code Onset Dates Problem Status W/U Status Risk Notes Problem Long-term current use of drug therapy (426948350) Encounter for long-term (current) use of other medications (V58.69) Active confirmed Problem Colon cancer screening (291937128) Colon cancer screening (V76.51) Active confirmed Problem Current use of aspirin (V58.66) Active confirmed Encounters Encounter Location Date Provider Diagnosis [facility] [address] [place] [address] 04/27/2024 Chago Galindo Jr Plan Of Treatment Future Test Test Name Order Date COLONOSCOPY 06/05/2013 Next Appt Details Provider Name:Chago johnson Jr, 07/23/2024 03:15:00 PM, [address], [address], [place], [address], Insurance Providers Payer Name Payer Address Payer Phone Subscriber Number Group Number Insured Name Patient Relationship to Insured Coverage Start Date Coverage End Date [facility] [address] [facility] [place], [place] [phone] [id number] ROSALINA RYAN Self - patient is the insured Medical (General) History Medical History History ICD Code colonoscopy 11-06-2002 colon polyps hypertension gout typhoid type II diabetes Surgical History Surgery Date(Month/Year) skin graft 2009
--- OUTSIDE RECORDS SUMMARY | 2024-07-15 09:30 | XMS_ITS | Patient Health Record ---
Author Organization [facility] Griselda banerjee [place] Address [address] [place] [address] Care Team Providers Care Construction Grip Name Role Phone Ashley PULLIAM, Anne Llamas Primary Care Provider Un available Kahlil Smith Unavailable [phone] Allergies Allergen (clinical drug ingredient) Drug/Non Drug Allergy documented on EMR Reaction Allergy Type Onset Date Status bacitracin Bacitracin rash Drug Allergy Activ e Results Component Value Reference Range Notes HEMOGLOBIN A1C (GLYCOHEMOGLO BIN) Reviewed date:11/06/2023 03:25:55 PM Interpretation: Performing Lab: Notes/Report: HEMOGLOBIN A1C % (HH) 6.1 HEMOGLOBIN A1C (GLYCOHEMOGLO BIN) Reviewed date:11/18/2023 08:58:23 AM Interpretation: Performing Lab: Notes/Report: HEMOGLOBIN A1C % (HH) 6.1 HEMOGLOBIN A1C (GLYCOHEMOGLO BIN) Reviewed date:05/25/2024 01:52:20 PM Interpretation: Performing Lab: Notes/Report: HEMOGLOBIN A1C % (HH) 6.1 Reason For Referral No Information Medications Medication SIG (Take, Route, Frequency, Duration) Notes Start Date End Date Status Finacea Active Finasteride 5 MG 1 tablet Orally Once a day for 30 day(s) Active Daily Vitamin Active Saw Libby Not-Sukhjinder ing Fenofibrate 145 MG 1 tablet Orally Once a day Active Chromium Picolate No t-Taking Cinnamon Active Soolantra Not-Taking CoQ10 Active Cephalexin 500 MG 1 capsule Orally Fou r times a day for 5 day(s) Not-Sukhjinder ing Alpha Lipoic Acid 600 mg Orally Active Invokana 300 MG 1 tablet Orally Once a day Not-Taking Aspirin 81 MG 1 tablet Orally Once a day Active Isosorbide Mononitrate Not-Taking Brilinta 60 MG Orally Not-T aking Actos 30 MG 1 tablet Orally Once a day Active Crestor 40 MG Orally Not-Ta damaris Extra Depth Orthopedic Shoes (1 Pair) with Customized Heat Molded Multidensity Innersoles (3 Pair) as directed Dx: NIDDM/Polyneuropathy (E11.42), Hammertoe Foot Deformity (M20.41,M20.42), Preulcerative Skin Lesion(s) (L85.1 05/20/2023 Active Night Splint AFO - L1930 1 wear at rest for 30 days Active Ciclopirox Olamine 0.77 % 1 application Externally Twice a day for 30 days Active Trulicity Not-Taking Vitamin D3 Active Pumpkin Seed Oil Act maximilian Terazosin HCl 10mg Active Metoprolol Succinate Active Sheffield-3 1000 MG 2 capsule Orally Twi ce a day Active Lisinopril Active Metformin & Diet Manage Prod Active Tamsulosin HCl 0.4 MG 1 capsule 30 minut es after the same meal each day Orally Once a day Not-Taking Furosemide Active DHEA Not-Taking Immunizations Vaccine Route Administration Date Status Comme nts Influenza Unknown 12/16/2014 Administered Influenza Unknown 01/10/2016 Administered Influenza Unknown 12/24/2016 Administered Influenza Unknown 12/16/2017 Administered Influenza Unknown 12/04/2018 Administered Pneumococcal Unknown 01/25/2010 Administered Social History Tobacco Use: Social History Observation Description Date Details (start date - stop date) Never Smoker NA - NA Alcohol Screen Question Answer Notes Did you have a drink containing alcohol in the p ast year? No Points 0 Interpretation Negative Tobacco use other than smoking: Question Answer Notes Are you an other tobacco user? No Tobacco Control (Standard) Question Answer Notes Tobacco use: Nonsmoker Additional Findings: Tobacco non-user Current no nsmoker Problems Problem Type SNOMED Code ICD Code Onset Dates Problem Status W/U Status Risk Notes Problem Acquired hammer toe of right foot (3421548105600912 ) Other hammer toe(s) (acquired), right foot (M20.41) Active confirmed Problem Acquired hammer toe of left foot (5363612692724541 ) Other hammer toe(s) (acquired), left foot (M20.42) Active confirmed Problem Polyneuropathy due to type 2 diabetes mellitus (216086642) Type 2 diabetes mellitus with diabetic polyneuropathy (E11.42) Active confirmed Problem Interstitial myositis (29891841) 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 confirmed Vital Signs Blood pressure diastolic 73 mm Hg 05/25/2024 Height 6ft 2in in 05/25/2024 Blood pressure systolic 134 mm Hg 05/25/2024 Weight 288 lbs 05/25/2024 BMI 36.97 kg/m2 05/25/2024 Procedures Procedure Date Ordered Date Performed Result Body Sit e 27534-NDZTYOM NAIL, 6 OR MORE 08/19/2023 N/A 84437-Vdtxagrq Plate 08/19/2023 N/A 17657-Szlesumd Plate Each Additional 08/19/2023 N/A 87669-TPHZ SKIN LESIONS, OVER 4 08/19/2023 N/A 05776-OXRCIQL NAIL, 6 OR MORE 11/18/2023 N/A 86375-Olneayzm Plate 11/18/2023 N/A 80130-Qzlomnel Plate Each Additional 11/18/2023 N/A 15290-FFYQ SKIN LESIONS, OVER 4 11/18/2023 N/A 22738-DMHSIGU NAIL, 6 OR MORE 05/25/2024 N/A 93962-CRGA SKIN LESIONS, OVER 4 05/25/2024 N/A Encounters Encounter Location Date Provider Diagnosis [address] [address] 08/19/2023 Kahlil Smith Type 2 diabetes mellitus with diabetic polyneuropathy E11.42 ; Tinea unguium B35.1 and Ingrown nail L60.[address] [address] 11/06/2023 Kahlil Luis Pain in right foot M79.671 ; Plantar fasciitis of right foot M72.2 ; Calcaneal spur, right foot M77.31 ; Interstitial myositis of right foot M60.171 and Bursitis of right foot M77.[address] [address] 11/18/2023 Kahlil Smith Type 2 diabetes mellitus with diabetic polyneuropathy E11.42 ; Tinea unguium B35.1 ; Ingrown nail L60.0 and Plantar fasciitis of right foot M72.2 [facility] [place] [address] [facility] [address] [place] [address] 05/25/2024 Kahlil Smith Type 2 diabetes mellitus with diabetic polyneuropathy E11.42 ; Tinea unguium B35.1 ; Other hammer toe(s) (acquired), right foot M20.41 and Other hammer toe(s) (acquired), left foot M20.[facility] [address] [facility]/20/[facility]23 [facility] [address] 02/17/2024 Kahlil Smith Assessments Encounter Date Diagnosis (ICD Code) Assessment Notes Treatment Notes Treatment Clinical Notes Section Notes 08/19/2023 Type 2 diabetes mellitus with diabetic [...] E11.42) 11/18/2023 Tinea unguium (ICD-10 - B35.1) 05/25/2024 Type 2 diabetes mellitus with diabetic polyneuropathy (ICD-10 - E11.42) 05/25/2024 Tinea unguium (ICD-10 - B35.1) 05/25/2024 Other hammer toe(s) (acquired), right foot (ICD-10 - M20.41) Patient Educated with: DIABETIC FOOT CARE INSTRUCTIONS. pdf (DIABETIC FOOT CARE INSTRUCTIONS. pdf) 11/18/2023 Ingrown nail (ICD-10 - L60.0) 11/06/2023 Calcaneal spur, right foot (ICD-10 - M77.31) 08/19/2023 Ingrown nail (ICD-10 - L60.0) 11/18/2023 Plantar fasciitis of right foot (ICD-10 - M72.2) Patient Educated with: HEEL CORD STRETCHES.pdf (HEEL CORD STRETCHES.pdf ) Patient Educated with: RICE THERAPY.pdf (RICE THERAPY.pdf) 05/25/2024 Other hammer toe(s) (acquired), left foot (ICD-10 - M20.42) 11/06/2023 Interstitial myositis of right foot (ICD-10 - M60.171) 11/06/2023 Bursitis of right foot (ICD-10 - M77.51) Plan Of Treatment Pending Test Test Name Order Date X ray : Foot, right 3V 11/06/2023 70765-MCFTMSG NAIL, 6 OR MORE 11/18/2023 32493-JRXLKCR NAIL, 6 OR MORE 05/25/2024 79527-NHPISDX NAIL, 6 OR MORE 05/20/2023 12287-PBWMVUB NAIL, 6 OR MORE 08/19/2023 92335-BNIHIYL NAIL, 6 OR MORE 04/13/2021 04746-PYLTXOR NAIL, 6 OR MORE 07/12/2021 49238-YYQLKBJ NAIL, 6 OR MORE 10/11/2021 04788-EJMBGCQ NAIL, 6 OR MORE 01/29/2022 49310-YANFSDG NAIL, 6 OR MORE 04/30/2022 66549-XVFUNHD NAIL, 6 OR MORE 08/06/2022 77567-REPJQUF NAIL, 6 OR MORE 11/12/2022 56368-JBZCCGO NAIL, 6 OR MORE 02/18/2023 71594-LFOBJNB NAIL, 6 OR MORE 07/22/2015 03639-RRAUGHK NAIL, 6 OR MORE 10/14/2015 42092-LFXCGFZ NAIL, 6 OR MORE 01/13/2016 53173-HOUKTNQ NAIL, 6 OR MORE 04/27/2016 58029-FYFKBHU NAIL, 6 OR MORE 07/27/2016 62226-RRTHBZN NAIL, 6 OR MORE 11/02/2016 02570-WTUGAVH NAIL, 6 OR MORE 02/01/2017 92696-BIUJNTJ NAIL, 6 OR MORE 05/03/2017 76104-PLKZXYR NAIL, 6 OR MORE 09/05/2017 57153-XNJUFKN NAIL, 6 OR MORE 12/05/2017 46067-AJQPQXT NAIL, 6 OR MORE 03/19/2018 78695-HZWACAV NAIL, 6 OR MORE 06/18/2018 34702-BPNLBCH NAIL, 6 OR MORE 09/17/2018 79555-OQOSHIE NAIL, 6 OR MORE 12/17/2018 85233-DIGWABA NAIL, 6 OR MORE 03/18/2019 87093-GEHZNPE NAIL, 6 OR MORE 07/15/2019 52236-QNXYPOA NAIL, 6 OR MORE 10/14/2019 89658-GPKWVDK NAIL, 6 OR MORE 01/13/2020 27071-LTJMGGG NAIL, 6 OR MORE 04/13/2020 49670-CGTSFIY NAIL, 6 OR MORE 07/13/2020 96351-OTLPDEC NAIL, 6 OR MORE 10/12/2020 62345-WBCLYMI NAIL, 6 OR MORE 01/12/2021 22217-Zsgezypw Plate 01/12/2021 16011-Ayxmzmoe Plate 10/12/2020 24816-Nzwyblki Plate 07/13/2020 19344-Knbnerxt Plate 04/13/2020 32637-Ataaewbw Plate 01/13/2020 64638-Adsnvnfl Plate 10/14/2019 23883-Zkcoapol Plate 07/15/2019 06549-Hgqkyvut Plate 03/18/2019 32423-Zavwonkd Plate 12/17/2018 50262-Vmxbxoak Plate 09/17/2018 35951-Lyvedjmh Plate 03/19/2018 85754-Aedfqyua Plate 12/05/2017 11414-Iemgbikd Plate 09/05/2017 86320-Nysuyens Plate 02/18/2023 28661-Dqnkbxxx Plate 11/12/2022 40356-Rysopftt Plate 08/06/2022 23145-Oziksxfh Plate 04/30/2022 85687-Evizwvxo Plate 01/29/2022 25394-Gzdzxrke Plate 10/11/2021 74601-Abvqbzpj Plate 07/12/2021 61033-Mmvhdbkb Plate 04/13/2021 18378-Lytatgya Plate 08/19/2023 78386-Zvhuhvip Plate 05/20/2023 09426-Diggtrfe Plate 06/18/2018 04317-Lcipazut Plate 11/18/2023 44783-Ijxeigxd Plate 07/27/2016 28637-Vdrewscp Plate Each Additional 53018-Svaoaoyi Plate Each Additional 46036-Shpjidzw Plate Each Additional 82086-Aqjtpjmf Plate Each Additional 12/2021 09823-Hvkklibv Plate Each Additional 01/2022 90064-Qwwrtjjh Plate Each Additional 12/2021 45687-Zoyzhdmq Plate Each Additional 14366-Dquvsjhi Plate Each Additional 55981-Apewhlvt Plate Each Additional 07/2022 95803-Wcnorhun Plate Each Additional 01/2023 79930-Zpulodme Plate Each Additional 52947-Umvzaqtn Plate Each Additional 49791-Cvzxahmq Plate Each Additional 49831-Xnnxtvip Plate Each Additional 40141-Rblyyfho Plate Each Additional 21717-Ousyywku Plate Each Additional 54555-Rnvgtoma Plate Each Additional 28426-Nspidpdx Plate Each Additional 02/2020 95632-Dsnridnb Plate Each Additional 01/2020 34196-Kyxswbsf Plate Each Additional 12/2020 82983-Jjxvxaby Plate Each Additional 02/2021 58508-Gimfhnqr Plate Each Additional 01/2021 57066-Djhzeelp Plate Each Additional 01/2021 60667-ZDZA SKIN LESIONS, OVER 4 01/13/20 21 14924-FHQX SKIN LESIONS, OVER 4 10/13/19 21 06132-XFPE SKIN LESIONS, OVER 4 07/14/19 21 70206-ASYY SKIN LESIONS, OVER 4 04/13/19 21 68706-MSHS SKIN LESIONS, OVER 4 01/13/20 20 04432-DNCD SKIN LESIONS, OVER 4 10/14/19 20 12576-RRTN SKIN LESIONS, OVER 4 07/15/19 20 05919-GHOF SKIN LESIONS, OVER 4 03/18/19 20 52848-SECK SKIN LESIONS, OVER 4 12/18/19 19 71683-XXZF SKIN LESIONS, OVER 4 09/18/19 19 05256-FPCX SKIN LESIONS, OVER 4 03/19/19 19 87244-TEZQ SKIN LESIONS, OVER 4 12/06/19 18 81617-ZHCP SKIN LESIONS, OVER 4 09/06/19 18 30575-VDZC SKIN LESIONS, OVER 4 05/04/19 18 84574-BUMT SKIN LESIONS, OVER 4 02/19/20 23 69541-BDCF SKIN LESIONS, OVER 4 11/13/19 23 64989-LTEQ SKIN LESIONS, OVER 4 08/07/19 23 81478-JNHL SKIN LESIONS, OVER 4 04/30/19 23 58902-CTSZ SKIN LESIONS, OVER 4 01/30/20 98857-JAJF SKIN LESIONS, OVER 4 10/12/19 70992-UIPR SKIN LESIONS, OVER 4 07/13/19 22 67971-AFUD SKIN LESIONS, OVER 4 04/13/19 47046-RBIB SKIN LESIONS, OVER 4 08/19/19 95751-LYNM SKIN LESIONS, OVER 4 05/20/19 24 48466-WYPK SKIN LESIONS, OVER 4 11/18/19 24 75777-SOAE SKIN LESIONS, OVER 4 06/19/19 19 24179-GTLY SKIN LESIONS, OVER 4 05/26/19 25 80231-ECLE SKIN LESIONS, 2 TO 4 02/02/20 17 84769-QLXO SKIN LESIONS, 2 TO 4 11/03/19 17 83219-TBSK SKIN LESIONS, 2 TO 4 04/27/19 17 23258-SOOX SKIN LESIONS, 2 TO 4 07/28/19 17 70233-QAAC SKIN LESIONS, 2 TO 4 01/13/20 16 39539-BKKO SKIN LESIONS, 2 TO 4 10/14/19 16 43397-THEQ SKIN LESIONS, 2 TO 4 07/22/19 16 Next Appt Details Provider Name:Kahlil Sp Smith , 08/17/2024 09:00:00 AM, [address] [facility] [address], [place], [address], Insurance Providers Payer Name Payer Address Payer Phone Subscriber Number Group Number Insured Name Patient Relationship to Insured Coverage Start Date Coverage End Date [employer] [address] [place] [address] [id number] Eldon Ryan Self - patient is the insured Medical (General) History Medical History History ICD Code mumps measles chicken pox high blood pressure diabetic type ll Arthritis Diverticulosis High blood pressure Measles Mumps Chicken pox Cholesterol UT - 5'18 Surgical History Surgery Date(Month/Year) skin graft 2009 umbilical hernia repair 01/2004 cardiac catheterization Boil removed from arm 02/2019 kidney stones 2021 cyst removal, back 01/05/22 colonoscopy Hospitalization History Reason Date(Month/Year) Dr. De La Torre [facility] UTI-given Antibiotics Walk in- foot injury 06/2021 PT For left shoulder 03/2018 [facility]-Heart Attack 07/26/2017
--- OUTSIDE RECORDS SUMMARY | 2024-07-15 09:30 | XMS_ITS | Continuity of Care Document ---
Author Organization [facility] Address [address] [place] [address] Phone Care Team Providers Care Market Development Specialist Name Role Phone Abhishek PULLIAM, RVT, RPVI, [...] Mins- [place] & [place] [facility], [address] [place] [address] Dr Raman 1000SuBobo paulino [place], [id number], [place] tel:[phone] [facility] Hereditary lymphedemaVeno us insufficiency (chronic) (peripheral)Ly mphedema, not elsewhere classifiedType 2 diabetes mellitus without complicationsE ssential (primary) hypertensionDi sorder of pigmentation, unspecified 4 Abhishek PULLIAM RVT, MARCO Brownlee. [address] [place] [address], [place], [place], [id number] , [place]. tel:[phone] Referring Provider: Anne Ramirez MD Far[place], [address] [place] [address], [address]. tel:[phone] [facility] MD [place], [address] [place] [address] Dr Raman 1000SuBobo paulino [place], [id number], [place] tel:[phone] [facility] Chronic venous hypertension (idiopathic) with other complications of bilateral lower extremity 4 Abhishek PULLIAM RVT, RPVI Robert. [address] [place] [address], [place], [place], [id number] , [place]. tel:[phone] Referring Provider: Anne Llamas, [address] [place] [address], [address]. tel:[phone] Dank [facility] MD [place], [address] [place] [address] Dr Danisha BravoSuBobo paulino [place], [id number], [place] tel:[phone] CV - [facility] Encounter for follow-up examination after completed treatment for conditions other than malignant neoplasmChroni c venous hypertension (idiopathic) with other complications of right lower extremity Oct-2 4 Abhishek PULLIAM RVT, MARCO Brownlee. [address] [facility], [place] [address], [place], [place], [id number] , [place]. [phone] Referring Provider: Anne Ramirez MD [place], [address], [place], [address]. tel:[phone] Dank E[facility]in Buddhist MD [place], [address] [place] [address] Dr Raman 1000SuBobo paulino [place], [id number], [place] tel:[phone] [facility] Varicose veins of right lower extremity with other complications Oct-2 4 Abhishek PULLIAM RVT, RPVI Robert. [address] [address], [place], [place], [id number] , [place]. [phone] Referring Provider: Anne Ramirez MD [place], [address] [facility] [address] [facility], [place], [address]. tel:[phone] Dank [facility]in [facility], [address] [place] [address] Dr Raman 1000SuBobo apulino [place], [id number], [place] tel:[phone] [facility] Chronic venous hypertension (idiopathic) with inflammation of right lower extremity Oct-2 4 Abhishek PULLIAM RVT, RPVI Robert. [address] [facility] [address], [place], [place], [id number] , [place]. [phone] Dank Echeverria Vein Buddhist MD [place], [address] [place] [address] Dr Raman 1000SuBobo paulino [place], [id number], [place] tel:[phone] [facility] Encounter for follow-up examination after completed treatment for conditions other than malignant neoplasmChroni c venous hypertension (idiopathic) with other complications of left lower extremity Oct-2 4 Abhishek MEGHANN PULLIAM RPVI Robert. [address] [place] [address], [address], [place], [id number] , [place]. [phone] Referring Provider: Kem Weiss MD, RVT, RPVI, [address] [place] [address] Suite [facility], [place], [address] . tel:[phone] [facility], [address] [place] [address] [address], [place], [id number], [place] tel:[phone] CVR - [place] [facility] [place] No Information Dec- 4 Abhishek PULLIAM RVT, RPVI Robert. [address] [place] [address], Suite [facility], [place], [id number] , [place]. [phone] [facility], [address] [place] [address] [address]Bobo [place], [id number], [place] tel:[phone] CVR - [place] - [place] Varicose veins of left lower extremity with other complications Oct- 4 Abhishek PULLIAM RVT, RPVI Robert. [address] [place] [address], [place], [id number] , [place]. [phone] Referring Provider: Anne Ramirez MD [place], [address] [place] [address], [address]. tel:[phone] [facility], [address] [place] [address] [address] [facility], [id number], [place] tel:[phone] CVR - [place] Varicose veins of left lower extremity with other complications Oct- 4 Abhishek PULLIAM RVT, RPVI Robert. [address] [place] [address], [place] [address], [place], [id number] , [place]. tel:[phone] Referring Provider: Anne Ramirez MD Far[place], [address] [place] [address], [address]. tel:[phone] Offic/outpt E&m Estab 5 Min Trial- Telemedicine CT & [place] [facility], [address] [place] [address] Dr Raman 1000[address] 1000Bobo [place], [id number], [place] tel:[phone] [facility] [place] Non-pressure chronic ulcer of left ankle with unspecified severityChroni c venous hypertension (idiopathic) with other complications of bilateral lower extremityLymph edema, not elsewhere classifiedType 2 diabetes mellitus without complicationsE ssential (primary) hypertensionDi sorder of pigmentation, unspecifiedHer editary lymphedema 4 Abhishek PULLIAM RVT, MARCO Brownlee. [address] [place] [address], [facility] [place], [id number] , [place]. tel:[phone] Referring Provider: Anne Ramirez MD [place], [address] [place] [address], [place], [address]. tel:[phone] Offic Cons New/estab Mod-hi 60- CT & [place] [facility], [address] [place] [address] Dr Raman 1000[address] 1000Bobo [place], [id number], [place] tel:[phone] [facility] Essential (primary) hypertensionLy mphedema, not elsewhere classifiedNon- pressure chronic ulcer of left ankle with unspecified severityVenous insufficiency (chronic) (peripheral)Lo calized edemaType 2 diabetes mellitus without complicationsD isorder of pigmentation, unspecifiedHer editary lymphedema 4 Abhishek PULLIAM RVT, MARCO Brownlee. [address] [place] [address], [facility] [place], [id number] , [place]. tel:[phone] [place] [facility], [address] [place] [address] Dr Raman 1000[address] 1000Bobo [place], [id number], [place] tel:[phone] [facility] Chronic venous hypertension (idiopathic) with ulcer of bilateral lower extremity 4 Abhishek PULLIAM RVT, RPVI Robert. [address] [place] [address], [address], [facility] [place], [id number] , [place]. [phone] Referring Provider: Kem Weiss MD, RVT, MARCO, [address] [place] [address] [address], [place], [address] . tel:[phone] Family History Family Member Type Diagnosis Age At Onset No Information Payers Payer name Insurance type Covered democrat ID Con [employer]philip[employer] [place] [employer] CI [id number] Social History Type Description Quantity Date Captured [...] Information Instructions Date Instruction Additional Infor mation Lifestyle education Related to B kristie mass index (BMI) 35.0-35.9, adult Compression stocking usage as conservative measure Related to Venous insufficiency (chronic) (peripheral) Patient education booklet given Related to Venous [...]
--- OUTSIDE RECORDS SUMMARY | 2024-07-15 09:30 | XMS_ITS ---
Author Organization [facility] Griselda banerjee [place] Address [address] [facility] [place] [address] Care Team Providers Care Medical Claims Specialist Name Role Phone Ashley PULLIAM, Anne Llamas Primary Care Provider Un available Kahlil Smith Unavailable [phone] Allergies Allergen (clinical drug ingredient) Drug/Non Drug Allergy documented on EMR Reaction Allergy Type Onset Date Status bacitracin Bacitracin rash Drug Allergy Activ e REASON FOR VISIT At Risk Footcare, Toe Irritation Medications Medication SIG (Take, Route, Frequency, Duration) Notes Start Date End Date Status Finacea Active Finasteride 5 MG 1 tablet Orally Once a day for 30 day(s) Active Lisinopril Active Metformin & Diet Manage Prod Active Furosemide Active Daily Vitamin Active Fenofibrate 145 MG 1 tablet Orally Once a day Active Cinnamon Active CoQ10 Active Aspirin 81 MG 1 tablet Orally Once a day Active Chromium Picolate No t-Taking Alpha Lipoic Acid 600 mg Orally Active Actos 30 MG 1 tablet Orally Once a day Active Tamsulosin HCl 0.4 MG 1 capsule 30 minut es after the same meal each day Orally Once a day Not-Taking DHEA Not-Taking Saw Trevorton Not-Sukhjinder ing Soolantra Not-Taking Cephalexin 500 MG 1 capsule Orally Fou r times a day for 5 day(s) Not-Sukhjinder ing Invokana 300 MG 1 tablet Orally Once a day Not-Taking Isosorbide Mononitrate Not-Taking Ciclopirox Olamine 0.77 % 1 application Externally Twice a day for 30 days Active Brilinta 60 MG Orally Not-T aking Crestor 40 MG Orally Not-Ta damaris Extra Depth Orthopedic Shoes (1 Pair) with Customized Heat Molded Multidensity Innersoles (3 Pair) as directed Dx: NIDDM/Polyneuropathy (E11.42), Hammertoe Foot Deformity (M20.41,M20.42), Preulcerative Skin Lesion(s) (L85.1 05/20/2023 Active Night Splint AFO - L1930 1 wear at rest for 30 days Active Trulicity Not-Taking Vitamin D3 Active Pumpkin Seed Oil Act maxiimlian Terazosin HCl 10mg Active Tutor Key-3 1000 MG 2 capsule Orally Twi ce a day Active Metoprolol Succinate Active Social History Tobacco Use: Social History [...] Additional Findings: Tobacco non-user Current no nsmoker Vital Signs Height 6ft 2in in 05/25/2024 Weight 288 lbs 05/25/2024 BMI 36.97 kg/m2 05/25/2024 Blood pressure systolic 134 mm Hg 05/26/19 25 Blood pressure diastolic 73 mm Hg 025 Procedures Procedure Date Ordered Date Performed Result Body Sit e 87279-HLBCMFR NAIL, 6 OR MORE 05/25/2024 N/A 28610-IHCB SKIN LESIONS, OVER 4 05/25/2024 N/A Encounters Encounter Location Date Provider Diagnosis [facility] [address] [address] 05/25/2024 Kahlil Smith Type 2 diabetes mellitus with diabetic polyneuropathy E11.42 ; Tinea unguium B35.1 ; Other hammer toe(s) (acquired), right foot M20.41 and Other hammer toe(s) (acquired), left foot M20.42 Assessments Encounter Date Diagnosis (ICD Code) Assessment Notes Treatment Notes Treatment Clinical Notes Section Notes 05/25/2024 Type 2 diabetes mellitus with diabetic polyneuropathy (ICD-10 - E11.42) 05/25/2024 Tinea unguium (ICD-10 - B35.1) 05/25/2024 Other hammer toe(s) (acquired), right foot (ICD-10 - M20.41) Patient Educated with: DIABETIC FOOT CARE INSTRUCTIONS. pdf (DIABETIC FOOT CARE INSTRUCTIONS. pdf) 05/25/2024 Other hammer toe(s) (acquired), left foot (ICD-10 - M20.42) Plan Of Treatment Treatment Notes Assessment Notes Other hammer toe(s) (acquired), right fo ot Patient Educated with: DIABETIC FOOT CARE INSTRUCTIONS.pdf (DIABETIC FOOT CARE INSTRUCTIONS.pdf) Pending Test Test Name Order Date [id number] NAIL, 6 OR MORE 05/25/2024 79520-TXVZ SKIN LESIONS, OVER 4 05/26/19 25 Next Appt Details Follow Up: prn, Reason: Provider Name:Kahlil Smith , 08/17/2024 09:00:00 AM, [address] [facility], [address], [place], [address], Procedure Notes * Category Sub-Category Detail Notes Debride Nail 6-10 Nail debridement Due to the cl inical pathology outlined in the exam findings, performance of this nail treatment is medically necessary as its management by an unskilled/untrained nonprofessional would put this patients foot and overall health at risk. Therefore, debridement to affected nail(s), as described in exam ( TA, T1, T2, T3, T4, T5, T6, T7, T8, T9 ), was performed exclusively by the physician of record to reduce/remove overall nail length, girth, thickness, subungual debris, and necrotic tissue, by manual and/or electrical means through the use of a nail nipper and/or dremel-type grinder watch parts, to a more viable healthy nail plate or bed tissue 6-10 nails in total. Silver nitrate was used for any petechial bleeding as necessary. Definitive antifungal treatment options, both pharmaceutical and surgical, have been reviewed and discussed with the patient. The patient solely prefers the use of intermittent/as needed professional debridement services for their nail condition and understands the need for additional periodic treatments to maintain effectiveness in symptomatic relief - 05614 Keratoma Treatment Parring or Cutting o f Benign Hyperkeratotic Lesion(s) (-57) More than 4 Lesions - Due to the at risk nature of the patients medical condition as documented in the exam findings, performance of this keratoderma treatment is medically necessary as its management by an unskilled/untrained nonprofessional would put this patients foot and overall health at risk. Therefore, the benign hyperkeratotic lesions, ( 6 ) in total, locations as stated and described in the exam ( SUB MTH (s),1,B/L,SUB MTH (s),5 B/L, Plantar, Heel(s),B/L ), were pared, and/or cut utilizing a sterile 15 blade, tissue nippers, and/or power dremel instrumentation by the physician of [facility] - 70083 Progress Notes * Eldon RYAN GDOB:[birth year] (74 yo M)Acc No.[id number]:05/25/2024 Progress Note Patient:?Eldon RYAN Lizzeth Provider:?Kahlil Smith DPM :1950???Age:74 Y???Sex:Male Tristan e:05/25/2024 Address:[address] [place], [place] [id number] Pcp:Colin Borrego Subjective: * Chief Complaints: * ???At Risk FootcareToe Irrit ation * HPI: ???At Risk footcare:?Pt States Last PCP Visit:?Date?03/13/2024 ???Toe pain:?Location:?B/L feet.?Duration:?several years.?Aggravated by:?shoes, any pressure.?Treatments:?change in shoes.? * ROS:?General/Constitutional:?Nausea?denies.?Vomiting?denies.?Hunger Thirst?denies.?Loss appetite?denies.?Chills?denies.?Fatigue?denies.?Fever?denies.?Night Sweats?denies.?Unexplained weight loss?denies.?Ophthalmologic:?Blurred vision?denies.?Red eye?denies.?HEENTM:?Dentures?denies.?Dizziness?denies.?Glasses/contacts?admits.?Retinopathy?den ies.?Blurred/double vision?denies.?TMJ?denies.?Discharge/drainage?denies.?Implants?denies.?Hard of hearing ?admits.?Difficulty chewing/swallowing/speaking?denies.?Nose bleeds?denies.?Sore mouth?denies.?Swollen glands?denies.?Respiratory:?On O xygen?denies.?Pneumonia/pleurisy?denies.?Bronchitis?denies.?Emphysema?denies.?Co ughing?denies.?Cough blood?denies.?Shortness of breath?denies.?Wheezing?denies.?Cardiovascular:?Pacemaker?denies.?MVP?denies.?WPW?denies.?CHF?denies.?Heart attack?denies.?Septal defect?denies.?Rapid beat?denies.?Chest pain ?denies.?Atrial Fib.?denies.?Murmur/Palpitations?denies.?Gastrointestinal:?Hemorrhoids?admits.?Stomach/Abdominal pain?denies.?Dark blood stool?denies.?Irritable bowel ?denies.?Constipation?denies.?Diarrhea?denies.?Vomiting?denies.?Hematology:?Swelling?denies.?Bruising?admits, on aspirin.?Bleeding problem?admits, on anticoagulants.?Genitourinary:?Blood urine?denies.?Frequent/Painfu/urination/bladder control?denies.?Kidney stones?denies.?Infection (UTI)?denies.?Nephropathy??admits.?Musculoskeletal:?Hammertoes?admits.?Bunions?denies.?Scoliosis/kyphosis?denies.?Muscle cramps / walking??admits.?Generalized aches and pains?denies.?Weakness?denies.?Integ.:?Sterling??admits.?Scars?denies.?Corns/calluses?admits.?Ingrown nails?admits.?Painful nails?denies.?Rashes?denies.?Neurologic:?Difficulty sleeping?denies.?Bipolar?denies.?Brain disorder?denies.?Balance t rouble?denies.?Confusion?denies.?Fainting/blackouts?denies.?Headache?denies.?Marky mors?denies.? * Medical History:? * Surgical History:?skin graft 2008umbilical hernia repair 01/2004cardiac catheterization Boil removed from arm 02/2019kidney stones yst removal, back 01/05/22colonoscopy * Hospitalization/Major Diagno stic Procedure:?[facility]-Heart Attack 07/26/2017PT For left shoulder 03/2018Walk in- foot injury [facility]. [place] [facility] [place] Antibiotics 2021 * Family History:?Mother: dece ased, diagnosed with Unspecified essential hypertension, Unspecified cerebral artery occlusion with cerebral infarction.?Father: , diagnosed with Diabetic - NIDDM, Unspecified heart disease.?Spouse: alive.? * Social History:?Tobacco Use:?Tobacco use other than smoking?Are you an other tobacco user??No ?Tobacco Control (Standard)?Tobacco use:?Nonsmoker ?Additional Findings: Tobacco non-user?Current nonsmoker ???Drugs/Alcohol:?Drugs?Have you used drugs other than those for medical reasons in the past 12 months??No ?Alcohol Screen?Did you have a drink containing alcohol in the past year??No ?Points?0 ?Interpretation?Negative ???Miscellaneous:?Caffeine: yes, 2-3 cups per day. ?Children: yes, 2. ?Exercise: yes, work ,. ?Marital status: . 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 * Medications:?TakingActos 30 MG 1 tablet Orally Once a day Alpha Lipoic Acid 600 mg Capsule Orally Aspirin 81 MG Tablet Chewable 1 tablet Orally Once a day Cinnamon CoQ10 Daily Vitamin Fenofibrate 145 MG Tablet 1 tablet Orally Once a day Finacea Finasteride 5 MG Tablet 1 tablet Orally Once a day Furosemide Lisinopril Metformin & Diet Manage Prod Metoprolol Succinate Tutor Key-3 1000 MG Capsule 2 capsule Orally Twice a day Pumpkin Seed Oil Terazosin HCl , Notes to Pharmacist: 10mgVitamin D3 Ciclopirox Olamine 0.77 % Cream 1 application Externally Twice a day Extra Depth Orthopedic Shoes (1 Pair) with Customized Heat Molded Multidensity Innersoles (3 Pair) as directed Dx: NIDDM/Polyneuropathy (E11.42), Hammertoe Foot Deformity (M20.41,M20.42), Preulcerative Skin Lesion(s) (L85.1 Night Splint AFO - L1930 1 wear at rest Taking Actos 30 MG 1 tablet Orally Once a day Taking Alpha Lipoic Acid 600 mg Capsule Orally Taking Aspirin 81 MG Tablet Chewable 1 tablet Orally Once a day Taking Cinnamon Taking CoQ10 Taking Daily Vitamin Taking Fenofibrate 145 MG Tablet 1 tablet Orally Once a day Taking Finacea Taking Finasteride 5 MG Tablet 1 tablet Orally Once a day Taking Furosemide Taking Lisinopril Taking Metformin & Diet Manage Prod Taking Metoprolol Succinate Taking Tutor Key-3 1000 MG Capsule 2 capsule Orally Twice a day Taking Pumpkin Seed Oil Taking Terazosin HCl , Notes to Pharmacist: 10mgTaking Vitamin D3 Taking Ciclopirox Olamine 0.77 % Cream 1 application Externally Twice a day Taking Extra Depth Orthopedic Shoes (1 Pair) with Customized Heat Molded Multidensity Innersoles (3 Pair) as directed Dx: NIDDM/Polyneuropathy (E11.42), Hammertoe Foot Deformity (M20.41,M20.42), Preulcerative Skin Lesion(s) (L85.1 Taking Night Splint AFO - L1930 1 wear at rest Not-Taking/PRNTrulicity Brilinta 60 MG Tablet Orally Crestor 40 MG Tablet Orally Invokana 300 MG Tablet 1 tablet Orally Once a day Isosorbide Mononitrate Soolantra Cephalexin 500 MG Capsule 1 capsule Orally Four times a day Saw Trevorton Chromium Picolate DHEA Tamsulosin HCl 0.4 MG Capsule 1 capsule 30 minutes after the same meal each day Orally Once a day Medication List reviewed and reconciled with the patientNot-Taking/PRN Trulicity Not-Taking/PRN Brilinta 60 MG Tablet Orally Not-Taking/PRN Crestor 40 MG Tablet Orally Not-Taking/PRN Invokana 300 MG Tablet 1 tablet Orally Once a day Not-Taking/PRN Isosorbide Mononitrate Not-Taking/PRN Soolantra Not-Taking/PRN Cephalexin 500 MG Capsule 1 capsule Orally Four times a day Not-Taking/PRN Saw Trevorton Not- Taking/PRN Chromium Picolate Not-Taking/PRN DHEA Not-Taking/PRN Tamsulosin HCl 0.4 MG Capsule 1 capsule 30 minutes after the same meal each day Orally Once a day Medication List reviewed and reconciled with the patient * Allergies:?Bacitracin: rashy es[Allergies Verified] Objective: * Vitals:?Ht: 6ft 2in, Wt:288, BMI:36.97, Shoe size: 12, BP:134/73mm Hg, BS: 155, Ht-cm: 187.96 cm, Wt-k.64 kg. * ???Past Orders: ???Lab:HEMOGLOBIN A1C (GLYCO HEMOGLOBIN) (Order Date - 03/13/2024) (Collection Date & Time - 03/16/2024 01:51 PM) ? Value Reference Range ?HEMOGLOBIN A1C % (HH) 6.1 * Examination: ???Ophthalmology Referral: ?DIABETES EYE EXAM?Procedure Performed:?Yes ?Date of Exam Performed?02/19/2024 ?Diabetic Retinopathy Screening:?Yes ?Retinal Screening Performed:?Yes ?Findings of Diabetic Eye Exam:?no retinopathy?Neurological: ?SENSORY:? Neurological exam demonstrates, reduced light touch sensation, reduced sharp/dull discrimination , reduced vibration sensation, in a stocking fashion, B/L, 5.07 monofilament test performed at plantar aspects of 5 varied sites per foot shows sensation, reduced, B/L.?Nails: ?NAILS are:?Elongated, overgrown, dystrophic, lytic, greater than 3mm thick, discolored and friable with crumbly malodorous subungual debris , TA, T1, T2, T3, T4, T5, T6, T7, T8, T9.?Dermatologic: ?SKIN FINDINGS:?Skin exam reveals Keratotic lesion(s) located at, SUB MTH (s),1,B/L,SUB MTH (s),5 B/L, Plantar, Heel(s),B/L.?Orthopedic: ?MUSCLE STRENGTH:?5/5 all groups in a symmetrical fashion , B/L.?FOOT MORPHOLOGY:? Pes Cavus structure, No Charcot collapse/destruction noted at MTJ.?DIGITAL DEFORMITIES:?Digital contracture, PIPJ, 2-5 B/L, incompl-reducible to push-up test, no over, nor underlapping , with evidence of shoe producing skin irritation.?FOOTWEAR:?worn, OT were inspected and noted to be severely worn , in poor condition not giving proper support at the present time , shoe gear properties exacerbate patients foot/toe deformity.?Vascular: ?DP PULSES (B):?2/4, B/L.?PT PULSES (B):?2/4, B/L.?CAPILLARY FILL TIME:?3 secs. per digit, B/L.?TROPHIC CONDITION-TEXTURE/ELASTICITY/TURGOR/HAIR GROWTH (B):?normal, B/L.?TEMPERTURE GRADIENT (C):?normal, warm to cool, proximal to distal, B/L.?PIGMENTATION:?normal, B/L.?EDEMA (C):?absent, B/L.?General Examination: ?GENERAL APPEARANCE:?Reveals a pleasant, alert, well nourished, well- developed, well hydrated individual, who demonstrates proper attention to hygiene/body habitus, and is in no acute distress, Pt serves as own historian for office visit today.?ORIENTED:?person, place, and time.?FOOT EXAM:?Lower Extremity Neurological Exam performed:?Yes ?Visual exam of foot performed:?Yes ?Date?05/25/2024 ?Footwear Evaluation?Footwear Evaluation performed:?Yes??? Assessment: * Assessment: 1.?Type 2 diabetes mellitus with diabetic polyneuropathy - E11.42 (Primary)???2.?Tinea unguium - B35.1???3.?Other hammer toe(s) (acquired), right foot - M20.41???Specify :Chronic problem, Worse (4),Rx Management (4)???4.?Other hammer toe(s) (acquired), left foot - M20.42???Specify :Chronic problem, Worse (4),Rx Management (4)??? Plan: * Treatment: 2.?Other hammer toe(s) (acqu ired), right foot? Notes: Patient Educated with: DIABETIC FOOT CARE INSTRUCTIONS.pdf (DIABETIC FOOT CARE INSTRUCTIONS.pdf)?? * Procedures:?Debride Nail 6-10:?Nail debridement?Due to the clinical pathology outlined in the exam findings, performance of this nail treatment is medically necessary as its management by an unskilled/untrained nonprofessional would put this patients foot and overall health at risk. Therefore, debridement to affected nail(s), as described in exam (?TA, T1, T2, T3, T4, T5, T6, T7, T8, T9?), was performed exclusively by the physician of record to reduce/remove overall nail length, girth, thickness, subungual debris, and necrotic tissue, by manual and/or electrical means through the use of a nail nipper and/or dremel-type grinder watch parts, to a more viable healthy nail plate or bed tissue 6- 10 nails in total. Silver nitrate was used for any petechial bleeding as necessary. Definitive antifungal treatment options, both pharmaceutical and surgical, have been reviewed and discussed with the patient. The patient solely prefers the use of intermittent/as needed professional debridement services for their nail condition and understands the need for additional periodic treatments to maintain effectiveness in symptomatic relief - 42240.?Keratoma Treatment:?Parring or Cutting of Benign Hyperkeratotic Lesion(s)?(-57) More than 4 Lesions - Due to the at risk nature of the patients medical condition as documented in the exam findings, performance of this keratoderma treatment is medically necessary as its management by an unskilled/untrained nonprofessional would put this patients foot and overall health at risk. Therefore, the benign hyperkeratotic lesions, ( 6 ) in total, locations as stated and described in the exam (?SUB MTH (s),1,B/L,SUB MTH (s),5?B/L,?Plantar,?Heel(s),B/L?), were pared, and/or cut utilizing a sterile 15 blade, tissue nippers, and/or power dremel instrumentation by the physician of record - 84602.? * Procedure Codes:?46886 DEBRI DE NAIL, 6 OR MORE, Modifiers: XS 80230 TRIM SKIN LESIONS, OVER 4, Modifiers: XS * Preventive Medicine:? ??Counseling:?Discussion:?-13: Office or other [...] have encouraged the patient to call the office.?Digital Surgery:?Digital surgery was discussed with the patient, We elected to try conservative treatment at the present time, due to the patients medical history and increased asssociated post-operative risks.?Digital Treatment:?HT- I explained to the patient the possible etiologies of Hammertoes, including genetics/foot type/shoegear/activity level/exercise routine and the risks/benefits of all the different treatment options for their pain including: No treatment at all, Rest, Ice, New/supportive/wider/deeper Shoegear, Digital Padding/Strapping/Taping/Bracing/Gel protective sleeves, Foot/Ankle AFO Bracing, Stretching exercises, Deep Tissue Massage, Arch support/shoe inserts with splay metatarsal padding, and Custom orthoses. I insisted that any digital devices be removed daily and not worn overnight for safety. The patient is to carefully examine the toes daily for any skin irritation while using any splinting or padding device. The advantages and disadvantages of each option were discussed and the patients questions re: shoegear, padding, custom vs prefabricated inserts, activity level, and consistency in home treatment regimens for optimal success were answered to their verbally confirmed satisfaction.?Shoe Gear Counseling:?SHOE Rx - The patient was counseled in great detail on their muscoloskeletal foot and toe deformities which coincided with the dermatological presentations visualized on exam. We discussed how their deformities put the integrity of their feet at risk for potential pedal complications which makes the accomidative diabetic shoes and cutomizable inserts medically necessary. We discussed the different shoe and insert treatment types and options, as well as the important advantages for adhering to regularly wearing these accomidative devices daily. The patient was made aware of the fact that a failure to abide by these recommedations may be deleterious to their foot health as they are able to prevent many pedal complications such as skin irritation, skin ulceration, infection, and even loss of toe/foot/leg/or life. Time was also spent with the patient dispensing and discussing proper diabetic footcare techniques including daily skin moisturization, daily foot inspection for any interruption in skin integrity including open lesions, or sign of infection such as redness/malodor/drainage/swelling. Also discussed and recommended were procedures regarding daily shoe inspection for the presence of internal foreign bodies as well as any visualized irregular shoe or insert wear. Patient questions re: shoes, inserts, and self foot inspections were answered to their satisfaction as the patient verbally confirmed a full understanding of the above information, Patient DEFERS recommended Extra Depth Orthopedic pressure-accommodative shoes against medical advice.? ??Screening/Special Tests:?Fall Risk?Screening:?No falls in the past year ?FALLS: Screening for Future Fall Risk?Have you had any falls with injury in the past year??No * Follow Up:?prn * Images: * Sign off status: Completed true * Provider:?Kahlil Smith DPM Date:?2024 Generated for Ashley monteiro/Maura/Adrian on:?07/15/2024 09:29 AM EDT History and Physical Notes * HPI (History of Present Illness) Category Sub-Category Detail Notes Category Not es Toe pain Location: B/L feet Duration: several years Aggravated by: shoes, any pressure Treatments: change in shoes At Risk footcare Pt States Last PCP Visit: Date: Examination Category Sub-Category Detail Notes Category Not es Neurological SENSORY: Neurological exa m demonstrates, reduced light touch sensation, reduced sharp/dull discrimination , reduced vibration sensation, in a stocking fashion, B/L, 5.07 monofilament test performed at plantar aspects of 5 varied sites per foot shows sensation, reduced, B/L Dermatologic SKIN FINDINGS: Skin exam reveal s Keratotic lesion(s) located at, SUB MTH (s),1,B/L,SUB MTH (s),5 B/L, Plantar, Heel(s),B/L Orthopedic FOOT MORPHOLOGY: Pes Cavus struc ture, No Charcot collapse/destruction noted at MTJ FOOTWEAR EVALUATION: worn, OT were inspe cted and noted to be severely worn , in poor condition not giving proper support at the present time , shoe gear properties exacerbate patients foot/toe deformity DIGITAL DEFORMITIES: Digital contracture , PIPJ, 2-5 B/L, incompl-reducible to push-up test, no over, nor underlapping , with evidence of shoe producing skin irritation MUSCLE STRENGTH: 5/5 all groups in a symmetrical fashion , B/L General Examination GENERAL APPEARANCE: Reveals a pleasant, alert, well nourished, well-developed, well hydrated individual, who demonstrates proper attention to hygiene/body habitus, and is in no acute distress, Pt serves as own historian for office visit today FOOT EXAM: Lower Extremity Neurological Exa m performed:: Yes Visual exam of foot performed:: Yes Date: 05/25/2024 ORIENTED: person, place, and t radha Footwear Evaluation Footwear Evaluation performe d:: Yes Ophthalmology Referral DIABETES EYE EXAM Procedure Perform ed:: Yes ?Date of Exam Performed: 02/19/2024 Diabetic Retinopathy Screening:: Yes Retinal Screening Performed:: Yes Findings of Diabetic Eye Exam:: no retin opathy Vascular DP PULSES (B): 2/4, B/L PT PULSES (B): 2/4, B/L CAPILLARY FILL TIME: 3 secs. per digit, B/L TEMPERTURE GRADIENT (C): normal, warm to cool, proximal to distal, B/L TROPHIC CONDITION-TEXTURE/ELASTICITY/TURGOR/HAIR GROWTH (B): normal, B/L EDEMA (C): absent, B/L PIGMENTATION: normal, B/L Nails NAILS are: Elongated, overg rown, dystrophic, lytic, greater than 3mm thick, discolored and friable with crumbly malodorous subungual debris , TA, T1, T2, T3, T4, T5, T6, T7, T8, T9
--- OUTSIDE RECORDS SUMMARY | 2024-07-15 09:30 | XMS_ITS ---
Author Organization [facility] Address [address] [place] [address] Care Team Providers Care Java Software Architect Name Role Phone Ashley PULLIAM, Anne Llamas Primary Care Provider Un available Kahlil Smith Unavailable [phone] REASON FOR VISIT same day 02/17/24 Encounters Encounter Location Date Provider Diagnosis [facility] [address] [place] [address] 02/17/2024 Kahlil Smith Plan Of Treatment Next Appt Details Provider Name:Kahlil Smith , 08/17/2024 09:00:00 AM, [address] [facility], [place] [address], [place], [address], Progress Notes * Eldon RYAN GDOB:[birth year] (74 yo M)Acc No.[id number]:02/17/2024 Patient:?Eldon RYAN :1950???Age:74 Y???Sex:Male Address:[address] [place] [address], [address] * true * Date:? Generated for Printi ng/Fajolantag/eTransmitting on:?07/15/2024 09:29 AM EDT
--- OUTSIDE RECORDS SUMMARY | 2024-07-15 09:30 | XMS_ITS ---
Author Organization [facility] Address [address] [place] [address] Care Team Providers Care Supervisor Mapping Name Role Phone Kali Wynn MD Primary Care Provider Nicola Galindo Jr, Chago White [phone] REASON FOR VISIT please read below Encounters Encounter Location Date Provider Diagnosis [facility] [address] [place] [address] 04/27/2024 Chago Galindo Jr Plan Of Treatment Next Appt Details Provider Name:Chago johnson Jr, 07/23/2024 03:15:00 PM, [address], [address], [place], [address], Progress Notes * ROSALINA RYANDOB: [birth year] (74 yo M)Acc No.[id number]:04/27/2024 Patient:?ROSALINA RYAN :1950???Age:74 Y???Sex:Male Address:[address] [place] [address], [place] [address] * true * Date:? Generated for Printi thania/Maura/eTransmitting on:?07/15/2024 09:29 AM EDT
--- OUTSIDE RECORDS SUMMARY | 2024-07-15 09:30 | XMS_ITS ---
[facility] Address [address] [place] [address] Care Team Providers Care Hematology Nurse Educator Name Role Phone Ashley PULLIAM, Anne Llamas Primary Care Provider Un available Kahlil Smith Unavailable [phone] Encounters Encounter Location Date [facility] [address] 02/17/2024 Kahlil Smith Plan Of Treatment Next Appt Details Provider Name:Kahlil Smith , 08/17/2024 09:00:00 AM, [address] [place] [address], [phone], Progress Notes * Eldon RYAN GDOB:[birth year] (74 yo M)Acc No.[id number]:02/17/2024 Progress Note Patient:?Eldon RYAN Provider:?Kahlil Smith DPM :1950???Age:74 Y???Sex:Male Tristan e:02/17/2024 Address:[address] [place] [address] [place], [id number] Pcp:Colin Borrego Subjective: * Chief Complaints: * ??? * Medical History:? Objective: * Vitals:? Assessment: Plan: * Treatment: * Images: * The named appointment provid er may or may not be the originator of this progress note, and it is not deemed complete until electronically signed by the appointment provider. Sign off status: Pending * Provider:Shun Smith DPM Date:?2023 Generated for Ashley monteiro/Maura/Adrian on:?07/15/2024 09:29 AM EDT
== END 2024-07-15 09:28 | disposition home or self-care (01) ==
LOC: HO.ENCR 09:03
PROVIDERS: PCP Internal Medicine; Visit Provider Internal Medicine
DX: E11.59 Type 2 diabetes mellitus with other circulatory complications (principal)

== ENCOUNTER → 2024-07-15 09:03 | Outpatient (BNVA) | payer OTHER, SELFPAY | PROVIDERS: PCP Internal Medicine; Visit Provider Internal Medicine | DX: E11.59 Type 2 diabetes mellitus with other circulatory complications (principal) | CPT/HCPCS: 82947; 83036 ==

== ENCOUNTER 2024-07-24 10:55 | Outpatient (REF) | payer OTHER, SELFPAY ==
--- OUTSIDE RECORDS SUMMARY | 2024-07-24 11:01 | XMS_ITS | Patient Health Record ---
Author Organization [facility] Address [address] [place] [address] Care Team Providers Care Jalousie Installer Name Role Phone Ashley PULLIAM, Anne Primary Care Provider Chago Pinon Jr Unavailable Allergies Allergen (clinical drug ingredient) Drug/Non Drug Allergy documented on EMR Reaction Allergy Type Onset Date Status bacitracin Bacitracin Unknown Drug Allergy Activ e Reason For Referral No Information Medications Medication SIG (Take, Route, Frequency, Duration) Notes Start Date End Date Status Lisinopril 40 MG 1 tablet Orally Once a day Active Terazosin HCl 10 MG 1 capsule at bedtime Orally Once a day Active Issue 3 1000 MG 2 capsules Orally tw ice a day Active Pioglitazone HCl 30 MG Oral for 90 Days Active Furosemide 20 MG 1 tablet Orally Once a day Active Omeprazole 20 MG Oral for 90 Days Active Rosuvastatin Calcium 40 MG Oral for 90 Days Active Fluticasone Propionate 50 MCG/ACT 1 spray in each nostril Nasally Twice a day Active Finasteride 5 MG 1 tablet Orally Once a day Active Pioglitazone HCl 45 MG Oral for 90 Days Active Fenofibrate 145 MG 1 tablet Orally Once a day Active Trulicity 1.5 MG/0.5ML Subcutaneous for 84 Days Active Ezetimibe 10 MG 1 tablet Orally Once a day Active Cinnamon Active Coenzyme Q-10 30 MG as directed Orally Active Multi Vit/Fl Active Alpha Lipoic Acid Ac tive -81 Active Metoprolol Succinate 50 MG 1 capsule Ora lly Once a day Active metFORMIN HCl 1000 MG 1 tablet with a me al Orally twice a day Active Problems Problem Type SNOMED Code ICD Code Onset Dates Problem Status W/U Status Risk Notes Problem Long-term current use of drug therapy (465296277) Encounter for long-term (current) use of other medications (V58.69) Active confirmed Problem Colon cancer screening (168209565) Colon cancer screening (V76.51) Active confirmed Problem Current use of aspirin (V58.66) Active confirmed Problem Anemia (089220051) Anemia (D64.9) Active confirmed Vital Signs Blood pressure diastolic 77 mm Hg 07/23/2024 Height 74 in 07/23/2024 Blood pressure systolic 111 mm Hg 07/23/2024 Weight 299 lbs 07/23/2024 BMI 38.39 kg/m2 07/23/2024 Encounters Encounter Location Date Provider Diagnosis [facility] [address] [place] [address] 07/23/2024 Chago Galindo Jr Anemia D64.9 and Other specified symptoms and signs involving the digestive system and abdomen R19.8 [facility] [address] [facility] [address] [place] [address] 04/27/2024 Chago Galindo Jr Assessments Encounter Date Diagnosis (ICD Code) Assessment Notes Treatment Notes Treatment Clinical Notes Section Notes 07/23/2024 Other specified symptoms and signs involving the digestive system and abdomen (ICD-10 - R19.8) 07/23/2024 Anemia (ICD-10 - D64.9) Plan Of Treatment Pending Test Test Name Order Date LIVER PROFILE 07/23/2024 LIPASE 07/23/2024 IRON + IBC (FE) 07/23/2024 FERRITIN 07/23/2024 B12 07/23/2024 FOLATE 07/23/2024 CBC w/o DIFF 07/23/2024 Future Test Test Name Order Date COLONOSCOPY 06/05/2013 Next Appt Details Provider Name:Chago johnson Jr, 01/25/2025 09:40:00 AM, [address] [facility], [address], [place], [address], Insurance Providers Payer Name Payer Address Payer Phone Subscriber Number Group Number Insured Name Patient Relationship to Insured Coverage Start Date Coverage End Date [facility] [address] [place] [phone] [id number] ROSALINA RYAN Self - patient is the insured 4 Medical (General) History Medical History History ICD Code colonoscopy 9-5-2002 colon polyps hypertension gout typhoid type II diabetes heart attack 2017 /cardiac stent/dr. upton th Surgical History Surgery Date(Month/Year) veins in legs [facility] [employer] 2018 skin graft 2009
[2024-07-24 13:38] LABS: Hematocrit 37.2 % (42.0-52.0); Hemoglobin 12.4 g/dl (14.0-18.0); Mean Corpuscular HGB Conc 33.3 g/dl (31.0-36.0); Mean Corpuscular Hemoglobin 30.5 pg (27.0-33.0); Mean Corpuscular Volume 91.4 fL (80.0-98.0); Mean Platelet Volume 11.9 fL (9.4-12.4); Platelet Count 142 X10*3/uL (160-400); Red Blood Count 4.07 X10*6/uL (4.60-5.80); Red Cell Distribution Width 13.5 % (11.0-16.0); White Blood Count 6.7 X10*3/uL (4.8-10.8)
[2024-07-24 14:29] LABS: Alanine Aminotransferase 22 U/L (0-40); Albumin Level 4.4 g/dL (3.5-5.0); Alkaline Phosphatase 35 U/L (39-117); Aspartate Amino Transferase 35 U/L (5-37); Bilirubin Direct 0.3 mg/dL (0.0-0.5); Bilirubin Total 0.7 mg/dL (0.0-1.0); Ferritin 64 ng/mL (20-250); Iron 91 mcg/dL (45-160); Lipase 22 U/L (8-78); Percent Iron Saturation 25 % (15-50); Total Iron Binding Capacity 362 mcg/dL (228-428); Total Protein 6.9 g/dL (6.5-8.0); Unsaturated Iron Binding 271 ug/dL
[2024-07-24 14:37] LABS: Vitamin B12 310 pg/mL (200-900)
== END 2024-07-24 10:56 | disposition home or self-care (01) ==
LOC: HO.HMGCLDS 10:55
PROVIDERS: PCP Internal Medicine; Visit Provider Internal Medicine Gastroenterology
DX: D64.9 Anemia, unspecified (principal)
CPT/HCPCS: 36415; 80076; 82607; 82728; 82746; 83540; 83690; 85027

== ENCOUNTER → 2024-09-14 08:55 | Outpatient (REF) | payer OTHER, SELFPAY ==
--- OUTSIDE RECORDS SUMMARY | 2024-01-28 07:15 | XMS_ITS | Continuity of Care Document ---
Author Organization [facility] Address [address] [place] [address] Phone Care Team Providers Care Motor And Chassis Inspector Name Role Phone Abhishek PULLIAM, RVT, RPVI, [...] Mins- CT & [place] Dank For Vein Sikhism [facility], [address] [place] [address] Dr Raman 1000SuBobo paulino MD, [id number], [place] tel:[phone] [facility] Hereditary lymphedemaVeno us insufficiency (chronic) (peripheral)Ly mphedema, not elsewhere classifiedType 2 diabetes mellitus without complicationsE ssential (primary) hypertensionDi sorder of pigmentation, unspecified 4 Abhishek PULLIAM RVT, MARCO Brownlee. [address] [place] [address], [place], [place], [id number] , [place]. tel:[phone] Referring Provider: Anne Ramirez MD Farhad, [address] [place] [address], [address]. tel:[phone] Dank For Vein Sikhism MD [facility], [address] [place] [address] Dr Raman 1000SuBobo paulino MD, [id number], [place] tel:[phone] [facility] Chronic venous hypertension (idiopathic) with other complications of bilateral lower extremity 4 Abhishek PULLIAM RVT, RPVI Robert. [address] [place] [address], [place], [place], [id number] , [place]. tel:[phone] Referring Provider: Anne Llamas, [address] [place] [address], [address]. tel:[phone] Dank Echeverria Vein Sikhism MD [facility], [address] [place] [address] Dr Danisha BravoSuBobo paulino MD, [id number], [place] tel:[phone] CV - [facility] Encounter for follow-up examination after completed treatment for conditions other than malignant neoplasmChroni c venous hypertension (idiopathic) with other complications of right lower extremity Oct-2 4 Abhishek PULLIAM RVT, MARCO Brownlee. [address] [facility], [place] [address], [place], [place], [id number] , [place]. [phone] Referring Provider: Anne Ramirez MD Farhad, [address], [place], [address]. tel:[phone] Dank Echeverria Vein Sikhism MD [facility], [address] [place] [address] Dr Raman 1000SuBobo paulino [place], [id number], [place] tel:[phone] [facility] Varicose veins of right lower extremity with other complications Oct-2 4 Abhishek PULLIAM RVT, RPVI Robert. [address] [place] [address], [place], [place], [id number] , [place]. [phone] Referring Provider: Anne Ramirez MD [place], [address] [facility] [address] [facility], [place], [address]. tel:[phone] Dank Echeverria Vein Sikhism [facility], [address] [place] [address] Dr Raman 1000SuBobo paulino MD, [id number], [place] tel:[phone] [facility] Chronic venous hypertension (idiopathic) with inflammation of right lower extremity Oct-2 4 Abhishek PULLIAM RVT, RPVI Robert. [address] [facility] [address], [place], [place], [id number] , [place]. [phone] Dank Echeverria Vein Sikhism MD [facility], [address] [place] [address] Dr Raman 1000SuBobo paulino MD, [id number], [place] tel:[phone] [facility]R [facility] Encounter for follow-up examination after completed treatment for conditions other than malignant neoplasmChroni c venous hypertension (idiopathic) with other complications of left lower extremity Oct-2 4 Abhishek MEGHANN PULLIAM RPVI Robert. [address] [place] [address], [address], [place], [id number] , [place]. [phone] Referring Provider: Kem eWiss MD, RVT, RPVI, [address] [place] [address] Suite [facility], [place], [address] . tel:[phone] [facility], [address] [place] [address] 1000[address], [place], [id number], [place] tel:[phone] CVR - [place] No Information Dec- 4 Abhishek PULLIAM RVT, RPVI Robert. [address] [place] [address], Suite [facility], [place], [id number] , [place]. [phone] [facility], [address] [place] [address] 1000Suite 1000Bobo [place], [id number], [place] tel:[phone] CVR - [place] [facility] [place] Varicose veins of left lower extremity with other complications Oct- 4 Abhishek PULLIAM RVT, RPVI Robert. [address] [place] [address], [place], [id number] , [place]. [phone] Referring Provider: Anne Ramirez MD Farhad, [address] [place] [address], [address]. tel:[phone] Dank For Vein Sikhism [facility], [address] [place] [address] 1000Suite [facility] [place], [id number], [place] tel:[phone] [facility] - [place] [facility] [place] Varicose veins of left lower extremity with other complications Oct- 4 Abhishek PULLIAM RVT, RPVI Robert. [address] [place] [address], [place] [address], [place], [id number] , [place]. tel:[phone] Referring Provider: Anne Ramirez MD Farhad, [address] [place] [address], [address]. tel:[phone] Offic/outpt E&m Estab 5 Min Trial- Telemedicine CT & [place] [facility], [address] [place] [address] Dr Raman 1000Suite 1000Bobo [place], [id number], [place] tel:[phone] [facility] - [place] Non-pressure chronic ulcer of left ankle with unspecified severityChroni c venous hypertension (idiopathic) with other complications of bilateral lower extremityLymph edema, not elsewhere classifiedType 2 diabetes mellitus without complicationsE ssential (primary) hypertensionDi sorder of pigmentation, unspecifiedHer editary lymphedema 4 Abhishek PULLIAM RVT, MARCO Brownlee. [address] [place] [address], [facility] [place], [id number] , [place]. [phone] Referring Provider: Anne Ramirez MD [place], [address] [place] [address], [place], [address]. tel:[phone] Offic Cons New/estab Mod-hi 60- CT & [place] [facility], [address] [place] [address] Dr Raman 1000Suite 1000Bobo [place], [id number], [place] tel:[phone] [facility] Essential (primary) hypertensionLy mphedema, not elsewhere classifiedNon- pressure chronic ulcer of left ankle with unspecified severityVenous insufficiency (chronic) (peripheral)Lo calized edemaType 2 diabetes mellitus without complicationsD isorder of pigmentation, unspecifiedHer editary lymphedema 4 Abhishek PULLIAM RVT, MARCO Brownlee. [address] [place] [address], [facility] [place], [id number] , [place]. tel:[phone] [facility], [address] [place] [address] Dr Raman 1000Suite 1000Bobo [place], [id number], [place] tel:[phone] [facility] Chronic venous hypertension (idiopathic) with ulcer of bilateral lower extremity 4 Abhishek PULLIAM RVT, RPVI Robert. [address] [place] [address], [address], [facility] [place], [id number] , [place]. [phone] Referring Provider: Kem Weiss MD, RVT, MARCO, [address] [place] [address] [address], [place], [address] . tel:[phone] Family History Family Member Type Diagnosis Age At Onset No Information Payers Payer name Insurance type Covered republican ID Con wallace(philip) [employer] Medicare CI [id number] Social History Type Description Quantity Date Captured [...] Of Treatment Date Type Action Status Goal Diet education completed Goal Tobacco cessation counseling completed Goal Tobacco cessation counseling completed Goal Diet education completed Goal Tobacco cessation counseling completed Referral Ordered: Weight management: Referral to [...] Information Instructions Date Instruction Additional Infor mation Diet education Related to Body mass index (BMI) 35.0-35.9, adult Giving Encouragement to exercise Related to Body mass index (BMI) 35.0-35.9, adult Patient education booklet given Related to Venous insufficiency (chronic) (peripheral) Lifestyle education Related to B kristie mass index (BMI) 35.0-35.9, adult Compression stocking usage as conservative measure Related to Venous insufficiency (chronic) (peripheral) Patient education booklet given Related to Non-pressure chronic ulcer of left ankle with unspecified severity Pre and post instruc tions reviewed and provided Related to Non-pressure chronic ulcer of left ankle with unspecified severity Diet education Related to Body mass index (BMI) 35.0-35.9, adult Giving Encouragement to exercise Related to Body mass index (BMI) 35.0-35.9, adult Lifestyle education Related to B kristie mass index (BMI) 35.0-35.9, adult Patient education booklet given Related to Non-pressure chronic ulcer of left ankle with unspecified severity Pre and post instruc tions reviewed and provided Related to Non-pressure chronic ulcer of left ankle with unspecified severity Assessments Type Assessment Date No Information Patient Care Teams Name Effective Dates (start - stop) Status Members No Information
--- NOTE | 2024-09-14 08:58 | CA_ITS ---
Transthoracic Echocardiogram Patient (Last, First, Middle): Eldon Rivas G Gender: Male Date of : 1950 Age: 74 Procedure Date: 09/14/2024 Procedure Type: Transthoracic Echocardiogram Location: OP Height: 190. cm Weight: 131.54 kg BSA: 2.56 m2 Heart Rate: 90 bpm BP: 130 / 60 mmHg Paint Mixer Hand: STPEHANIE Referring MD: Davonte Rodríguez MD Symptoms: I51.9 - Heart disease, unspecified Study Quality: Fair w/Contrast ECG Rhythm: Probable atral fibrillation Conclusions: - The left ventricular systolic function is mildly decreased. The calculated ejection fraction is 52% by biplane method. - No obvious valvular pathology seen on this study. Findings Procedure Information Contrast agent, definity, is being given per protocol without apparent complications. Left Ventricle Normal left ventricular cavity size. There is mildly increased left ventricular wall thickness. The left ventricular systolic function is mildly decreased. The calculated ejection fraction is 52% by biplane method. There is no evidence of regional wall motion abnormalities. Diastolic function is indeterminate on the basis of available data. Right Ventricle Moderately increased right ventricular cavity size. There is normal right ventricular systolic function. Atria Both atria are normal in size. Aortic Valve There is a normal trileaflet aortic valve. There is no aortic valve stenosis. There is no aortic valve regurgitation. Mitral Valve The mitral valve appears normal. There is no mitral valve regurgitation. There is no mitral valve stenosis. Pulmonic Valve The pulmonic valve is likely normal. Tricuspid Valve There is trace tricuspid valve regurgitation. There is no evidence of pulmonary hypertension. Great Vessels The asc aorta is normal in size. Venous The inferior vena cava is normal in size and collapses greater than 50% with inspiration. Pericardium/Pleural There is no evidence of pericardial effusion. Prior Study Comparison No significant change compared to prior study dated: 07/16/2022. Recommendations, Care & Conclusions No obvious valvular pathology seen on this study. Measurements 2D Linear Measurements IVSd: 0.96 0.6-0.9/0.6-1.0 cm LVIDd: 5.45 3.9-5.3/4.2-5.9 cm LVIDd Index: 2.13 2.4-3.2/2.2-3.1 cm/m2 LVIDs: 3.48 2.0-3.6 cm LVPWd: 1.19 0.7-1.1 cm LA Diam: 4.40 2.7-3.8/3.0-4.0 cm LAIDs Index: 1.72 1.5-2.3 cm/m2 LV Mass: 288.90 67-162/88-224 g LV Mass Index: 112.85 43-95/49-115 g/m2 LVOT Diam: 2.10 3.0+(-)1.3 cm 2D Systolic Function EF 4C: 51.50 >55% EF 2C: 49.40 >55% EF BiP: 51.70 >55% Mitral Valve MV Pk E: 1.07 MV Decel Time: 179.00 E'Lateral: 8.31 E'Medial: 7.67 E/E' Med: 14.00 E/E' Lat: 12.90 PHT: 53.00 MVA PHT: 4.15 Decel [place]: 6.15 Aortic Valve AoV Pk Ronan: 1.43 AoV Mn Ronan: 1.05 AoV VTI: 0.30 AoV Pk Grad: 8.00 Aov Mn Grad: 5.00 SHASTA Cont.VTI: 2.23 LVOT LVOT Pk Ronan: 0.90 LVOT Mn Ronan: 0.66 LVOT VTI: 0.19 LVOT Pk Grad: 3.00 LVOT Mn Grad: 2.00 LVOT Diam: 2.10 LVOT Area: 3.46 Diastolic Function MV Pk E: 1.07 E'Medial: 7.67 E/E' Med: 14.00 E' Laterial: 8.31 E/E' Lat: 12.90 Right Ventricle TAPSE (mm): 24.40 TVS' Ronan: 14.00 Tricuspid Valve TR Pk Ronan: 1.79 TR Pk Grad: 13.00 RA Press: 3.00 RVSP: 16.00 Great Vessels Aorta Sinus of Valsalva: 3.50 2.0-3.5 cm Ao Asc: 3.30 2.1-3.4 cm Ao Arch: 2.90 Pulmonary Valve PV Pk Ornan: 1.16 Peak PV Grad: 5.00 Updated in Other Vendor System with Status of Final Finesse Ku MD electronically signed on 09/15/2024 12:05:08 PM with status of Final
--- OUTSIDE RECORDS SUMMARY | 2024-09-14 09:08 | XMS_ITS | Patient Health Record ---
Author Organization [facility] Address [address] [place] [address] Care Team Providers Care Radiology Equipment Servicer Name Role Phone Ashley PULLIAM, Anne Primary Care Provider Minerva Galindo Jr, Chago Unavailable Allergies Allergen (clinical drug ingredient) Drug/Non Drug Allergy documented on EMR Reaction Allergy Type Onset Date Status bacitracin Bacitracin Unknown Drug Allergy Activ e Results Component Value Reference Range Notes Complete Blood Count no Diff Reviewed date:07/24/2024 02:58:54 PM Interpretation: Performing Lab:[facility], [address] [place] [phone] Notes/Report: White Blood Count 6.7 4.8-10.8 X10*3/uL Red Blood Count 4.07 4.60-5.80 X10*6/uL Hemoglobin 12.4 14.0-18.0 g/dl Hematocrit 37.2 42.0-52.0 % Mean Corpuscular Volume 91.4 80.0-98.0 fL Mean Corpuscular Hemoglobin 30.5 27.0-33.0 pg Mean Corpuscular HGB Conc 33.3 31.0-36.0 g/dl Red Cell Distribution Width 13.5 11.0-16.0 % Platelet Count 142 160-400 X10*3/uL Mean Platelet Volume 11.9 9.4-12.4 fL NRBC Pct Auto 0.0 0.0-0.2 /100WBC NRBC Abs Auto 0.000 0.0-0.012 X10*3/uL Liver Panel Reviewed date:07/24/2024 02:58:41 PM Interpretation: Performing Lab:[facility], [address] [place] [phone] Notes/Report: Bilirubin Total 0.7 0.0-1.0 mg/dL Bilirubin Direct 0.3 0.0-0.5 mg/dL Aspartate Amino Transferase 35 5-37 U/L Alanine Aminotransferase 22 0-40 U/L Total Protein 6.9 6.5-8.0 g/dL Albumin Level 4.4 3.5-5.0 g/dL Alkaline Phosphatase 35 39-117 U/L IRON PROFILE Reviewed date:07/24/2024 02:58:35 PM Interpretation: Performing Lab:[facility], [address] [place] [phone] Notes/Report: Iron 91 45-160 mcg/dL Total Iron Binding Capacity 362 228-428 mcg/d L Percent Iron Saturation 25 15-50 % Unsaturated Iron Binding 271 Ferritin Reviewed date:07/24/2024 02:58:27 PM Interpretation: Performing Lab:[facility], [address] [place] [phone] Notes/Report: Ferritin 64 20-250 ng/mL Lipase Reviewed date:07/24/2024 02:58:22 PM Interpretation: Performing Lab:[facility], [address] [place] [phone] Notes/Report: Lipase 22 8-78 U/L Vitamin B12 and Folate Reviewed date:07/24/2024 02:58:16 PM Interpretation: Performing Lab:[facility], [address] [place] [phone] Notes/Report: Vitamin B12 310 200-900 pg/mL NORMAL 200-900 PG/ML INDETERMINATE 160-199 PG/ML DEFICIENT < 160 PG/ML Folate 14.0 > or = 4.0 ng/mL Reference Values: > or = 4.0 ng/mL < 4.0 ng/mL suggests folate deficiency Methotrexate, aminopterin and folinic acid (leucovorin) are chemotherapeutic agents whose molecular structures are similar to folate; therefore, the Engine Service Repairer folate assay cannot be used for patients using these drugs. Reason For Referral No Information Medications Medication SIG (Take, Route, Frequency, Duration) Notes Start Date End Date Status Lisinopril 40 MG 1 tablet Orally Once a day Active Terazosin HCl 10 MG 1 capsule at bedtime Orally Once a day Active Jordan 3 1000 MG 2 capsules Orally tw [...] Vit/Fl Active Alpha Lipoic Acid Ac tive - Active Metoprolol Succinate 50 MG 1 capsule Ora lly Once a day Active metFORMIN HCl 1000 MG 1 tablet with a me al Orally twice a day Active Problems Problem Type SNOMED Code ICD Code Onset Dates Problem Status W/U Status Risk Notes Problem Long-term current use of drug therapy (537780638) Encounter for long-term (current) use of other medications (V58.69) Active confirmed Problem Colon cancer screening (996669942) Colon cancer screening (V76.51) Active confirmed Problem Current use of aspirin (V58.66) Active confirmed Problem Anemia (118506894) Anemia (D64.9) Active confirmed Vital Signs Blood pressure diastolic 77 mm Hg 07/23/2024 Height 74 in 07/23/2024 Blood pressure systolic 111 mm Hg 07/23/2024 Weight 299 lbs 07/23/2024 BMI 38.39 kg/m2 07/23/2024 Encounters Encounter Location Date Provider Diagnosis [facility] [address] [place] [address] 07/23/2024 Chago Galindo Jr Anemia D64.9 and Other specified symptoms and signs involving the digestive system and abdomen R19.8 [facility] [address] [place] [address] 04/27/2024 Chago Galindo Jr [facility] [address] [place] [address] 07/24/2024 Chago Galindo Jr Assessments Encounter Date Diagnosis (ICD Code) Assessment Notes Treatment Notes Treatment Clinical Notes Section Notes 07/23/2024 Other specified symptoms and signs involving the digestive system and abdomen (ICD-10 - R19.8) We discussed ane enoc today. We discussed his symptoms. We recommended further evaluation with laboratory testing and we discussed using fiber supplementation to help regulate his bowels. Appropriate testing has been ordered. Outside laboratory studies and pathology reports/procedure reports were reviewed in detail today. Follow-up will be in 6 to 12 months pending results. Today's visit was 45 minutes. 07/23/2024 Anemia (ICD-10 - D64.9) We discussed ane enoc today. We discussed his symptoms. We recommended further evaluation with laboratory testing and we discussed using fiber supplementation to help regulate his bowels. Appropriate testing has been ordered. Outside laboratory studies and pathology reports/procedure reports were reviewed in detail today. Follow-up will be in 6 to 12 months pending results. Today's visit was 45 minutes. Plan Of Treatment Pending Test Test Name Order Date LIVER PROFILE 07/23/2024 LIPASE 07/23/2024 IRON + IBC (FE) 07/23/2024 FERRITIN 07/23/2024 B12 07/23/2024 FOLATE 07/23/2024 CBC w/o DIFF 07/23/2024 Future Test Test Name Order Date COLONOSCOPY 06/05/2013 Next Appt Details Provider Name:Chago johnson Jr, 01/25/2025 09:40:00 AM, [address] [place] [address], [address], [place], [address], Insurance Providers Payer Name Payer Address Payer Phone Subscriber Number Group Number Insured Name Patient Relationship to Insured Coverage Start Date Coverage End Date [facility] [address] [place] [phone] [id number] ROSALINA RYAN Self - patient is the insured 4 Medical (General) History Medical History History ICD Code Colonoscopy 04/08/2023, multiple adenomas, 2-year follow-up. hypertension gout type II diabetes Coronary artery disease with history of stent placement and [place] MICHAEL BPH Peripheral vascular disease Surgical History Surgery Date(Month/Year) Laser therapy for lower extremity venous insufficiency Coronary stent placement 2017 skin graft 2008
== END ==
LOC: HO.CARD 08:55
PROVIDERS: PCP Internal Medicine; Visit Provider Internal Medicine Cardiovascular Disease
DX: I51.9 Heart disease, unspecified (principal)
CPT/HCPCS: 93306; Q9957

== ENCOUNTER → 2024-09-14 08:58 | Outpatient (BNV) | payer OTHER, SELFPAY | PROVIDERS: PCP Internal Medicine; Visit Provider Internal Medicine | DX: I51.9 Heart disease, unspecified (principal) | CPT/HCPCS: 93306 ==

== ENCOUNTER 2024-09-24 13:32 | Outpatient (AMB) | payer OTHER, SELFPAY ==
--- NOTE | 2024-09-24 13:33 | MHC.OFFVIS ---
Vital Signs 09/24/24 13:34 Height 6 ft 3 in Weight 293 lb 3.437 oz BMI 36.6 BP 120/78 Blood Pressure Location Lt brachial Position Sitting Pulse 90 Intake Visit Reasons: 1 yr f/up eccho Intake Note: 1 year follow-up with ekg after echo c/o fatigue Vascular Ultrasound Technician Required: No Allergies bacitracin (BACITRACIN) Allergy (Mild, Verified 04/15/24 09:52) DERMATITIS, rash, rash Medication List - Last Reconciled 09/24/24 by Davonte Rodríguez MD alpha lipoic acid 600 mg PO BID aspirin 81 mg PO DAILY blood sugar diagnostic (FreeStyle Lite Strips) Check Fasting blood sugar once a day as directed blood sugar diagnostic As directed blood-glucose meter (FreeStyle Lite Meter kit) check fasting glucoe once a day As directed cinnamon bark (Cinnamon) 1,000 mg PO DAILY coenzyme Q10 (Co Q-10) 200 mg PO DAILY [Customized heat molded multi- density inner soles( 3 pairs) As directed NS] Dexcom G7 Internet Sourcer (blood-glucose,endocrinology nurse,cont) As directed NS Dexcom G7 Sensor (blood-glucose sensor) every 10 days NS [Extra depth diabetic orthopedic shoes Extra depth diabetic orthopedic shoes 1 pair NS] ezetimibe 10 mg PO DAILY fenofibrate nanocrystallized 145 mg PO DAILY 90 days finasteride 5 mg PO DAILY 90 days fluticasone propionate 50 mcg/actuation (Flonase Allergy Relief) 2 sprays intranasal DAILY PRN furosemide (Lasix) 20 mg PO QAM lancets As directed lisinopril 40 mg PO DAILY metformin 1,000 mg PO BID 90 days metoprolol succinate ER 50 mg PO DAILY multivitamin (Multiple Vitamins tablet) 1 tab PO DAILY omega-3 acid ethyl esters 2 caps PO BID 90 days omeprazole 20 mg PO DAILY pioglitazone 45 mg PO DAILY rosuvastatin 40 mg PO DAILY terazosin 10 mg PO BEDTIME 90 days Trulicity (dulaglutide) 1.5 mg (0.5 mL) subcut QWEEK NS HPI Comments Details: Eldon comes for follow-up. He said he has been very fatigued and tired with significant amount of daytime somnolence. He has not had any cardiac symptoms. He said he has not been using his CPAP for awhile. He denies any prolonged palpitation irregular heartbeat. Recent echocardiogram shows low normal LV ejection fraction. Takes all his medications. No orthopnea, PND, leg edema. [facility] Medical History Hx of adenomatous colonic polyps Anemia Diabetes mellitus, without long-term current use of insulin Hammertoes of both feet Positive colorectal cancer screening using Cologuard test Vitamin D deficiency Hearing loss Hypertension Dyslipidemia Non-toxic multinodular goiter Diabetic neuropathy associated with type 2 diabetes mellitus Allergic rhinitis MICHAEL on CPAP Obesity CAD (coronary artery disease) Surgical History H/O colonoscopy Stented coronary artery Family History Father Diabetes Substance use disorder Mother Hypertension Mental health disorder Social History Housing: House Alcohol intake: never Patient Tobacco Use Status: Former Tobacco user e-Cigarette/Vaping Use: Never Used Current occupational status: retired Cognitive needs: No Hearing needs: Yes Vision needs: Yes Review of Systems Const Denies chills, Denies fatigue, Denies fever(s), Denies frequent falls, Denies weakness, Denies weight gain and Denies weight loss ENT Denies dizziness Card Denies chest pain, Denies leg edema, Denies lightheadedness, Denies palpitations, Denies dyspnea, Denies dyspnea on exertion, Denies orthopnea and Denies other (loss of consciousness) Resp Denies cough, Denies dyspnea and Denies dyspnea on exertion GI Denies hematochezia and Denies change in stool character Musc Denies abnormal gait, Denies muscle weakness, Denies numbness, Denies radiating pain into limb and Denies tingling Neuro Denies abnormal gait, Denies dizziness, Denies frequent falls, Denies numbness, Denies tingling and Denies weakness Endo Denies fatigue and Denies palpitations Physical Exam Vital Signs: Last Vital Signs Pulse 90 09/24/24 13:34 BP 120/78 09/24/24 13:34 BMI result Body Mass Index 36.6 Const Other: This is a telephone visit General: cooperative, comfortable, no acute distress, alert and awake Nutritional Appearance: obese Orientation/consciousness: patient oriented x3 Limitations: no limitations Neck Neck: Yes trachea midline, Yes supple and Yes no JVD Resp Effort & Inspection: normal respiratory effort Auscultation: clear to auscultation bilaterally Cardio Jugular venous distension: no JVD Palpation: normal PMI Rate: regular rate Rhythm: abnormal rhythm with ectopic beats Heart sounds: S1 normal heart sound present and S2 normal heart sound present GI Inspection: Yes obesity Auscultation: normal bowel sounds Skin General skin exam: no rashes or lesions noted Neuro General: patient oriented x3 and no focal motor deficits Extrem General: Yes no clubbing, cyanosis or edema Psych Appearance: grossly normal Office Procedures EKG Details: EKG shows normal sinus rhythm with PACs with right bundle-branch block with inferior infarct [id number], Complete Assessment & Plan Assessment & Plan (1) CAD (coronary artery disease): Code(s): I25.10 - Atherosclerotic heart disease of qagan tayagungin coronary artery without angina pectoris Category: Medical Plan: CAD with no recurrent symptoms with prior stenting of the OM branch for acute coronary syndrome. Currently on good medical therapy. Advise lifelong aspirin therapy. Continue aggressive risk factor modification. Currently on high-intensity statin therapy with ezetimibe and fenofibrate therapy. Target goal LDL less than 70 mg/dL. Continue aggressive blood pressure control, see below. Continue aggressive diabetes management being pursue through your office. (2) Hypertension: Code(s): I10 - Essential (primary) hypertension Category: Medical Qualifiers: Hypertension type: primary hypertension Qualified Code(s): I10 - Essential (primary) hypertension Plan: Hypertension which is currently well optimized advised to monitor blood pressure at home maintain a log. Goal blood pressure less than 130/84. He had symptoms of fatigue and tiredness and daytime somnolence due to untreated sleep apnea. Strongly recommend to resume therapy. Will refer him to Dr. Hgugins to reestablish. Will follow up in the clinic in 1 year's time, sooner p.r.n.. Thank you for allowing me to partake in his care Coding Level of Care Code Est Pt Level 4 (93941) Complex EM visit Add On G2211 Diagnoses CAD (coronary artery disease) I25.10 Primary hypertension I10 Hypertension type: primary hypertension CPT Codes EKG - CPT: 05289-Ziikuuziaowvgxavc, Complete ([id number])
[2024-09-24 13:34] VITALS: BP 120/78; PULSE 90; BMI 36.6
== END 2024-09-24 14:36 | disposition home or self-care (01) ==
LOC: HO.HCS 13:32
PROVIDERS: PCP Internal Medicine; Visit Provider Internal Medicine Cardiovascular Disease
DX: I25.10 Atherosclerotic heart disease of native coronary artery without angina pectoris (principal); I10 Essential (primary) hypertension
CPT/HCPCS: 93010; 99214; G2211

== ENCOUNTER → 2024-09-24 13:32 | Outpatient (BNVA) | payer OTHER, SELFPAY | PROVIDERS: PCP Internal Medicine; Visit Provider Internal Medicine Cardiovascular Disease | DX: I25.10 Atherosclerotic heart disease of native coronary artery without angina pectoris (principal); I10 Essential (primary) hypertension; I49.1 Atrial premature depolarization; I45.10 Unspecified right bundle-branch block; R40.0 Somnolence; R53.83 Other fatigue | CPT/HCPCS: 93005 ==

== ENCOUNTER 2024-09-30 10:50 | Outpatient (REF) | payer OTHER, SELFPAY ==
--- OUTSIDE RECORDS SUMMARY | 2024-09-30 11:50 | XMS_ITS | Patient Health Record ---
Author Organization [facility] Griselda banerjee Vida Address [address] [facility] [place] [address] Care Team Providers Care Installation Superintendent Name Role Phone Ashley PULLIAM, Anne Llamas Primary Care Provider Un available Kahlil Smith Unavailable [phone] Allergies Allergen (clinical drug ingredient) Drug/Non Drug [...] (HH) 6.1 HEMOGLOBIN A1C (GLYCOHEMOGLO BIN) Reviewed date:08/17/2024 09:25:06 AM Interpretation: Performing Lab: Notes/Report: HEMOGLOBIN A1C % (HH) 6.8 HEMOGLOBIN A1C (GLYCOHEMOGLO BIN) Reviewed date:08/26/2024 03:58:29 PM Interpretation: Performing Lab: Notes/Report: HEMOGLOBIN A1C % (HH) 5.8 Reason For Referral No Information Medications Medication SIG (Take, Route, Frequency, Duration) Notes Start Date End Date Status Extra Depth Orthopedic Shoes (1 Pair) with Customized Heat Molded Multidensity Innersoles (3 Pair) as directed Dx: NIDDM/Polyneuropathy (E11.42), Hammertoe Foot Deformity (M20.41,M20.42), Preulcerative Skin Lesion(s) (L85.1 05/20/2023 Active Vitamin D3 Active Terazosin HCl 10mg Active Lisinopril Active Furosemide Active Finasteride 5 MG 1 tablet Orally Once a day; Duration: 30 day(s) Active Finacea Active Tamsulosin HCl 0.4 MG 1 capsule 30 minut es after the same meal each day Orally Once a day Not-Taking Pumpkin Seed Oil Act maximilian [place]-3 1000 MG 2 capsule Orally Twi ce a day Active Metoprolol Succinate Active Metformin & Diet Manage Prod Active Fenofibrate 145 MG 1 tablet Orally Once a day Active DHEA Not-Taking Daily Vitamin Active Chromium Picolate No t-Taking [place] Not-Sukhjinder ing Ciclopirox Olamine 0.77 % 1 application to affected area Externally Twice a day to effected areas on feet; Duration: 30 days 08/26/2024 Active Cephalexin 500 MG 1 capsule Orally Fou r times a day; Duration: 5 day(s) Not-Taking Crestor 40 MG Orally Not-Ta damaris Brilinta 60 MG Orally Not-T aking Night Splint AFO - L1930 1 wear at rest; Duration: 30 days Not-Taking Trulicity Active Cinnamon Active Aspirin 81 MG 1 tablet Orally Once a day Active Soolantra Not-Taking Alpha Lipoic Acid 600 mg Orally Active Isosorbide Mononitrate Not-Taking Actos 30 MG 1 tablet Orally Once a day Active Invokana 300 MG 1 tablet Orally Once a day Not-Taking CoQ10 Active Immunizations Vaccine Route Administration Date Status Comme nts Influenza Unknown 12/16/2014 Administered Influenza Unknown 01/10/2016 Administered Influenza Unknown 12/24/2016 Administered Influenza Unknown 12/16/2017 Administered Influenza Unknown 12/04/2018 Administered Influenza Unknown 03/04/2024 Administered Pneumococcal Unknown 01/25/2010 Administered Social History [...] Problem Acquired hammer toe of right foot (130395562736 9105) Other hammer toe(s) (acquired), right foot (M20.41) Active confirmed Problem Acquired hammer toe of left foot (366027161682 9103) Other hammer toe(s) (acquired), left foot (M20.42) Active confirmed Problem Type 2 diabetes mellitus with diabetic polyneuropathy (E11.42) Active confirmed Vital Signs Blood pressure diastolic 73 mm Hg 08/17/2024 Height 6ft 2in in 08/26/2024 Blood pressure systolic 130 mm Hg 08/17/2024 Weight 295 lbs 08/26/2024 BMI 37.87 kg/m2 08/26/2024 Procedures Procedure Date Ordered Date Performed Result Body Sit e 06688-XSIXBCA NAIL, 6 OR MORE 11/18/2023 N/A 15977-Wciciucq Plate 11/18/2023 N/A 36639-Hadkdxiw Plate Each Additional 11/18/2023 N/A 06678-JFTH SKIN LESIONS, OVER 4 11/18/2023 N/A 96400-XQZLIOT NAIL, 6 OR MORE 05/25/2024 N/A 88786-AYVH SKIN LESIONS, OVER 4 05/25/2024 N/A 66444-WBEZMZD NAIL, 6 OR MORE 08/17/2024 N/A 31425-BNGP SKIN LESIONS, OVER 4 08/17/2024 N/A Encounters Encounter Location Date Provider Diagnosis [facility] [address] 11/06/2023 Kahlil Luis Pain in right foot M79.671 ; Plantar fasciitis of right foot M72.2 ; Calcaneal spur, right foot M77.31 ; Interstitial myositis of right foot M60.171 and Bursitis of right foot M77.[address] [facility] [address] 11/18/2023 Kahlil Luis Type 2 diabetes mellitus with diabetic polyneuropathy E11.42 ; Tinea unguium B35.1 ; Ingrown nail L60.0 and Plantar fasciitis of right foot M72.2 [facility] [address] [address] 05/25/2024 Kahlil Shepardier Type 2 diabetes mellitus with diabetic polyneuropathy E11.42 ; Tinea unguium B35.1 ; Other hammer toe(s) (acquired), right foot M20.41 and Other hammer toe(s) (acquired), left foot M20.[address] [address] 08/17/2024 Kahlil Smith Type 2 diabetes mellitus with diabetic polyneuropathy E11.42 and Tinea unguium B35.[address] [address] 08/26/2024 Kahlil Smith Tinea pedis of both feet B35.[address] [address] 02/17/2024 Kahlil Smith [address] [address] 08/20/2024 Kahlil Smith Assessments Encounter Date Diagnosis (ICD Code) Assessment Notes Treatment Notes Treatment Clinical Notes Section Notes 11/06/2023 Pain in right foot (ICD-10 - [...] E11.42) 05/25/2024 Tinea unguium (ICD-10 - B35.1) 08/17/2024 Type 2 diabetes mellitus with diabetic polyneuropathy (ICD-10 - E11.42) 08/17/2024 Tinea unguium (ICD-10 - B35.1) 08/26/2024 Tinea pedis of both feet (ICD-10 - B35.3) 05/25/2024 Other hammer toe(s) (acquired), right foot (ICD-10 - M20.41) Patient Educated with: DIABETIC FOOT CARE INSTRUCTIONS. pdf (DIABETIC FOOT CARE INSTRUCTIONS. pdf) 11/18/2023 Ingrown nail (ICD-10 - L60.0) 11/06/2023 Calcaneal spur, right foot (ICD-10 - M77.31) 11/18/2023 Plantar fasciitis of right foot (ICD-10 [...] X ray : Foot, right 3V 11/06/2023 36065-GITUUYX NAIL, 6 OR MORE 11/18/2023 13061-SHXTJSZ NAIL, 6 OR MORE 05/25/2024 88528-FVXETXP NAIL, 6 OR MORE 05/20/2023 22429-WOKCXMM NAIL, 6 OR MORE 08/19/2023 20518-OPGITNQ NAIL, 6 OR MORE 08/17/2024 33448-WXKUTTA NAIL, 6 OR MORE 04/13/2021 71625-OOKXSUY NAIL, 6 OR MORE 07/12/2021 00617-UTQHUJY NAIL, 6 OR MORE 10/11/2021 05370-CLKCDQF NAIL, 6 OR MORE 01/29/2022 10606-CFSSHLC NAIL, 6 OR MORE 04/30/2022 12082-KHFDCWM NAIL, 6 OR MORE 08/06/2022 22783-VLHCFDK NAIL, 6 OR MORE 11/12/2022 69273-QGSXCTZ NAIL, 6 OR MORE 02/18/2023 42522-DIGUVBG NAIL, 6 OR MORE 07/22/2015 19516-DSWFMMC NAIL, 6 OR MORE 10/14/2015 09621-YAHZZJS NAIL, 6 OR MORE 01/13/2016 47415-JPZPPIQ NAIL, 6 OR MORE 04/27/2016 33984-SCJVECP NAIL, 6 OR MORE 07/27/2016 95191-ZRICPPN NAIL, 6 OR MORE 11/02/2016 74542-HPMRJMV NAIL, 6 OR MORE 02/01/2017 29719-MPWXRPQ NAIL, 6 OR MORE 05/03/2017 24126-OLYTRFQ NAIL, 6 OR MORE 09/05/2017 07644-TMVKOKG NAIL, 6 OR MORE 12/05/2017 49501-NOXERFS NAIL, 6 OR MORE 03/19/2018 10280-XMACFYI NAIL, 6 OR MORE 06/18/2018 07938-JPIIIVD NAIL, 6 OR MORE 09/17/2018 91402-AFCQAVD NAIL, 6 OR MORE 12/17/2018 19914-FYHNIUT NAIL, 6 OR MORE 03/18/2019 08048-VHSEWIM NAIL, 6 OR MORE 07/15/2019 92374-CKPOAKF NAIL, 6 OR MORE 10/14/2019 65605-CTFTTUR NAIL, 6 OR MORE 01/13/2020 40431-PAPNIQX NAIL, 6 OR MORE 04/13/2020 83882-LDBWMML NAIL, 6 OR MORE 07/13/2020 73334-WMWGTVI NAIL, 6 OR MORE 10/12/2020 99499-XRLMCET NAIL, 6 OR MORE 01/12/2021 30371-Mynzzgiz Plate 01/12/2021 96417-Rhwhkuix Plate 10/12/2020 56593-Nzxqyxat Plate 07/13/2020 55598-Xcclcomp Plate 04/13/2020 03433-Llhcdmco Plate 01/13/2020 17297-Naaxzthd Plate 10/14/2019 27398-Qjqneyha Plate 07/15/2019 78164-Ikryureb Plate 03/18/2019 41192-Ncsvrrbi Plate 12/17/2018 86221-Nyxpvhba Plate 09/17/2018 03060-Xjbveqwa Plate 03/19/2018 30656-Ycduertx Plate 12/05/2017 80329-Fruihhwh Plate 09/05/2017 78452-Fznzigep Plate 02/18/2023 65242-Wbvyuisw Plate 11/12/2022 50814-Salxktvh Plate 08/06/2022 08934-Cxnnwump Plate 04/30/2022 95995-Ywlmsczw Plate 01/29/2022 24195-Fsikejpk Plate 10/11/2021 31341-Emvgyegw Plate 07/12/2021 49184-Jbocwpfk Plate 04/13/2021 35791-Mpzonswk Plate 07/27/2016 87004-Pazjhmhz Plate 08/19/2023 86396-Hnycytik Plate 05/20/2023 04795-Xbxdazig Plate 06/18/2018 75283-Nlfqnyzr Plate 11/18/2023 81983-Siefuele Plate Each Additional 25437-Pgjrxmab Plate Each Additional 50321-Pbrpkbbp Plate Each Additional 92606-Xrhhdyrh Plate Each Additional 12/2021 29570-Npcjrgke Plate Each Additional 01/2022 76589-Cvlnzkmz Plate Each Additional 12/2021 42178-Qvrhoqcj Plate Each Additional 69355-Adagdysb Plate Each Additional 93220-Txsbexqw Plate Each Additional 07/2022 70255-Wcsuuevn Plate Each Additional 01/2023 12203-Wdopbthf Plate Each Additional 41359-Ckltrzci Plate Each Additional 55964-Ufxsqbxc Plate Each Additional 06237-Vmffbvbs Plate Each Additional 31646-Ikvdhfev Plate Each Additional 11153-Pmqfgibt Plate Each Additional 09265-Kgfkjkkf Plate Each Additional 49693-Doookftp Plate Each Additional 02/2020 27272-Wohvrzqe Plate Each Additional 01/2020 63741-Japbtirl Plate Each Additional 12/2020 51909-Zbroiohr Plate Each Additional 02/2021 84400-Ofencufd Plate Each Additional 01/2021 58335-Wexvxoxj Plate Each Additional 01/2021 19045-GZWR SKIN LESIONS, OVER 4 01/13/20 21 55760-KTKR SKIN LESIONS, OVER 4 10/13/19 21 23676-NRCI SKIN LESIONS, OVER 4 07/14/19 21 60436-NZWY SKIN LESIONS, OVER 4 04/13/19 21 05454-MEJN SKIN LESIONS, OVER 4 01/13/20 20 66149-XAMC SKIN LESIONS, OVER 4 10/14/19 20 28235-ZUOM SKIN LESIONS, OVER 4 07/15/19 11437-THDZ SKIN LESIONS, OVER 4 03/18/19 58930-IAOX SKIN LESIONS, OVER 4 12/18/19 04697-EOFQ SKIN LESIONS, OVER 4 09/18/19 05031-YELV SKIN LESIONS, OVER 4 03/19/19 13879-NHCK SKIN LESIONS, OVER 4 12/06/19 10425-PEUM SKIN LESIONS, OVER 4 09/06/19 97498-RYQU SKIN LESIONS, OVER 4 05/04/19 95099-TJWD SKIN LESIONS, OVER 4 02/19/20 80707-KRWN SKIN LESIONS, OVER 4 11/13/19 67848-TXBX SKIN LESIONS, OVER 4 08/07/19 81355-QSEJ SKIN LESIONS, OVER 4 04/30/19 17043-NKCP SKIN LESIONS, OVER 4 01/30/20 52369-OWLL SKIN LESIONS, OVER 4 10/12/19 96273-PDME SKIN LESIONS, OVER 4 07/13/19 03589-PZCT SKIN LESIONS, OVER 4 04/13/19 23358-FQSS SKIN LESIONS, OVER 4 08/19/19 86556-LAPH SKIN LESIONS, OVER 4 05/20/19 41027-CTFM SKIN LESIONS, OVER 4 11/18/19 24921-ZPGQ SKIN LESIONS, OVER 4 06/19/19 12652-VCVO SKIN LESIONS, OVER 4 05/26/19 36724-ABNZ SKIN LESIONS, OVER 4 08/18/19 47880-BQAR SKIN LESIONS, 2 TO 4 02/02/20 17 28471-EDZV SKIN LESIONS, 2 TO 4 11/03/19 17 74097-KADA SKIN LESIONS, 2 TO 4 04/27/19 17 75754-NXNY SKIN LESIONS, 2 TO 4 07/28/19 17 61734-LYDX SKIN LESIONS, 2 TO 4 01/13/20 16 90693-MDJA SKIN LESIONS, 2 TO 4 10/14/19 16 51158-FUBO SKIN LESIONS, 2 TO 4 07/22/19 16 Next Appt Details Provider Name:Kahlil Sp Smith , 11/18/2024 09:00:00 AM, [address] [facility], [address], [place], [address], Insurance Providers Payer Name Payer Address Payer Phone Subscriber Number Group Number Insured Name Patient Relationship to Insured Coverage Start Date Coverage End Date [employer] [place] [employer] [address] [facility] [place] [address] [id number] Eldon Ryan Self - patient is the insured Medical (General) History Medical History History ICD Code mumps measles chicken pox high blood pressure diabetic type ll Arthritis Diverticulosis High blood pressure Measles Mumps Chicken pox Cholesterol [place] - 5'18 Surgical History Surgery Date(Month/Year) skin graft 2008 umbilical hernia repair 01/2004 cardiac catheterization Boil removed from arm 02/2019 kidney stones 2021 cyst removal, back 01/05/22 colonoscopy Hospitalization History Reason Date(Month/Year) Dr. De La Torre [facility] UTI-given Antibiotics 202 2 Walk in- foot injury 06/2021 PT For left shoulder 03/2018 [facility]-Heart Attack 07/26/2017
--- OUTSIDE RECORDS SUMMARY | 2024-09-30 11:50 | XMS_ITS | Patient Health Record ---
Author Organization [facility] Address [address] [place] [address] Care Team Providers Care Manager News Name Role Phone Ashley PULLIAM, Anne Primary Care Provider Minerva Galindo Jr, Chago Unavailable Allergies Allergen (clinical drug ingredient) Drug/Non Drug Allergy documented on EMR Reaction Allergy Type Onset Date Status bacitracin Bacitracin Unknown Drug Allergy Activ e Results Component Value Reference Range Notes Complete Blood Count no Diff Reviewed date:07/24/2024 02:58:54 PM Interpretation: Performing Lab:[facility], [address] [place] [phone] Notes/Report: White Blood Count 6.7 4.8-10.8 X10*3/uL [...] Panel Reviewed date:07/24/2024 02:58:41 PM Interpretation: Performing Lab:[facility], [address] [place] [phone] Notes/Report: Bilirubin Total 0.7 0.0-1.0 mg/dL Bilirubin Direct 0.3 0.0-0.5 mg/dL Aspartate Amino Transferase 35 5-37 U/L Alanine Aminotransferase 22 0-40 U/L Total Protein 6.9 6.5-8.0 g/dL Albumin Level 4.4 3.5-5.0 g/dL Alkaline Phosphatase 35 39-117 U/L IRON PROFILE Reviewed date:07/24/2024 02:58:35 PM Interpretation: Performing Lab:[facility], [address] [place] [phone] Notes/Report: Iron 91 45-160 mcg/dL Total Iron Binding Capacity 362 228-428 mcg/d L Percent Iron Saturation 25 15-50 % Unsaturated Iron Binding 271 Ferritin Reviewed date:07/24/2024 02:58:27 PM Interpretation: Performing Lab:[facility], [address] [place] [phone] Notes/Report: Ferritin 64 20-250 ng/mL Lipase Reviewed date:07/24/2024 02:58:22 PM Interpretation: Performing Lab:[facility], [address] [place] [phone] Notes/Report: Lipase 22 8-78 U/L Vitamin B12 and Folate Reviewed date:07/24/2024 02:58:16 PM Interpretation: Performing Lab:[facility], [address] [place] [phone] Notes/Report: Vitamin B12 310 200-900 pg/mL NORMAL 200-900 PG/ML INDETERMINATE 160-199 PG/ML DEFICIENT < 160 PG/ML Folate 14.0 > or = 4.0 ng/mL Reference Values: > or = 4.0 ng/mL < 4.0 ng/mL suggests folate deficiency Methotrexate, aminopterin and folinic acid (leucovorin) are chemotherapeutic agents whose molecular structures are similar to folate; therefore, the Children Counselor folate assay cannot be used for patients using these drugs. Reason For Referral No Information Medications Medication SIG (Take, Route, Frequency, Duration) Notes Start Date End Date Status Lisinopril 40 MG 1 tablet Orally Once a day Active Terazosin HCl 10 MG 1 capsule at bedtime Orally Once a day Active [place] 3 1000 MG 2 capsules Orally tw [...] Problem Long-term current use of drug therapy (385630950) Encounter for long-term (current) use of other medications (V58.69) Active confirmed Problem Colon cancer screening (751974400) Colon cancer screening (V76.51) Active confirmed Problem Current use of aspirin (V58.66) Active confirmed Problem Anemia (501663630) Anemia (D64.9) Active confirmed Vital Signs Blood pressure diastolic 77 mm Hg 07/23/2024 Height 74 in 07/23/2024 Blood pressure systolic 111 mm Hg 07/23/2024 Weight 299 lbs 07/23/2024 BMI 38.39 kg/m2 07/23/2024 Encounters Encounter Location Date Provider Diagnosis [facility] [address] [place] [address] 07/23/2024 Chago Galindo Jr Anemia D64.9 and Other specified symptoms and signs involving the digestive system and abdomen R19.8 [facility] [address] [place] [address] 04/27/2024 Chago Galindo Jr [facility] [address] [place] [address] 07/24/2024 Chago Galindo Jr Assessments Encounter Date [...] Provider Name:Chago johnson Jr, 01/25/2025 09:40:00 AM, [address] [place] [address], [address], [place], [address], Insurance Providers Payer Name Payer Address Payer Phone Subscriber Number Group Number Insured Name Patient Relationship to Insured Coverage Start Date Coverage End Date [facility] [address] [place] [address] [id number] ROSALINA RYAN Self - patient is the insured 4 Medical (General) History Medical History History ICD Code Colonoscopy 04/08/2023, multiple adenomas, 2-year follow-up. hypertension gout type II diabetes Coronary artery disease with history of stent placement and [place] MICHAEL BPH Peripheral vascular disease Surgical History Surgery Date(Month/Year) Laser therapy for lower extremity venous insufficiency Coronary stent placement 2017 skin graft 2008
[2024-09-30 13:20] LABS: MANUAL DIFF FLAG NO
[2024-09-30 13:38] LABS: Hematocrit 37.9 % (42.0-52.0); Hemoglobin 12.6 g/dl (14.0-18.0); Imm Gran Abs Auto 0.01 X10*3/uL (0.00-0.03); Imm Gran Pct Auto 0.2 % (0.0-0.4); Lymphocytes Absolute Auto 2.1 X10*3/uL (1.2-4.9); Mean Corpuscular HGB Conc 33.2 g/dl (31.0-36.0); Mean Corpuscular Hemoglobin 31.0 pg (27.0-33.0); Mean Corpuscular Volume 93.3 fL (80.0-98.0); NRBC Abs Auto 0.000 X10*3/uL (0.0-0.012); NRBC Pct Auto 0.0 /100WBC (0.0-0.2); Platelet Count 163 X10*3/uL (160-400); Red Blood Count 4.06 X10*6/uL (4.60-5.80); White Blood Count 6.4 X10*3/uL (4.8-10.8)
[2024-09-30 13:50] LABS: Hemoglobin A1C 151.3697 umol/L; Total Hemoglobin (HGBA1C) 3293.0449 umol/L
[2024-09-30 14:10] LABS: Alanine Aminotransferase 24 U/L (0-40); Albumin Level 4.5 g/dL (3.5-5.0); Alkaline Phosphatase 29 U/L (39-117); Anion Gap 13 (12-20); Aspartate Amino Transferase 40 U/L (5-37); Blood Urea Nitrogen 18 mg/dL (9-16); Calcium 9.7 mg/dL (8.4-10.2); Carbon Dioxide 26 mmol/L (22-29); Chloride 107 mmol/L (96-108); Cholesterol 92 mg/dL (<200); Estimated Glomerular Filt Rate 52; HDL Cholesterol 28 mg/dL (>40); Potassium 4.1 mmol/L (3.3-5.1); Sodium 142 mmol/L (135-145); Total Protein 7.0 g/dL (6.5-8.0); Triglycerides 140 mg/dL (<150)
[2024-09-30 14:32] LABS: Prostate Specific Antigen 2.30 ng/mL (<0.05-4.0)
[2024-09-30 14:49] LABS: Microalbum/Creatinine Ratio Ur 7.5 ug/mg cr (<30)
== END 2024-09-30 10:51 | disposition home or self-care (01) ==
LOC: HO.HMGCLDS 10:50
PROVIDERS: PCP Internal Medicine; Referring Provider Internal Medicine; Visit Provider Urology
DX: N40.1 Benign prostatic hyperplasia with lower urinary tract symptoms (principal); N13.8 Other obstructive and reflux uropathy; E11.42 Type 2 diabetes mellitus with diabetic polyneuropathy
CPT/HCPCS: 36415; 80053; 80061; 82043; 82570; 83036; 84153; 85025

== ENCOUNTER 2024-10-06 10:50 | Outpatient (AMB) | payer MEDICARE, SELFPAY ==
--- NOTE | 2024-10-06 10:51 | A.OFFVIS_ITS ---
Intake Visit Reasons: 1yr/PSA/PVR Intake Note: Patient is Present for 1 yr follow up Urology Med: Terazosin, Antibiotic Allergy:Bacitracin Blood Thinner:Aspirin Todays PVR : 64 mls Labs done : 09/30/2024 PSA 2.30 Housing Director Required: No Accompanied by: Self / Same As Patient Allergies bacitracin (BACITRACIN) Allergy (Mild, Verified 10/06/24 10:52) DERMATITIS, rash, rash HPI Comments Details: Eldon is a pleasant male. He is a patient of Dr. Ramirez. He is seen for the following urologic conditions - lower urinary tract symptoms Yearly follow-up On combination terazosin and finasteride Urgency and frequency has changed after signing Lasix recently PVR remains low 60 cc Twelve month follow-up Continue finasteride 3 times a week Lower urinary tract symptoms PSA 07/22 4.25, 03/25 1.3, 09/22 1.8, 09/23 1.0, 09/25 2.3 Current visit is for - further symptom evaluation of obstructive symptoms Current treatment includes - finasteride with 10 mg terazosin Prior treatments include -tamsulosin 0.4 mg not sufficient Prostate Symptom Score - 02/20 moderate,Bother 4 - 04/24 mild, bother 2, nocturia x1 and improving Symptoms include - initial - weak stream, incomplete emptying, nocturia Results from testing include - ultrasound pending Prior Prostate Score unknown Prostate volume 50 g Associated conditions CAD No CVA No Diabetes yes - with urgency Elevated PSA No Erectile Dysfunction yes Testing at next visit will include - pvr, with psa Renal cyst - 03/24 Renal US 4 cm left upper pole renal cyst - 08/23 Ct with stable cyst - small kidney stones PFSH Medical History Hx of adenomatous colonic polyps Anemia Diabetes mellitus, without long-term current use of insulin Hammertoes of both feet Positive colorectal cancer screening using Cologuard test Vitamin D deficiency Hearing loss Hypertension Dyslipidemia Non-toxic multinodular goiter Diabetic neuropathy associated with type 2 diabetes mellitus Allergic rhinitis MICHAEL on CPAP Obesity CAD (coronary artery disease) Surgical History H/O colonoscopy Stented coronary artery Family History Father Diabetes Substance use disorder Mother Hypertension Mental health disorder Social History Housing: House Alcohol intake: never Patient Tobacco Use Status: Former Tobacco user e-Cigarette/Vaping Use: Never Used Current occupational status: retired Cognitive needs: No Hearing needs: Yes Vision needs: Yes Review of Systems Const Denies chills and Denies fever(s) Card Reports no additional complaints and Denies syncope Resp Denies cough GI Denies abdominal pain and Denies heartburn Reports as per HPI and Denies change in libido Neuro Denies syncope Psych Denies change in libido Endo Denies change in libido Physical Exam Const General: cooperative, healthy appearing, comfortable and no acute distress Orientation/consciousness: patient oriented x3 HEENT Face and sinus: Yes normal facial exam Mouth: moist mucous membranes Neck Neck: Yes normal visual inspection, Yes full ROM and Yes trachea midline Chest Chest palpation & inspection: normal inspection of the chest Resp Effort & Inspection: normal respiratory effort, able to speak in complete sentences and no respiratory distress GI Inspection: Yes normal to inspection Back/Spine/Pelvis Cervical Spine: normal cervical lordosis Thoracic/Lumbar Spine: thoracic and lumbar spine normal to inspection Skin General skin exam: no rashes or lesions noted Neuro General: patient oriented x3, gait normal, tone normal and moves all extremities Extrem General: Yes normal to inspection and Yes capillary refill normal Assessment & Plan Assessment & Plan (1) Erectile dysfunction associated with type 2 diabetes mellitus: Code(s): E11.69 - Type 2 diabetes mellitus with other specified complication; N52.1 - Erectile dysfunction due to diseases classified elsewhere Category: Medical (2) BPH w urinary obs/LUTS: Code(s): N40.1 - Benign prostatic hyperplasia with lower urinary tract symptoms; N13.8 - Other obstructive and reflux uropathy Category: Medical Plan Lab work now three-month follow-up Orders: Orders Testosterone, Free/Total Today E11.69 - Type 2 diabetes mellitus with other specified complication, N52.1 - Erectile dysfunction due to diseases classified elsewhere Medications: New tadalafil 5 mg PO DAILY 90 tabs 0RF BPH 90 days N13.8 - Other obstructive and reflux uropathy, N40.1 - Benign prostatic hyperplasia with lower urinary tract symptoms tadalafil [id number] [facility] GroupGDRX Member [id number] 20 mg PO ONCE PRN 30 tabs 1RF sexual activity 30 days E11.69 - Type 2 diabetes mellitus with other specified complication, N52.1 - Erectile dysfunction due to diseases classified elsewhere Refilled terazosin 10 mg PO BEDTIME 90 caps 1RF 90 days N13.8 - Other obstructive and reflux uropathy, N40.1 - Benign prostatic hyperplasia with lower urinary tract symptoms finasteride 5 mg PO DAILY 90 tabs 3RF 90 days N13.8 - Other obstructive and reflux uropathy, N40.1 - Benign prostatic hyperplasia with lower urinary tract symptoms, R33.9 - Retention of urine, unspecified Patient Instructions: This note is constructed using voice recognition software. While every effort has been made to ensure accuracy medical transcription radiology errors may have been included. Imaging studies, laboratory and physical exam results were discussed and reviewed in detail. No major barriers to patient understanding were identified. An opportunity to ask questions regarding the treatment plan was provided. All questions were answered. The patient expressed understanding and agreement with the above treatment plan. The patient is aware they should contact our office by phone for worsening of their current condition or the appearance of new urologic symptoms. Compliance is encouraged with any medications and followup testing that is ordered. It is a privilege to participate in the urologic care of your patient. If you have any questions or concerns regarding treatment for the above conditions, or other urologic issues, please do not hesitate to contact me. The office telephone contact is [phone]. Sincerely, Dr Wes Stephens MD, [facility] - Urology Compassionate Specialist Care for the Genitourinary System Coding Level of Care Code Est Pt Level 4 (13053) Complex EM visit Add On G2211 Diagnoses Erectile dysfunction associated with type 2 diabetes mellitus E11.69; N52.1 BPH w urinary obs/LUTS N40.1; N13.8
--- OUTSIDE RECORDS SUMMARY | 2024-10-06 11:35 | XMS_ITS | Patient Health Record ---
Author Organization [facility] Griselda banerjee [place] Address [address] [facility] [address] [place] [address] Care Team Providers Care Green Marketing Analyst Name Role Phone Ashley PULLIAM, Anne Llamas Primary Care Provider Un available Kahlil Smith Unavailable [phone] Allergies Allergen (clinical drug ingredient) Drug/Non Drug [...] day Not-Taking Pumpkin Seed Oil Act maximilian Vesper-3 1000 MG 2 capsule Orally Twi ce a day Active Metoprolol Succinate Active Metformin & Diet Manage Prod Active Fenofibrate 145 MG 1 tablet Orally Once a day Active DHEA Not-Taking Daily Vitamin Active Chromium Picolate No t-Taking [place] Not-Sukhjinder ing Ciclopirox Olamine 0.77 % 1 [...] Problem Status W/U Status Risk Notes Problem Other hammer toe(s) (acquired), right foot (M20.41) Active confirmed Problem Acquired hammer toe of left foot (8148767276418213 ) Other hammer toe(s) (acquired), left foot (M20.42) Active confirmed Problem Polyneuropathy due to type 2 diabetes mellitus (269367424) Type 2 diabetes mellitus with diabetic polyneuropathy (E11.42) Active confirmed Vital Signs Blood pressure diastolic 73 mm Hg 08/17/2024 Height 6ft 2in in 08/26/2024 Blood pressure systolic 130 mm Hg 08/17/2024 Weight 295 lbs 08/26/2024 BMI 37.87 kg/m2 08/26/2024 Procedures Procedure Date Ordered Date Performed Result Body Sit e 42801-PLCIPDE NAIL, 6 OR MORE 11/18/2023 N/A 03653-Dzszidqk Plate 11/18/2023 N/A 32700-Vusutywy Plate Each Additional 11/18/2023 N/A 14792-FTCT SKIN LESIONS, OVER 4 11/18/2023 N/A 66258-BVQIHQA NAIL, 6 OR MORE 05/25/2024 N/A 43995-BSJF SKIN LESIONS, OVER 4 05/25/2024 N/A 40086-RBDXYOY NAIL, 6 OR MORE 08/17/2024 N/A 19435-CHAS SKIN LESIONS, OVER 4 08/17/2024 N/A Encounters Encounter Location Date Provider Diagnosis [facility] [address] 11/06/2023 Kahlil Luis Pain in right foot M79.671 ; Plantar fasciitis of right foot M72.2 ; Calcaneal spur, right foot M77.31 ; Interstitial myositis of right foot M60.171 and Bursitis of right foot M77.[address] [facility] [address] 11/18/2023 Kahlil Luis Type 2 diabetes mellitus with diabetic polyneuropathy E11.42 ; Tinea unguium B35.1 ; Ingrown nail L60.0 and Plantar fasciitis of right foot M72.2 [facility] [address] [address] 05/25/2024 Kahlil Smith Type 2 diabetes mellitus with diabetic polyneuropathy E11.42 ; Tinea unguium B35.1 ; Other hammer toe(s) (acquired), right foot M20.41 and Other hammer toe(s) (acquired), left foot M20.[address] [address] 08/17/2024 Kahlil Smith Type 2 diabetes mellitus with diabetic polyneuropathy E11.42 and Tinea unguium B35.[address] [address] 08/26/2024 Kahlil Smith Tinea pedis of both feet B35.[address] [address] 02/17/2024 Kahlil Smith [address] [address] 08/20/2024 Kahlil Smith Assessments Encounter Date Diagnosis [...] X ray : Foot, right 3V 11/06/2023 55628-QFHNRKF NAIL, 6 OR MORE 11/18/2023 37819-PLEWWDG NAIL, 6 OR MORE 05/25/2024 23724-JEWYALT NAIL, 6 OR MORE 05/20/2023 80384-CNWWUPV NAIL, 6 OR MORE 08/19/2023 41854-WYYECYR NAIL, 6 OR MORE 08/17/2024 73512-AJLNLSK NAIL, 6 OR MORE 04/13/2021 75213-DDVYCDB NAIL, 6 OR MORE 07/12/2021 31858-UFSVKOL NAIL, 6 OR MORE 10/11/2021 11302-REVECPM NAIL, 6 OR MORE 01/29/2022 23724-FTRZAAQ NAIL, 6 OR MORE 04/30/2022 70475-RBUFYYG NAIL, 6 OR MORE 08/06/2022 34446-MDYQFRU NAIL, 6 OR MORE 11/12/2022 59903-OPWYYVD NAIL, 6 OR MORE 02/18/2023 18942-ZBMUTGA NAIL, 6 OR MORE 07/22/2015 35727-ZUJTROM NAIL, 6 OR MORE 10/14/2015 07578-FDWUHCO NAIL, 6 OR MORE 01/13/2016 48281-RAUFHUF NAIL, 6 OR MORE 04/27/2016 43638-TBSHTPF NAIL, 6 OR MORE 07/27/2016 03051-LZBONOK NAIL, 6 OR MORE 11/02/2016 56185-EREUGSG NAIL, 6 OR MORE 02/01/2017 32418-DFKGZEC NAIL, 6 OR MORE 05/03/2017 34920-FUJUROA NAIL, 6 OR MORE 09/05/2017 33627-FVHLFNJ NAIL, 6 OR MORE 12/05/2017 55438-NYQZUDH NAIL, 6 OR MORE 03/19/2018 55355-STXXXDC NAIL, 6 OR MORE 06/18/2018 52232-FQCWUDV NAIL, 6 OR MORE 09/17/2018 00751-OVKREMS NAIL, 6 OR MORE 12/17/2018 25981-REXTZXL NAIL, 6 OR MORE 03/18/2019 63850-ETUXLXQ NAIL, 6 OR MORE 07/15/2019 49565-GMFMVBP NAIL, 6 OR MORE 10/14/2019 37312-NXAOHPN NAIL, 6 OR MORE 01/13/2020 77483-ADFMYGQ NAIL, 6 OR MORE 04/13/2020 82536-ANHVOEL NAIL, 6 OR MORE 07/13/2020 89902-NLHBQXP NAIL, 6 OR MORE 10/12/2020 11828-SHAYFGE NAIL, 6 OR MORE 01/12/2021 38580-Zehvapae Plate 01/12/2021 16357-Qvactaek Plate 10/12/2020 82052-Hjvnooxo Plate 07/13/2020 60017-Oxhpsdov Plate 04/13/2020 81409-Ttmedbqp Plate 01/13/2020 36753-Ldnpnvuq Plate 10/14/2019 53610-Imsjbcxr Plate 07/15/2019 65514-Lxabsuev Plate 03/18/2019 81968-Stfvsdxe Plate 12/17/2018 09304-Fklqozze Plate 09/17/2018 94821-Yqgibboa Plate 03/19/2018 09333-Fcalasoh Plate 12/05/2017 01679-Jtpsuekk Plate 09/05/2017 03008-Tchwjgjb Plate 02/18/2023 59097-Qctodunf Plate 11/12/2022 30743-Rlldcpci Plate 08/06/2022 94309-Ugedwsnk Plate 04/30/2022 05931-Mzdkhyoc Plate 01/29/2022 03956-Eruhcmkd Plate 10/11/2021 92877-Uyuttdrv Plate 07/12/2021 93611-Brhjuzmq Plate 04/13/2021 63090-Ohpohjns Plate 07/27/2016 62301-Dxwyskzc Plate 08/19/2023 12934-Lalwasqz Plate 05/20/2023 46151-Dnjqlkhi Plate 06/18/2018 94685-Jcrspseo Plate 11/18/2023 92041-Ljlpucda Plate Each Additional 07066-Omnlruor Plate Each Additional 95818-Xrcnuvmr Plate Each Additional 79102-Wqyvokzb Plate Each Additional 12/2021 63620-Vgfmcpdw Plate Each Additional 01/2022 47696-Ndymayuc Plate Each Additional 12/2021 39142-Naiusvmn Plate Each Additional 99462-Rprhydyy Plate Each Additional 17096-Gmjfzmsn Plate Each Additional 07/2022 65932-Yhzybsht Plate Each Additional 01/2023 20531-Xtqwqykx Plate Each Additional 26525-Zacwrads Plate Each Additional 55117-Xrqoxtfd Plate Each Additional 86497-Fvoypwcj Plate Each Additional 10443-Rlelkbci Plate Each Additional 82701-Dztmfwmp Plate Each Additional 52569-Ozujpukl Plate Each Additional 61838-Yfemnpjl Plate Each Additional 02/2020 95471-Tunkfbdg Plate Each Additional 01/2020 54038-Evowsogr Plate Each Additional 12/2020 58918-Wkkptmhi Plate Each Additional 02/2021 36831-Uruszvgt Plate Each Additional 01/2021 01462-Vdgputty Plate Each Additional 01/2021 47817-YWZB SKIN LESIONS, OVER 4 01/13/20 21 72244-ARYI SKIN LESIONS, OVER 4 10/13/19 21 20617-PYSG SKIN LESIONS, OVER 4 07/14/19 21 63178-NQSO SKIN LESIONS, OVER 4 04/13/19 21 86860-UIHF SKIN LESIONS, OVER 4 01/13/20 20 62815-YNAR SKIN LESIONS, OVER 4 10/14/19 20 70029-YHLR SKIN LESIONS, OVER 4 07/15/19 02113-BOVU SKIN LESIONS, OVER 4 03/18/19 34960-SMQU SKIN LESIONS, OVER 4 12/18/19 40840-TDDB SKIN LESIONS, OVER 4 09/18/19 19 91533-PZGR SKIN LESIONS, OVER 4 03/19/19 91118-ZZCA SKIN LESIONS, OVER 4 12/06/19 18 62821-WTYC SKIN LESIONS, OVER 4 09/06/19 06266-HGJY SKIN LESIONS, OVER 4 05/04/19 01129-XUZG SKIN LESIONS, OVER 4 02/19/20 53063-XAVW SKIN LESIONS, OVER 4 11/13/19 92821-FZJT SKIN LESIONS, OVER 4 08/07/19 18691-QBRO SKIN LESIONS, OVER 4 04/30/19 84079-DXTL SKIN LESIONS, OVER 4 01/30/20 47268-FJUW SKIN LESIONS, OVER 4 10/12/19 27683-CVWI SKIN LESIONS, OVER 4 07/13/19 72628-TJZX SKIN LESIONS, OVER 4 04/13/19 52365-AZUG SKIN LESIONS, OVER 4 08/19/19 45612-YRKJ SKIN LESIONS, OVER 4 05/20/19 41422-AEVU SKIN LESIONS, OVER 4 11/18/19 24 89683-XGWZ SKIN LESIONS, OVER 4 06/19/19 45509-OIVH SKIN LESIONS, OVER 4 05/26/19 85751-ZNWH SKIN LESIONS, OVER 4 08/18/19 25 20313-SQHP SKIN LESIONS, 2 TO 4 02/02/20 17 39028-WIDI SKIN LESIONS, 2 TO 4 11/03/19 17 51049-VPBY SKIN LESIONS, 2 TO 4 04/27/19 17 41721-AWFH SKIN LESIONS, 2 TO 4 07/28/19 17 97700-XVUL SKIN LESIONS, 2 TO 4 01/13/20 16 66079-WXSK SKIN LESIONS, 2 TO 4 10/14/19 16 97830-GSHF SKIN LESIONS, 2 TO 4 07/22/19 16 Next Appt Details Provider Name:Kahlil Smith , 11/18/2024 09:00:00 AM, [address] [facility], [address], [place], [address], Insurance Providers Payer Name Payer Address Payer Phone Subscriber Number Group Number Insured Name Patient Relationship to Insured Coverage Start Date Coverage End Date [employer] [address] [place] [address] [phone] [id number] Eldon Ryan Self - patient is the insured Medical (General) History Medical History History ICD Code mumps measles chicken pox high blood pressure diabetic type ll Arthritis Diverticulosis High blood pressure Measles Mumps Chicken pox Cholesterol IA - 5'18 Surgical History Surgery Date(Month/Year) skin graft 2008 umbilical hernia repair 01/2004 cardiac catheterization Boil removed from arm 02/2019 kidney stones 2021 cyst removal, back 01/05/22 colonoscopy Hospitalization History Reason Date(Month/Year) [place] [facility] [place] Antibiotics 202 2 Walk in- foot injury 06/2021 PT For left shoulder 03/2018 [facility]-Heart Attack 07/26/2017
--- OUTSIDE RECORDS SUMMARY | 2024-10-06 11:35 | XMS_ITS | Patient Health Record ---
Author Organization [facility] Address [address] [place] [address] Care Team Providers Care Pesticide Use Medical Coordinator Name Role Phone Ashley PULLIAM, Anne Primary Care Provider Minerva Galindo Jr, Chago Unavailable Allergies Allergen (clinical drug ingredient) Drug/Non Drug Allergy documented on EMR Reaction Allergy Type Onset Date Status bacitracin Bacitracin Unknown Drug Allergy Activ e Results Component Value Reference Range Notes Complete Blood Count no Diff Reviewed date:07/24/2024 02:58:54 PM Interpretation: Performing Lab:[facility], [address] [place] [phone] Notes/Report: White Blood Count 6.7 4.8-10.8 X10*3/uL [...] Panel Reviewed date:07/24/2024 02:58:41 PM Interpretation: Performing Lab:[facility], [address] [place] [phone] Notes/Report: Bilirubin Total 0.7 0.0-1.0 mg/dL Bilirubin Direct 0.3 0.0-0.5 mg/dL Aspartate Amino Transferase 35 5-37 U/L Alanine Aminotransferase 22 0-40 U/L Total Protein 6.9 6.5-8.0 g/dL Albumin Level 4.4 3.5-5.0 g/dL Alkaline Phosphatase 35 39-117 U/L IRON PROFILE Reviewed date:07/24/2024 02:58:35 PM Interpretation: Performing Lab:[facility], [address] [place] [phone] Notes/Report: Iron 91 45-160 mcg/dL Total Iron Binding Capacity 362 228-428 mcg/d L Percent Iron Saturation 25 15-50 % Unsaturated Iron Binding 271 Ferritin Reviewed date:07/24/2024 02:58:27 PM Interpretation: Performing Lab:[facility], [address] [place] [phone] Notes/Report: Ferritin 64 20-250 ng/mL Lipase Reviewed date:07/24/2024 02:58:22 PM Interpretation: Performing Lab:[facility], [address] [place] [phone] Notes/Report: Lipase 22 8-78 U/L Vitamin B12 and Folate Reviewed date:07/24/2024 02:58:16 PM Interpretation: Performing Lab:[facility], [address] [place] [phone] Notes/Report: Vitamin B12 310 200-900 pg/mL NORMAL 200-900 PG/ML INDETERMINATE 160-199 PG/ML DEFICIENT < 160 PG/ML Folate 14.0 > or = 4.0 ng/mL Reference Values: > or = 4.0 ng/mL < 4.0 ng/mL suggests folate deficiency Methotrexate, aminopterin and folinic acid (leucovorin) are chemotherapeutic agents whose molecular structures are similar to folate; therefore, the Production Foreman folate assay cannot be used for patients using these drugs. Reason For Referral No Information Medications Medication SIG (Take, Route, Frequency, Duration) Notes Start Date End Date Status Lisinopril 40 MG 1 tablet Orally Once a day Active Terazosin HCl 10 MG 1 capsule at bedtime Orally Once a day Active [place] 3 1000 MG 2 capsules Orally tw [...] Problem Long-term current use of drug therapy (139480084) Encounter for long-term (current) use of other medications (V58.69) Active confirmed Problem Colon cancer screening (260980731) Colon cancer screening (V76.51) Active confirmed Problem Current use of aspirin (V58.66) Active confirmed Problem Anemia (594805430) Anemia (D64.9) Active confirmed Vital Signs Blood pressure diastolic 77 mm Hg 07/23/2024 Height 74 in 07/23/2024 Blood pressure systolic 111 mm Hg 07/23/2024 Weight 299 lbs 07/23/2024 BMI 38.39 kg/m2 07/23/2024 Encounters Encounter Location Date Provider Diagnosis [facility] [address] [place] [address] 07/23/2024 Chago Galindo Jr Anemia D64.9 and Other specified symptoms and signs involving the digestive system and abdomen R19.8 [facility] [address] [place] [address] 04/27/[address] [facility] [address] [place] [address] 07/24/2024 Chago Galindo Jr Assessments Encounter Date [...] Provider Name:Chago johnson Jr, 01/25/2025 09:40:00 AM, [address] [place] [address], [address], [place], [address], Insurance Providers Payer Name Payer Address Payer Phone Subscriber Number Group Number Insured Name Patient Relationship to Insured Coverage Start Date Coverage End Date [facility] [address] [place] [phone] [id number] ROSALINA RYAN Self - patient is the insured 4 Medical (General) History Medical History History ICD Code Colonoscopy 04/08/2023, multiple adenomas, 2-year follow-up. hypertension gout type II diabetes Coronary artery disease with history of stent placement and MS MICHAEL BPH Peripheral vascular disease Surgical History Surgery Date(Month/Year) Laser therapy for lower extremity venous insufficiency Coronary stent placement 2017 skin graft 2008
== END 2024-10-06 11:48 | disposition home or self-care (01) ==
LOC: HO.HUSH 10:51
PROVIDERS: PCP Internal Medicine; Visit Provider Urology
DX: E11.69 Type 2 diabetes mellitus with other specified complication (principal); N52.1 Erectile dysfunction due to diseases classified elsewhere; N40.1 Benign prostatic hyperplasia with lower urinary tract symptoms; N13.8 Other obstructive and reflux uropathy
CPT/HCPCS: 99214; G2211

== ENCOUNTER → 2024-10-06 10:50 | Outpatient (BNVA) | payer MEDICARE, SELFPAY | PROVIDERS: PCP Internal Medicine; Visit Provider Urology | DX: E11.69 Type 2 diabetes mellitus with other specified complication (principal); N52.1 Erectile dysfunction due to diseases classified elsewhere; N40.1 Benign prostatic hyperplasia with lower urinary tract symptoms; N13.8 Other obstructive and reflux uropathy | CPT/HCPCS: 81003; 99212 ==

== ENCOUNTER 2024-11-04 14:14 | Outpatient (AMB) | payer MEDICARE, SELFPAY ==
--- OUTSIDE RECORDS SUMMARY | 2024-01-28 07:15 | XMS_ITS | Continuity of Care Document ---
Author Organization [facility] Address [address] [place] [address] Phone Care Team Providers Care Income Tax Auditor Name Role Phone Abhishek PULLIAM, RVT, RPVI, Kem Unavailable U navailable Allergies, Adverse Reactions, Alerts Substance Reaction Status Criticality bacitracin Active No Information Procedures Procedure Date Office/Outpt E&M Established 15 Mins- CT & [place] Duplex Scan-extrem Veins; Comp- CT & [place] Duplex Scan-extrem Veins; Uni/ CT & [place] O ct Endovenous Laser, 1st Vein- CT & [place] Endovenous Laser, 1st Vein- CT & [place] Ultrason Guidan Needle Bx-rad- CT & [place] O Inj Sclerosing Solution; Sngl- CT & [place] O ct Duplex Scan-extrem Veins; Uni/ CT & [place] O ct Endovenous Laser, 1st Vein- CT & [place] Endovenous Laser, 1st Vein- CT & [place] Ultrason Guidan Needle Bx-rad- CT & [place] O ct Inj Sclerosing Solution; Sngl- CT & [place] O ct- Offic/outpt E&m Estab 5 Min Trial- Telem edicine CT & [place] Offic Cons New/estab Mod-hi 60- CT & [place] Duplex Scan-extrem Veins; Comp- CT & [place] Advance Directives Directive Yes / No Effective Date File Name Other Directive No 01/28/2024 N/A WARNING:The information contained in this section is historical and is provided for information only and does not constitute a legal document or any assurance that the information is still accurate. Please verify the information with the freire of the legal document before using it for clinical purposes. Encounters Encounter Description Practice Location Reason(s) For Visit Diagnoses Date Provider Providers Copied on Encounter Office/Outpt E&M Established 15 Mins- CT & [place] [facility] Ve[facility] Taoism [facility], [address] [place] [address] Dr Raman 1000SuBobo paulino [place], [id number], [place] tel:[phone] [facility] Hereditary lymphedemaVeno us insufficiency (chronic) (peripheral)Ly mphedema, not elsewhere classifiedType 2 diabetes mellitus without complicationsE ssential (primary) hypertensionDi sorder of pigmentation, unspecified 4 Abhishek PULLIAM RVT, MARCO Brownlee. [address] [place] [address], [place], [place], [id number] , [place]. tel:[phone] Referring Provider: Anne Ramirez MD Farhad, [address] [place] [address], [address]. tel:[phone] [facility] MD [facility], [address] [place] [address] Dr Raman 1000SuBobo paulino MD, [id number], [place] tel:[phone] [facility] Chronic venous hypertension (idiopathic) with other complications of bilateral lower extremity 4 Abhishek PULLIAM RVT, RPVI Robert. [address] [place] [address], [place], [place], [id number] , [place]. tel:[phone] Referring Provider: Anne Llamas, [address] [place] [address], [address]. tel:[phone] Dank Echeverria Vein Taoism MD [facility], [address] [place] [address] Dr Danisha BravoSuBobo paulino MD, [id number], [place] tel:[phone] CV - [facility] Encounter for follow-up examination after completed treatment for conditions other than malignant neoplasmChroni c venous hypertension (idiopathic) with other complications of right lower extremity Oct-2 4 Abhishek PULLIAM RVT, MARCO Brownlee. [address] [facility], [place] [address], [place], [place], [id number] , [place]. [phone] Referring Provider: Anne Ramirez MD Farhad, [address], [place], [address]. tel:[phone] Dank Echeverria Vein Taoism MD [facility], [address] [place] [address] Dr Raman 1000SuBobo paulino MD, [id number], [place] tel:[phone] [facility] Varicose veins of right lower extremity with other complications Oct-2 4 Abhishek PULLIAM RVT, RPVI Robert. [address] [place] [address], [place], [place], [id number] , [place]. [phone] Referring Provider: Anne Ramirez MD [place], [address] [facility] [address] [facility], [place], [address]. tel:[phone] Dank Echeverria Vein Taoism [facility], [address] [place] [address] Dr Raman 1000SuBobo paulino MD, [id number], [place] tel:[phone] [facility] Chronic venous hypertension (idiopathic) with inflammation of right lower extremity Oct-2 4 Abhishek PULLIAM RVT, RPVI Robert. [address] [facility] [address], [place], [place], [id number] , [place]. [phone] Dank Echeverria Vein Taoism MD [facility], [address] [place] [address] Dr Raman 1000SuBobo paulino MD, [id number], [place] tel:[phone] [facility] Encounter for follow-up examination after completed treatment for conditions other than malignant neoplasmChroni c venous hypertension (idiopathic) with other complications of left lower extremity Oct-2 4 Abhishek MEGHANN PULLIAM RPVI Robert. [address] [place] [address], [address], [place], [id number] , [place]. [phone] Referring Provider: Kem Weiss MD, RVT, RPVI, [address] [place] [address] Suite [facility], [place], [address] . tel:[phone] [facility], [address] [place] [address] [address], [place], [id number], [place] tel:[phone] [facility] [place] [facility] [place] No Information Dec- 4 Abhishek PULLIAM RVT, RPVI Robert. [address] [place] [address], Suite [facility], [place], [id number] , [place]. [phone] [facility], [address] [place] [address] [address]Bobo [place], [id number], [place] tel:[phone] [facility] [place] [facility] [place] Varicose veins of left lower extremity with other complications Oct- 4 Abhishek PULLIAM RVT, RPVI Robert. [address] [place] [address], [place], [id number] , [place]. [phone] Referring Provider: Anne Ramirez MD Farhad, [address] [place] [address], [address]. tel:[phone] Dank For Vein Taoism [facility], [address] [place] [address] [facility] [place] [place], [id number], [place] tel:[phone] [facility] [place] [facility] [place] Varicose veins of left lower extremity with other complications Oct- 4 Abhishek PULLIAM RVT, RPVI Robert. [address] [place] [address], [place] [address], [place], [id number] , [place]. tel:[phone] Referring Provider: Anne Ramirez MD Farhad, [address] [place] [address], [address]. tel:[phone] Offic/outpt E&m Estab 5 Min Trial- Telemedicine CT & [place] [facility], [address] [place] [address] Dr Raman 1000Suite 1000Bobo [place], [id number], [place] tel:[phone] [facility] [place] [facility] [place] Non-pressure chronic ulcer of left ankle with unspecified severityChroni c venous hypertension (idiopathic) with other complications of bilateral lower extremityLymph edema, not elsewhere classifiedType 2 diabetes mellitus without complicationsE ssential (primary) hypertensionDi sorder of pigmentation, unspecifiedHer editary lymphedema 4 Abhishek PULLIAM RVT, MARCO Brownlee. [address] [place] [address], [facility] [place], [id number] , [place]. tel:[phone] Referring Provider: Anne Ramirez MD [place], [address] [place] [address], [place], [address]. tel:[phone] Offic Cons New/estab Mod-hi 60- CT & [place] Angier For Vein Taoism [facility], [address] [place] [address] Dr Raman 1000Suite 1000Bobo [place], [id number], [place] tel:[phone] [facility] Essential (primary) hypertensionLy mphedema, not elsewhere classifiedNon- pressure chronic ulcer of left ankle with unspecified severityVenous insufficiency (chronic) (peripheral)Lo calized edemaType 2 diabetes mellitus without complicationsD isorder of pigmentation, unspecifiedHer editary lymphedema 4 Abhishek PULLIAM RVT, MARCO Brownlee. [address] [place] [address], [facility] [place], [id number] , [place]. tel:[phone] Angier For Vein Taoism [facility], [address] [place] [address] Dr Raman 1000Suite 1000Bobo [place], [id number], [place] tel:[phone] [facility] Chronic venous hypertension (idiopathic) with ulcer of bilateral lower extremity 4 Abhishek PULILAM RVT, RPVI Robert. [address] [place] [address], [address], [facility] [place], [id number] , [place]. [phone] Referring Provider: Kem Weiss MD, RVT, MARCO, [address] [place] [address] [address], [place], [address] . tel:[phone] Family History Family Member Type Diagnosis Age At Onset No Information Payers Payer name Insurance type Covered alliance party ID Con wallace(philip) [employer] [place] [id number] Social History Type Description Quantity Date Captured Comments Alcohol Use Details Unknown Caffeine Use Details Unknown Tobacco Use Status No Information Smoking Status Former Smoker Non-Smoking Tobacco Use Details : No Details Available : No Details Available Sex Male Vital Signs Date / Time: Height Weight BMI Pulse Rate Blood Pressure Temperature Respiratory Rate Body Surface Area Head Circumference Head Circ. Percentile Wt./Felipe. Percentile BMI percentile Pulse Ox Inhaled Ox 127.010 kg (280.00 lbs) 35.0 4 kg/m eter (2) 120/80 mm[Hg] Chief Complaint And Reason For Visit No Information Reason For Referral Reason For Referral No Information Plan Of Treatment Date Type Action Status Goal Tobacco cessation counseling completed Goal Diet education completed Goal Tobacco cessation counseling completed Goal Tobacco cessation counseling completed Goal Diet education completed Referral Ordered: Weight management: Referral to physician timeframe: 3 Months (related to Body mass index (BMI) 35.0-35.9, adult) ordered Referral Ordered: Weight management: Referral to physician timeframe: 3 Months (related to Body mass index (BMI) 35.0-35.9, adult) ordered History Of Present Illness Encounter Date Complaint History Of Prese nt Illness No Information Functional Status Date Functional Assessmen t No Information Instructions Date Instruction Additional Infor mation Compression stocking usage as conservative measure Related to Venous insufficiency (chronic) (peripheral) Lifestyle education Related to B kristie mass index (BMI) 35.0-35.9, adult Patient education booklet given Related to Venous insufficiency (chronic) (peripheral) Giving Encouragement to exercise Related to Body mass index (BMI) 35.0-35.9, adult Diet education Related to Body mass index (BMI) 35.0-35.9, adult Pre and post instruc tions reviewed and provided Related to Non-pressure chronic ulcer of left ankle with unspecified severity Patient education booklet given Related to Non-pressure chronic ulcer of left ankle with unspecified severity Pre and post instruc tions reviewed and provided Related to Non-pressure chronic ulcer of left ankle with unspecified severity Patient education booklet given Related to Non-pressure chronic ulcer of left ankle with unspecified severity Lifestyle education Related to B kristie mass index (BMI) 35.0-35.9, adult Giving Encouragement to exercise Related to Body mass index (BMI) 35.0-35.9, adult Diet education Related to Body mass index (BMI) 35.0-35.9, adult Assessments Type Assessment Date No Information Patient Care Teams Name Effective Dates (start - stop) Status Members No Information
--- OUTSIDE RECORDS SUMMARY | 2024-02-17 10:00 | XMS_ITS ---
Author Organization [facility] Address [address] [facility] [place] [address] Care Team Providers Care Tenant Selector Name Role Phone Ashley PULLIAM, Anne Llamas Primary Care Provider Un available Kahlil Smith Unavailable [phone] Encounters Encounter Location Date [facility] [address] 02/17/2024 Kahlil Smith Plan Of Treatment Next Appt Details Provider Name:Kahlil Smith , 11/18/2024 09:00:00 AM, [address] [place] [address], [phone], Progress Notes * Eldon RYAN GDOB:[birth year] (74 yo M)Acc No.[id number]:02/17/2024 Progress Note Patient: Eldon CONCPECION Provider: Kiera Smith DPM :1950 A ge:74 Y S ex:Male Date:02/17/2024 Address:[address] [place], [place] [address]Sanje[place] [id number] Pcp:Colin Borrego Subjective: * Chief Complaints: * [...] 04/19/2023 Generated for Ashley monteiro/Maura/Adrian on: 0 11/04/2024 04:36 PM EDT
[2024-11-04 14:23] VITALS: BP 112/62; PULSE 89; O2SAT 95; BMI 36.6
--- NOTE | 2024-11-04 14:23 | MHC.OFFVIS ---
Vital Signs 11/04/24 14:23 Height 6 ft 3 in Weight 293 lb 3.437 oz BMI 36.6 BP 112/62 Blood Pressure Location Lt brachial Position Sitting Pulse 89 Pulse Source Pulse Oximeter Pulse Oximetry (%) 95 Oxygen Delivery Method Room Air Intake Visit Reasons: Obstructive sleep apnea Intake Note: pt is here to retalk about cpap, his talent analyst sent him back over. Reed Dipper Required: No Allergies bacitracin (BACITRACIN) Allergy (Mild, Verified 11/04/24 14:59) DERMATITIS, rash, rash Medication List - Last Reconciled 11/04/24 by Jenny Huggins MD alpha lipoic acid 600 mg PO BID aspirin 81 mg PO DAILY blood sugar diagnostic (FreeStyle Lite Strips) Check Fasting blood sugar once a day as directed blood sugar diagnostic As directed blood-glucose meter (FreeStyle Lite Meter kit) check fasting glucoe once a day As directed cinnamon bark (Cinnamon) 1,000 mg PO DAILY coenzyme Q10 (Co Q-10) 200 mg PO DAILY [Customized heat molded multi- density inner soles( 3 pairs) As directed NS] Dexcom G7 Maintenance Machinist (blood-glucose,dairy products maker,cont) As directed NS Dexcom G7 Sensor (blood-glucose sensor) every 10 days NS [Extra depth diabetic orthopedic shoes Extra depth diabetic orthopedic shoes 1 pair NS] ezetimibe 10 mg PO DAILY fenofibrate nanocrystallized 145 mg PO DAILY 90 days finasteride 5 mg PO DAILY 90 days fluticasone propionate 50 mcg/actuation (Flonase Allergy Relief) 2 sprays intranasal DAILY PRN furosemide (Lasix) 20 mg PO QAM lancets As directed lisinopril 40 mg PO DAILY metformin 1,000 mg PO BID 90 days metoprolol succinate ER 50 mg PO DAILY multivitamin (Multiple Vitamins tablet) 1 tab PO DAILY omega-3 acid ethyl esters 2 caps PO BID 90 days omeprazole 20 mg PO DAILY pioglitazone 45 mg PO DAILY rosuvastatin 40 mg PO DAILY tadalafil 5 mg PO DAILY 90 days tadalafil 20 mg PO ONCE PRN 30 days terazosin 10 mg PO BEDTIME 90 days Trulicity (dulaglutide) 1.5 mg (0.5 mL) subcut QWEEK NS Do you need a note to return to daycare/school/sports/work: No HPI HPI Obstructive sleep apnea: Details: 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 HE WAS PRESCRIBED THE CPAP EQUIPMENT AND HE WAS USING IT REALLY GOOD. UP UN TILL 2021, THEN HE STOPPED USING THE CPAP AND HAS NOT COME BACK FOR FOLLOW-UP. HE ALSO HAS HYPERTENSION , CORONARY ARTERY DISEASE, AND DIABETES MELLITUS WHICH IS DIFFICULT TO CONTROL, HYPERLIPIDEMIA, AND CHRONIC VENOUS DISORDER OF THE LOWER EXTREMITY. HE HAS ENORMOUS ABDOMINAL OBESITY, WHICH DOES NOT GO AWAY. HE HAS BEEN TREATED WITH OZEMPIC INJECTIONS IN THE PAST , WHICH DID NOT HELP HIM TO LOSE WEIGHT. FOR HIS DIABETES MELLITUS HE IS ON TRULICITY INJECTION ONCE A WEEK IN ADDITION TO METFORMIN AND PIOGLITAZONE . HE STOPPED USING THE CPAP ABOUT 9 MONTHS AGO, AND THERE WAS NO SPECIAL REASON EXCEPT THAT HE JUST DID NOT LIKE THE MASK ON HIS FACE. HE FALLS ASLEEP OKAY BUT THEN WAKES UP A FEW TIMES DURING THE NIGHT WHICH IS MAINLY TO GO TO THE BATHROOM. DENIES BEING SLEEPY DURING THE DAY BUT HE IS NOT VERY ACTIVE ANYWAY. HE SAW DRESSING ROOM ATTENDANT DR. BALTAZAR RECENTLY WHO TOLD HIM THAT HE SHOULD REALLY THINK ABOUT USING THE CPAP AND ADVISED HIM TO COME AND SEE ME FOR FOLLOW-UP. [facility] Medical History Hx of adenomatous colonic polyps Anemia Diabetes mellitus, without long-term current use of insulin Hammertoes of both feet Positive colorectal cancer screening using Cologuard test Vitamin D deficiency Hearing loss Hypertension Dyslipidemia Non-toxic multinodular goiter Diabetic neuropathy associated with type 2 diabetes mellitus Allergic rhinitis MICHAEL on CPAP Obesity CAD (coronary artery disease) Surgical History H/O colonoscopy Stented coronary artery Family History Father Diabetes Substance use disorder Mother Hypertension Mental health disorder Social History Housing: House Alcohol intake: never Patient Tobacco Use Status: Former Tobacco user e-Cigarette/Vaping Use: Never Used Current occupational status: retired Cognitive needs: No Hearing needs: Yes Vision needs: Yes Review of Systems Const All systems reviewed & are unremarkable except as noted in HPI and below Eyes Reports no additional complaints ENT Reports nasal congestion (MILD NASAL CONGESTION, CONTROLLED WITH USE OF FLONASE) Card Denies chest pain, Denies irregular heart rhythm, Denies leg edema and Denies dyspnea Resp Denies cough, Denies dyspnea and Denies wheezing GI Reports no additional complaints Reports nocturia (NOW MUCH IMPROVED WITH THE USE OF MEDICINE) Musc Reports muscle weakness (MILD) Skin/Breast Reports system reviewed and no additional complaints, except as documented Neuro Reports no additional complaints Psych Reports no additional complaints Endo Reports no additional complaints Aller/Immun Denies wheezing Physical Exam Vital Signs: Last Vital Signs Pulse 89 11/04/24 14:23 BP 112/62 11/04/24 14:23 Pulse Ox 95 11/04/24 14:23 Oxygen Delivery Method Room Air 11/04/24 14:23 BMI result Body Mass Index 36.6 Const General: comfortable, no acute distress, alert and awake Orientation/consciousness: patient oriented x3 HEENT Head: Yes normal to inspection General nose exam: No nasal polyps present and No nasal discharge present Face and sinus: Yes sinuses nontender Mouth: oropharynx normal Throat: Yes posterior oropharynx normal Eyes General: appearance normal, both eyes and all related structures Neck Neck: Yes normal visual inspection, Yes no lymphadenopathy, Yes trachea midline and Yes no JVD Thyroid: Thyroid normal Chest Chest palpation & inspection: normal inspection of the chest, normal palpation of entire chest wall and no tenderness Resp Effort & Inspection: normal respiratory effort Auscultation: clear to auscultation bilaterally, no crackles, no rales and no wheezes Percussion: percussion normal Cardio Palpation: normal PMI Rate: regular rate Rhythm: regular rhythm Heart sounds: no gallops and no murmurs GI Palpation (GI): Soft to palpation, nontender, No hepatosplenomegaly present, no masses and Other GI palpation findings present (Abdomen is obese and protuberant) Auscultation: normal bowel sounds Back/Spine/Pelvis Thoracic/Lumbar Spine: thoracic and lumbar spine normal to inspection Skin General skin exam: no rashes or lesions noted Neuro General: patient oriented x3 and no focal motor deficits Cranial nerves: Yes CN's II-XII intact bilaterally Extrem General: Yes normal to inspection, Yes no clubbing, cyanosis or edema, Yes no calf tenderness and Yes venous stasis dermatitis Psych Appearance: grossly normal and well kempt Speech and movement: Normal speech and movement present Assessment & Plan Assessment & Plan (1) Obesity: Comment: REMAINS MODERATELY OBESE AND HAS NOT BEEN ABLE TO LOSE MUCH WEIGHT. HE IS TRYING TO WATCH HIS DIET, AND TRIES TO WALK DAILY . Code(s): E66.9 - Obesity, unspecified Category: Medical Plan: ENCOURAGED TO WALK ABOUT 2 MILES EVERY DAY. WATCH DIET , AND LIMIT THE USE OF CARBOHYDRATES, INCREASE ROUGHAGE. (2) Obstructive sleep apnea: Comment: KNOWN TO HAVE MICHAEL, SINCE 2019. WAS USING CPAP REGULARLY UP UNTIL BEGINNING OF THIS YEAR 2024 . HE THOUGHT I WAS RETIRED SO HE DID NOT COME BACK FOR FOLLOW-UP. Code(s): G47.33 - Obstructive sleep apnea (adult) (pediatric) Category: Medical Plan: WE HAD A GOOD DISCUSSION, I TOLD HIM THAT BECAUSE HE HAS NOT LOST ANY SIGNIFICANT WEIGHT AND BECAUSE HE HAS SIGNIFICANT COMORBID CONDITIONS SUCH CORONARY ARTERY DISEASE, HYPERTENSION, DIABETES MELLITUS , IT IS IMPORTANT FOR HIM TO USE THE CPAP. HE SAYS HE STILL HAS THE CPAP MACHINE WHICH IS FUNCTIONAL, HE ALSO HAS THE SUPPLIES. HE IS ADVISED TO START USING THE CPAP WITH FULLFACE MASK. WITH THE PREVIOUS SETTINGS WHICH IS AUTO PAP MODE AND PRESSURE SETTING OF 6-20 CM . WILL FOLLOW-UP CLOSELY FOR COMPLIANCE AND BENEFITS . I HAVE ASKED HIM TO COME BACK IN 2 MONTHS FOR A SHORT FOLLOW-UP. Coding Level of Care Code Est Pt Level 4 (84230) Diagnoses Obesity E66.9 Obstructive sleep apnea G47.33
--- OUTSIDE RECORDS SUMMARY | 2024-11-04 16:36 | XMS_ITS | Patient Health Record ---
Author Organization [facility] Griselda banerjee Lynd Address [address] [facility] [place] [address] Care Team Providers Care Construction Plant Operator Name Role Phone Ashley PULLIAM, Anne Llamas Primary Care Provider Un available Kahlil Smith Unavailable [phone] Allergies Allergen (clinical drug ingredient) Drug/Non Drug [...] day Not-Taking Pumpkin Seed Oil Act maximilian Canaan-3 1000 MG 2 capsule Orally Twi ce a day Active Metoprolol Succinate Active Metformin & Diet Manage Prod Active Fenofibrate 145 MG 1 tablet Orally Once a day Active DHEA Not-Taking Daily Vitamin Active Chromium Picolate No t-Taking Saw Bullhead Not-Sukhjinder ing Ciclopirox Olamine 0.77 % 1 [...] Problem Acquired hammer toe of right foot (9865824578145281 ) Other hammer toe(s) (acquired), right foot (M20.41) Active confirmed Problem Acquired hammer toe of left foot (6753620537314795 ) Other hammer toe(s) (acquired), left foot (M20.42) Active confirmed Problem Polyneuropathy due to type 2 diabetes mellitus (697102137) Type 2 diabetes mellitus with diabetic polyneuropathy (E11.42) Active confirmed Vital Signs Blood pressure diastolic 73 mm Hg 08/17/2024 Height 6ft 2in in 08/26/2024 Blood pressure systolic 130 mm Hg 08/17/2024 Weight 295 lbs 08/26/2024 BMI 37.87 kg/m2 08/26/2024 Procedures Procedure Date Ordered Date Performed Result Body Sit e 27436-JISXSHQ NAIL, 6 OR MORE 11/18/2023 N/A 40460-Fcyjfofq Plate 11/18/2023 N/A 15182-Kgccojll Plate Each Additional 11/18/2023 N/A 81414-PUIW SKIN LESIONS, OVER 4 11/18/2023 N/A 82529-KEQEONJ NAIL, 6 OR MORE 05/25/2024 N/A 09238-NFNQ SKIN LESIONS, OVER 4 05/25/2024 N/A 96289-WDQOWCB NAIL, 6 OR MORE 08/17/2024 N/A 87401-ICSA SKIN LESIONS, OVER 4 08/17/2024 N/A Encounters Encounter Location Date Provider Diagnosis [facility] [address] 11/06/2023 Kahlil Luis Pain in right foot M79.671 ; Plantar fasciitis of right foot M72.2 ; Calcaneal spur, right foot M77.31 ; Interstitial myositis of right foot M60.171 and Bursitis of right foot M77.[address] [facility] [address] 11/18/2023 Kahlil Luis Type 2 diabetes mellitus with diabetic polyneuropathy E11.42 ; Tinea unguium B35.1 ; Ingrown nail L60.0 and Plantar fasciitis of right foot M72.[address] [address] 05/25/2024 Kahlil Mercadounier Type 2 diabetes mellitus with diabetic polyneuropathy E11.42 ; Tinea unguium B35.1 ; Other hammer toe(s) (acquired), right foot M20.41 and Other hammer toe(s) (acquired), left foot M20.[address] [address] 08/17/2024 Kahlil Smith Type 2 diabetes mellitus with diabetic polyneuropathy E11.42 and Tinea unguium B35.[address] [address] 08/26/2024 Kahlil Smith Tinea pedis of both feet B35.[address] [facility] [address] 02/17/2024 Kahlil Smith [address] [address] 08/20/2024 Kahlil Smith Assessments Encounter Date Diagnosis [...] X ray : Foot, right 3V 11/06/2023 51029-ZGHMMPF NAIL, 6 OR MORE 11/18/2023 40339-WHSEDFR NAIL, 6 OR MORE 05/25/2024 44931-PSUKCTR NAIL, 6 OR MORE 05/20/2023 29925-OGKIDRE NAIL, 6 OR MORE 08/19/2023 42051-YFBXGPX NAIL, 6 OR MORE 08/17/2024 75146-WTGHOLT NAIL, 6 OR MORE 04/13/2021 14057-TMLBXDB NAIL, 6 OR MORE 07/12/2021 54739-OFTALNJ NAIL, 6 OR MORE 10/11/2021 75218-JZOADMB NAIL, 6 OR MORE 01/29/2022 05492-SYVSCCM NAIL, 6 OR MORE 04/30/2022 19359-CBDGSUR NAIL, 6 OR MORE 08/06/2022 60834-GSUWVGV NAIL, 6 OR MORE 11/12/2022 49127-UGLYXHW NAIL, 6 OR MORE 02/18/2023 37949-LNIFETW NAIL, 6 OR MORE 07/22/2015 01299-APXRVXC NAIL, 6 OR MORE 10/14/2015 54683-KBQAHIR NAIL, 6 OR MORE 01/13/2016 97770-KJDYSTI NAIL, 6 OR MORE 04/27/2016 89825-TOYRGNI NAIL, 6 OR MORE 07/27/2016 52171-GYBSVSY NAIL, 6 OR MORE 11/02/2016 17150-TFOUSTH NAIL, 6 OR MORE 02/01/2017 26417-ZUZBQOY NAIL, 6 OR MORE 05/03/2017 18316-WHPTRZK NAIL, 6 OR MORE 09/05/2017 95258-VFWBXTP NAIL, 6 OR MORE 12/05/2017 40196-BZXSKOV NAIL, 6 OR MORE 03/19/2018 40622-DQMVLWH NAIL, 6 OR MORE 06/18/2018 85760-SXQAPIO NAIL, 6 OR MORE 09/17/2018 64405-QZDTMOR NAIL, 6 OR MORE 12/17/2018 60237-QNDUUJH NAIL, 6 OR MORE 03/18/2019 80689-YXCDCPI NAIL, 6 OR MORE 07/15/2019 95262-CJEVPPX NAIL, 6 OR MORE 10/14/2019 92093-LFARCKI NAIL, 6 OR MORE 01/13/2020 78203-LNXZZWZ NAIL, 6 OR MORE 04/13/2020 32287-WGIACNV NAIL, 6 OR MORE 07/13/2020 41837-TMALKCL NAIL, 6 OR MORE 10/12/2020 75293-WXFLHTN NAIL, 6 OR MORE 01/12/2021 61571-Dmbnywhz Plate 01/12/2021 92933-Ymecxndx Plate 10/12/2020 33376-Qkaeiwqf Plate 07/13/2020 22888-Tbkqiqfl Plate 04/13/2020 39607-Fvujyupu Plate 01/13/2020 20591-Ffpbwwck Plate 10/14/2019 67900-Afsoliqw Plate 07/15/2019 19974-Ctrwagbl Plate 03/18/2019 31426-Ijuhvxha Plate 12/17/2018 56720-Orbhpqye Plate 09/17/2018 11452-Rfdvbdxo Plate 03/19/2018 98730-Arkvksil Plate 12/05/2017 91739-Usquslbl Plate 09/05/2017 14707-Csyeitfx Plate 02/18/2023 41435-Lqnpesqg Plate 11/12/2022 55898-Qvkdcsey Plate 08/06/2022 67742-Mtgpbrpn Plate 04/30/2022 61044-Alqochqm Plate 01/29/2022 59284-Srtgqjhr Plate 10/11/2021 75234-Bkglfgwb Plate 07/12/2021 77413-Ntxzttbp Plate 04/13/2021 77296-Rmeunzqu Plate 07/27/2016 70142-Clktqwpu Plate 08/19/2023 79473-Epfuasrf Plate 05/20/2023 52772-Vvqheecu Plate 06/18/2018 46989-Ijprdmgo Plate 11/18/2023 73816-Wkjcotba Plate Each Additional 62906-Ptwxukwn Plate Each Additional 94203-Zhrbytms Plate Each Additional 76967-Ydfsppwv Plate Each Additional 12/2021 52426-Mfrthuyd Plate Each Additional 01/2022 39486-Lezdaono Plate Each Additional 12/2021 46334-Fbslkjqn Plate Each Additional 36110-Arjkzjaa Plate Each Additional 49540-Dazlsksb Plate Each Additional 07/2022 74433-Vghnjaiu Plate Each Additional 01/2023 74011-Cmzvjcsy Plate Each Additional 59622-Qyjfnssn Plate Each Additional 78861-Zymvrfer Plate Each Additional 33410-Qaofbqbg Plate Each Additional 18355-Yxwogkhk Plate Each Additional 02372-Gzlcsdov Plate Each Additional 47979-Exoflocx Plate Each Additional 33167-Pifqqkyn Plate Each Additional 02/2020 61537-Gyzqsrgq Plate Each Additional 01/2020 37003-Lvcxqpzz Plate Each Additional 12/2020 74948-Wdmbnvtr Plate Each Additional 02/2021 55163-Kigaipsy Plate Each Additional 01/2021 75660-Mthwthpw Plate Each Additional 01/2021 70581-KHRY SKIN LESIONS, OVER 4 01/13/20 21 84939-AQLZ SKIN LESIONS, OVER 4 10/13/19 21 77429-IARM SKIN LESIONS, OVER 4 07/14/19 21 12850-YWDE SKIN LESIONS, OVER 4 04/13/19 21 67579-BMCW SKIN LESIONS, OVER 4 01/13/20 20 62962-DEAR SKIN LESIONS, OVER 4 10/14/19 32427-ULGS SKIN LESIONS, OVER 4 07/15/19 77103-BECO SKIN LESIONS, OVER 4 03/18/19 96070-OJZD SKIN LESIONS, OVER 4 12/18/19 19 54399-CMLP SKIN LESIONS, OVER 4 09/18/19 31107-TQKQ SKIN LESIONS, OVER 4 03/19/19 31510-QLFU SKIN LESIONS, OVER 4 12/06/19 49550-SRVY SKIN LESIONS, OVER 4 09/06/19 96465-KBNO SKIN LESIONS, OVER 4 05/04/19 59755-POYJ SKIN LESIONS, OVER 4 02/19/20 26789-JPOO SKIN LESIONS, OVER 4 11/13/19 80886-CMPD SKIN LESIONS, OVER 4 08/07/19 71934-XKLE SKIN LESIONS, OVER 4 04/30/19 19222-KGUB SKIN LESIONS, OVER 4 01/30/20 79895-GVVF SKIN LESIONS, OVER 4 10/12/19 72780-HCMN SKIN LESIONS, OVER 4 07/13/19 17682-GIIN SKIN LESIONS, OVER 4 04/13/19 23992-SOTT SKIN LESIONS, OVER 4 08/19/19 24 88064-ZQKR SKIN LESIONS, OVER 4 05/20/19 24 65568-FYKR SKIN LESIONS, OVER 4 11/18/19 24 94283-XJAH SKIN LESIONS, OVER 4 06/19/19 19 54921-NQVB SKIN LESIONS, OVER 4 05/26/19 64335-UVBM SKIN LESIONS, OVER 4 08/18/19 06741-IVDD SKIN LESIONS, 2 TO 4 02/02/20 17 24830-TJXM SKIN LESIONS, 2 TO 4 11/03/19 17 65064-OBGW SKIN LESIONS, 2 TO 4 04/27/19 17 04575-ABSU SKIN LESIONS, 2 TO 4 07/28/19 17 30193-VPNF SKIN LESIONS, 2 TO 4 01/13/20 16 75252-ALZO SKIN LESIONS, 2 TO 4 10/14/19 16 54533-ZCDO SKIN LESIONS, 2 TO 4 07/22/19 16 Next Appt Details Provider Name:Kahlil Smith , 11/18/2024 09:00:00 AM, [address] [facility], [address], [place], [address], Insurance Providers Payer Name Payer Address Payer Phone Subscriber Number Group Number Insured Name Patient Relationship to Insured Coverage Start Date Coverage End Date [employer] [place] Medicare Advantage [facility] [address] [place] [address] [id number] Eldon Ryan Self - patient is the insured Medical (General) History Medical History History ICD Code mumps measles chicken pox high blood pressure diabetic type ll Arthritis Diverticulosis High blood pressure Measles Mumps Chicken pox Cholesterol IN - 5'18 Surgical History Surgery Date(Month/Year) skin graft 2009 umbilical hernia repair 01/2004 cardiac catheterization Boil removed from arm 02/2019 kidney stones 2021 cyst removal, back 01/05/22 colonoscopy Hospitalization History Reason Date(Month/Year) Dr. De La Torre [facility] UTI-given Antibiotics 202 2 Walk in- foot injury 06/2021 PT For left shoulder 03/2018 [facility]-Heart Attack 07/26/2017
--- OUTSIDE RECORDS SUMMARY | 2024-11-04 16:36 | XMS_ITS | Patient Health Record ---
Author Organization [facility] Address [address] [place] [address] Care Team Providers Care Milk Runner Name Role Phone Ashley PULLIAM, Anne Primary Care Provider Minerva Galindo Jr, Chago Unavailable Allergies Allergen (clinical drug ingredient) Drug/Non Drug Allergy documented on EMR Reaction Allergy Type Onset Date Status bacitracin Bacitracin Unknown Drug Allergy Activ e Results Component Value Reference Range Notes Complete Blood Count no Diff Reviewed date:07/24/2024 02:58:54 PM Interpretation: Performing Lab:[facility], [address] [place] [phone] Notes/Report: White Blood Count 6.7 4.8-10.8 X10*3/uL [...] Panel Reviewed date:07/24/2024 02:58:41 PM Interpretation: Performing Lab:[facility], [address] [place] [phone] Notes/Report: Bilirubin Total 0.7 0.0-1.0 mg/dL Bilirubin Direct 0.3 0.0-0.5 mg/dL Aspartate Amino Transferase 35 5-37 U/L Alanine Aminotransferase 22 0-40 U/L Total Protein 6.9 6.5-8.0 g/dL Albumin Level 4.4 3.5-5.0 g/dL Alkaline Phosphatase 35 39-117 U/L IRON PROFILE Reviewed date:07/24/2024 02:58:35 PM Interpretation: Performing Lab:[facility], [address] [place] [phone] Notes/Report: Iron 91 45-160 mcg/dL Total Iron Binding Capacity 362 228-428 mcg/d L Percent Iron Saturation 25 15-50 % Unsaturated Iron Binding 271 Ferritin Reviewed date:07/24/2024 02:58:27 PM Interpretation: Performing Lab:[facility], [address] [place] [phone] Notes/Report: Ferritin 64 20-250 ng/mL Lipase Reviewed date:07/24/2024 02:58:22 PM Interpretation: Performing Lab:[facility], [address] [place] [phone] Notes/Report: Lipase 22 8-78 U/L Vitamin B12 and Folate Reviewed date:07/24/2024 02:58:16 PM Interpretation: Performing Lab:[facility], [address] [place] [phone] Notes/Report: Vitamin B12 310 200-900 pg/mL NORMAL 200-900 PG/ML INDETERMINATE 160-199 PG/ML DEFICIENT < 160 PG/ML Folate 14.0 > or = 4.0 ng/mL Reference Values: > or = 4.0 ng/mL < 4.0 ng/mL suggests folate deficiency Methotrexate, aminopterin and folinic acid (leucovorin) are chemotherapeutic agents whose molecular structures are similar to folate; therefore, the [employer] folate assay cannot be used for patients using these drugs. Reason For Referral No Information Medications Medication SIG (Take, Route, Frequency, Duration) Notes Start Date End Date Status Lisinopril 40 MG 1 tablet Orally Once a day Active Terazosin HCl 10 MG 1 capsule at bedtime Orally Once a day Active [place] 3 1000 MG 2 capsules Orally tw [...] Problem Long-term current use of drug therapy (566324127) Encounter for long-term (current) use of other medications (V58.69) Active confirmed Problem Colon cancer screening (930408253) Colon cancer screening (V76.51) Active confirmed Problem Current use of aspirin (V58.66) Active confirmed Problem Anemia (509428961) Anemia (D64.9) Active confirmed Vital Signs Blood pressure diastolic 77 mm Hg 07/23/2024 Height 74 in 07/23/2024 Blood pressure systolic 111 mm Hg 07/23/2024 Weight 299 lbs 07/23/2024 BMI 38.39 kg/m2 07/23/2024 Encounters Encounter Location Date Provider Diagnosis [facility] [address] [place] [address] 07/23/2024 Chago Galindo Jr Anemia D64.9 and Other specified symptoms and signs involving the digestive system and abdomen R19.8 [facility] [address] [place] [address] 04/27/2024 Chago Galindo Jr [facility] [address] [place] [address] 07/24/2024 Chago Galindo Jr Assessments Encounter Date [...] Provider Name:Chago johnson Jr, 01/25/2025 09:40:00 AM, [address] [place] [address], [address], [place], [address], Insurance Providers Payer Name Payer Address Payer Phone Subscriber Number Group Number Insured Name Patient Relationship to Insured Coverage Start Date Coverage End Date [facility] [address] [place] [address] [id number] ROSALINA RYAN Self - patient is the insured 4 Medical (General) History Medical History History ICD Code Colonoscopy 04/08/2023, multiple adenomas, 2-year follow-up. hypertension gout type II diabetes Coronary artery disease with history of stent placement and [place] MICHAEL BPH Peripheral vascular disease Surgical History Surgery Date(Month/Year) Laser therapy for lower extremity venous insufficiency Coronary stent placement 2017 skin graft 2008
== END 2024-11-04 14:58 | disposition home or self-care (01) ==
LOC: HO.HPS 14:15
PROVIDERS: PCP Internal Medicine; Visit Provider Internal Medicine
DX: E66.9 Obesity, unspecified (principal); G47.33 Obstructive sleep apnea (adult) (pediatric)
CPT/HCPCS: 99214

== ENCOUNTER → 2024-11-04 14:14 | Outpatient (BNVA) | payer MEDICARE, SELFPAY | PROVIDERS: PCP Internal Medicine; Visit Provider Internal Medicine | DX: G47.33 Obstructive sleep apnea (adult) (pediatric) (principal); E66.9 Obesity, unspecified; I10 Essential (primary) hypertension; E11.9 Type 2 diabetes mellitus without complications; I25.10 Atherosclerotic heart disease of native coronary artery without angina pectoris | CPT/HCPCS: 99212 ==

== ENCOUNTER 2024-11-25 11:33 | Outpatient (REF) | payer MEDICARE, SELFPAY ==
[2024-12-01 21:33] LABS: Testosterone, Free 37.4 pg/mL (30.0-135.0)
== END 2024-11-25 11:34 | disposition home or self-care (01) ==
LOC: HO.LAB 11:33
PROVIDERS: Absent Provider Urology; PCP Internal Medicine; Visit Provider Internal Medicine
DX: E11.59 Type 2 diabetes mellitus with other circulatory complications (principal); N52.1 Erectile dysfunction due to diseases classified elsewhere; Z79.84 Long term (current) use of oral hypoglycemic drugs
CPT/HCPCS: 36415; 82947; 84402; 84403; 99212

== ENCOUNTER 2024-11-25 11:33 | Outpatient (AMB) | payer MEDICARE, SELFPAY ==
--- OUTSIDE RECORDS SUMMARY | 2024-02-17 10:00 | XMS_ITS ---
Author Organization [facility] Address [address] [facility] [place] [address] Care Team Providers Care Celluloid Trimmer Name Role Phone Ashley PULLIAM, Anne Llamas Primary Care Provider Un available Kahlil Smith Unavailable [phone] Encounters Encounter Location Date [facility] [address] 02/17/2024 Kahlil Smith Plan Of Treatment Next Appt Details Provider Name:Kahlil Smith , 03/08/2025 09:30:00 AM, [address] [place] [address], [phone], Progress Notes * Eldon RYAN GDOB:[birth year] (74 yo M)Acc No.[id number]:02/17/2024 Progress Note Patient: Eldon CONCEPCION Provider: Kiera Smith DPM :1950 A ge:74 Y S ex:Male Date:02/17/2024 Address:[address] [place], [place] [address]je[place]OTHAN, [id number] Pcp:Colin Borrego Subjective: * Chief Complaints: * [...] 1 04/19/2023 Generated for Ashley monteiro/Maura/Adrian on: 0 11/25/2024 02:39 PM EDT
--- NOTE | 2024-11-25 11:35 | A.OFFVIS_ITS ---
Vital Signs 11/25/24 11:38 Height 6 ft 3 in Weight 291 lb 0.163 oz BMI 36.4 BP 130/78 Blood Pressure Location Rt brachial Position Sitting Pulse 90 Pulse Source Pulse Oximeter Pulse Oximetry (%) 94 Oxygen Delivery Method Room Air Intake Visit Reasons: T2DM Intake Note: Patient presents today for a follow-up on Type 2 Diabetes Mellitus: Last Diabetic eye exam was on: DUE, next appt coming up in February Last Podiatry exam was on: 08/17/2024, [facility] Most recent HbA1c: 6.4%, 09/30/2024 Random Glucose: 189 mg/dL Orthodontic Assistant Required: No Accompanied by: Self / Same As Patient Allergies bacitracin (BACITRACIN) Allergy (Mild, Verified 11/25/24 11:42) DERMATITIS, rash, rash HPI Comments Details: This is a 74-year-old male with diabetes mellitus, thyroid nodules presenting for diabetic follow-up Medical history: CAD status post WI, CHF, peripheral vascular disease, hypertension, hyperlipidemia, BPH Current medications: Metformin 1 g b.i.d., Actos 45 (increased from 30 mg daily) stopped glipizide 5 ER daily due to frequent hypoglycemia. Stopped Trulicity 3 mg weekly 3 months ago due to cost. Previously intolerant to Ozempic. Previously on Invokana, never started Jardiance. The trulicity was costing him $600 -4 times a year. POC A1C today is 6.4 from 7.7% Dexcom downloaded: 86% target, 14% high, 1% low. GMI 6.8%. Microvascular/macrovascular: CAD, peripheral vascular disease, nonproliferative diabetic retinopathy. On statin & CARMEN-I Last ophthalmology evaluation: magdy Sees Podiatry every 3 months-Dr Garcia: utd-08/2024 Sees dermatology next week 10/14/2019 Right Thyroid Lobe: 3.9 x 1.6 x 1.8 cm, volume 5.9 mL. Previously 4.6 x 2.2 x 1.7 cm, volume 8.8 mL. Parenchyma: The gland echotexture is homogeneous. Thyroid vascularity is normal. Left Thyroid Lobe: 3.6 x 1.8 x 1.7 cm, volume 5.8 mL. Previously 4.2 x 2.1 x 2.0 cm, volume 9.1 mL. Parenchyma: The gland echotexture is homogeneous. Thyroid vascularity is normal. Isthmus: 0.5 cm in maximum AP dimension. Previously 0.4 cm. RIGHT THYROID LOBE: No nodules. ISTHMUS: No nodules. LEFT THYROID LOBE: There are 2 nodules seen. 1. Location: Lower. Size: 0.5 x 0.3 x 0.4 cm. Previous: 0.7 x 0.4 x 0.5 cm. Nodule characteristics: Hypoechoic and smooth without flow. 2. Location: Lower. Size: 0.7 x 0.6 x 0.6 cm. Previous: 0.8 x 0.6 x 0.6 cm. Nodule characteristics: Heterogeneous and smooth without flow. NODES: A 9 mm lymph node is noted in the right neck. ROS CONSTITUTIONAL: Denies weight loss, fever and chills. HEENT: Denies changes in vision and hearing. RESPIRATORY: Denies SOB and cough. CV: Denies palpitations and CP. Reports increase in LE edema/fluid retention GI: Denies abdominal pain, nausea, vomiting and diarrhea. : Denies dysuria and urinary frequency. MSK: Denies new myalgia and joint pain. SKIN: Denies rash and pruritus. NEUROLOGICAL: Denies headache PSYCHIATRIC: Denies recent changes in mood. PHYSICAL EXAM: GENERAL: Alert and oriented x 3. NAD EYES: EOMI. Anicteric. HENT: Moist mucous membranes. No scleral icterus. No cervical lymphadenopathy. LUNGS: Clear to auscultation bilaterally. CARDIOVASCULAR: Regular rate and rhythm. No murmur. No JVD. ABDOMEN: Soft, non-tender +bs EXTREMITIES: Trace to 1+ b/l edema SKIN: No rashes or lesions. Warm. NEUROLOGIC: No focal neurological deficits. CN II-XII grossly intact PSYCHIATRIC: Cooperative. Appropriate mood and affect [facility] Medical History Hx of adenomatous colonic polyps Anemia Diabetes mellitus, without long-term current use of insulin Hammertoes of both feet Positive colorectal cancer screening using Cologuard test Vitamin D deficiency Hearing loss Hypertension Dyslipidemia Non-toxic multinodular goiter Diabetic neuropathy associated with type 2 diabetes mellitus Allergic rhinitis MICHAEL on CPAP Obesity CAD (coronary artery disease) Surgical History H/O colonoscopy Stented coronary artery Family History Father Diabetes Substance use disorder Mother Hypertension Mental health disorder Social History Housing: House Alcohol intake: never Patient Tobacco Use Status: Former Tobacco user e-Cigarette/Vaping Use: Never Used Current occupational status: retired Cognitive needs: No Hearing needs: Yes Vision needs: Yes Physical Exam Vital Signs: Last Vital Signs Pulse 90 11/25/24 11:38 BP 130/78 11/25/24 11:38 Pulse Ox 94 11/25/24 11:38 Oxygen Delivery Method Room Air 11/25/24 11:38 BMI result Body Mass Index 36.4 Assessment & Plan Assessment & Plan (1) Diabetes mellitus, without long-term current use of insulin: Code(s): E11.9 - Type 2 diabetes mellitus without complications Category: Medical Qualifiers: Diabetes mellitus type: type 2 Diabetes mellitus complication status: with circulatory complication Diabetes mellitus complication detail: with other circulatory complications Qualified Code(s): E11.59 - Type 2 diabetes mellitus with other circulatory complications Plan Diabetes, interval control Continue current medications. Has had two lows since last visit. If recurrent or frequent call the office Treat hypoglycemia by rules of 15s Return in 3 months or sooner as needed Book eye exam Coding Level of Care Code Est Pt Level 4 (94962) Diagnoses Type 2 diabetes mellitus with other circulatory complication, without long-term current use of insulin E11.59 Diabetes mellitus type: type 2 Diabetes mellitus complication status: with circulatory complication Diabetes mellitus complication detail: with other circulatory complications
[2024-11-25 11:38] VITALS: BP 130/78; PULSE 90; O2SAT 94; BMI 36.4
[2024-11-25 11:45] LABS: Glucose, Whole Blood 189 mg/dL (60-115)
--- OUTSIDE RECORDS SUMMARY | 2024-11-25 14:40 | XMS_ITS | Patient Health Record ---
Author Organization [facility] Address [address] [place] [address] Care Team Providers Care Technical Maintenance Technician Name Role Phone Ashley PULLIAM, Anne Primary Care Provider Minerva Galindo Jr, Chago Unavailable Allergies Allergen (clinical drug ingredient) Drug/Non Drug Allergy documented on EMR Reaction Allergy Type Onset Date Status bacitracin Bacitracin Unknown Drug Allergy Activ e Results Component Value Reference Range Notes Complete Blood Count no Diff Reviewed date:07/24/2024 02:58:54 PM Interpretation: Performing Lab:[facility], [address] [place] [phone] Notes/Report: White Blood Count 6.7 4.8-10.8 X10*3/uL [...] Panel Reviewed date:07/24/2024 02:58:41 PM Interpretation: Performing Lab:[facility], [address] [place] [phone] Notes/Report: Bilirubin Total 0.7 0.0-1.0 mg/dL Bilirubin Direct 0.3 0.0-0.5 mg/dL Aspartate Amino Transferase 35 5-37 U/L Alanine Aminotransferase 22 0-40 U/L Total Protein 6.9 6.5-8.0 g/dL Albumin Level 4.4 3.5-5.0 g/dL Alkaline Phosphatase 35 39-117 U/L IRON PROFILE Reviewed date:07/24/2024 02:58:35 PM Interpretation: Performing Lab:[facility], [address] [place] [phone] Notes/Report: Iron 91 45-160 mcg/dL Total Iron Binding Capacity 362 228-428 mcg/d L Percent Iron Saturation 25 15-50 % Unsaturated Iron Binding 271 Ferritin Reviewed date:07/24/2024 02:58:27 PM Interpretation: Performing Lab:[facility], [address] [place] [phone] Notes/Report: Ferritin 64 20-250 ng/mL Lipase Reviewed date:07/24/2024 02:58:22 PM Interpretation: Performing Lab:[facility], [address] [place] [phone] Notes/Report: Lipase 22 8-78 U/L Vitamin B12 and Folate Reviewed date:07/24/2024 02:58:16 PM Interpretation: Performing Lab:[facility], [address] [place] [phone] Notes/Report: Vitamin B12 310 200-900 pg/mL NORMAL 200-900 PG/ML INDETERMINATE 160-199 PG/ML DEFICIENT < 160 PG/ML Folate 14.0 > or = 4.0 ng/mL Reference Values: > or = 4.0 ng/mL < 4.0 ng/mL suggests folate deficiency Methotrexate, aminopterin and folinic acid (leucovorin) are chemotherapeutic agents whose molecular structures are similar to folate; therefore, the [employer] folate assay cannot be used for patients using these drugs. Reason For Referral No Information Medications Medication SIG (Take, Route, Frequency, Duration) Notes Start Date End Date Status Lisinopril 40 MG 1 tablet Orally Once a day Active Terazosin HCl 10 MG 1 capsule at bedtime Orally Once a day Active [place] 3 1000 MG 2 capsules Orally tw [...] Problem Long-term current use of drug therapy (307555446) Encounter for long-term (current) use of other medications (V58.69) Active confirmed Problem Colon cancer screening (174959855) Colon cancer screening (V76.51) Active confirmed Problem Current use of aspirin (V58.66) Active confirmed Problem Anemia (686229310) Anemia (D64.9) Active confirmed Vital Signs Blood pressure diastolic 77 mm Hg 07/23/2024 Height 74 in 07/23/2024 Blood pressure systolic 111 mm Hg 07/23/2024 Weight 299 lbs 07/23/2024 BMI 38.39 kg/m2 07/23/2024 Encounters Encounter Location Date Provider Diagnosis [facility] [address] [place] [address] 07/23/2024 Chago Galindo Jr Anemia D64.9 and Other specified symptoms and signs involving the digestive system and abdomen R19.8 [facility] [address] [place] [address] 04/27/2024 Chago Galindo Jr [facility] [address] [place] [address] 07/24/2024 Chago Galindo Jr Assessments Encounter Date [...] Provider Name:Chago johnson Jr, 01/25/2025 09:40:00 AM, [address] [place] [address], [address], [place], [address], Insurance Providers Payer Name Payer Address Payer Phone Subscriber Number Group Number Insured Name Patient Relationship to Insured Coverage Start Date Coverage End Date [facility] [address] [place] [address] [id number] ROSALINA RYAN Self - patient is the [...]
--- OUTSIDE RECORDS SUMMARY | 2024-11-25 14:40 | XMS_ITS | Patient Health Record ---
Author Organization [facility] Griselda banerjee Roll[place] Address [address] [facility] [place] [address] Care Team Providers Care Vp Security Name Role Phone Ashley PULLIAM, Anne Llamas Primary Care Provider Un available Kahlil Smith Unavailable [phone] Allergies Allergen (clinical drug ingredient) Drug/Non Drug Allergy documented on EMR Reaction Allergy Type Onset Date Status bacitracin Bacitracin rash Drug Allergy Activ e Results Component Value Reference Range Notes HEMOGLOBIN A1C (GLYCOHEMOGLO BIN) Reviewed date:05/25/2024 01:52:20 [...] Duration) Notes Start Date End Date Status Night Splint AFO - L1930 1 wear at rest; Duration: 30 days Not-Taking Brilinta 60 MG Orally Not-T aking Actos 30 MG 1 tablet Orally Once a day Active Crestor 40 MG Orally Not-Ta damaris Alpha Lipoic Acid 600 mg Orally Active Invokana 300 MG 1 tablet Orally Once a day Not-Taking Ciclopirox Olamine 0.77 % 1 application to affected area Externally Twice a day to effected areas on feet; Duration: 30 days 08/26/2024 Active Fenofibrate 145 MG 1 tablet Orally Once a day Active Chromium Picolate No t-Taking Finacea Active Finasteride 5 MG 1 tablet Orally Once a day; Duration: 30 day(s) Active Aspirin 81 MG 1 tablet Orally Once a day Active Isosorbide Mononitrate Not-Taking Cinnamon Active Soolantra Not-Taking CoQ10 Active Cephalexin 500 MG 1 capsule Orally Fou r times a day; Duration: 5 day(s) Not-Taking Daily Vitamin Active [place] Not-Sukhjinder ing Furosemide Active Lisinopril Active Metformin & Diet Manage Prod Active Metoprolol Succinate Active Extra Depth Orthopedic Shoes (1 Pair) with Customized Heat Molded Multidensity Innersoles (3 Pair) as directed Dx: NIDDM/Polyneuropathy (E11.42), Hammertoe Foot Deformity (M20.41,M20.42), Preulcerative Skin Lesion(s) (L85.1 05/20/2023 Active Trulicity Active DHEA Not-Taking Tamsulosin HCl 0.4 MG 1 capsule 30 minut es after the same meal each day Orally Once a day Not-Taking [place]-3 1000 MG 2 capsule Orally Twi ce a day Active Pumpkin Seed Oil Act maximilian Terazosin HCl 10mg Active Vitamin D3 Active Immunizations Vaccine Route Administration Date Status Comme nts Influenza Unknown 12/16/2014 Administered Influenza Unknown 01/10/2016 Administered Influenza Unknown 12/24/2016 Administered Influenza Unknown 12/16/2017 Administered Influenza Unknown 12/04/2018 Administered Influenza Unknown 12/04/2023 Administered Pneumococcal Unknown 01/25/2010 Administered Social History [...] Additional Findings: Tobacco non-user Current no nsmoker AUDIT-C (Standard) Question Answer Notes Did you have a drink containing alcohol in the p ast year? No Points 0 Interpretation Negative Problems Problem Type SNOMED Code ICD Code Onset Dates Problem Status W/U Status Risk Notes Problem Acquired hammer toe of right foot (2028732627909144 ) Other hammer toe(s) (acquired), right foot (M20.41) Active confirmed Problem Acquired hammer toe of left foot (0183151635338179 ) Other hammer toe(s) (acquired), left foot (M20.42) Active confirmed Problem Polyneuropathy due to type 2 diabetes mellitus (860853601) Type 2 diabetes mellitus with diabetic polyneuropathy (E11.42) Active confirmed Vital Signs Blood pressure diastolic 65 mm Hg 11/18/2024 Height 6ft 2in in 11/18/2024 Blood pressure systolic 128 mm Hg 11/18/2024 Weight 295 lbs 11/18/2024 BMI 37.87 kg/m2 11/18/2024 Procedures Procedure Date Ordered Date Performed Result Body Sit e 44520-QBBBNJS NAIL, 6 OR MORE 05/25/2024 N/A 84379-DTCT SKIN LESIONS, OVER 4 05/25/2024 N/A 63084-ECQFGPE NAIL, 6 OR MORE 08/17/2024 N/A 67883-OREV SKIN LESIONS, OVER 4 08/17/2024 N/A 12183-QHWYCWE NAIL, 6 OR MORE 11/18/2024 N/A 86692-DJYJ SKIN LESIONS, OVER 4 11/18/2024 N/A Encounters Encounter Location Date Provider Diagnosis [address] [address] 05/25/2024 Kahliljanae Smith Type 2 diabetes mellitus with diabetic polyneuropathy E11.42 ; Tinea unguium B35.1 ; Other hammer toe(s) (acquired), right foot M20.41 and Other hammer toe(s) (acquired), left foot M20.[address] [address] 08/17/2024 Kahlil Luis Type 2 diabetes mellitus with diabetic polyneuropathy E11.42 and Tinea unguium B35.[address] [address] 08/26/2024 Kahliljanae Smith Tinea pedis of both feet B35.[address] [address] 11/18/2024 Kahlil Luis Type 2 diabetes mellitus with diabetic polyneuropathy E11.42 ; Tinea unguium B35.1 and Tinea pedis of both feet B35.3 [facility] [address] [address] 02/17/2024 Kahlil Smith [facility] [address] [address] 08/20/2024 Kahlil Smith Assessments Encounter Date Diagnosis (ICD Code) Assessment Notes Treatment Notes Treatment Clinical Notes Section Notes 05/25/2024 Type 2 diabetes mellitus with diabetic polyneuropathy (ICD-10 - E11.42) 05/25/2024 Tinea unguium (ICD-10 - B35.1) 08/17/2024 Type 2 diabetes mellitus with diabetic polyneuropathy (ICD-10 - E11.42) 08/17/2024 Tinea unguium (ICD-10 - B35.1) 08/26/2024 Tinea pedis of both feet (ICD-10 - B35.3) 11/18/2024 Type 2 diabetes mellitus with diabetic polyneuropathy (ICD-10 - E11.42) 11/18/2024 Tinea unguium (ICD-10 - B35.1) 11/18/2024 Tinea pedis of both feet (ICD-10 - B35.3) 05/25/2024 Other hammer toe(s) (acquired), right foot (ICD-10 - M20.41) Patient Educated with: DIABETIC FOOT CARE INSTRUCTIONS. pdf (DIABETIC FOOT CARE INSTRUCTIONS. pdf) 05/25/2024 Other hammer toe(s) (acquired), left foot (ICD-10 - M20.42) Plan Of Treatment Pending Test Test Name Order Date X ray : Foot, right 3V 11/06/2023 37253-MGFIOMV NAIL, 6 OR MORE 11/18/2023 27730-GXXOQZH NAIL, 6 OR MORE 05/25/2024 57559-DWSYNZD NAIL, 6 OR MORE 05/20/2023 91166-VSIHVNA NAIL, 6 OR MORE 08/19/2023 07419-FNGGUHS NAIL, 6 OR MORE 08/17/2024 91073-JUFUQIK NAIL, 6 OR MORE 11/18/2024 04583-VEPUQLR NAIL, 6 OR MORE 04/13/2021 25601-DNBWODP NAIL, 6 OR MORE 07/12/2021 09751-UPGIBHO NAIL, 6 OR MORE 10/11/2021 68882-REJNNPK NAIL, 6 OR MORE 01/29/2022 75145-WXBDLGW NAIL, 6 OR MORE 04/30/2022 77615-EDQXONI NAIL, 6 OR MORE 08/06/2022 25271-MBCMPSC NAIL, 6 OR MORE 11/12/2022 90999-PWOBVCY NAIL, 6 OR MORE 02/18/2023 15307-PLZRYHQ NAIL, 6 OR MORE 07/22/2015 27197-DQPQCGD NAIL, 6 OR MORE 10/14/2015 92721-EHBFBPC NAIL, 6 OR MORE 01/13/2016 03622-JHLIQNB NAIL, 6 OR MORE 04/27/2016 97603-MXGPFWV NAIL, 6 OR MORE 07/27/2016 53822-QRCHPNT NAIL, 6 OR MORE 11/02/2016 84441-RXMTMRT NAIL, 6 OR MORE 02/01/2017 73483-OOHPBVE NAIL, 6 OR MORE 05/03/2017 64275-MPVZIUE NAIL, 6 OR MORE 09/05/2017 45262-YOZYJCR NAIL, 6 OR MORE 12/05/2017 13185-UYCVGTK NAIL, 6 OR MORE 03/19/2018 73604-XPPZAGJ NAIL, 6 OR MORE 06/18/2018 17037-NZZKEMZ NAIL, 6 OR MORE 09/17/2018 09734-FLOHDIR NAIL, 6 OR MORE 12/17/2018 92098-UCYSWLN NAIL, 6 OR MORE 03/18/2019 68102-MDFCSZO NAIL, 6 OR MORE 07/15/2019 49073-TKAZUHU NAIL, 6 OR MORE 10/14/2019 44825-VGDMDVB NAIL, 6 OR MORE 01/13/2020 05146-YLWKJMK NAIL, 6 OR MORE 04/13/2020 19753-KWVINQK NAIL, 6 OR MORE 07/13/2020 62868-BZQALCU NAIL, 6 OR MORE 10/12/2020 02930-JSCOYZS NAIL, 6 OR MORE 01/12/2021 71765-Srhvmxmd Plate 01/12/2021 37544-Fyhuytbt Plate 10/12/2020 72366-Ubotfdhq Plate 07/13/2020 53768-Gtmjukgc Plate 04/13/2020 65449-Secalkgy Plate 01/13/2020 05969-Yxklznco Plate 10/14/2019 46552-Cjnaudlq Plate 07/15/2019 20884-Sxrjvpls Plate 03/18/2019 20121-Yjcequqw Plate 12/17/2018 32761-Bexdlfzh Plate 09/17/2018 49697-Ftzjmhxx Plate 03/19/2018 05189-Hlgmdvox Plate 12/05/2017 06475-Tyjmvqvl Plate 09/05/2017 80945-Elbyvwaq Plate 02/18/2023 85063-Vzinpunw Plate 11/12/2022 04280-Qnoyfyjv Plate 08/06/2022 52462-Jwjduoam Plate 04/30/2022 89995-Owcbetbt Plate 01/29/2022 90508-Ygoinmru Plate 10/11/2021 43175-Ycsoyegr Plate 07/12/2021 69323-Cwyfcysg Plate 04/13/2021 98666-Kdgvomhz Plate 07/27/2016 52016-Urscuiza Plate 08/19/2023 55967-Rnrbldqb Plate 05/20/2023 80449-Movibyjk Plate 06/18/2018 19911-Hfrhgwmo Plate 11/18/2023 39449-Kixifzly Plate Each Additional 49469-Wiqrkvef Plate Each Additional 82341-Rrzdrsnu Plate Each Additional 08053-Tzcelblp Plate Each Additional 12/2021 34190-Eoitrrgt Plate Each Additional 01/2022 13435-Whyzhsgs Plate Each Additional 12/2021 35166-Dzwbdkol Plate Each Additional 32508-Wxjaxmnh Plate Each Additional 66203-Zgfjghtl Plate Each Additional 07/2022 59454-Eqmiiimp Plate Each Additional 01/2023 42129-Sllyzixb Plate Each Additional 83753-Nzwzbbam Plate Each Additional 01774-Xbfdaxzv Plate Each Additional 67058-Tsxwvelu Plate Each Additional 44970-Bgpyacvx Plate Each Additional 97722-Uxttkfgf Plate Each Additional 71908-Carxwink Plate Each Additional 21872-Mnwwavzu Plate Each Additional 02/2020 13720-Sngvyvke Plate Each Additional 01/2020 89689-Pyobvlsb Plate Each Additional 12/2020 88723-Oyqjcpkj Plate Each Additional 02/2021 61012-Jpggqpww Plate Each Additional 01/2021 03599-Muqflrqq Plate Each Additional 01/2021 66435-STHA SKIN LESIONS, OVER 4 01/13/20 53732-IMOU SKIN LESIONS, OVER 4 10/13/19 58011-YFHK SKIN LESIONS, OVER 4 07/14/19 67208-WIPK SKIN LESIONS, OVER 4 04/13/19 11134-MBEK SKIN LESIONS, OVER 4 01/13/20 05887-GJTQ SKIN LESIONS, OVER 4 10/14/19 78963-WMZC SKIN LESIONS, OVER 4 07/15/19 75189-MOWK SKIN LESIONS, OVER 4 03/18/19 25878-LONJ SKIN LESIONS, OVER 4 12/18/19 69452-GPZF SKIN LESIONS, OVER 4 09/18/19 25338-ZECD SKIN LESIONS, OVER 4 03/19/19 19 58473-MGKU SKIN LESIONS, OVER 4 12/06/19 18 79092-VVRG SKIN LESIONS, OVER 4 09/06/19 18 22744-FARM SKIN LESIONS, OVER 4 05/04/19 18 53920-ISNK SKIN LESIONS, OVER 4 02/19/20 23 65140-OAGY SKIN LESIONS, OVER 4 11/13/19 23 53365-XFPS SKIN LESIONS, OVER 4 08/07/19 23 05052-EPQT SKIN LESIONS, OVER 4 04/30/19 23 55230-CHFD SKIN LESIONS, OVER 4 01/30/20 42749-YGNC SKIN LESIONS, OVER 4 10/12/19 24544-RRCD SKIN LESIONS, OVER 4 07/13/19 42623-UVGU SKIN LESIONS, OVER 4 04/13/19 57332-NYTL SKIN LESIONS, OVER 4 08/19/19 24 07951-SBHX SKIN LESIONS, OVER 4 05/20/19 08014-LWJJ SKIN LESIONS, OVER 4 11/18/19 24 24585-PVHG SKIN LESIONS, OVER 4 06/19/19 19 95907-SQMI SKIN LESIONS, OVER 4 05/26/19 35481-PFIP SKIN LESIONS, OVER 4 11/19/19 55204-QHEO SKIN LESIONS, OVER 4 06/16/20 25 76225-UNFQ SKIN LESIONS, 2 TO 4 02/02/20 17 62478-GAYT SKIN LESIONS, 2 TO 4 11/03/19 17 40734-ADHK SKIN LESIONS, 2 TO 4 04/27/19 17 03252-DLBL SKIN LESIONS, 2 TO 4 07/28/19 17 68733-UAZC SKIN LESIONS, 2 TO 4 01/13/20 16 95898-CRTA SKIN LESIONS, 2 TO 4 10/14/19 16 29004-QIKI SKIN LESIONS, 2 TO 4 07/22/19 16 Next Appt Details Provider Name:Kahlil Smith , 03/08/2025 09:30:00 AM, [address] [facility], [address], [place], [address], Insurance Providers Payer Name Payer Address Payer Phone Subscriber Number Group Number Insured Name Patient Relationship to Insured Coverage Start Date Coverage End Date [employer] [address] [place] [address] [id number] Eldon Ryan Self - patient is the insured Medical (General) History Medical History History ICD Code mumps measles chicken pox high blood pressure diabetic type ll Arthritis Diverticulosis High blood pressure Measles Mumps Chicken pox Cholesterol CO - 5'18 Surgical History Surgery Date(Month/Year) skin graft 2008 umbilical hernia repair 01/2004 cardiac catheterization Boil removed from arm 02/2019 kidney stones 2021 cyst removal, back 01/05/22 colonoscopy Hospitalization History Reason Date(Month/Year) Dr. De La Torre [facility] [place] UTI-given Antibiotics 202 2 Walk in- foot injury 06/2021 PT For left shoulder 03/2018 [facility]-Heart Attack 07/26/2017
== END 2024-11-25 11:54 | disposition home or self-care (01) ==
LOC: HO.ENCR 11:34
PROVIDERS: PCP Internal Medicine; Visit Provider Internal Medicine
DX: E11.59 Type 2 diabetes mellitus with other circulatory complications (principal)

== ENCOUNTER 2024-12-11 09:29 | Outpatient (REF) | payer MEDICARE, SELFPAY ==
--- OUTSIDE RECORDS SUMMARY | 2024-02-17 10:00 | XMS_ITS ---
Author Organization [facility] Address [address] [facility] [place] [address] Care Team Providers Care Down Filler Name Role Phone Ashley PULLIAM, Anne Llamas Primary Care Provider Un available Kahlil Smith Unavailable [phone] Encounters Encounter Location Date [facility] [address] 02/17/2024 Kahlil Smith Plan Of Treatment Next Appt Details Provider Name:Kahlil Smith , 03/08/2025 09:30:00 AM, [address] [place] [address], [phone], Progress Notes * Eldon RYAN GDOB:[birth year] (74 yo M)Acc No.[id number]:02/17/2024 Progress Note Patient: Eldon CONCEPCION Provider: Kiera Smith DPM :1950 A ge:74 Y S ex:Male Date:02/17/2024 Address:[address] [place], [place] [address]SanjeevCOOKSON, [id number] Pcp:Colin Borrego Subjective: * Chief Complaints: * * Medical History: Objective: * Vitals: Assessment: Plan: * Treatment: * Images: * The named appointment provid er may or may not be the originator of this progress note, and it is not deemed complete until electronically signed by the appointment provider. Sign off status: Pending * Provider: Kiera Smith DPM Date: 1 04/19/2023 Generated for Ashley monteiro/Maura/Adrian on: 1 09:34 AM EDT
--- NOTE | ~2024-12-11 | XR_ITS ---
EXAMINATION: XR ELBOW, LEFT CLINICAL INFORMATION: M25.529 - Pain in unspecified elbow COMPARISON: None available. TECHNIQUE: AP, lateral, and oblique views of the left elbow. FINDINGS: No visible acute fracture or dislocation. No significant effusion seen. Alignment is anatomic. No significant joint space narrowing. No abnormal soft tissue calcification. No radiopaque foreign body. XR/XR elbow LT min 3V IMPRESSION: No radiographic evidence of acute osseous findings. Electronically signed by: Vasquez Sumner MD 12/11/2024 02:00 PM EDT
--- OUTSIDE RECORDS SUMMARY | 2024-12-14 09:35 | XMS_ITS | Patient Health Record ---
Author Organization [facility] Griselda banerjee [place] Address [address] [place] [address] Care Team Providers Care Netbackup Engineer Name Role Phone Ashley PULLIAM, Anne Llamas Primary Care Provider Un available Kahlil Smith Unavailable [phone] Allergies Allergen (clinical drug ingredient) Drug/Non Drug [...] 5 day(s) Not-Taking Daily Vitamin Active [place] Not-Sukhjinder ing Furosemide Active Lisinopril Active Metformin [...] each day Orally Once a day Not-Taking Cordova-3 1000 MG 2 capsule Orally Twi ce [...] Problem Acquired hammer toe of right foot (5918569678738728 ) Other hammer toe(s) (acquired), right foot (M20.41) Active confirmed Problem Acquired hammer toe of left foot ([id number] ) Other hammer toe(s) (acquired), left foot (M20.42) Active confirmed Problem Polyneuropathy due to type 2 diabetes mellitus (793056856) Type 2 diabetes mellitus with diabetic polyneuropathy (E11.42) Active confirmed Vital Signs Blood pressure diastolic 65 mm Hg 11/18/2024 Height 6ft 2in in 11/18/2024 Blood pressure systolic 128 mm Hg 11/18/2024 Weight 295 lbs 11/18/2024 BMI 37.87 kg/m2 11/18/2024 Procedures Procedure Date Ordered Date Performed Result Body Sit e 79645-PBMKDTR NAIL, 6 OR MORE 05/25/2024 N/A 20393-JRVN SKIN LESIONS, OVER 4 05/25/2024 N/A 11929-UPMWLWI NAIL, 6 OR MORE 08/17/2024 N/A 08521-PUBT SKIN LESIONS, OVER 4 08/17/2024 N/A 85911-JGYPEQM NAIL, 6 OR MORE 11/18/2024 N/A 22419-KOUY SKIN LESIONS, OVER 4 11/18/2024 N/A Encounters Encounter Location Date Provider Diagnosis [address] [address] 05/25/2024 Kahliljanae Smith Type 2 diabetes mellitus with diabetic polyneuropathy E11.42 ; Tinea unguium B35.1 ; Other hammer toe(s) (acquired), right foot M20.41 and Other hammer toe(s) (acquired), left foot M20.[address] [address] 08/17/2024 Kahlil Luis Type 2 diabetes mellitus with diabetic polyneuropathy E11.42 and Tinea unguium B35.[address] [address] 08/26/2024 Kahliljanae Smith Tinea pedis of both feet B35.[address] [address] 11/18/2024 Kahlil Luis Type 2 diabetes mellitus with diabetic polyneuropathy E11.42 ; Tinea unguium B35.1 and Tinea pedis of both feet B35.3 [facility] [address] [address] 02/17/2024 Kahlil Smith [facility] [address] [address] 08/20/2024 Kahlil Smith Assessments Encounter Date Diagnosis [...] X ray : Foot, right 3V 11/06/2023 92514-OHUWADH NAIL, 6 OR MORE 11/18/2023 79890-QYWSJHU NAIL, 6 OR MORE 05/25/2024 79678-CGFGSFT NAIL, 6 OR MORE 05/20/2023 67301-MPSXAZG NAIL, 6 OR MORE 08/19/2023 99823-DPNKREE NAIL, 6 OR MORE 08/17/2024 78964-YBEIJNQ NAIL, 6 OR MORE 11/18/2024 20202-PQXAVJY NAIL, 6 OR MORE 04/13/2021 44079-WJRCNKQ NAIL, 6 OR MORE 07/12/2021 66845-PLPMTSW NAIL, 6 OR MORE 10/11/2021 33010-XIIRGYS NAIL, 6 OR MORE 01/29/2022 30244-OBQPDTW NAIL, 6 OR MORE 04/30/2022 53777-CYIFYMB NAIL, 6 OR MORE 08/06/2022 82104-BLVYPVA NAIL, 6 OR MORE 11/12/2022 00081-XRAYBBV NAIL, 6 OR MORE 02/18/2023 46378-KINYEDX NAIL, 6 OR MORE 07/22/2015 69737-XVRNAEN NAIL, 6 OR MORE 10/14/2015 82392-XUCWBBZ NAIL, 6 OR MORE 01/13/2016 96443-OPDLPPO NAIL, 6 OR MORE 04/27/2016 81737-RVDMFHG NAIL, 6 OR MORE 07/27/2016 53320-TKLPGZY NAIL, 6 OR MORE 11/02/2016 24308-WCYYWTN NAIL, 6 OR MORE 02/01/2017 09560-JUAJZUM NAIL, 6 OR MORE 05/03/2017 78300-WBEBTKH NAIL, 6 OR MORE 09/05/2017 62627-GAYZDXU NAIL, 6 OR MORE 12/05/2017 24387-JZHKSOI NAIL, 6 OR MORE 03/19/2018 49788-MGNCBMA NAIL, 6 OR MORE 06/18/2018 73929-MTUMLJT NAIL, 6 OR MORE 09/17/2018 97150-KPAPODB NAIL, 6 OR MORE 12/17/2018 93447-GSEKRVJ NAIL, 6 OR MORE 03/18/2019 74917-PRDFYWD NAIL, 6 OR MORE 07/15/2019 90663-YMOVTXI NAIL, 6 OR MORE 10/14/2019 60240-EVNCTKB NAIL, 6 OR MORE 01/13/2020 57846-QWULERB NAIL, 6 OR MORE 04/13/2020 94367-HLCVCLT NAIL, 6 OR MORE 07/13/2020 75781-LJIFQDU NAIL, 6 OR MORE 10/12/2020 05969-YVWGBSG NAIL, 6 OR MORE 01/12/2021 07187-Ucjjohbd Plate 01/12/2021 06416-Kokjzhrc Plate 10/12/2020 28722-Gykzxucs Plate 07/13/2020 10487-Azpbgsob Plate 04/13/2020 21992-Xfvekmwb Plate 01/13/2020 92736-Zsibkdax Plate 10/14/2019 25357-Gcyojrrs Plate 07/15/2019 31803-Xctytwgf Plate 03/18/2019 93305-Soziaywz Plate 12/17/2018 63744-Zimhdtep Plate 09/17/2018 93075-Baapllzs Plate 03/19/2018 82852-Xhfggzhq Plate 12/05/2017 24593-Etcykuno Plate 09/05/2017 54513-Glktklwd Plate 02/18/2023 73524-Scgrrqaf Plate 11/12/2022 52285-Moedzpue Plate 08/06/2022 82448-Fylfanik Plate 04/30/2022 70042-Xkgdjnuf Plate 01/29/2022 95886-Fjvsmnso Plate 10/11/2021 62231-Iqqkutoi Plate 07/12/2021 05604-Pidwhcpz Plate 04/13/2021 27076-Vvbotewj Plate 07/27/2016 16090-Pbehfnfk Plate 08/19/2023 92283-Bgserjwy Plate 05/20/2023 92681-Gopkwbsb Plate 06/18/2018 69929-Bzkzbtvp Plate 11/18/2023 83749-Wwktszrh Plate Each Additional 20462-Gxgsebvr Plate Each Additional 68573-Dvorcwgk Plate Each Additional 91831-Exepcgax Plate Each Additional 12/2021 69173-Alwqwunq Plate Each Additional 01/2022 84621-Tvkorcsp Plate Each Additional 12/2021 31669-Bsckzfth Plate Each Additional 68935-Hqwqncgr Plate Each Additional 96103-Sekejafp Plate Each Additional 07/2022 22071-Jahxqtqy Plate Each Additional 01/2023 37502-Vmqruzha Plate Each Additional 37339-Xnnqvxjb Plate Each Additional 86915-Wobpznso Plate Each Additional 82533-Azyvhqyf Plate Each Additional 91564-Tizovkmo Plate Each Additional 05333-Vgauzfwk Plate Each Additional 56118-Vbtxnrpz Plate Each Additional 92861-Hizqkygf Plate Each Additional 02/2020 32426-Inizjgob Plate Each Additional 01/2020 92498-Nuaojjcg Plate Each Additional 12/2020 04819-Dfndscqh Plate Each Additional 02/2021 34277-Ujfewbsq Plate Each Additional 01/2021 80364-Enktahaa Plate Each Additional 01/2021 83532-IDZV SKIN LESIONS, OVER 4 01/13/20 78829-FWGB SKIN LESIONS, OVER 4 10/13/19 42011-THCJ SKIN LESIONS, OVER 4 07/14/19 59039-PVIY SKIN LESIONS, OVER 4 04/13/19 63799-FPFK SKIN LESIONS, OVER 4 01/13/20 70447-KDXB SKIN LESIONS, OVER 4 10/14/19 38290-VXVB SKIN LESIONS, OVER 4 07/15/19 66288-HPZX SKIN LESIONS, OVER 4 03/18/19 36235-MNUN SKIN LESIONS, OVER 4 12/18/19 68214-KCKE SKIN LESIONS, OVER 4 09/18/19 26860-TBGP SKIN LESIONS, OVER 4 03/19/19 19 53102-VGVB SKIN LESIONS, OVER 4 12/06/19 18 13804-DBLH SKIN LESIONS, OVER 4 09/06/19 18 24983-DBSW SKIN LESIONS, OVER 4 05/04/19 18 05887-XSHD SKIN LESIONS, OVER 4 02/19/20 23 46183-JVLB SKIN LESIONS, OVER 4 11/13/19 23 36511-JRHP SKIN LESIONS, OVER 4 08/07/19 23 21974-MXMH SKIN LESIONS, OVER 4 04/30/19 23 50241-ZMGJ SKIN LESIONS, OVER 4 01/30/20 89684-NDAC SKIN LESIONS, OVER 4 10/12/19 51095-EREO SKIN LESIONS, OVER 4 07/13/19 54591-AJXK SKIN LESIONS, OVER 4 04/13/19 96894-KEAI SKIN LESIONS, OVER 4 08/19/19 24 18740-MQVC SKIN LESIONS, OVER 4 05/20/19 23700-AUZA SKIN LESIONS, OVER 4 11/18/19 24 84405-LWHM SKIN LESIONS, OVER 4 06/19/19 19 67337-PYTR SKIN LESIONS, OVER 4 05/26/19 39629-JYJF SKIN LESIONS, OVER 4 11/19/19 38625-OJDO SKIN LESIONS, OVER 4 06/16/20 25 43698-DYPN SKIN LESIONS, 2 TO 4 02/02/20 17 30203-WESP SKIN LESIONS, 2 TO 4 11/03/19 17 47615-UOUY SKIN LESIONS, 2 TO 4 04/27/19 17 35341-PFQZ SKIN LESIONS, 2 TO 4 07/28/19 17 21657-RSXP SKIN LESIONS, 2 TO 4 01/13/20 16 20438-UTQT SKIN LESIONS, 2 TO 4 10/14/19 16 30777-JMWC SKIN LESIONS, 2 TO 4 07/22/19 16 Next Appt Details Provider Name:Kahlil Smith , 03/08/2025 09:30:00 AM, [address], [address], [place], [address], Insurance Providers Payer Name Payer Address Payer Phone Subscriber Number Group Number Insured Name Patient Relationship to Insured Coverage Start Date Coverage End Date [employer] [address] [place] [address] [id number] Eldon Ryan Self - patient is the insured Medical (General) History Medical History History ICD Code mumps measles chicken pox high blood pressure diabetic type ll Arthritis Diverticulosis High blood pressure Measles Mumps Chicken pox Cholesterol OK - 5'18 Surgical History Surgery Date(Month/Year) skin graft 2008 umbilical hernia repair 01/2004 cardiac catheterization Boil removed from arm 02/2019 kidney stones 2021 cyst removal, back 01/05/22 colonoscopy Hospitalization History Reason Date(Month/Year) Dr. De La Torre [facility] UTI-given Antibiotics 202 2 Walk in- foot injury 06/2021 PT For left shoulder 03/2018 [facility]-Heart Attack 07/26/2017
== END 2024-12-11 09:30 | disposition home or self-care (01) ==
LOC: HO.HOSX 09:29
PROVIDERS: Visit Provider Physician Assistant
DX: S50.02XA Contusion of left elbow, initial encounter (principal); W20.8XXA Other cause of strike by thrown, projected or falling object, initial encounter
CPT/HCPCS: 73080; 99212

== ENCOUNTER 2024-12-11 10:01 | Outpatient (AMB) | payer MEDICARE, SELFPAY ==
--- NOTE | 2024-12-11 10:13 | MHC.OFFVIS ---
Vital Signs 12/11/24 10:19 Height 6 ft 3 in Weight 291 lb BMI 36.4 Handedness Right Intake Visit Reasons: New Prob - left Elbow Pain Intake Note: Eldon is a 74 year old right hand dominant male who presents today for a evaluation of his left elbow pain. Patient reports ongoing pain for a about 2 months. He notices that his pain is worse when he is laying down at night. Patient states that he had a fall when he was getting a package from outside. He noticed that package was wet when he picked up the package which ended up breaking up and he lost his balance and feel on his elbow. Patient finds relief with using the topical cream Allergies bacitracin (BACITRACIN) Allergy (Mild, Verified 12/11/24 10:18) DERMATITIS, rash, rash HPI HPI New Prob - left Elbow Pain: Details: Mr. Rivas this is a 74-year-old right-hand dominant male who presents to the office today for evaluation of left elbow pain. He reports the pain has been present for the past 2 months. He states that he was picking up a wet packet trim outside and fell landing directly onto the left elbow. He has been using topical Voltaren with relief. [facility] Medical History Hx of adenomatous colonic polyps Anemia Diabetes mellitus, without long-term current use of insulin Hammertoes of both feet Positive colorectal cancer screening using Cologuard test Vitamin D deficiency Hearing loss Hypertension Dyslipidemia Non-toxic multinodular goiter Diabetic neuropathy associated with type 2 diabetes mellitus Allergic rhinitis MICHAEL on CPAP Obesity CAD (coronary artery disease) Surgical History H/O colonoscopy Stented coronary artery Family History Father Diabetes Substance use disorder Mother Hypertension Mental health disorder Social History Housing: House Alcohol intake: never Patient Tobacco Use Status: Former Tobacco user e-Cigarette/Vaping Use: Never Used Current occupational status: retired Cognitive needs: No Hearing needs: Yes Vision needs: Yes Review of Systems Const All systems reviewed & are unremarkable except as noted in HPI and below Physical Exam Vital Signs: BMI result Body Mass Index 36.4 Const General: cooperative, healthy appearing and no acute distress Resp Effort & Inspection: normal respiratory effort and able to speak in complete sentences Extrem Other: Left elbow: Normal to inspection. No ecchymosis, erythema, or edema. No tenderness to palpation over the olecranon. No tenderness to the medial or lateral epicondyle. NVI. Psych Appearance: grossly normal Mental Status: mental status grossly normal Attitude: cooperative Assessment & Plan Assessment & Plan (1) Left elbow contusion: Code(s): S50.02XA - Contusion of left elbow, initial encounter Category: Medical Plan Mr. Rivas this is a 74-year-old right-hand dominant male who presents to the office today for evaluation of left elbow pain. He reports the pain has been present for the past 2 months. He states that he was picking up a wet packet trim outside and fell landing directly onto the left elbow. He has been using topical Voltaren with relief. While the office today, we discussed the role of physical therapy which the patient has elected to attend. X-rays were obtained in the office today of the left elbow and reviewed by me, which reveal no acute fracture or dislocation. We discussed that an elbow contusion can last for several weeks to months. He will resume back to normal activities using pain as his guide. He will follow up PRN, sooner if needed. Orders: Orders XR elbow LT min 3V Today M25.529 - Pain in unspecified elbow Coding Level of Care Code Est Pt Level 3 (29560) Diagnoses Left elbow contusion S50.02XA
[2024-12-11 10:19] VITALS: BMI 36.4
== END 2024-12-11 10:43 | disposition home or self-care (01) ==
LOC: HO.HOS 10:02
PROVIDERS: PCP Internal Medicine; Visit Provider Physician Assistant
DX: S50.02XA Contusion of left elbow, initial encounter (principal)
CPT/HCPCS: 99213

== ENCOUNTER → 2024-12-11 10:03 | Outpatient (BNV) | payer MEDICARE, SELFPAY | PROVIDERS: Visit Provider Radiology Diagnostic Ultrasound | DX: M25.522 Pain in left elbow (principal) | CPT/HCPCS: 73080 ==

== ENCOUNTER 2025-01-07 11:03 | Outpatient (AMB) | payer MEDICARE, SELFPAY ==
[2025-01-07 11:09] VITALS: BP 102/58; PULSE 101; O2SAT 94; BMI 36.1
--- NOTE | 2025-01-07 11:09 | MHC.OFFVIS ---
Vital Signs 01/07/25 11:09 Height 6 ft 3 in Weight 288 lb 12.889 oz BMI 36.1 BP 102/58 L Blood Pressure Location Lt brachial Position Sitting Pulse 101 H Pulse Source Pulse Oximeter Pulse Oximetry (%) 94 Oxygen Delivery Method Room Air Intake Visit Reasons: Obstructive sleep apnea Intake Note: pt is here for follow up of MICHAEL, and feeling so/s had a fall and hurt his arm Broke Beater Required: No Allergies bacitracin (BACITRACIN) Allergy (Mild, Verified 01/07/25 11:26) DERMATITIS, rash, rash Medication List - Last Reconciled 01/07/25 by Jenny Huggins MD alpha lipoic acid 600 mg PO BID aspirin 81 mg PO DAILY blood sugar diagnostic (FreeStyle Lite Strips) Check Fasting blood sugar once a day as directed blood sugar diagnostic As directed blood-glucose meter (FreeStyle Lite Meter kit) check fasting glucoe once a day As directed cinnamon bark (Cinnamon) 1,000 mg PO DAILY coenzyme Q10 (Co Q-10) 200 mg PO DAILY [Customized heat molded multi- density inner soles( 3 pairs) As directed NS] 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,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,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) As directed NS Dexcom G7 Sensor (blood-glucose sensor) every 10 days NS diclofenac sodium 75 mg PO BID PRN 30 days [Extra depth diabetic orthopedic shoes Extra depth diabetic orthopedic shoes 1 pair NS] ezetimibe 10 mg PO DAILY fenofibrate nanocrystallized 145 mg PO DAILY 90 days finasteride 5 mg PO DAILY 90 days fluticasone propionate 50 mcg/actuation (Flonase Allergy Relief) 2 sprays intranasal DAILY PRN furosemide (Lasix) 20 mg PO QAM lancets As directed lisinopril 40 mg PO DAILY metformin 1,000 mg PO BID 90 days metoprolol succinate ER 50 mg PO DAILY multivitamin (Multiple Vitamins tablet) 1 tab PO DAILY omega-3 acid ethyl esters 2 caps PO BID omeprazole 20 mg PO DAILY pioglitazone 45 mg PO DAILY rosuvastatin 40 mg PO DAILY tadalafil 5 mg PO DAILY 90 days tadalafil 20 mg PO ONCE PRN 30 days terazosin 10 mg PO BEDTIME 90 days Trulicity (dulaglutide) 1.5 mg (0.5 mL) subcut QWEEK NS Do you need a note to return to daycare/school/sports/work: No HPI HPI Obstructive sleep apnea: Details: Mr. Rivas 74 years old tall and grossly obese, does have obstructive sleep apnea, along with other comorbidities. Since last visit he did try to use the CPAP just for a few nights. He had change the mask to nasal mask and this was much more comfortable. He was motivated to use mask more regularly. However unfortunately he had other events, due to frequent urination at night, and also after a fall on the porch he had ongoing pain in the left elbow for several weeks and due to The discomfort and pain in the left elbow he was not able to use the CPAP.Now that the pain is commended under control he does show his full intention to use the mask. He is accepting the fact that when he does use the CPAP at night with the nasal mask, he does sleep better. [facility] Medical History Hx of adenomatous colonic polyps Anemia Diabetes mellitus, without long-term current use of insulin Hammertoes of both feet Positive colorectal cancer screening using Cologuard test Vitamin D deficiency Hearing loss Hypertension Dyslipidemia Non-toxic multinodular goiter Diabetic neuropathy associated with type 2 diabetes mellitus Allergic rhinitis MICHAEL on CPAP Obesity CAD (coronary artery disease) Surgical History H/O colonoscopy Stented coronary artery Family History Father Diabetes Substance use disorder Mother Hypertension Mental health disorder Social History Housing: House Alcohol intake: never Patient Tobacco Use Status: Former Tobacco user e-Cigarette/Vaping Use: Never Used Current occupational status: retired Cognitive needs: No Hearing needs: Yes Vision needs: Yes Review of Systems Const All systems reviewed & are unremarkable except as noted in HPI and below Eyes Reports no additional complaints ENT Reports nasal congestion (MILD NASAL CONGESTION, CONTROLLED WITH USE OF FLONASE) Card Denies chest pain, Denies irregular heart rhythm, Denies leg edema and Denies dyspnea Resp Denies cough, Denies dyspnea and Denies wheezing GI Reports no additional complaints Reports nocturia (NOW MUCH IMPROVED WITH THE USE OF MEDICINE) Musc Reports muscle weakness (MILD) Skin/Breast Reports system reviewed and no additional complaints, except as documented Neuro Reports no additional complaints Psych Reports no additional complaints Endo Reports no additional complaints Aller/Immun Denies wheezing Physical Exam Vital Signs: Last Vital Signs Pulse 101 H 01/07/25 11:09 BP 102/58 L 01/07/25 11:09 Pulse Ox 94 01/07/25 11:09 Oxygen Delivery Method Room Air 01/07/25 11:09 BMI result Body Mass Index 36.1 Const General: comfortable, no acute distress, alert and awake Orientation/consciousness: patient oriented x3 HEENT Head: Yes normal to inspection General nose exam: No nasal polyps present and No nasal discharge present Face and sinus: Yes sinuses nontender Mouth: oropharynx normal Throat: Yes posterior oropharynx normal Eyes General: appearance normal, both eyes and all related structures Neck Neck: Yes normal visual inspection, Yes no lymphadenopathy, Yes trachea midline and Yes no JVD Thyroid: Thyroid normal Chest Chest palpation & inspection: normal inspection of the chest, normal palpation of entire chest wall and no tenderness Resp Effort & Inspection: normal respiratory effort Auscultation: clear to auscultation bilaterally, no crackles, no rales and no wheezes Percussion: percussion normal Cardio Palpation: normal PMI Rate: regular rate Rhythm: regular rhythm Heart sounds: no gallops and no murmurs GI Palpation (GI): Soft to palpation, nontender, No hepatosplenomegaly present, no masses and Other GI palpation findings present (Abdomen is obese and protuberant) Auscultation: normal bowel sounds Back/Spine/Pelvis Thoracic/Lumbar Spine: thoracic and lumbar spine normal to inspection Skin General skin exam: no rashes or lesions noted Neuro General: patient oriented x3 and no focal motor deficits Cranial nerves: Yes CN's II-XII intact bilaterally Extrem General: Yes normal to inspection, Yes no clubbing, cyanosis or edema, Yes no calf tenderness and Yes venous stasis dermatitis Psych Appearance: grossly normal and well kempt Speech and movement: Normal speech and movement present Results Reviewed Results Reviewed: The compliance report for the last 30 nights shows that he used only for 4 nights with an average usage of 3 hours 16 minutes, He did have moderate degree of air leak, his residual AHI was 6.1 Assessment & Plan Assessment & Plan (1) Obesity: Comment: REMAINS MODERATELY OBESE AND HAS NOT BEEN ABLE TO LOSE MUCH WEIGHT. HE IS TRYING TO WATCH HIS DIET, AND TRIES TO WALK DAILY . Lately did lose about 3 lb of weight. Code(s): E66.9 - Obesity, unspecified Category: Medical Plan: Encouraged to cut down the calories intake and also walk about 2 miles every day. (2) Allergic rhinitis: Comment: HE DOES HAVE CHRONIC MILD ALLERGIC RHINITIS. BETTER WITH THE USE OF WARM HUMIDITY ,, AND ALSO USE OF FLONASE NASAL SPRAY PRN . AND OKAY TO USE ZYRTEC 10 MG AT HS P.R.N.. Code(s): J30.9 - Allergic rhinitis, unspecified Category: Medical Plan: ENCOURAGED TO USE FLONASE NASAL SPRAY DAILY AND ALSO USE WARM HUMIDIFICATION WHEN USING THE CPAP (3) Obstructive sleep apnea: Comment: KNOWN TO HAVE MICHAEL, SINCE 2019. WAS USING CPAP REGULARLY UP UNTIL BEGINNING OF THIS YEAR 2024 . SINCE HIS LAST VISIT IN HE TRY TO USE IT FEW NIGHTS, AND THEN DUE TO OTHER REASONS SUCH FALLING AND HAVING ONGOING PAIN IN THE LEFT ELBOW, HE WAS NOT ABLE TO USE. Code(s): G47.33 - Obstructive sleep apnea (adult) (pediatric) Category: Medical Plan: WE TALKED ABOUT THE COMPLIANCE AND HE INTENDS TO USE IT REGULARLY. HE DOES CLAIMS THAT HE SLEEPS BETTER WHEN HE USES THE CPAP. HE ALSO ADMITS THAT THE NASAL MASK IS MORE COMFORTABLE THAN THE FULLFACE MASK. Coding Level of Care Code Est Pt Level 3 (55941) Diagnoses Obesity E66.9 Allergic rhinitis J30.9 Obstructive sleep apnea G47.33
== END 2025-01-07 11:27 | disposition home or self-care (01) ==
LOC: HO.HPS 11:04
PROVIDERS: PCP Internal Medicine; Visit Provider Internal Medicine
DX: E66.9 Obesity, unspecified (principal); J30.9 Allergic rhinitis, unspecified; G47.33 Obstructive sleep apnea (adult) (pediatric)
CPT/HCPCS: 99213

== ENCOUNTER → 2025-01-07 11:03 | Outpatient (BNVA) | payer MEDICARE, SELFPAY | PROVIDERS: PCP Internal Medicine; Visit Provider Internal Medicine | DX: N40.1 Benign prostatic hyperplasia with lower urinary tract symptoms (principal); N13.8 Other obstructive and reflux uropathy; E11.69 Type 2 diabetes mellitus with other specified complication; N52.1 Erectile dysfunction due to diseases classified elsewhere | CPT/HCPCS: 99212 ==

== ENCOUNTER 2025-01-07 11:32 | Outpatient (AMB) | payer MEDICARE, SELFPAY ==
--- NOTE | 2025-01-07 11:41 | MHC.OFFVIS ---
Intake Visit Reasons: 3m/Testo labs Intake Note: Patient is Present for 3mo follow up Urology Med: Terazosin, Tadalafil Antibiotic Allergy:Bacitracin Blood Thinner:Aspirin Todays PVR : 43mls Labs done : 11/25/24 Total Testosterone 505, Fr Testosterone 37.4 Classified Ad Taker Required: No Accompanied by: Self / Same As Patient Allergies bacitracin (BACITRACIN) Allergy (Mild, Verified 01/07/25 11:42) DERMATITIS, rash, rash HPI Comments Details: Eldon is a pleasant male. He is a patient of Dr. Ramirez. He is seen for the following urologic conditions - lower urinary tract symptoms - erectile dysfunction Follow-up from erectile dysfunction management Good response to tadalafil regarding testosterone Has been working on diabetic control Refill tadalafil Six-month follow-up check PSA On combination terazosin and finasteride Urgency and frequency has changed after signing Lasix recently PVR remains low 60 cc Continue finasteride 3 times a week Erectile dysfunction Daily low-dose tadalafil On demand tadalafil Labs - 11/26 T 500 Lower urinary tract symptoms PSA 07/22 4.25, 03/25 1.3, 09/22 1.8, 09/23 1.0, 09/25 2.3 Current visit is for - further symptom evaluation of obstructive symptoms Current treatment includes - finasteride with 10 mg terazosin Prior treatments include -tamsulosin 0.4 mg not sufficient Prostate Symptom Score - 02/20 moderate,Bother 4 - 04/24 mild, bother 2, nocturia x1 and improving Symptoms include - initial - weak stream, incomplete emptying, nocturia Results from testing include - ultrasound pending Prior Prostate Score unknown Prostate volume 50 g Associated conditions CAD No CVA No Diabetes yes - with urgency Elevated PSA No Erectile Dysfunction yes Testing at next visit will include - pvr, with psa Renal cyst - 03/24 Renal US 4 cm left upper pole renal cyst - 08/23 Ct with stable cyst - small kidney stones [facility] Medical History Hx of adenomatous colonic polyps Anemia Diabetes mellitus, without long-term current use of insulin Hammertoes of both feet Positive colorectal cancer screening using Cologuard test Vitamin D deficiency Hearing loss Hypertension Dyslipidemia Non-toxic multinodular goiter Diabetic neuropathy associated with type 2 diabetes mellitus Allergic rhinitis MICHAEL on CPAP Obesity CAD (coronary artery disease) Surgical History H/O colonoscopy Stented coronary artery Family History Father Diabetes Substance use disorder Mother Hypertension Mental health disorder Social History Housing: House Alcohol intake: never Patient Tobacco Use Status: Former Tobacco user e-Cigarette/Vaping Use: Never Used Current occupational status: retired Cognitive needs: No Hearing needs: Yes Vision needs: Yes Review of Systems Const Denies chills and Denies fever(s) Card Reports no additional complaints and Denies syncope Resp Denies cough GI Denies abdominal pain and Denies heartburn Reports as per HPI and Denies change in libido Neuro Denies syncope Psych Denies change in libido Endo Denies change in libido Physical Exam Const General: cooperative, healthy appearing, comfortable and no acute distress Orientation/consciousness: patient oriented x3 HEENT Face and sinus: Yes normal facial exam Mouth: moist mucous membranes Neck Neck: Yes normal visual inspection, Yes full ROM and Yes trachea midline Chest Chest palpation & inspection: normal inspection of the chest Resp Effort & Inspection: normal respiratory effort, able to speak in complete sentences and no respiratory distress GI Inspection: Yes normal to inspection Back/Spine/Pelvis Cervical Spine: normal cervical lordosis Thoracic/Lumbar Spine: thoracic and lumbar spine normal to inspection Skin General skin exam: no rashes or lesions noted Neuro General: patient oriented x3, gait normal, tone normal and moves all extremities Extrem General: Yes normal to inspection and Yes capillary refill normal Office Procedures Post Void Residual Post Residual Void Post Void Residual (PVR): 43 25399-Lcom Void Residual by ultrasound Assessment & Plan Assessment & Plan (1) BPH w urinary obs/LUTS: Code(s): N40.1 - Benign prostatic hyperplasia with lower urinary tract symptoms; N13.8 - Other obstructive and reflux uropathy Category: Medical (2) Erectile dysfunction associated with type 2 diabetes mellitus: Code(s): E11.69 - Type 2 diabetes mellitus with other specified complication; N52.1 - Erectile dysfunction due to diseases classified elsewhere Category: Medical Plan Medication refill Six-month follow-up PSA office Medications: Refilled tadalafil 5 mg PO DAILY 90 tabs 3RF BPH 90 days N13.8 - Other obstructive and reflux uropathy, N40.1 - Benign prostatic hyperplasia with lower urinary tract symptoms Patient Instructions: This note is constructed using voice recognition software. While every effort has been made to ensure accuracy guide travel errors may have been included. Imaging studies, laboratory and physical exam results were discussed and reviewed in detail. No major barriers to patient understanding were identified. An opportunity to ask questions regarding the treatment plan was provided. All questions were answered. The patient expressed understanding and agreement with the above treatment plan. The patient is aware they should contact our office by phone for worsening of their current condition or the appearance of new urologic symptoms. Compliance is encouraged with any medications and followup testing that is ordered. It is a privilege to participate in the urologic care of your patient. If you have any questions or concerns regarding treatment for the above conditions, or other urologic issues, please do not hesitate to contact me. The office telephone contact is [phone]. Sincerely, Dr Wes Stephens MD, [facility] - Urology Compassionate Specialist Care for the Genitourinary System Coding Level of Care Code Est Pt Level 3 (94372) Complex EM visit Add On G2211 Diagnoses BPH w urinary obs/LUTS N40.1; N13.8 Erectile dysfunction associated with type 2 diabetes mellitus E11.69; N52.1 CPT Codes Post Residual Void - PVR CPT Code: 03337-Kkrv Void Residual by ultrasound ([id number])
== END 2025-01-07 12:24 | disposition home or self-care (01) ==
LOC: HO.HUSH 11:33
PROVIDERS: PCP Internal Medicine; Visit Provider Urology
DX: E11.69 Type 2 diabetes mellitus with other specified complication (principal); N40.1 Benign prostatic hyperplasia with lower urinary tract symptoms; N13.8 Other obstructive and reflux uropathy; N52.1 Erectile dysfunction due to diseases classified elsewhere
CPT/HCPCS: 99213

== ENCOUNTER 2025-02-16 08:47 | Outpatient (REF) | payer MEDICARE, SELFPAY ==
--- OUTSIDE RECORDS SUMMARY | 2024-02-17 09:00 | XMS_ITS ---
Author Organization [facility] Address [address] [place] [address] Care Team Providers Care Semiautomatic Stitcher Operator Name Role Phone Ashley PULLIAM, Anne Llamas Primary Care Provider Un available Kahlil Smiht Unavailable [phone] Encounters Encounter Location Date [facility] [address] 02/17/2024 Kahlil Smith Plan Of Treatment Next Appt Details Provider Name:Kahlil Smith , 03/08/2025 09:30:00 AM, [address] [place] [address], [phone], Progress Notes * Eldon RYAN GDOB:[birth year] (75 yo M)Acc No.[id number]:02/17/2024 Progress Note Patient: Eldon CONCEPCION Provider: Gentry Smith DPM :1950 A ge:74 Y S ex:Male Date:02/17/2024 Address:[address] [place], [place] [address]Sanje[place] [id number] Pcp:Colin Borrego Subjective: * Chief Complaints: * * Medical History: Objective: * Vitals: Assessment: Plan: * Treatment: * Images: * The named appointment provid er may or may not be the originator of this progress note, and it is not deemed complete until electronically signed by the appointment provider. Sign off status: Pending * Provider: Gentry Smith DPM Date: 04/19/2023 Generated for Ashley monteiro/Hola on: 04/19/2024 09:31 AM EST
--- OUTSIDE RECORDS SUMMARY | 2025-02-16 09:32 | XMS_ITS | Patient Health Record ---
Author Organization [facility] Griselda banerjee Tennga Address [address] [facility] [place] [address] Care Team Providers Care Acls Nurse Name Role Phone Ashley PULLIAM, Anne Llamas Primary Care Provider Un available Kahlil Smith Unavailable [phone] Allergies Allergen (clinical drug ingredient) Drug/Non Drug [...] 5 day(s) Not-Taking Daily Vitamin Active Saw [place] Not-Sukhjinder ing Furosemide Active Lisinopril Active Metformin [...] each day Orally Once a day Not-Taking [place]-3 1000 MG 2 capsule Orally Twi ce [...] Problem Acquired hammer toe of right foot (1974336708344459 ) Other hammer toe(s) (acquired), right foot (M20.41) Active confirmed Problem Acquired hammer toe of left foot (3151665760639449 ) Other hammer toe(s) (acquired), left foot (M20.42) Active confirmed Problem Polyneuropathy due to type 2 diabetes mellitus (868798289) Type 2 diabetes mellitus with diabetic polyneuropathy (E11.42) Active confirmed Vital Signs Blood pressure diastolic 65 mm Hg 11/18/2024 Height 6ft 2in in 11/18/2024 Blood pressure systolic 128 mm Hg 11/18/2024 Weight 295 lbs 11/18/2024 BMI 37.87 kg/m2 11/18/2024 Procedures Procedure Date Ordered Date Performed Result Body Sit e 84270-XCKMYQN NAIL, 6 OR MORE 05/25/2024 N/A 72255-CSDU SKIN LESIONS, OVER 4 05/25/2024 N/A 71947-TKLNNKU NAIL, 6 OR MORE 08/17/2024 N/A 73546-XLGI SKIN LESIONS, OVER 4 08/17/2024 N/A 06478-WCVUXDG NAIL, 6 OR MORE 11/18/2024 N/A 84888-NIKW SKIN LESIONS, OVER 4 11/18/2024 N/A Encounters Encounter Location Date Provider Diagnosis [address] [address] 05/25/2024 Kahliljanae Smith Type 2 diabetes mellitus with diabetic polyneuropathy E11.42 ; Tinea unguium B35.1 ; Other hammer toe(s) (acquired), right foot M20.41 and Other hammer toe(s) (acquired), left foot M20.[address] [address] 08/17/2024 Kahlil Luis Type 2 diabetes mellitus with diabetic polyneuropathy E11.42 and Tinea unguium B35.[address] [address] 08/26/2024 Kahliljanae Smith Tinea pedis of both feet B35.[address] [address] 11/18/2024 Kahlil Luis Type 2 diabetes mellitus with diabetic polyneuropathy E11.42 ; Tinea unguium B35.1 and Tinea pedis of both feet B35.3 [facility] [address] [address] 02/17/2024 Kahlil Smith [facility] [address] [address] 08/20/2024 Kahlil Smith Assessments Encounter Date Diagnosis [...] X ray : Foot, right 3V 11/06/2023 23854-TVSKTXZ NAIL, 6 OR MORE 11/18/2023 92631-ZXNXPIG NAIL, 6 OR MORE 05/25/2024 83519-KRLYAIY NAIL, 6 OR MORE 05/20/2023 50331-EIXETAE NAIL, 6 OR MORE 08/19/2023 62515-AAWXJDN NAIL, 6 OR MORE 08/17/2024 39751-BPBLPCI NAIL, 6 OR MORE 11/18/2024 79527-FWNCQMQ NAIL, 6 OR MORE 04/13/2021 21894-GSJMKVB NAIL, 6 OR MORE 07/12/2021 51961-VQLGDBW NAIL, 6 OR MORE 10/11/2021 59755-AFJXDIQ NAIL, 6 OR MORE 01/29/2022 20112-ZVVRAGQ NAIL, 6 OR MORE 04/30/2022 24386-JLGHXEZ NAIL, 6 OR MORE 08/06/2022 67229-NAXEDAR NAIL, 6 OR MORE 11/12/2022 71412-WPJTHGU NAIL, 6 OR MORE 02/18/2023 86629-PVLDWOU NAIL, 6 OR MORE 07/22/2015 09302-YRSFADQ NAIL, 6 OR MORE 10/14/2015 43419-MVGJYBU NAIL, 6 OR MORE 01/13/2016 65874-KHRZGWB NAIL, 6 OR MORE 04/27/2016 87130-DJRJLQT NAIL, 6 OR MORE 07/27/2016 40928-KEFDEDR NAIL, 6 OR MORE 11/02/2016 67259-GUWECTP NAIL, 6 OR MORE 02/01/2017 00687-OVUQPDE NAIL, 6 OR MORE 05/03/2017 36619-DUGTUGW NAIL, 6 OR MORE 09/05/2017 36231-PZKRLVH NAIL, 6 OR MORE 12/05/2017 75312-EBUAGPP NAIL, 6 OR MORE 03/19/2018 42338-XUCQFPT NAIL, 6 OR MORE 06/18/2018 23240-JJBRZEQ NAIL, 6 OR MORE 09/17/2018 45533-ETBVZQA NAIL, 6 OR MORE 12/17/2018 01390-ASNCOIA NAIL, 6 OR MORE 03/18/2019 77666-ANZGEFQ NAIL, 6 OR MORE 07/15/2019 50919-XNYPCSR NAIL, 6 OR MORE 10/14/2019 14561-HAZHUAC NAIL, 6 OR MORE 01/13/2020 52955-DJMLXXI NAIL, 6 OR MORE 04/13/2020 90956-FBBPEHI NAIL, 6 OR MORE 07/13/2020 93668-TGYGSRE NAIL, 6 OR MORE 10/12/2020 31049-MRRXLNC NAIL, 6 OR MORE 01/12/2021 14839-Ekduwbdy Plate 01/12/2021 17640-Txdrfium Plate 10/12/2020 70978-Kylkyhwu Plate 07/13/2020 24291-Pwrtzwye Plate 04/13/2020 62808-Cfigejrk Plate 01/13/2020 97397-Ryimimwy Plate 10/14/2019 51845-Hyqyyyif Plate 07/15/2019 73456-Lsbrheln Plate 03/18/2019 34951-Qpjkunhj Plate 12/17/2018 32676-Xkiozdwy Plate 09/17/2018 92147-Yoovnaen Plate 03/19/2018 42812-Vxbvmzdn Plate 12/05/2017 83691-Vojtzeyf Plate 09/05/2017 61801-Fgvxosbt Plate 02/18/2023 66108-Ucpdiulf Plate 11/12/2022 08227-Jemxelzw Plate 08/06/2022 49337-Qdaswkom Plate 04/30/2022 36567-Chuyabjq Plate 01/29/2022 88305-Gbldswww Plate 10/11/2021 03382-Wtwmxodo Plate 07/12/2021 05369-Znuqissb Plate 04/13/2021 16580-Beshzlcf Plate 07/27/2016 66924-Jlpefxdv Plate 08/19/2023 34672-Yaqrzxsw Plate 05/20/2023 61233-Lpjiwtix Plate 06/18/2018 58032-Fbgdocbd Plate 11/18/2023 39996-Pajzzbrw Plate Each Additional 70689-Extjalcl Plate Each Additional 40293-Fgooadwu Plate Each Additional 11040-Dpkdovry Plate Each Additional 12/2021 13967-Xnxpprxv Plate Each Additional 01/2022 97927-Xgejnbxi Plate Each Additional 12/2021 26115-Fxgcgtnw Plate Each Additional 82471-Ouhfuhrv Plate Each Additional 40802-Vpikceuu Plate Each Additional 07/2022 13322-Hkoeerig Plate Each Additional 01/2023 75437-Oafiytlg Plate Each Additional 46606-Kzqofudd Plate Each Additional 28446-Ualduibl Plate Each Additional 14155-Gcrtrkdj Plate Each Additional 21568-Vjwjjlzk Plate Each Additional 64037-Vxpbfzpx Plate Each Additional 65825-Bmbwqxpg Plate Each Additional 69962-Xslpzlyd Plate Each Additional 02/2020 64721-Bthcuqcl Plate Each Additional 01/2020 73287-Mprsfsdk Plate Each Additional 12/2020 24952-Jqfuuerh Plate Each Additional 02/2021 72418-Aorwrryu Plate Each Additional 01/2021 54637-Encnutjy Plate Each Additional 01/2021 99050-MDLN SKIN LESIONS, OVER 4 01/13/20 96202-XLQB SKIN LESIONS, OVER 4 10/13/19 98321-NVKL SKIN LESIONS, OVER 4 07/14/19 88925-LKKN SKIN LESIONS, OVER 4 04/13/19 17557-BFMF SKIN LESIONS, OVER 4 01/13/20 06608-LWHJ SKIN LESIONS, OVER 4 10/14/19 34517-PSGH SKIN LESIONS, OVER 4 07/15/19 87801-MDID SKIN LESIONS, OVER 4 03/18/19 76072-VFTW SKIN LESIONS, OVER 4 12/18/19 06289-FJKZ SKIN LESIONS, OVER 4 09/18/19 61155-ZVUN SKIN LESIONS, OVER 4 03/19/19 19 71843-KKFU SKIN LESIONS, OVER 4 12/06/19 18 94769-GSGG SKIN LESIONS, OVER 4 09/06/19 18 91724-UILL SKIN LESIONS, OVER 4 05/04/19 18 71645-NCPP SKIN LESIONS, OVER 4 02/19/20 23 34969-RYOO SKIN LESIONS, OVER 4 11/13/19 23 85957-SXHI SKIN LESIONS, OVER 4 08/07/19 23 70357-EJMA SKIN LESIONS, OVER 4 04/30/19 23 31148-GJWU SKIN LESIONS, OVER 4 01/30/20 39587-DRSE SKIN LESIONS, OVER 4 10/12/19 34374-FESU SKIN LESIONS, OVER 4 07/13/19 03400-ODTU SKIN LESIONS, OVER 4 04/13/19 94056-VLHX SKIN LESIONS, OVER 4 08/19/19 24 66837-JLAG SKIN LESIONS, OVER 4 05/20/19 35959-QBJK SKIN LESIONS, OVER 4 11/18/19 24 73741-YYXA SKIN LESIONS, OVER 4 06/19/19 19 95250-XUMZ SKIN LESIONS, OVER 4 05/26/19 87337-QGIS SKIN LESIONS, OVER 4 11/19/19 09766-ULXA SKIN LESIONS, OVER 4 06/16/20 25 48980-OXND SKIN LESIONS, 2 TO 4 02/02/20 17 81607-UAMR SKIN LESIONS, 2 TO 4 11/03/19 17 30495-DHJV SKIN LESIONS, 2 TO 4 04/27/19 17 05378-YNSQ SKIN LESIONS, 2 TO 4 07/28/19 17 29243-LJOF SKIN LESIONS, 2 TO 4 01/13/20 16 13719-WLCZ SKIN LESIONS, 2 TO 4 10/14/19 16 77969-IHNK SKIN LESIONS, 2 TO 4 07/22/19 16 Next Appt Details Provider Name:Kahlil Smith , 03/08/2025 09:30:00 AM, [address] [facility], [address], [place], [address], Insurance Providers Payer Name Payer Address Payer Phone Subscriber Number Group Number Insured Name Patient Relationship to Insured Coverage Start Date Coverage End Date [employer] [address] [place] [address] [id number] Eldon Ryan Self - patient is the insured Medical (General) History Medical History History ICD Code mumps measles chicken pox high blood pressure diabetic type ll Arthritis Diverticulosis High blood pressure Measles Mumps Chicken pox Cholesterol RI - 5'18 Surgical History Surgery Date(Month/Year) skin graft 2008 umbilical hernia repair 01/2004 cardiac catheterization Boil removed from arm 02/2019 kidney stones 2021 cyst removal, back 01/05/22 colonoscopy Hospitalization History Reason Date(Month/Year) Dr. De La Torre [facility] UTI-given Antibiotics 202 2 Walk in- foot injury 06/2021 PT For left shoulder 03/2018 [facility]-Heart Attack 07/26/2017
--- OUTSIDE RECORDS SUMMARY | 2025-02-16 09:32 | XMS_ITS | Patient Health Record ---
Author Organization [facility] Address [address] [place] [address] Care Team Providers Care Quarry Supervisor Name Role Phone Ashley PULLIAM, Anne Primary Care Provider Chago Pinon Jr Unavailable [phone] Allergies Allergen (clinical drug ingredient) Drug/Non Drug Allergy documented on EMR Reaction Allergy Type Onset Date Status bacitracin Bacitracin Unknown Drug Allergy Activ e Results Component Value Reference Range Flag Notes Complete Blood Count no Diff Reviewed date:07/24/2024 02:58:54 PM Interpretation: Performing Lab:[facility], [address] [place] [phone] Notes/Report: White Blood Count 6.7 4.8-10.8 X10*3/uL N Red Blood Count 4.07 4.60-5.80 X10*6/uL L Hemoglobin 12.4 14.0-18.0 g/dl L Hematocrit 37.2 42.0-52.0 % L Mean Corpuscular Volume 91.4 80.0-98.0 fL N Mean Corpuscular Hemoglobin 30.5 27.0-33.0 pg N Mean Corpuscular HGB Conc 33.3 31.0-36.0 g/dl N Red Cell Distribution Width 13.5 11.0-16.0 % N Platelet Count 142 160-400 X10*3/uL L Mean Platelet Volume 11.9 9.4-12.4 fL N NRBC Pct Auto 0.0 0.0-0.2 /100WBC N NRBC Abs Auto 0.000 0.0-0.012 X10*3/uL N Liver Panel Reviewed date:07/24/2024 02:58:41 PM Interpretation: Performing Lab:[facility], [address] [place] [phone] Notes/Report: Bilirubin Total 0.7 0.0-1.0 mg/dL N Bilirubin Direct 0.3 0.0-0.5 mg/dL N Aspartate Amino Transferase 35 5-37 U/L N Alanine Aminotransferase 22 0-40 U/L N Total Protein 6.9 6.5-8.0 g/dL N Albumin Level 4.4 3.5-5.0 g/dL N Alkaline Phosphatase 35 39-117 U/L L IRON PROFILE Reviewed date:07/24/2024 02:58:35 PM Interpretation: Performing Lab:[facility], [address] [place] [phone] Notes/Report: Iron 91 45-160 mcg/dL N Total Iron Binding Capacity 362 228-428 mcg/dL N Percent Iron Saturation 25 15-50 % N Unsaturated Iron Binding 271 Ferritin Reviewed date:07/24/2024 02:58:27 PM Interpretation: Performing Lab:[facility], [address] [place] [phone] Notes/Report: Ferritin 64 20-250 ng/mL N Lipase Reviewed date:07/24/2024 02:58:22 PM Interpretation: Performing Lab:[facility], [address] [place] [phone] Notes/Report: Lipase 22 8-78 U/L N Vitamin B12 and Folate Reviewed date:07/24/2024 02:58:16 PM Interpretation: Performing Lab:[facility], [address] [place] [phone] Notes/Report: Vitamin B12 310 200-900 pg/mL N NORMAL 200-900 PG/ML INDETERMINATE 160-199 PG/ML DEFICIENT < 160 PG/ML Folate 14.0 > or = 4.0 ng/mL Reference Values: > or = 4.0 ng/mL < 4.0 ng/mL suggests folate deficiency Methotrexate, aminopterin and folinic acid (leucovorin) are chemotherapeutic agents whose molecular structures are similar to folate; therefore, the [employer] folate assay cannot be used for patients using these drugs. Reason For Referral No Information Medications Medication SIG (Take, Route, Frequency, Duration) Notes Start Date End Date Status Coenzyme Q-10 30 MG Capsule as directed Orally Active Metoprolol Succinate 50 MG Capsule ER 24 Hour Sprinkle 1 capsule Orally Once a day Active metFORMIN HCl 1000 MG Tablet 1 tablet with a meal Orally twice a day Active Alpha Lipoic Acid Ac tive Aspir-81 Active Multi Vit/Fl Active Terazosin HCl 10 MG Capsule 1 capsule at bedtime Orally Once a day Active Lisinopril 40 MG Tablet 1 tablet Orally Once a day Active Furosemide 20 MG Tablet 1 tablet Orally Once a day Active Omeprazole 20 MG Capsule Delayed Release Oral; Duration: 90 Days A ctive [place] 3 1000 MG Capsule 2 capsules Orall y twice a day Active Finasteride 5 MG Tablet 1 tablet Orally Once a day Active Pioglitazone HCl 45 MG Tablet Oral; Duration: 90 Days Acti ve Fluticasone Propionate 50 MCG/ACT Suspension 1 spray in each nostril Nasally Twice a day Active Rosuvastatin Calcium 40 MG Tablet Oral; Duration: 90 Days Acti ve Ezetimibe 10 MG Tablet 1 tablet Orally O nce a day Active Cinnamon Active Fenofibrate 145 MG Tablet 1 tablet Orall y Once a day Active Trulicity 1.5 MG/0.5ML Solution Auto-injector Subcutaneous; Duration: 84 Days Active Immunizations Vaccine Route Administration Date Status Comme nts Influenza Unknown 01/09/2024 Administered Social History Social History Additional Details Category Social Info Options Details Miscellaneous: Marital status: Occupation: retired Problems Problem Type SNOMED Code ICD Code Onset Dates Problem Status W/U Status Risk Notes Problem Colon cancer screening (843230755) Colon cancer screening (Z12.11) Active confirmed Problem Anemia (222210557) Anemia (D64.9) Active confirmed Problem Long-term current use of drug therapy (184276525) Encounter for long-term (current) use of high-risk medication (Z79.899) Active confirmed Problem History of adenomatous polyp of colon (979523384) History of adenomatous polyp of colon (Z86.0101) Active confirmed Vital Signs Temperature 97.8 degrees Fahrenheit 01/25/2025 Blood pressure diastolic 01 mm Hg 01/25/2025 Height 74 in 01/25/2025 Blood pressure systolic 001 mm Hg 01/25/2025 Weight 287.0 lbs 01/25/2025 BMI 36.84 kg/m2 01/25/2025 Encounters Encounter Location Date Provider Diagnosis [facility] [address] [place] [address] 07/23/2024 Chago Galindo Jr Anemia D64.9 and Other specified symptoms and signs involving the digestive system and abdomen R19.8 [facility] [address] [place] [address] 01/25/2025 Chago Degrootpa Farooq Anemia D64.9 ; Colon cancer screening Z12.11 ; Encounter for long-term (current) use of high-risk medication Z79.899 and History of adenomatous polyp of colon Z86.0101 [facility] [address] [place] [phone] 04/27/2024 Chago Galindo Jr [facility] [address] [place] [phone] 07/24/2024 Chago Galindo Jr Assessments Encounter Date Diagnosis (ICD Code) Assessment Notes Treatment Notes Treatment Clinical Notes Section Notes 07/23/2024 Other specified symptoms and signs involving the digestive system and abdomen (ICD-10 - R19.8) We discussed anemia today. We discussed his symptoms. We recommended further evaluation with laboratory testing and we discussed using fiber supplementation to help regulate his bowels. Appropriate testing has been ordered. Outside laboratory studies and pathology reports/procedure reports were reviewed in detail today. Follow-up will be in 6 to 12 months pending results. Today's visit was 45 minutes. 07/23/2024 Anemia (ICD-10 - D64.9) We discussed anemia today. We discussed his symptoms. We recommended further evaluation with laboratory testing and we discussed using fiber supplementation to help regulate his bowels. Appropriate testing has been ordered. Outside laboratory studies and pathology reports/procedure reports were reviewed in detail today. Follow-up will be in 6 to 12 months pending results. Today's visit was 45 minutes. 01/25/2025 Colon cancer screening (ICD-10 - Z12.11) We discussed further evaluation with colonoscopy for his history of anemia and personal history of colon polyps. We discussed risks and benefits of the procedure today. He will stop fish oil, Trulicity, and aspirin 1 week before the procedure. He will stop furosemide, pioglitazone, and metformin the day before the procedure when he takes the bowel prep. 01/25/2025 Anemia (ICD-10 - D64.9) We discussed further evaluation with colonoscopy for his history of anemia and personal history of colon polyps. We discussed risks and benefits of the procedure today. He will stop fish oil, Trulicity, and aspirin 1 week before the procedure. He will stop furosemide, pioglitazone, and metformin the day before the procedure when he takes the bowel prep. 01/25/2025 Encounter for long-term (current) use of high-risk medication (ICD-10 - Z79.899) We discussed further evaluation with colonoscopy for his history of anemia and personal history of colon polyps. We discussed risks and benefits of the procedure today. He will stop fish oil, Trulicity, and aspirin 1 week before the procedure. He will stop furosemide, pioglitazone, and metformin the day before the procedure when he takes the bowel prep. 01/25/2025 History of adenomatous polyp of colon (ICD-10 - Z86.0101) We discussed further evaluation with colonoscopy for his history of anemia and personal history of colon polyps. We discussed risks and benefits of the procedure today. He will stop fish oil, Trulicity, and aspirin 1 week before the procedure. He will stop furosemide, pioglitazone, and metformin the day before the procedure when he takes the bowel prep. Plan Of Treatment Pending Test Test Name Order Date LIVER PROFILE 07/23/2024 LIPASE 07/23/2024 IRON + IBC (FE) 07/23/2024 FERRITIN 07/23/2024 B12 07/23/2024 FOLATE 07/23/2024 CBC w/o DIFF 07/23/2024 Future Test Test Name Order Date COLONOSCOPY 06/05/2013 COLONOSCOPY 01/25/2025 Insurance Providers Payer Name Payer Address Payer Phone Subscriber Number Group Number Insured Name Patient Relationship to Insured Coverage Start Date Coverage End Date [facility] [address] [facility] [place] [phone] [id number] ROSALINA RYAN Self - patient is the insured 4 Medical (General) History Medical History History ICD Code Colonoscopy 04/08/2023, multiple adenomas, 2-year follow-up. hypertension gout type II diabetes Coronary artery disease with history of stent placement and CO MICHAEL BPH Peripheral vascular disease Surgical History Surgery Date(Month/Year) skin graft 2008 Coronary stent placement 2017 Laser therapy for lower extremity venous insufficiency
[2025-02-16 12:00] LABS: Alanine Aminotransferase 22 U/L (0-40); Albumin Level 4.6 g/dL (3.5-5.0); Alkaline Phosphatase 36 U/L (39-117); Anion Gap 13 (12-20); Aspartate Amino Transferase 35 U/L (5-37); Blood Urea Nitrogen 25 mg/dL (9-16); Calcium 9.6 mg/dL (8.4-10.2); Carbon Dioxide 28 mmol/L (22-29); Chloride 104 mmol/L (96-108); Cholesterol 101 mg/dL (<200); Estimated Glomerular Filt Rate 41; HDL Cholesterol 37 mg/dL (>40); Potassium 4.2 mmol/L (3.3-5.1); Sodium 141 mmol/L (135-145); Total Protein 7.1 g/dL (6.5-8.0); Triglycerides 108 mg/dL (<150)
== END 2025-02-16 08:48 | disposition home or self-care (01) ==
LOC: HO.HMGCLDS 08:47
PROVIDERS: PCP Internal Medicine; Visit Provider Internal Medicine
DX: E11.59 Type 2 diabetes mellitus with other circulatory complications (principal)
CPT/HCPCS: 36415; 80053; 80061; 83036

== ENCOUNTER 2025-02-18 11:23 | Outpatient (AMB) | payer MEDICARE, SELFPAY ==
--- OUTSIDE RECORDS SUMMARY | 2024-02-17 09:00 | XMS_ITS ---
Author Organization [facility] Address [address] [place] [place] [address] Care Team Providers Care Shearing Shed Hand Name Role Phone Ashley PULLIAM, Anne Llamas Primary Care Provider Un available Kahlil Smith Unavailable [phone] Encounters Encounter Location Date [facility] [address] 02/17/2024 Kahlil Smith Plan Of Treatment Next Appt Details Provider Name:Kahlil Smith , 03/08/2025 09:30:00 AM, [address] [place] [address], [address], Progress Notes * Eldon RYAN GDOB:[birth year] (75 yo M)Acc No.[id number]:02/17/2024 Progress Note Patient: Eldon CONCEPCION Provider: Gentry Smith DPM :1950 A ge:74 Y S ex:Male Date:02/17/2024 Address:[address] [place], [place] [address]Sanjeev [id number] Pcp:Colin Borrego Subjective: * Chief Complaints: * * Medical History: Objective: * Vitals: Assessment: Plan: * Treatment: * Images: * The named appointment provid er may or may not be the originator of this progress note, and it is not deemed complete until electronically signed by the appointment provider. Sign off status: Pending * Provider: Gentry Smith DPM Date: 1 04/19/2023 Generated for Ashley monteiro/Hola on: 04/21/2024 02:58 PM EST
--- NOTE | 2025-02-18 11:24 | A.OFFVIS_ITS ---
Vital Signs 02/18/25 11:25 Height 6 ft 3 in Weight 290 lb 0.163 oz BMI 36.2 BP 124/68 Blood Pressure Location Rt brachial Position Sitting Pulse 96 Pulse Source Pulse Oximeter Pulse Oximetry (%) 97 Oxygen Delivery Method Room Air Intake Visit Reasons: DM Intake Note: Patient presents today for a follow-up on Type 2 Diabetes Mellitus: Last Diabetic eye exam was on: DUE, next appt coming up in February?? Last Podiatry exam was on: 08/17/2024, [facility] Most recent HbA1c: 5.9, 02/16/2025 Random Glucose: 111 mg/dL Health Screener Required: No Accompanied by: Self / Same As Patient Allergies bacitracin (BACITRACIN) Allergy (Mild, Verified 02/18/25 11:28) DERMATITIS, rash, rash HPI Comments Details: This is a 74-year-old male with diabetes mellitus, thyroid nodules presenting for diabetic follow-up Medical history: CAD status post IL, CHF, peripheral vascular disease, hypertension, hyperlipidemia, BPH Current medications: Metformin 1000mg b.i.d Actos 45mg Trulicity 1.5mg weekly stopped glipizide 5 ER daily due to frequent hypoglycemia. Had stopped Trulicity 3 mg weekly previously due to copay. Previously intolerant to Ozempic. Previously on Invokana, never started Jardiance. The trulicity has cost him up to $600 -4 times a year. A1C 02/16/25 5.9% from 6.4 from 7.7% Dexcom downloaded: 82% target, 18% high, 0% low. GMI 6.9%. Microvascular/macrovascular: CAD, peripheral vascular disease, nonproliferative diabetic retinopathy. On statin & CARMEN-I Last ophthalmology evaluation: due Sees Podiatry every 3 months-Dr Garcia: utd-08/2024 Sees dermatology next week 10/14/2019 Right Thyroid Lobe: 3.9 x 1.6 x 1.8 cm, volume 5.9 mL. Previously 4.6 x 2.2 x 1.7 cm, volume 8.8 mL. Parenchyma: The gland echotexture is homogeneous. Thyroid vascularity is normal. Left Thyroid Lobe: 3.6 x 1.8 x 1.7 cm, volume 5.8 mL. Previously 4.2 x 2.1 x 2.0 cm, volume 9.1 mL. Parenchyma: The gland echotexture is homogeneous. Thyroid vascularity is normal. Isthmus: 0.5 cm in maximum AP dimension. Previously 0.4 cm. RIGHT THYROID LOBE: No nodules. ISTHMUS: No nodules. LEFT THYROID LOBE: There are 2 nodules seen. 1. Location: Lower. Size: 0.5 x 0.3 x 0.4 cm. Previous: 0.7 x 0.4 x 0.5 cm. Nodule characteristics: Hypoechoic and smooth without flow. 2. Location: Lower. Size: 0.7 x 0.6 x 0.6 cm. Previous: 0.8 x 0.6 x 0.6 cm. Nodule characteristics: Heterogeneous and smooth without flow. NODES: A 9 mm lymph node is noted in the right neck. ROS CONSTITUTIONAL: Denies weight loss, fever and chills. HEENT: Denies changes in vision and hearing. RESPIRATORY: Denies SOB and cough. CV: Denies palpitations and CP. Reports increase in LE edema/fluid retention GI: Denies abdominal pain, nausea, vomiting and diarrhea. : Denies dysuria and urinary frequency. MSK: Denies new myalgia and joint pain. SKIN: Denies rash and pruritus. NEUROLOGICAL: Denies headache PSYCHIATRIC: Denies recent changes in mood. PHYSICAL EXAM: GENERAL: Alert and oriented x 3. NAD EYES: EOMI. Anicteric. HENT: Moist mucous membranes. No scleral icterus. No cervical lymphadenopathy. LUNGS: Clear to auscultation bilaterally. CARDIOVASCULAR: Regular rate and rhythm. No murmur. No JVD. ABDOMEN: Soft, non-tender +bs EXTREMITIES: Trace to 1+ b/l edema SKIN: No rashes or lesions. Warm. NEUROLOGIC: No focal neurological deficits. CN II-XII grossly intact PSYCHIATRIC: Cooperative. Appropriate mood and affect [facility] Medical History Hx of adenomatous colonic polyps Anemia Diabetes mellitus, without long-term current use of insulin Hammertoes of both feet Positive colorectal cancer screening using Cologuard test Vitamin D deficiency Hearing loss Hypertension Dyslipidemia Non-toxic multinodular goiter Diabetic neuropathy associated with type 2 diabetes mellitus Allergic rhinitis MICHAEL on CPAP Obesity CAD (coronary artery disease) Surgical History H/O colonoscopy Stented coronary artery Family History Father Diabetes Substance use disorder Mother Hypertension Mental health disorder Social History Housing: House Alcohol intake: never Patient Tobacco Use Status: Former Tobacco user e-Cigarette/Vaping Use: Never Used Current occupational status: retired Cognitive needs: No Hearing needs: Yes Vision needs: Yes Physical Exam Vital Signs: Last Vital Signs Pulse 96 02/18/25 11:25 BP 124/68 02/18/25 11:25 Pulse Ox 97 02/18/25 11:25 Oxygen Delivery Method Room Air 02/18/25 11:25 BMI result Body Mass Index 36.2 Results Reviewed Results Reviewed: Laboratory Last Values Glucose (Clinic) 111 mg/dL (60-115) 02/18/25 11:31 Assessment & Plan Assessment & Plan (1) Diabetes mellitus, without long-term current use of insulin: Code(s): E11.9 - Type 2 diabetes mellitus without complications Category: Medical Qualifiers: Diabetes mellitus complication detail: with other circulatory complications Diabetes mellitus complication status: with circulatory complication Diabetes mellitus type: type 2 Qualified Code(s): E11.59 - Type 2 diabetes mellitus with other circulatory complications (2) Hypertension: Code(s): I10 - Essential (primary) hypertension Category: Medical Qualifiers: Hypertension type: primary hypertension Qualified Code(s): I10 - Essential (primary) hypertension Plan 75 year old for diabetic follow up Diabetes is now controlled on current medication Continue current dosing. Treat any hypoglycemia by rules of 15s Follow up 3 months or sooner Orders: Orders AMB Hemoglobin A1c Today E11.59 - Type 2 diabetes mellitus with other circulatory complications Coding Level of Care Code Est Pt Level 4 (90781) Diagnoses Type 2 diabetes mellitus with other circulatory complication, without long-term current use of insulin E11.59 Diabetes mellitus complication detail: with other circulatory complications Diabetes mellitus complication status: with circulatory complication Diabetes mellitus type: type 2 Primary hypertension I10 Hypertension type: primary hypertension
[2025-02-18 11:25] VITALS: BP 124/68; PULSE 96; O2SAT 97; BMI 36.2
[2025-02-18 11:35] LABS: Glucose, Whole Blood 111 mg/dL (60-115)
--- OUTSIDE RECORDS SUMMARY | 2025-02-18 14:59 | XMS_ITS | Patient Health Record ---
Author Organization [facility] Griselda banerjee [place] Address [address] [place] [address] Care Team Providers Care Outside Plant Cable Engineer Name Role Phone Ashley PULLIAM, Anne Llamas Primary Care Provider Un available Kahlil Smith Unavailable [phone] Allergies Allergen (clinical drug ingredient) Drug/Non Drug [...] 5 day(s) Not-Taking Daily Vitamin Active Saw Wister Not-Sukhjinder ing Furosemide Active Lisinopril Active Metformin [...] each day Orally Once a day Not-Taking Britton-3 1000 MG 2 capsule Orally Twi ce [...] Problem Acquired hammer toe of right foot ([id number] ) Other hammer toe(s) (acquired), right foot (M20.41) Active confirmed Problem Acquired hammer toe of left foot ([id number] ) Other hammer toe(s) (acquired), left foot (M20.42) Active confirmed Problem Polyneuropathy due to type 2 diabetes mellitus (573604217) Type 2 diabetes mellitus with diabetic polyneuropathy (E11.42) Active confirmed Vital Signs Blood pressure diastolic 65 mm Hg 11/18/2024 Height 6ft 2in in 11/18/2024 Blood pressure systolic 128 mm Hg 11/18/2024 Weight 295 lbs 11/18/2024 BMI 37.87 kg/m2 11/18/2024 Procedures Procedure Date Ordered Date Performed Result Body Sit e 06087-TEPXFWA NAIL, 6 OR MORE 05/25/2024 N/A 38893-HJCQ SKIN LESIONS, OVER 4 05/25/2024 N/A 84882-YYYBLUY NAIL, 6 OR MORE 08/17/2024 N/A 47288-BJWX SKIN LESIONS, OVER 4 08/17/2024 N/A 26720-ZRBNHXG NAIL, 6 OR MORE 11/18/2024 N/A 81252-YEJV SKIN LESIONS, OVER 4 11/18/2024 N/A Encounters Encounter Location Date Provider Diagnosis [address] [address] 05/25/2024 Kahliljanae Smith Type 2 diabetes mellitus with diabetic polyneuropathy E11.42 ; Tinea unguium B35.1 ; Other hammer toe(s) (acquired), right foot M20.41 and Other hammer toe(s) (acquired), left foot M20.[address] [address] 08/17/2024 Kahlil Luis Type 2 diabetes mellitus with diabetic polyneuropathy E11.42 and Tinea unguium B35.[address] [address] 08/26/2024 Kahliljanae Smith Tinea pedis of both feet B35.[address] [address] 11/18/2024 Kahlil Luis Type 2 diabetes mellitus with diabetic polyneuropathy E11.42 ; Tinea unguium B35.1 and Tinea pedis of both feet B35.3 [facility] [place] [address] [place] [address] 08/20/2024 Kahlil Smith Assessments Encounter Date Diagnosis [...] X ray : Foot, right 3V 11/06/2023 19899-BFZIWCL NAIL, 6 OR MORE 11/18/2023 31656-INLEOQX NAIL, 6 OR MORE 05/25/2024 18911-XQBGEHW NAIL, 6 OR MORE 05/20/2023 97672-TNKOHMC NAIL, 6 OR MORE 08/19/2023 13258-YELVPTQ NAIL, 6 OR MORE 08/17/2024 14069-INYPIFQ NAIL, 6 OR MORE 11/18/2024 47715-ZITIONV NAIL, 6 OR MORE 04/13/2021 63687-PRQRTOH NAIL, 6 OR MORE 07/12/2021 14194-AKORCFH NAIL, 6 OR MORE 10/11/2021 65936-MAJBKCR NAIL, 6 OR MORE 01/29/2022 12559-JYQFTQO NAIL, 6 OR MORE 04/30/2022 85369-KFWEURZ NAIL, 6 OR MORE 08/06/2022 06699-OQFYIDR NAIL, 6 OR MORE 11/12/2022 48008-YYRDFDO NAIL, 6 OR MORE 02/18/2023 64694-SZGIRMT NAIL, 6 OR MORE 07/22/2015 24285-HKLYTAJ NAIL, 6 OR MORE 10/14/2015 87294-GYRJIGF NAIL, 6 OR MORE 01/13/2016 35081-YHFJBRU NAIL, 6 OR MORE 04/27/2016 92049-PDFTBNH NAIL, 6 OR MORE 07/27/2016 67578-MDVJLAZ NAIL, 6 OR MORE 11/02/2016 34516-LUQBCPM NAIL, 6 OR MORE 02/01/2017 55452-MAHQXRR NAIL, 6 OR MORE 05/03/2017 55002-PPTOIWC NAIL, 6 OR MORE 09/05/2017 78029-ITAZLZQ NAIL, 6 OR MORE 12/05/2017 70628-WYFAEPD NAIL, 6 OR MORE 03/19/2018 90843-ABSJDHQ NAIL, 6 OR MORE 06/18/2018 60277-TJYGAQQ NAIL, 6 OR MORE 09/17/2018 56320-GOUGAGE NAIL, 6 OR MORE 12/17/2018 65064-GDPPJLN NAIL, 6 OR MORE 03/18/2019 74558-AEVUMUH NAIL, 6 OR MORE 07/15/2019 20690-GOIHLLT NAIL, 6 OR MORE 10/14/2019 85513-MHCTSBZ NAIL, 6 OR MORE 01/13/2020 50834-PJAZPIO NAIL, 6 OR MORE 04/13/2020 44212-ONVSEPR NAIL, 6 OR MORE 07/13/2020 16607-IWTVILX NAIL, 6 OR MORE 10/12/2020 01466-UKDFTVE NAIL, 6 OR MORE 01/12/2021 47283-Brrrdlme Plate 01/12/2021 92851-Yobmfdjf Plate 10/12/2020 68440-Oylrrjyx Plate 07/13/2020 87873-Hdkxtrtq Plate 04/13/2020 58104-Rnxdmilb Plate 01/13/2020 97762-Bkjnurjf Plate 10/14/2019 01215-Xswpiqsq Plate 07/15/2019 63422-Mzmufomi Plate 03/18/2019 97864-Dpznnbww Plate 12/17/2018 39595-Wxjhdurp Plate 09/17/2018 25134-Wbnbxobn Plate 03/19/2018 64864-Hflqmpfw Plate 12/05/2017 83187-Qqgtqyty Plate 09/05/2017 99195-Wwnwdyso Plate 02/18/2023 76377-Mhujeomv Plate 11/12/2022 07411-Mamsxqof Plate 08/06/2022 83745-Muekuyhp Plate 04/30/2022 15928-Bzxemqhd Plate 01/29/2022 35179-Xwfvtaxc Plate 10/11/2021 26091-Odbvzyca Plate 07/12/2021 25239-Omhcyrjr Plate 04/13/2021 88925-Xiatmlob Plate 07/27/2016 96072-Bsgpbkay Plate 08/19/2023 34916-Gqidwcmu Plate 05/20/2023 41669-Pjnarouh Plate 06/18/2018 68604-Yxqzfkdj Plate 11/18/2023 92254-Ggtamiid Plate Each Additional 49473-Cguxiqsb Plate Each Additional 03563-Xxaeitmo Plate Each Additional 12455-Buqbsmhc Plate Each Additional 12/2021 58098-Wpkzqzmi Plate Each Additional 01/2022 40179-Bujkuwpz Plate Each Additional 12/2021 53727-Pyvbzdwo Plate Each Additional 51893-Iydkszoa Plate Each Additional 72110-Vfdqklmr Plate Each Additional 07/2022 07827-Jdjjbxum Plate Each Additional 01/2023 73509-Ireonozq Plate Each Additional 63449-Xeqyvhir Plate Each Additional 32615-Napidrrc Plate Each Additional 18387-Ffwttjga Plate Each Additional 35176-Yjpugleo Plate Each Additional 33539-Qjtbtiby Plate Each Additional 49293-Yjkjutss Plate Each Additional 26186-Zndduhng Plate Each Additional 02/2020 06217-Fgedeijr Plate Each Additional 01/2020 95131-Glvdwtjj Plate Each Additional 12/2020 41845-Mqjimlxk Plate Each Additional 02/2021 97787-Zxbfiedn Plate Each Additional 01/2021 45161-Vnlqxkoq Plate Each Additional 01/2021 42406-HMOC SKIN LESIONS, OVER 4 01/13/20 62336-SFYN SKIN LESIONS, OVER 4 10/13/19 60319-QWAL SKIN LESIONS, OVER 4 07/14/19 48852-EDMW SKIN LESIONS, OVER 4 04/13/19 59798-JMVU SKIN LESIONS, OVER 4 01/13/20 61562-YADX SKIN LESIONS, OVER 4 10/14/19 81475-PITP SKIN LESIONS, OVER 4 07/15/19 12131-FBKN SKIN LESIONS, OVER 4 03/18/19 18092-AGXC SKIN LESIONS, OVER 4 12/18/19 38501-PXRB SKIN LESIONS, OVER 4 09/18/19 19 81568-ATAY SKIN LESIONS, OVER 4 03/19/19 19 65273-UNEK SKIN LESIONS, OVER 4 12/06/19 18 50449-HAFH SKIN LESIONS, OVER 4 09/06/19 18 30095-NELX SKIN LESIONS, OVER 4 05/04/19 18 35272-AKXM SKIN LESIONS, OVER 4 02/19/20 23 78354-HVIZ SKIN LESIONS, OVER 4 11/13/19 23 55876-SWGO SKIN LESIONS, OVER 4 08/07/19 23 01463-IWDR SKIN LESIONS, OVER 4 04/30/19 23 19612-UVKV SKIN LESIONS, OVER 4 01/30/20 22 13723-XRKS SKIN LESIONS, OVER 4 10/12/19 22 44848-MRRK SKIN LESIONS, OVER 4 07/13/19 22 65205-OEVK SKIN LESIONS, OVER 4 04/13/19 22 98456-KYGH SKIN LESIONS, OVER 4 08/19/19 24 11632-ZUZP SKIN LESIONS, OVER 4 05/20/19 24 98398-HFXD SKIN LESIONS, OVER 4 11/18/19 52704-ZSZA SKIN LESIONS, OVER 4 06/19/19 19 88135-JDYI SKIN LESIONS, OVER 4 05/26/19 02588-YSYS SKIN LESIONS, OVER 4 11/19/19 62637-JSJK SKIN LESIONS, OVER 4 08/18/19 81138-NEAS SKIN LESIONS, 2 TO 4 02/02/20 03677-IAVP SKIN LESIONS, 2 TO 4 09/01/20 17 00143-DJQQ SKIN LESIONS, 2 TO 4 04/27/19 17 37978-UETR SKIN LESIONS, 2 TO 4 07/28/19 17 23319-KAHR SKIN LESIONS, 2 TO 4 01/13/20 16 66494-FXAK SKIN LESIONS, 2 TO 4 10/14/19 16 62122-UPSL SKIN LESIONS, 2 TO 4 07/22/19 16 Next Appt Details Provider Name:Kahlil Smith , 03/08/2025 09:30:00 AM, [address] [facility], [address], [place], [address], Insurance Providers Payer Name Payer Address Payer Phone Subscriber Number Group Number Insured Name Patient Relationship to Insured Coverage Start Date Coverage End Date [employer] [address] [place] [address] [id number] Eldon Ryan Self - patient is the insured Medical (General) History Medical History History ICD Code mumps measles chicken pox high blood pressure diabetic type ll Arthritis Diverticulosis High blood pressure Measles Mumps Chicken pox Cholesterol NV - 5'18 Surgical History Surgery Date(Month/Year) skin graft 2009 umbilical hernia repair 01/2004 cardiac catheterization Boil removed from arm 02/2019 kidney stones 2021 cyst removal, back 01/05/22 colonoscopy Hospitalization History Reason Date(Month/Year) [place]. [place] [facility] [place] Antibiotics 202 2 Walk in- foot injury 06/2021 PT For left shoulder 03/2018 [facility]-Heart Attack 07/26/2017
--- OUTSIDE RECORDS SUMMARY | 2025-02-18 14:59 | XMS_ITS | Patient Health Record ---
Author Organization [facility] Address [address] [place] [address] Care Team Providers Care Appellate Court Clerk Name Role Phone Ashley PULLIAM, Anne Primary Care Provider Chago Pinon Jr Unavailable Allergies Allergen (clinical drug ingredient) Drug/Non Drug Allergy documented on EMR Reaction Allergy Type Onset Date Status bacitracin Bacitracin Unknown Drug Allergy Activ e Results Component Value Reference Range Flag Notes Complete Blood Count no Diff Reviewed date:07/24/2024 02:58:54 PM Interpretation: Performing Lab:[facility], [address] [place] [phone] Notes/Report: White Blood Count 6.7 4.8-10.8 X10*3/uL [...] Panel Reviewed date:07/24/2024 02:58:41 PM Interpretation: Performing Lab:[facility], [address] [place] [phone] Notes/Report: Bilirubin Total 0.7 0.0-1.0 mg/dL N Bilirubin Direct 0.3 0.0-0.5 mg/dL N Aspartate Amino Transferase 35 5-37 U/L N Alanine Aminotransferase 22 0-40 U/L N Total Protein 6.9 6.5-8.0 g/dL N Albumin Level 4.4 3.5-5.0 g/dL N Alkaline Phosphatase 35 39-117 U/L L IRON PROFILE Reviewed date:07/24/2024 02:58:35 PM Interpretation: Performing Lab:[facility], [address] [place] [phone] Notes/Report: Iron 91 45-160 mcg/dL N Total Iron Binding Capacity 362 228-428 mcg/dL N Percent Iron Saturation 25 15-50 % N Unsaturated Iron Binding 271 Ferritin Reviewed date:07/24/2024 02:58:27 PM Interpretation: Performing Lab:[facility], [address] [place] [phone] Notes/Report: Ferritin 64 20-250 ng/mL N Lipase Reviewed date:07/24/2024 02:58:22 PM Interpretation: Performing Lab:[facility], [address] [place] [phone] Notes/Report: Lipase 22 8-78 U/L N Vitamin B12 and Folate Reviewed date:07/24/2024 02:58:16 PM Interpretation: Performing Lab:[facility], [address] [place] [phone] Notes/Report: Vitamin B12 310 200-900 pg/mL N NORMAL 200-900 PG/ML INDETERMINATE 160-199 PG/ML DEFICIENT < 160 PG/ML Folate 14.0 > or = 4.0 ng/mL Reference Values: > or = 4.0 ng/mL < 4.0 ng/mL suggests folate deficiency Methotrexate, aminopterin and folinic acid (leucovorin) are chemotherapeutic agents whose molecular structures are similar to folate; therefore, the Edger Machine Helper folate assay cannot be used for [...] Release Oral; Duration: 90 Days A ctive [facility] 3 1000 MG Capsule 2 capsules Orall [...] Status Risk Notes Problem Colon cancer screening (923466044) Colon cancer screening (Z12.11) Active confirmed Problem Anemia (089233930) Anemia (D64.9) Active confirmed Problem Long-term current use of drug therapy (633998523) Encounter for long-term (current) use of high-risk medication (Z79.899) Active confirmed Problem History of adenomatous polyp of colon (431254664) History of adenomatous polyp of colon (Z86.0101) Active confirmed Vital Signs Temperature 97.8 degrees Fahrenheit 01/25/2025 Blood pressure diastolic 01 mm Hg 01/25/2025 Height 74 in 01/25/2025 Blood pressure systolic 001 mm Hg 01/25/2025 Weight 287.0 lbs 01/25/2025 BMI 36.84 kg/m2 01/25/2025 Encounters Encounter Location Date Provider Diagnosis [facility] [address] [place] [address] 07/23/2024 Chago Galindo Jr Anemia D64.9 and Other specified symptoms and signs involving the digestive system and abdomen R19.8 [facility] [address] [place] [address] 01/25/2025 Chago Degrootpa Farooq Anemia D64.9 ; Colon cancer screening Z12.11 ; Encounter for long-term (current) use of high-risk medication Z79.899 and History of adenomatous polyp of colon Z86.0101 [facility] [address] [place] [address] 04/27/2024 Chago Galindo Jr [facility] [address] [place] [address] 07/24/2024 Chago Galindo Jr Assessments Encounter Date [...] Insured Coverage Start Date Coverage End Date [facility] [address] [employer] [facility] [place] [phone] [id number] ROSALINA RYAN Self - patient is the insured 4 Medical (General) History Medical History History ICD Code Colonoscopy 04/08/2023, multiple adenomas, 2-year follow-up. hypertension gout type II diabetes Coronary artery disease with history of stent placement and DE MICHAEL BPH Peripheral vascular disease Surgical History Surgery Date(Month/Year) skin graft 2008 Coronary stent placement 2017 Laser therapy for lower extremity venous insufficiency
== END 2025-02-18 11:47 | disposition home or self-care (01) ==
LOC: HO.ENCR 11:24
PROVIDERS: PCP Internal Medicine; Visit Provider Internal Medicine
DX: E11.59 Type 2 diabetes mellitus with other circulatory complications (principal); I10 Essential (primary) hypertension

== ENCOUNTER → 2025-02-18 11:23 | Outpatient (BNVA) | payer MEDICARE, SELFPAY | PROVIDERS: PCP Internal Medicine; Visit Provider Internal Medicine | DX: E11.59 Type 2 diabetes mellitus with other circulatory complications (principal); I10 Essential (primary) hypertension; Z79.4 Long term (current) use of insulin | CPT/HCPCS: 82947; 99212 ==